=== PATIENT | male | born 1965 | race Caucasian/White ===

== ENCOUNTER 2020-06-26 16:29 | Outpatient (REF) | payer OTHER, SELFPAY ==
[2020-06-26 18:11] LABS: MANUAL DIFF FLAG NO
[2020-06-26 18:18] LABS: Basophils Absolute Auto 0.1 X10*3/uL (0.0-0.2); Basophils Percent Auto 0.8 % (0-2); Eosinophils Absolute Auto 0.2 X10*3/uL (0.0-0.4); Eosinophils Percent Auto 1.8 % (0-4); Hemoglobin 14.3 g/dl (14.0-18.0); Imm Gran Abs Auto 0.02 X10*3/uL (0.00-0.03); Imm Gran Pct Auto 0.2 % (0.0-0.4); Lymphocytes Absolute Auto 4.5 X10*3/uL (1.2-4.9); Lymphocytes Percent Auto 44.8 % (20-40); Mean Corpuscular HGB Conc 33.3 g/dl (31.0-36.0); Mean Corpuscular Hemoglobin 32.6 pg (27.0-33.0); Mean Corpuscular Volume 98.2 fL (80-98); Mean Platelet Volume 10.4 fL (9.4-12.4); Monocytes Absolute Auto 1.1 X10*3/uL (0.1-1.2); Neutrophils Absolute Auto 4.2 X10*3/uL (2.0-8.3); Neutrophils Percent Auto 41.4 % (45-73); Platelet Count 444 X10*3/uL (160-400); Red Blood Count 4.38 X10*6/uL (4.60-5.80); White Blood Count 10.1 X10*3/uL (4.8-10.8)
[2020-06-26 18:46] LABS: Alanine Aminotransferase 19 U/L (0-40); Albumin Level 4.3 g/dL (3.5-5.0); Alkaline Phosphatase 56 U/L (39-117); Anion Gap 12 (12-20); Aspartate Amino Transferase 16 U/L (5-37); Bilirubin Direct < 0.2 mg/dL (0.0-0.5); Bilirubin Total 0.3 mg/dL (0.0-1.0); Blood Urea Nitrogen 14 mg/dL (9-16); Calcium 9.1 mg/dL (8.4-10.2); Carbon Dioxide 28 mmol/L (22-29); Chloride 104 mmol/L (96-108); Estimated Glomerular Filt Rate > 60; Glucose Random 109 mg/dL (60-115); Magnesium 2.1 mg/dL (1.6-2.6); Potassium 4.5 mmol/l (3.3-5.1); Sodium 139 mmol/L (135-145); Total Protein 7.3 g/dL (6.5-8.0)
[2020-07-02 18:51] LABS: Chromogranin A 88 ng/mL (25-140)
== END 2020-06-26 16:30 | disposition home or self-care (01) ==
LOC: HO.LAB 16:29
PROVIDERS: Absent Provider Internal Medicine; PCP Internal Medicine; Referring Provider Internal Medicine; Visit Provider Student in an Organized Health Care Education/Training Program
DX: C25.4 Malignant neoplasm of endocrine pancreas (principal)
CPT/HCPCS: 36415; 80048; 80076; 83735; 85025; 86316

== ENCOUNTER 2020-08-18 09:45 | Outpatient (REF) | payer OTHER, SELFPAY ==
[2020-08-18 10:18] LABS: COVID-19 Test Negative (Negative)
== END 2020-08-18 09:46 | disposition home or self-care (01) ==
LOC: HO.EMPCOV 09:45
PROVIDERS: Referring Provider Internal Medicine; Visit Provider Internal Medicine
DX: Z20.828 Contact with and (suspected) exposure to other viral communicable diseases (principal)
CPT/HCPCS: 87635; C9803

== ENCOUNTER 2020-08-18 16:03 | Outpatient (REF) | payer OTHER, SELFPAY ==
[2020-08-18 17:13] LABS: MANUAL DIFF FLAG NO
[2020-08-18 17:18] LABS: Basophils Absolute Auto 0.1 X10*3/uL (0.0-0.2); Basophils Percent Auto 0.5 % (0-2); Eosinophils Absolute Auto 0.3 X10*3/uL (0.0-0.4); Eosinophils Percent Auto 2.9 % (0-4); Hemoglobin 15.1 g/dl (14.0-18.0); Imm Gran Abs Auto 0.04 X10*3/uL (0.00-0.03); Imm Gran Pct Auto 0.3 % (0.0-0.4); Lymphocytes Absolute Auto 4.3 X10*3/uL (1.2-4.9); Lymphocytes Percent Auto 35.8 % (20-40); Mean Corpuscular HGB Conc 33.6 g/dl (31.0-36.0); Mean Corpuscular Hemoglobin 32.1 pg (27.0-33.0); Mean Corpuscular Volume 95.5 fL (80-98); Mean Platelet Volume 9.6 fL (9.4-12.4); Monocytes Absolute Auto 1.2 X10*3/uL (0.1-1.2); Monocytes Percent Auto 10.3 % (2-11); Neutrophils Percent Auto 50.2 % (45-73); Platelet Count 454 X10*3/uL (160-400); Red Blood Count 4.71 X10*6/uL (4.60-5.80); Red Cell Distribution Width 13.1 % (11.0-16.0); White Blood Count 11.9 X10*3/uL (4.8-10.8)
[2020-08-18 17:57] LABS: Alanine Aminotransferase 22 U/L (0-40); Albumin Level 4.5 g/dL (3.5-5.0); Alkaline Phosphatase 58 U/L (39-117); Anion Gap 14 (12-20); Aspartate Amino Transferase 18 U/L (5-37); Bilirubin Total 0.6 mg/dL (0.0-1.0); Blood Urea Nitrogen 16 mg/dL (9-16); C Reactive Protein 0.86 mg/dL (< or = 0.50); Calcium 9.3 mg/dL (8.4-10.2); Carbon Dioxide 27 mmol/L (22-29); Chloride 104 mmol/L (96-108); Estimated Glomerular Filt Rate > 60; Glucose Random 91 mg/dL (60-115); Lipase 15 U/L (8-78); Potassium 4.8 mmol/l (3.3-5.1); Sodium 140 mmol/L (135-145); Total Protein 7.5 g/dL (6.5-8.0)
== END 2020-08-18 16:04 | disposition home or self-care (01) ==
LOC: HO.LAB 16:03
PROVIDERS: PCP Internal Medicine; Visit Provider Internal Medicine
DX: R19.7 Diarrhea, unspecified (principal); I10 Essential (primary) hypertension; R10.9 Unspecified abdominal pain
CPT/HCPCS: 36415; 80053; 83690; 85025; 86140

== ENCOUNTER 2020-10-20 09:09 | Outpatient (REF) | payer OTHER, SELFPAY ==
--- NOTE | 2020-10-20 09:22 | XR_ITS ---
EXAMINATION: XR SHOULDER, RIGHT CLINICAL INFORMATION: Pain. COMPARISON: None TECHNIQUE: AP neutral, scapular Y, and axillary views of the right shoulder. FINDINGS: The bones and soft tissues are normal. No fracture. Glenohumeral and acromioclavicular alignment is anatomic with normal joint space. No abnormal soft tissue calcifications. XR/XR shoulder RT min 2V IMPRESSION: Normal right shoulder. EXAMINATION: XR SHOULDER, LEFT CLINICAL INFORMATION: Pain. COMPARISON: None TECHNIQUE: AP neutral, scapular Y, and axillary views of the left shoulder. FINDINGS: The bones and soft tissues are normal. No fracture. Glenohumeral and acromioclavicular alignment is anatomic with normal joint space. No abnormal soft tissue calcifications. IMPRESSION: Normal left shoulder.
--- NOTE | 2020-10-20 09:22 | XR_ITS ---
EXAMINATION: XR SHOULDER, RIGHT CLINICAL INFORMATION: Pain. COMPARISON: None TECHNIQUE: AP neutral, scapular Y, and axillary views of the right shoulder. FINDINGS: The bones and soft tissues are normal. No fracture. Glenohumeral and acromioclavicular alignment is anatomic with normal joint space. No abnormal soft tissue calcifications. XR/XR shoulder LT min 2V IMPRESSION: Normal right shoulder. EXAMINATION: XR SHOULDER, LEFT CLINICAL INFORMATION: Pain. COMPARISON: None TECHNIQUE: AP neutral, scapular Y, and axillary views of the left shoulder. FINDINGS: The bones and soft tissues are normal. No fracture. Glenohumeral and acromioclavicular alignment is anatomic with normal joint space. No abnormal soft tissue calcifications. IMPRESSION: Normal left shoulder.
== END 2020-10-20 09:10 | disposition home or self-care (01) ==
LOC: HO.HOSX 09:09
PROVIDERS: PCP Internal Medicine; Visit Provider Orthopaedic Surgery
DX: M75.41 Impingement syndrome of right shoulder (principal); M75.42 Impingement syndrome of left shoulder
CPT/HCPCS: 20610; 73030; J1040

== ENCOUNTER 2020-11-24 14:07 | Outpatient (REF) | payer OTHER, SELFPAY ==
[2020-11-24 14:38] LABS: COVID-19 Test Negative (Negative); IDNOW Serial# 9DD0AD1C
== END 2020-11-24 14:08 | disposition home or self-care (01) ==
LOC: HO.LAB 14:07
PROVIDERS: PCP Internal Medicine; Visit Provider Internal Medicine
DX: Z20.822 Contact with and (suspected) exposure to COVID-19 (principal)
CPT/HCPCS: 36415; 87635

== ENCOUNTER 2020-12-25 08:58 | Outpatient (REF) | payer OTHER, SELFPAY ==
--- NOTE | ~2020-12-25 | CT_ITS ---
EXAMINATION: CT CHEST, ABDOMEN AND PELVIS WITH CONTRAST. CLINICAL INFORMATION: Pancreatic neuroendocrine tumor, surveillance. COMPARISON: CT chest, abdomen pelvis 12/25/2019 TECHNIQUE: 5 mm thin axial and reformatted 3 mm thin sagittal and coronal images of chest were obtained following 100 mL Omnipaque 350. DLP 09 FINDINGS: Chest: There is a patchy atelectasis in the lingula and left upper lobe. There is a 4 minute nodule in the right major fissure axial image 235/3, stable. A 2 mm calcified nodule is seen in the right upper lobe medially axial image 251/9, stable. A 2 mm noncalcified nodule right upper lobe anteriorly subpleural location image 224/3. No additional nodules or masses seen. There is no pleural effusion or thickening. No calcification. The thyroid lobes are symmetrical. The central trachea and the bronchi widely patent. The heart size and the great vessels are normal caliber. No abnormal size mediastinal or hilar lymph nodes seen. There is no pericardial effusion. The axilla and chest wall appears normal. Bone windows reveal no lytic or sclerotic process. There is mild ventral spondylosis mid and lower dorsal spine. ABDOMEN AND PELVIS: The liver is homogeneous in density but mildly attenuated. No focal lesion or intrahepatic ductal dilatation seen. The gallbladder is unremarkable. No common bile duct dilatation seen. Visualized bilateral adrenal glands are unremarkable. The spleen has been surgically removed. Mild of focal lung opacity in the left upper quadrant along the tail of pancreas and area of splenectomy likely postoperative change. The body and the tail of the pancreas has been surgically removed. There is soft tissue density connecting the head of the pancreas to the stomach likely postsurgical cyst, similar to previous previous study Both kidneys are are normal size, shape and position. There are punctate calcification in the mid upper pole left kidney. There is no hydronephrosis. Scattered stool and gas seen throughout the colon the small bowel loops are normal caliber. A small umbilical hernia containing fat is noted. Also visualized is a supraumbilical hernia with wide neck containing small bowel loops and intraperitoneal fat. It measures 4.7 cm wide. There is no free air or free fluid seen. The prostate gland is normal size. The right testes appears to be in the superficial inguinal ring region. Bone windows reveal no lytic or sclerotic process seen. Bone windows reveal mild facet joint disease L5-S1 disc level. No lytic or sclerotic process seen. CT/CT abdomen pelvis w con IMPRESSION: Stable small calcified and noncalcified nodules in the right upper lobe. No new nodules seen. Left upper lobe and lingular scarring is stable. Postsurgical changes along the body and the tail of pancreas. Soft tissue density around the head of pancreas in close approximation the posterior stomach likely postsurgical changes. There is stable. Fatty liver without hepatomegaly, stable. Small umbilical hernia and supraumbilical hernia are all stable.
[2020-12-25 10:58] LABS: Anion Gap 13 (12-20); Blood Urea Nitrogen 18 mg/dL (9-16); Calcium 9.1 mg/dL (8.4-10.2); Carbon Dioxide 28 mmol/L (22-29); Chloride 106 mmol/L (96-108); Estimated Glomerular Filt Rate > 60; Glucose Random 106 mg/dL (60-115); Potassium 4.8 mmol/L (3.3-5.1); Sodium 142 mmol/L (135-145)
== END 2020-12-25 08:59 | disposition home or self-care (01) ==
LOC: HO.CT 08:58
PROVIDERS: Absent Provider Internal Medicine; PCP Internal Medicine; Visit Provider Student in an Organized Health Care Education/Training Program
DX: D3A.8 Other benign neuroendocrine tumors (principal); Z01.812 Encounter for preprocedural laboratory examination
CPT/HCPCS: 36415; 71260; 74177; 80048; Q9967

== ENCOUNTER → 2021-03-16 09:33 | Outpatient (BNVA) | payer OTHER, SELFPAY | PROVIDERS: PCP Internal Medicine; Visit Provider Orthopaedic Surgery | DX: M75.42 Impingement syndrome of left shoulder (principal) | CPT/HCPCS: 20610; J1040 ==

== ENCOUNTER 2021-03-30 16:00 | Outpatient (RCR) | payer OTHER, SELFPAY ==
--- NOTE | 2020-12-30 15:33 | MHC.PT.EP ---
[facility] [place] Office [place] Office [place] Office [address] [place] [address] [phone] F: [phone] F: [phone] F: [phone] F: [phone] Physical Therapy Plan of Care Date of Evaluation: 12/30/20 Date of Surgery: NA Diagnosis: B SHLDER IMPINGEMENT Assessment: Pt IS 55 YO RHD M REFERRED TO PT FROM ORTHO (DR RIVERA) WITH B SHLDER IMPINGEMENT (L SIDE WORSE). Pt HAD SIMILAR ISSUE WITH R SHLDER IN PAST (10-15 YRS AGO) WITH RELIEF FROM CORTISONE INJECTION. RECENTLY RE-STARTED WORKING OUT WITH SOME INCREASE IN SHLDER PAIN. RELIEF AGAIN WITH CORTISONE INJECTIONS (ESPECIALLY ON R)..REPORTS SOME CONTINUED PAIN (ACHE) ON L SHLDER WHICH INCREASES WITH ABDUCTION. SHLDER ROM WFLS (SOME END RANGE TIGHTNESS) WITH PEC TIGHTNESS WITH SLIGHTLY LIMITED SHLDER STRENGTH (ABDUCTION ON R, ABD AND ER ON L) WITH PAIN WITH MMT. Pt CONTINUES TO WORK OUT 3X/WK. HE WORKS AT [employer] [facility] [place] [employer]. GOOD PT CANDIDATE FOR PEC STRETCHING/POSTURE WORK AND RC/SCAP STRENGTHENING Frequency and Duration: The patient will be seen 2X/WK X 6 WKS Short Term Goals: 1. I HEP WITH DC EX PLAN 2. 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 DECREASED SHLDER PAIN AT LEAST 50% WITH ADLS 2. NEG PAIN WITH SHLDER MMT 3. IMPROVED SPADI Treatment Plan: Modalities to reduce pain, spasms and effusion. Manual therapy to restore motion and function. Therapeutic exercise to improve strength and flexibility. Neuromuscular re-education for posture and balance. Therapeutic activities to return to functional activities of daily living. Electronically signed by: ABDULLAHI MCCLELLAN PT Please sign and return to therapist. Thank you for your referral.
--- NOTE | 2021-04-12 14:55 | MHC.PT.DC ---
[facility] [place] Office [place] Office [place] Office [address] [place] [address] [phone] F: [phone] F: [phone] F: [phone] F: [phone] Physical Therapy Discharge Report Diagnosis: B SHLDER IMPINGEMENT Date of Surgery: NA Date of Evaluation: 12/30/20 Date of Discharge: 03/30/21 Treatments to Date: 12 Cancellations to Date: No Shows to Date: Discharge Status: Achieved Goals Improved Function Independent with HEP Discharge Summary: PER LAST PT NOTE BY [facility]:Pt progressed w/gym program and bob dynamic ex's w/o px AND HAS MET PT GOALS Electronically signed by: ABDULLAHI MCCLELLAN PT Please sign and return to therapist. Thank you for your referral.
== END 2021-04-12 14:55 | disposition home or self-care (01) ==
LOC: HO.PT 16:00
PROVIDERS: PCP Internal Medicine; Visit Provider Orthopaedic Surgery
DX: M75.40 Impingement syndrome of unspecified shoulder (principal)
CPT/HCPCS: 97110; 97112; 97161; 97530; 97535

== ENCOUNTER 2021-05-10 13:16 | Outpatient (REF) | payer OTHER, SELFPAY ==
--- NOTE | ~2021-05-10 | FL_ITS ---
PROCEDURE: XR ARTHROGRAM SHOULDER, LEFT CLINICAL INFORMATION: Left shoulder impingement. COMPARISON: None TECHNIQUE: Following explaining fluoroscopy-guided left shoulder arthrogram procedure, benefits and risk, a written consent was obtained. Patient was placed supine on fluoroscopy table and anterior aspect of left shoulder was cleaned and draped in the usual sterile manner. 1% lidocaine was injected at puncture site. A 22-gauge spinal needle was then advanced from the skin into the joint space and 1-2 mL of nonionic contrast was injected and a single image was obtained. Subsequently 0.1 mL of gadolinium diluted with 4 mL of 1% lidocaine and 6 mL of saline as a combo was injected and needle withdrawn. Complete hemostasis achieved at puncture site. Sterile Band-Aid applied postprocedure. Patient tolerate procedure extremely well. FINDINGS: On left shoulder arthrogram images of the glenohumeral and AC joint space is maintained normal. No bony erosive changes or loose body seen. There is no fracture or dislocation. FLUOROSCOPY TIME: 1.1 minute. DOSE AREA PRODUCT: 4.775 uGy-m2 (microgray-meter squared). FL/FL arthrogram shoulder LT IMPRESSION: Fluoroscopy-guided left shoulder arthrogram performed without immediate complications.
--- NOTE | ~2021-05-10 | MR_ITS ---
EXAMINATION: MR SHOULDER WITH CONTRAST, LEFT CLINICAL INFORMATION: Impingement syndrome of left shoulder. Patient reports previous shoulder spur and impingement, range of motion limited, and no recent injury. COMPARISON: XR left shoulder 10/20/2020. TECHNIQUE: MRI of the shoulder was performed following the intra-articular administration of a dilute gadolinium-containing solution (arthrogram) on a high-field scanner. FINDINGS: ROTATOR CUFF: There are patchy and linear areas of intermediate slightly increased T2 signal intensity in the distal supraspinatus and infraspinatus tendons consistent with tendinosis. There are no definite discrete measurable tears, although small interstitial tears may be difficult to entirely exclude. There is moderate increased signal intensity in the distal 21 mm of the subscapularis tendon, particularly along the articular side. This may be related to the injection procedure or moderate tendinosis. This includes a small probable interstitial insertional tear measuring 5 mm transverse. This is difficult to discretely identify and measure on the orthogonal images. The teres minor tendon is intact. There is trace edema/fluid in the subacromial-subdeltoid bursa. No muscle atrophy or fatty infiltration. BICEPS: Normal. CORACOACROMIAL ARCH: The undersurface of the acromion is curved with no subacromial spur. There is mild osteoarthritis of the acromioclavicular joint. LABRUM/CAPSULE: There is an irregular tear of the anteroinferior labrum. The posterior and superior labrum are intact. GLENOHUMERAL JOINT/MARROW: There is patchy mild cartilage irregularity and thinning in the medial humeral head and superior glenoid. MR/MR shoulder LT w con IMPRESSION: 1. Distal supraspinatus and infraspinatus tendinosis. No definite discrete measurable tears. 2. Probable moderate distal subscapularis tendinosis although some of the signal abnormality could be related to the injection procedure. Probable interstitial insertional tear of the distal subscapularis tendon. 3. Mild osteoarthritis of the acromioclavicular joint. 4. Anteroinferior labral tear. 5. Mild glenohumeral arthrosis.
== END 2021-05-10 13:17 | disposition home or self-care (01) ==
LOC: HO.XRAY 13:16
PROVIDERS: PCP Internal Medicine; Visit Provider Orthopaedic Surgery
DX: M75.42 Impingement syndrome of left shoulder (principal)
CPT/HCPCS: 23350; 73040; 73222; A9585

== ENCOUNTER → 2021-06-14 08:01 | Outpatient (BNVA) | payer OTHER, SELFPAY | PROVIDERS: PCP Internal Medicine; Visit Provider Orthopaedic Surgery ==

== ENCOUNTER 2022-01-04 17:28 | Outpatient (REF) | payer OTHER, SELFPAY ==
[2022-01-04 17:45] LABS: MANUAL DIFF FLAG NO
[2022-01-04 17:51] LABS: Basophils Absolute Auto 0.1 X10*3/uL (0.0-0.2); Basophils Percent Auto 0.7 % (0-2); Eosinophils Absolute Auto 0.1 X10*3/uL (0.0-0.4); Eosinophils Percent Auto 1.5 % (0-4); Hematocrit 44.8 % (42.0-52.0); Hemoglobin 15.1 g/dl (14.0-18.0); Imm Gran Abs Auto 0.03 X10*3/uL (0.00-0.03); Imm Gran Pct Auto 0.4 % (0.0-0.4); Lymphocytes Absolute Auto 3.4 X10*3/uL (1.2-4.9); Mean Corpuscular HGB Conc 33.7 g/dl (31.0-36.0); Mean Corpuscular Hemoglobin 31.8 pg (27.0-33.0); Mean Corpuscular Volume 94.3 fL (80.0-98.0); Mean Platelet Volume 9.6 fL (9.4-12.4); Monocytes Absolute Auto 0.9 X10*3/uL (0.1-1.2); Monocytes Percent Auto 10.9 % (2-11); Neutrophils Absolute Auto 3.7 x10*3/uL (2.0-8.3); Neutrophils Percent Auto 45.5 % (45-73); Platelet Count 425 X10*3/uL (160-400); Red Blood Count 4.75 X10*6/uL (4.60-5.80); Red Cell Distribution Width 13.8 % (11.0-16.0); White Blood Count 8.2 X10*3/uL (4.8-10.8)
[2022-01-04 18:06] LABS: Alanine Aminotransferase 20 U/L (0-40); Albumin Level 4.6 g/dL (3.5-5.0); Alkaline Phosphatase 53 U/L (39-117); Anion Gap 15 (12-20); Aspartate Amino Transferase 19 U/L (5-37); Bilirubin Total 0.5 mg/dL (0.0-1.0); Blood Urea Nitrogen 17 mg/dL (9-16); Calcium 10.1 mg/dL (8.4-10.2); Carbon Dioxide 24 mmol/L (22-29); Chloride 104 mmol/L (96-108); Estimated Glomerular Filt Rate > 60; Glucose Random 109 mg/dL (60-115); Magnesium 2.1 mg/dL (1.6-2.6); Potassium 4.2 mmol/L (3.3-5.1); Sodium 139 mmol/L (135-145); Total Protein 7.8 g/dL (6.5-8.0)
[2022-01-04 18:26] LABS: Insulin 13 uU/mL (2-29)
[2022-01-09 16:56] LABS: Chromogranin A 592 ng/mL (ADULTS: <311)
== END 2022-01-04 17:29 | disposition home or self-care (01) ==
LOC: HO.LAB 17:28
PROVIDERS: PCP Internal Medicine; Referring Provider Internal Medicine; Visit Provider Student in an Organized Health Care Education/Training Program
DX: K86.89 Other specified diseases of pancreas (principal)
CPT/HCPCS: 36415; 80053; 83525; 83735; 85025; 86316

== ENCOUNTER 2022-01-05 11:45 | Outpatient (REF) | payer OTHER, SELFPAY ==
--- NOTE | ~2022-01-05 | CT_ITS ---
EXAMINATION: CT CHEST, ABDOMEN AND PELVIS WITH CONTRAST CLINICAL INFORMATION: History of pancreatic neuroendocrine tumor. COMPARISON: 12/25/2020 TECHNIQUE: Multidetector volumetric CT imaging of the chest, abdomen, and pelvis was performed after the administration of 85 mL of Omnipaque 350 intravenous contrast without immediate adverse reactions. Axial MIP volume rendering provided. Sagittal and coronal reformatted images were obtained. DLP: 1209 mGy-cm. FINDINGS: CHEST: LUNGS: Stable 4 mm nodule right lower lobe on image 39. No focal consolidation. Central airways are patent. MEDIASTINUM: Imaged thyroid gland is unremarkable. Great vessels are of normal caliber. Heart size is normal. No pericardial effusion. No bulky axillary, hilar or mediastinal lymphadenopathy. PLEURA: No pleural effusion. ABDOMEN AND PELVIS: LIVER, GALLBLADDER, AND BILIARY TREE: The liver is normal in size, shape, and attenuation. No focal hepatic lesion or biliary ductal dilatation is present. The gallbladder is unremarkable with no evidence of radiopaque gallstones, gallbladder wall thickening, or obvious pericholecystic inflammatory changes. PANCREAS: Status post distal pancreatectomy. Solid soft tissue arising from the body of the pancreas measuring approximately 3.4 x 5.4 cm appears stable. This mass appears to invade the distal stomach/duodenal bulb with possible fistulous communication. No dilatation of the main pancreatic duct. SPLEEN: Surgically absent. Persistent probable fat necrosis in the left upper quadrant. ADRENAL GLANDS: No adrenal masses. KIDNEYS AND URETERS: Symmetric in size and enhancement. No hydronephrosis. There is focal dilatation of the right distal ureter which measures 1.9 x 2.4 cm at the pelvic brim. BLADDER: Underdistended. GASTROINTESTINAL TRACT: Diffuse gastric wall thickening despite underdistention. No small bowel obstruction. Appendix is within normal limits. ABDOMINAL WALL: Fat-containing left inguinal hernia. Ventral hernia containing fat measuring 1.9 cm. Ventral hernia containing fat and small bowel measuring 6.9 cm. LYMPH NODES: Scattered subcentimeter retroperitoneal and mesenteric lymph nodes. Soft tissue nodule in the left upper quadrant measures 1.5 cm and is concerning for metastatic disease. VASCULAR: Normal caliber abdominal aorta. PELVIC VISCERA: The prostate gland and seminal vesicles are unremarkable. OSSEOUS STRUCTURES: No destructive bone lesions. CT/CT abdomen pelvis w con IMPRESSION: Solid soft tissue density arising from the body of the pancreas appears to invade the distal stomach/duodenal bulb with possible fistulous communication. Diffuse gastric wall thickening despite underdistention. 1.5 cm nodule in the left upper quadrant likely represents metastatic disease.
[2022-01-05] MEDS: iohexoL 350 MG/ML 100 ML INFUS..BTL IV (13:10)
== END 2022-01-05 11:46 | disposition home or self-care (01) ==
LOC: HO.CT 11:45
PROVIDERS: PCP Internal Medicine; Visit Provider Student in an Organized Health Care Education/Training Program
DX: K86.89 Other specified diseases of pancreas (principal)
CPT/HCPCS: 71260; 74177; Q9967

== ENCOUNTER 2022-04-27 11:01 | Outpatient (REF) | payer OTHER, SELFPAY ==
[2022-04-27 11:47] LABS: MANUAL DIFF FLAG NO
[2022-04-27 13:33] LABS: Basophils Absolute Auto 0.1 X10*3/uL (0.0-0.2); Basophils Percent Auto 0.6 % (0-2); Eosinophils Absolute Auto 0.1 X10*3/uL (0.0-0.4); Eosinophils Percent Auto 0.8 % (0-4); Hematocrit 43.1 % (42.0-52.0); Hemoglobin 14.7 g/dl (14.0-18.0); Imm Gran Abs Auto 0.06 X10*3/uL (0.00-0.03); Imm Gran Pct Auto 0.6 % (0.0-0.4); Lymphocytes Absolute Auto 3.3 X10*3/uL (1.2-4.9); Lymphocytes Percent Auto 34.1 % (20-40); Mean Corpuscular HGB Conc 34.1 g/dl (31.0-36.0); Mean Corpuscular Hemoglobin 32.3 pg (27.0-33.0); Mean Corpuscular Volume 94.7 fL (80.0-98.0); Mean Platelet Volume 10.4 fL (9.4-12.4); Monocytes Percent Auto 10.1 % (2-11); Neutrophils Absolute Auto 5.3 x10*3/uL (2.0-8.3); Neutrophils Percent Auto 53.8 % (45-73); Platelet Count 415 X10*3/uL (160-400); Red Blood Count 4.55 X10*6/uL (4.60-5.80); Red Cell Distribution Width 13.4 % (11.0-16.0); White Blood Count 9.8 X10*3/uL (4.8-10.8)
[2022-04-27 14:11] LABS: Alanine Aminotransferase 23 U/L (0-40); Albumin Level 4.4 g/dL (3.5-5.0); Alkaline Phosphatase 55 U/L (39-117); Anion Gap 16 (12-20); Aspartate Amino Transferase 18 U/L (5-37); Bilirubin Total 0.3 mg/dL (0.0-1.0); Blood Urea Nitrogen 21 mg/dL (9-16); Calcium 9.4 mg/dL (8.4-10.2); Carbon Dioxide 25 mmol/L (22-29); Chloride 103 mmol/L (96-108); Estimated Glomerular Filt Rate > 60; Glucose Random 99 mg/dL (60-115); Potassium 4.6 mmol/L (3.3-5.1); Sodium 139 mmol/L (135-145); Total Protein 7.6 g/dL (6.5-8.0)
[2022-05-05 12:52] LABS: Chromogranin A 1325 ng/mL (ADULTS: <311)
== END 2022-04-27 11:02 | disposition home or self-care (01) ==
LOC: HO.LAB 11:01
PROVIDERS: PCP Internal Medicine; Visit Provider Internal Medicine
DX: Z20.822 Contact with and (suspected) exposure to COVID-19 (principal); C7A.8 Other malignant neuroendocrine tumors
CPT/HCPCS: 36415; 80053; 85025; 86316

== ENCOUNTER 2023-01-03 15:28 | Outpatient (REF) | payer OTHER, SELFPAY ==
[2023-01-03 15:58] LABS: MANUAL DIFF FLAG NO
[2023-01-03 16:20] LABS: Basophils Absolute Auto 0.1 X10*3/uL (0.0-0.2); Basophils Percent Auto 0.7 % (0-2); Eosinophils Absolute Auto 0.2 X10*3/uL (0.0-0.4); Eosinophils Percent Auto 1.4 % (0-4); Hematocrit 44.1 % (42.0-52.0); Hemoglobin 14.7 g/dl (14.0-18.0); Imm Gran Abs Auto 0.07 X10*3/uL (0.00-0.03); Imm Gran Pct Auto 0.6 % (0.0-0.4); Lymphocytes Absolute Auto 3.7 X10*3/uL (1.2-4.9); Lymphocytes Percent Auto 33.8 % (20-40); Mean Corpuscular HGB Conc 33.3 g/dl (31.0-36.0); Mean Corpuscular Hemoglobin 31.5 pg (27.0-33.0); Mean Corpuscular Volume 94.6 fL (80.0-98.0); Mean Platelet Volume 9.8 fL (9.4-12.4); Monocytes Percent Auto 9.6 % (2-11); Neutrophils Absolute Auto 5.8 x10*3/uL (2.0-8.3); Neutrophils Percent Auto 53.9 % (45-73); Platelet Count 427 X10*3/uL (160-400); Red Blood Count 4.66 X10*6/uL (4.60-5.80); Red Cell Distribution Width 13.4 % (11.0-16.0); White Blood Count 10.8 X10*3/uL (4.8-10.8)
[2023-01-03 17:19] LABS: Alanine Aminotransferase 20 U/L (0-40); Albumin Level 4.3 g/dL (3.5-5.0); Alkaline Phosphatase 54 U/L (39-117); Anion Gap 13 (12-20); Aspartate Amino Transferase 15 U/L (5-37); Bilirubin Direct 0.2 mg/dL (0.0-0.5); Bilirubin Total 0.6 mg/dL (0.0-1.0); Blood Urea Nitrogen 17 mg/dL (9-16); Calcium 9.5 mg/dL (8.4-10.2); Carbon Dioxide 27 mmol/L (22-29); Chloride 107 mmol/L (96-108); Estimated Glomerular Filt Rate > 60; Glucose Random 101 mg/dL (60-115); Potassium 4.5 mmol/L (3.3-5.1); Sodium 142 mmol/L (135-145); Total Protein 7.1 g/dL (6.5-8.0)
[2023-01-09 15:08] LABS: Chromogranin A 2548 ng/mL (ADULTS: <311)
== END 2023-01-03 15:29 | disposition home or self-care (01) ==
LOC: HO.LAB 15:28
PROVIDERS: PCP Internal Medicine; Referring Provider Internal Medicine; Visit Provider Student in an Organized Health Care Education/Training Program
DX: C7A.8 Other malignant neuroendocrine tumors (principal)
CPT/HCPCS: 36415; 80048; 80076; 83735; 85025; 86316

== ENCOUNTER 2023-01-04 13:23 | Outpatient (REF) | payer OTHER, SELFPAY ==
--- NOTE | ~2023-01-04 | CT_ITS ---
EXAMINATION: CT CHEST, ABDOMEN AND PELVIS WITH CONTRAST CLINICAL INFORMATION: Primary pancreatic neuroendocrine tumor. COMPARISON: 01/05/2022. TECHNIQUE: Multidetector volumetric imaging was performed from the thoracic inlet through the pubic symphysis following administration of oral and intravenous contrast of 85 mL of Omnipaque 350 intravenous contrast. Sagittal and coronal reformatted images were obtained on the technologist workstation. This CT examination was performed using dose optimization techniques as appropriate, variously including the following: *Automated exposure control *Adjustment of mA and/or kV according to patient size (this includes techniques or standardized protocols for targeted exams where dose is matched to indication/reason for exam; i.e. extremities or head) *Use of iterative reconstruction technique DLP: 1492 mGy-cm. FINDINGS: CHEST: LUNGS: Central airways are patent. No evidence of bronchiectasis. No significant emphysematous change appreciated. No confluent parenchymal disease is noted. Calcified granuloma are present. Multiple sub-4 mm densities are present. There is a 4 mm noncalcified nodule seen within the right lower lobe adjacent to the major fissure. This is stable. MEDIASTINUM: The thyroid gland appears unremarkable. Heart normal size. No coronary artery calcification appreciated. No pericardial effusion. The ascending thoracic aorta is enlarged measuring up to 4.4 cm in diameter. No thoracic aortic dissection. Visualized aortic arch vessels are unremarkable. No mediastinal, hilar, or internal mammary lymphadenopathy appreciated. PLEURA: There is no significant effusion. No pleural mass or thickening. CHEST WALL/AXILLA: Unremarkable. ABDOMEN/PELVIS: LIVER, GALLBLADDER, BILIARY TREE: The liver is normal in size, shape, and attenuation. No focal hepatic lesion or biliary ductal dilatation is present. The gallbladder is unremarkable with no evidence of radiopaque gallstones, gallbladder wall thickening, or pericholecystic inflammatory changes. PANCREAS: Patient is status post splenectomy and distal pancreatectomy. The pancreatic body mass measures approximately 6.1 x 2.8 x 2.6 cm in size and is seen to be directly adjacent without fat plane with the portal vein as well as possibly encasing the distal antrum and pylorus with narrowing of the pylorus and first portion of the duodenum. SPLEEN: Status post splenectomy. ADRENAL GLANDS: Unremarkable. KIDNEYS AND URETERS: RIGHT KIDNEY: No hydronephrosis, renal calculi, or focal masses appreciated. There is dilatation of the midportion of the right ureter to a maximum diameter of 2.4 x 2.1 cm in size. This is similar to previous study of 01/05/2022. No obstructing ureteral calculi are appreciated. There appears to be a small kink at level of transition between the mid dilated ureter and the more distal normal diameter ureter. A distal ureteral stenosis cannot be excluded; however, there is no hydronephrosis present. LEFT KIDNEY: There is a 5 mm low-density lesion seen in the posterior medial interpolar cortex, likely representing a cyst or angiomyolipoma. No hydronephrosis or calculi are appreciated. Left ureter appears unremarkable. BLADDER: Unremarkable. GASTROINTESTINAL TRACT: No dilated loops of large or small bowel are evident. No free air or free fluid is seen. There is apparent invasion of the posterior gastric wall and encasement of the proximal duodenum. No pericolonic inflammatory change. The appendix is visualized and appears unremarkable. There is a 1.3 cm soft tissue density seen about the left upper quadrant at the level of the greater curvature of the stomach. Whether this represents abnormal mass or small accessory spleen I cannot tell. ABDOMINAL WALL: There is a midline supraumbilical hernia present containing loop of small bowel with defect width measuring 6 cm in diameter. There is no evidence of bowel strangulation. Just superior to this there is a fat-containing hernia with defect within the wall of 1.2 cm. LYMPH NODES: No lymphadenopathy appreciated. VASCULAR: Unremarkable. PELVIC VISCERA: There appear to be bilateral hydroceles present. OSSEOUS STRUCTURES: No destructive bony abnormalities appreciated. CT/CT abdomen pelvis w IV con IMPRESSION: 1. No significant change in pancreatic mass which appears to be invading the distal gastric wall posteriorly and the duodenal bulb without significant change from previous study of 01/05/2022. 2. Stable 1.3 cm soft tissue nodule in the left upper quadrant, which may represent metastatic focus versus possible accessory spleen. 3. Old granulomatous disease. 4. Ascending thoracic aortic aneurysm. 5. Anterior abdominal wall hernias.
[2023-01-04] MEDS: iohexoL 350 MG/ML 100 ML INFUS..BTL IV (15:47)
[2023-01-04] MEDS: Barium Sulfate Oral (Berry) 450 ML ORAL.SUSP 900 ML PO (15:57)
== END 2023-01-04 13:24 | disposition home or self-care (01) ==
LOC: HO.CT 13:23
PROVIDERS: PCP Internal Medicine; Visit Provider Student in an Organized Health Care Education/Training Program
DX: D3A.8 Other benign neuroendocrine tumors (principal)
CPT/HCPCS: 71260; 74177; Q9967

== ENCOUNTER → 2023-02-16 15:30 | Outpatient (REF) | payer OTHER, SELFPAY ==
--- NOTE | 2023-02-16 15:38 | CA_ITS ---
Transthoracic Echocardiogram Patient (Last, First, Middle): Vasile Quintana, Gender: Male Date of : 1965 Age: 58 Procedure Date: 02/16/2023 Procedure Type: Transthoracic Echocardiogram Location: OP Height: 175.26 cm Weight: 127.01 kg BSA: 2.38 m2 Heart Rate: 73 bpm BP: 124 / 92 mmHg Refurbish Technician: ARIA Referring MD: Jose Manuel Ballesteros MD Bead Builder: Damien Sheldon MD Symptoms: I71.9 AORTIC ANEURYSM W/O RUPTURE Study Quality: Adequate w contrast ECG Rhythm: Sinus Conclusions: - 1. Normal LV systolic function with LVEF of 65-70% with upper limits of normal LV wall thickness 2. Normal cardiac valvular Doppler 3. Mildly to moderately dilated ascending aorta at 4.4 cm 4. Normal RV systolic pressure 5. No gross pericardial effusion Findings Procedure Information Contrast agent, definity, is being given per protocol without apparent complications. Left Ventricle Normal left ventricular size, thickness, and systolic function. The visually estimated ejection fraction is between 65-70%. Spectral Doppler is indicative of a normal filling pattern. Right Ventricle Normal right ventricular cavity size and systolic function. Atria The left atrium is likely dilated. Interatrial shunt cannot be excluded. The right atrium is normal in size. Aortic Valve The aortic valve structure and function is likely normal. There is mild calcification of the aortic valve. There is no aortic valve stenosis. There is no aortic valve regurgitation. Mitral Valve Normal mitral valve structure and function. There is no mitral valve regurgitation. There is no mitral valve stenosis. Pulmonic Valve The pulmonic valve was not well visualized. Tricuspid Valve Likely normal tricuspid valve structure and function. There is trace tricuspid valve regurgitation. Normal right atrial pressure. There is no evidence of pulmonary hypertension. Great Vessels The pulmonary artery was not well visualized. Venous The inferior vena cava is normal in size and collapses greater than 50% with inspiration. Prior Study Comparison No prior study available for comparison. Measurements 2D Linear Measurements IVSd: 1.11 0.6-0.9/0.6-1.0 cm LVIDd: 4.54 3.9-5.3/4.2-5.9 cm LVIDd Index: 1.91 2.4-3.2/2.2-3.1 cm/m2 LVIDs: 2.86 2.0-3.6 cm LVPWd: 1.12 0.7-1.1 cm LA Diam: 4.00 2.7-3.8/3.0-4.0 cm LAIDs Index: 1.68 1.5-2.3 cm/m2 LV Mass: 225.38 67-162/88-224 g LV Mass Index: 94.70 43-95/49-115 g/m2 LVOT Diam: 2.00 3.0+(-)1.3 cm 2D Systolic Function EF 4C: 66.90 >55% EF 2C: 68.70 >55% EF BiP: 67.90 >55% Mitral Valve MV Pk E: 0.62 MV PK A: 0.54 MV Decel Time: 254.00 E/A: 1.10 E'Lateral: 10.60 E'Medial: 8.70 E/E' Med: 7.10 E/E' Lat: 5.80 PHT: 75.00 MVA PHT: 2.93 Decel Whitfield: 2.42 Aortic Valve AoV Pk Dave: 1.45 AoV Mn Dave: 1.01 AoV VTI: 0.28 AoV Pk Grad: 8.00 Aov Mn Grad: 5.00 ANTELMO Cont.VTI: 2.92 LVOT LVOT Pk Dave: 1.28 LVOT Mn Dave: 0.88 LVOT VTI: 0.26 LVOT Pk Grad: 7.00 LVOT Mn Grad: 4.00 LVOT Diam: 2.00 LVOT Area: 3.14 Diastolic Function MV Pk E: 0.62 MV Pk A: 0.54 E/A: 1.10 E'Medial: 8.70 E/E' Med: 7.10 E' Laterial: 10.60 E/E' Lat: 5.80 Right Ventricle TAPSE (mm): 27.60 TVS' Dave: 16.20 Tricuspid Valve TR Pk Dave: 1.93 TR Pk Grad: 15.00 RA Press: 8.00 RVSP: 23.00 Great Vessels Aorta Sinus of Valsalva: 3.50 2.0-3.[address] [place]: 2.66 1.7-3.4 cm Ao Asc: 4.40 2.1-3.4 cm Updated in Other Vendor System with Status of Final Damien Sheldon MD electronically signed on 02/18/2023 8:39:56 AM with status of Final
== END ==
LOC: HO.CARD 15:30
PROVIDERS: PCP Internal Medicine; Visit Provider Internal Medicine
DX: I71.9 Aortic aneurysm of unspecified site, without rupture (principal)
CPT/HCPCS: 93306; Q9957

== ENCOUNTER → 2023-03-15 13:40 | Outpatient (BNVA) | payer OTHER, SELFPAY | PROVIDERS: PCP Internal Medicine; Visit Provider Internal Medicine Cardiovascular Disease | DX: I10 Essential (primary) hypertension (principal); I71.21 Aneurysm of the ascending aorta, without rupture | CPT/HCPCS: 93005 ==

== ENCOUNTER 2023-04-08 10:26 | Outpatient (REF) | payer OTHER, SELFPAY ==
[2023-04-08 11:10] LABS: Cholesterol 212 mg/dL; HDL Cholesterol 43 mg/dL; LDL Cholesterol Calculated 122 mg/dl; Triglycerides 238 mg/dL
[2023-04-12 18:28] LABS: CRP High Sensitivity 2.6 mg/L
== END 2023-04-08 10:27 | disposition home or self-care (01) ==
LOC: HO.LAB 10:26
PROVIDERS: PCP Internal Medicine; Visit Provider Internal Medicine Cardiovascular Disease
DX: I71.21 Aneurysm of the ascending aorta, without rupture (principal); E78.5 Hyperlipidemia, unspecified
CPT/HCPCS: 36415; 80061; 86141

== ENCOUNTER 2023-06-21 13:22 | Outpatient (AMB) | payer OTHER, SELFPAY ==
--- NOTE | 2023-06-21 13:23 | MHC.OFFVIS ---
Intake Vital Signs 06/21/23 13:33 Height 5 ft 9 in Weight 276 lb BMI 40.8 BP 139/78 Blood Pressure Location Lt brachial Position Sitting Pulse 86 Intake Visit Reasons: Hernia Intake Note: Patient is seen in office for evaluation and treatment of an umbilical hernia. 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 He recovered well from the procedure which was complicated only by an ileus. He now presents for evaluation of a lump located above the umbilicus which increases in size with lifting and straining but does reduce when lying in bed. He denies any pain associated with lump but feels the lump is gradually increasing in size. A CT abdomen and pelvis obtained from December 2022 confirms a large incisional hernia from the previous port site in the midline just above the umbilicus. He presents today to discuss repair of this incisional hernia. He denies nausea, vomiting, fever, chills, diarrhea or constipation. [facility] Medical History Primary pancreatic neuroendocrine tumor Hypercholesteremia Hypertension Surgical History Personal history of (corrected) hypospadias History of pancreatectomy Family History Mother Breast cancer Father Diabetes Social History Household Members: Family Housing: House Are you a primary care trainer to a significant other at home: No Do you presently have visiting nurse or other home services: No Alcohol intake: current Alcohol intake frequency: holidays/special occasions only Patient Tobacco Use Status: Never used Tobacco service: No 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al status: employed 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 Review of Systems Const All systems reviewed & are unremarkable except as noted in HPI and below Denies chills, Denies fever(s), Denies headache(s), Denies poor appetite and Denies weakness ENT Denies headache(s) Card Denies chest pain, Denies irregular heart rhythm, Denies palpitations and Denies dyspnea Resp Denies cough, Denies excessive phlegm production and Denies dyspnea GI Denies abdominal pain, Denies bloating, Denies change in bowel habits, Denies constipation, Denies heartburn, Denies diarrhea, Denies nausea and Denies vomiting Denies difficulty urinating and Denies urinary frequency Musc Denies back pain, Denies muscle weakness and Denies numbness Skin/Breast Denies changing lesions and Denies unusual bruising Neuro Denies headache(s), Denies numbness, Denies paresthesias and Denies weakness Psych Denies anxiety and Denies depression Endo Denies palpitations Jesús/Lymph Denies lymphadenopathy Physical Exam Const General: cooperative and no acute distress Nutritional Appearance: well nourished Orientation/consciousness: patient oriented x3 Limitations: no limitations HEENT Head: Yes normocephalic and Yes atraumatic Ears: hearing grossly normal bilaterally Resp Effort & Inspection: normal respiratory effort, no audible wheezes, no cough and no respiratory distress Cardio Jugular venous distension: no JVD GI Inspection: Yes normal to inspection Palpation (GI): Soft to palpation, nontender, no guarding, not rigid and Hernia present other (Incisional hernia located above the umbilicus measuring approximately 6 cm in diameter, reducible, nontender to palpation) Percussion: Yes normal to percussion Auscultation: normal bowel sounds Rectal Exam - Male: Yes deferred Skin Other: Warm, dry, no rash Neuro General: patient oriented x3 Extrem General: Yes no clubbing, cyanosis or edema Assessment & Plan Assessment & Plan (1) Incisional hernia, without obstruction or gangrene: Code(s): K43.2 - Incisional hernia without obstruction or gangrene Plan 58-year-old male patient presenting with an incisional hernia following pancreatic search. On examination there is a reducible 6 cm incisional hernia located just above the umbilicus which is nontender to palpation. I recommended an elective repair of this incisional hernia with mesh. After discussion of the procedure, risks, and alternatives, he consents to repair of the incisional hernia with mesh. This will be scheduled at his convenience as a short-stay surgery. Coding Level of Care Code New Pt Level 4 (46109) Diagnoses Incisional hernia, without obstruction or gangrene K43.2
[2023-06-21 13:33] VITALS: BP 139/78; PULSE 86; BMI 40.8
== END 2023-06-21 14:27 | disposition home or self-care (01) ==
PROVIDERS: PCP Internal Medicine; Visit Provider Surgery
DX: K43.2 Incisional hernia without obstruction or gangrene (principal)
CPT/HCPCS: 99204

== ENCOUNTER → 2023-06-21 13:22 | Outpatient (BNVA) | payer OTHER, SELFPAY | PROVIDERS: PCP Internal Medicine; Visit Provider Surgery ==

== ENCOUNTER → 2023-07-20 16:09 | Outpatient (REF) | payer OTHER, SELFPAY | LOC: HO.SL 16:09 | PROVIDERS: PCP Internal Medicine; Visit Provider Internal Medicine | DX: G47.33 Obstructive sleep apnea (adult) (pediatric) (principal); R06.83 Snoring | CPT/HCPCS: 95806 ==

== ENCOUNTER → 2023-07-20 19:00 | Outpatient (BNV) | payer OTHER, SELFPAY | PROVIDERS: PCP Internal Medicine; Visit Provider Internal Medicine | DX: G47.33 Obstructive sleep apnea (adult) (pediatric) (principal) | CPT/HCPCS: 95806 ==

== ENCOUNTER 2023-08-08 07:04 | Outpatient (REF) | payer OTHER, SELFPAY ==
[2023-08-08 07:26] LABS: MANUAL DIFF FLAG NO
[2023-08-08 07:35] LABS: Basophils Absolute Auto 0.1 X10*3/uL (0.0-0.2); Basophils Percent Auto 0.8 % (0-2); Eosinophils Absolute Auto 0.1 X10*3/uL (0.0-0.4); Eosinophils Percent Auto 1.3 % (0-4); Hematocrit 46.3 % (42.0-52.0); Hemoglobin 15.3 g/dl (14.0-18.0); Imm Gran Abs Auto 0.03 X10*3/uL (0.00-0.03); Imm Gran Pct Auto 0.3 % (0.0-0.4); Lymphocytes Absolute Auto 3.5 X10*3/uL (1.2-4.9); Lymphocytes Percent Auto 33.4 % (20-40); Mean Corpuscular Hemoglobin 31.7 pg (27.0-33.0); Mean Corpuscular Volume 96.1 fL (80.0-98.0); Monocytes Absolute Auto 1.2 X10*3/uL (0.1-1.2); Monocytes Percent Auto 11.5 % (2-11); Neutrophils Absolute Auto 5.6 x10*3/uL (2.0-8.3); Neutrophils Percent Auto 52.7 % (45-73); Platelet Count 370 X10*3/uL (160-400); Red Blood Count 4.82 X10*6/uL (4.60-5.80); Red Cell Distribution Width 13.4 % (11.0-16.0); White Blood Count 10.6 X10*3/uL (4.8-10.8)
[2023-08-08 07:49] LABS: Alanine Aminotransferase 21 U/L (0-40); Albumin Level 4.4 g/dL (3.5-5.0); Alkaline Phosphatase 51 U/L (39-117); Anion Gap 9 (12-20); Aspartate Amino Transferase 16 U/L (5-37); Bilirubin Total 0.7 mg/dL (0.0-1.0); Blood Urea Nitrogen 16 mg/dL (9-16); Calcium 9.4 mg/dL (8.4-10.2); Carbon Dioxide 29 mmol/L (22-29); Chloride 107 mmol/L (96-108); Cholesterol 174 mg/dL (<200); Estimated Glomerular Filt Rate > 60; Glucose Fasting 122 mg/dL (60-99); HDL Cholesterol 40 mg/dL (>40); LDL Cholesterol Calculated 89 mg/dL (<100); Sodium 141 mmol/L (135-145); Total Protein 7.7 g/dL (6.5-8.0); Triglycerides 227 mg/dL (<150)
[2023-08-08 08:07] LABS: Prostate Specific Antigen 2.38 ng/mL (<0.05-4.0)
[2023-08-08 08:44] LABS: Appearance Urine Clear; Color Urine Yellow; Glucose Urine UA Negative (Negative); Leukocyte Esterase Urine Negative (Negative); Nitrite Urine Negative (Negative); Specific Gravity - Urine 1.025 (1.005-1.025); UMIC TRIGGER UA YES; Urine Blood Small (1+) (Negative); Urine Ketones Negative (Negative); Urine Protein Negative (Neg-Trace)
[2023-08-08 08:46] LABS: Bacteria Urine None Seen (None Seen); Hyaline Casts Urine 0-2 /LPF (0-2); Squamous Epithelial Cell Urine 0-2 /HPF (0-2); WBC Urine 0-5 /HPF (0-5)
== END 2023-08-08 07:05 | disposition home or self-care (01) ==
LOC: HO.LAB 07:04
PROVIDERS: PCP Internal Medicine; Visit Provider Internal Medicine
DX: Z12.5 Encounter for screening for malignant neoplasm of prostate (principal); E78.00 Pure hypercholesterolemia, unspecified; I10 Essential (primary) hypertension; I71.20 Thoracic aortic aneurysm, without rupture, unspecified; Z86.010 Personal history of colon polyps
CPT/HCPCS: 36415; 80053; 80061; 81001; 82550; 84153; 85025

== ENCOUNTER 2023-08-23 07:14 | Day surgery (SDC) | payer OTHER, SELFPAY ==
[2023-08-14 08:31] VITALS: BMI 41.6
--- NOTE | 2023-08-15 09:07 | HO.ANESPROP2 ---
Documented by User: Patricia Stahl NP 08/22/23 09:02 HPI - Anesthesia Eval Consult details Narrative: 58yo M for Hernia Repair Incisional Recent URI resolved PMFSH Active Problems Active Problems: All Active Problems (Updated 08/15/23 @ 08:09 by Luana Atwood RN) Incisional hernia, without obstruction or gangrene (Acute) Ascending aortic aneurysm (Acute) Rotator cuff tear, left (Acute) Rotator cuff impingement syndrome (Acute) Neuroendocrine cancer (Chronic) Hypercholesteremia (Acute) Hypertension (Acute) Past Medical History Medical History (Updated 08/15/23 @ 08:09 by Luana Atwood RN) Ascending aortic aneurysm Primary pancreatic neuroendocrine tumor Hypercholesteremia Hypertension Family History Family History Mother Breast cancer Father Diabetes Surgical History Surgical History Personal history of (corrected) hypospadias History of pancreatectomy Social History Social History Household Members: Family Housing: House Are you a primary auto care center manager to a significant other at home: No Do you presently have visiting nurse or other home services: No Alcohol intake: current Alcohol intake frequency: does not drink Patient Tobacco Use Status: Never used Tobacco Are you DNR?: No Advance Directives: No Advance Directives Information Provided: Yes service: No 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al status: employed 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 Allergies Allergy/AdvReac Type Severity Reaction Status Date / Time No Known Allergies Allergy Unverified 06/21/23 13:30 [No Known Allergies*] Home Medications Medication Instructions Recorded Confirmed Last Taken Type losartan 25 mg tablet 25 mg PO DAILY 03/16/21 06/21/23 Unknown History omeprazole 20 mg capsule,delayed 40 mg PO DAILY 06/21/23 06/21/23 Unknown History release Exam Height,Weight and Vital Signs: Height 5 ft 9 in Weight 127.913 kg Pertinent Lab Results Pertinent Lab Results: Laboratory Tests 08/08/23 07:24 WBC 10.6 Hgb 15.3 Hct 46.3 Plt Count 370 Sodium 141 Potassium 4.0 Chloride 107 Carbon Dioxide 29 BUN 16 Creatinine 0.98 Narrative Narrative: EKG 02/2023 normal sinus rhythm with rightward axis otherwise normal EKG ECHO 02/2023 Conclusions: - 1. Normal LV systolic function with LVEF of 65-70% with upper limits of normal LV wall thickness 2. Normal cardiac valvular Doppler 3. Mildly to moderately dilated ascending aorta at 4.4 cm 4. Normal RV systolic pressure 5. No gross pericardial effusion Assessment and Plan Assessment Anesthesia Assessment: Chart Reviewed Documented by User: Gurpreet Hall MD 08/23/23 09:23 [facility] Past Medical History Medical History (Updated 08/15/23 @ 08:09 by Luana Atwood RN) Ascending aortic aneurysm Primary pancreatic neuroendocrine tumor Hypercholesteremia Hypertension Family History Family History Mother Breast cancer Father Diabetes Family history of problems with anesthesia: No Surgical History Surgical History Personal history of (corrected) hypospadias History of pancreatectomy History of Problems with Anesthesia: No Social History Social History Household Members: Family Housing: House Are you a primary auto care center manager to a significant other at home: No Do you presently have visiting nurse or other home services: No Alcohol intake: current Alcohol intake frequency: does not drink Patient Tobacco Use Status: Never used Tobacco Are you DNR?: No Advance Directives: No Advance Directives Information Provided: Yes service: No 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al status: employed 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 Allergies Allergy/AdvReac Type Severity Reaction Status Date / Time No Known Allergies Allergy Unverified 06/21/23 13:30 [No Known Allergies*] Home Medications Medication Instructions Recorded Confirmed Last Taken Type losartan 25 mg tablet 25 mg PO DAILY 03/16/21 06/21/23 Unknown History omeprazole 20 mg capsule,delayed 40 mg PO DAILY 10/04/23 10/04/23 Unknown History release Exam Airway Mallampati Class: II TM Dist: <=3cm Neck ROM: Full Loose/Missing/Broken Teeth: No Heart: ok Lungs: ok Assessment and Plan Assessment Anesthesia Assessment: Anesthesia Plan Discussed Final Anesthetic Review Family History of Problems with Anesthesia: No History of Problems with Anesthesia: No NPO: Yes ASA Class: III Final Preanesthetic Review: No Changes in Pt Med Stat, Meds/Allgs Chart Reviewed, Consent Obtained/Reviewed and Anes Risks/Benef Reviewed Patient Risk: Intermediate Procedure Risk: Low Anesthetic Plan Anesthetic Plan: GA and Agree w/ Assess. and Plan Disposition: Standard PACU
[2023-08-23] VITALS (10 sets, daily range): BP systolic 107–146; BP diastolic 59–90; PULSE 66–76; RESP 12–20; TEMP 36.1–36.6; O2SAT 93–99; BMI 41.2
--- NOTE | 2023-08-23 08:20 | P.OP_ITS ---
Operative Note Operative Note Date of Service: 08/23/23 Narrative: Preoperative diagnosis: Incisional hernia upper abdomen Postoperative diagnosis: same Procedure: Repair of incisional hernia with mesh Surgeon: Arya Roth MD Real Estate Loan Processor: none Anesthesia: General Indications for procedure: 58-year-old male patient with a previous history of distal pancreatectomy for insulinoma presenting with a palpable lump in the upper abdomen which increases in size with coughing and straining. Workup with CT abdomen and pelvis confirmed 3 incisional hernias in the midline located at the umbilicus and above. Operative findings: Patient found to have a 10 cm long and 5 cm wide incisional hernia. This was repaired with a combination of a underlying mesh measuring 11 x 15 cm within overlie mesh of polypropylene. Specimen: Hernia sac Estimated blood loss: 10 mL Complications: no complications Procedure details: patient was brought to the OR placed in a supine position. After administering general anesthesia patient's abdomen was prepped with ChloraPrep and draped in a sterile fashion. A surgical time-out was called the consent confirmed. Patient received preoperative antibiotics and Venodyne boots were in place. Local anesthesia was infiltrated in the midline. A midline incision was made from the umbilicus upward to cover the area of hernia. Incision was carried out through subcutaneous tissue up to the hernia sac. Hernia sac was then dissected circumferentially down to the fascia. Hernia sac was then opened and all contents of the abdominal cavity reduced. Redundant fascia was excised and sent to pathology for further examination. A preper itoneal space was then created using electrocautery circumferentially. the posterior fascia and peritoneum were then closed using a running 0 Polysorb suture. A submuscular mesh was then placed using the 11 x 15 Ventralex skirted mesh. This was secured circumferentially using 1 Tycron sutures in an interrupted fashion. An attempt was made to close fascia over the mesh however this felt to be too tight and subsequently an onlay mesh was placed as noted above. This was secured using circumferential 1 Tycron sutures. The mesh was trimmed to size. Wounds were then irrigated thoroughly with saline solution and suctioned dry. Hemostasis was assured using electrocautery. Additional local was infiltrated at this time. Subcutaneous tissue was then reapproximated using interrupted 3-0 Polysorb sutures. Dermis was then closed using interrupted 3-0 Polysorb sutures. Steri- Strips were then applied. Sterile dressings including 4 x 4 gauze and Tegaderm were then applied. The patient tolerated the procedure well. Sponge, instrument, and needle counts were reported as correct. The patient was transferred to PACU in stable condition.
[2023-08-23] MEDS: oxyCODONE HCl Immed Release 5 MG TABLET 10 MG PO (11:39)
[2023-08-23] MEDS: fentaNYL citrate/PF 100 MCG/2 ML VIAL 50 MCG IVPUSH (11:50)
== END 2023-08-23 13:10 | disposition home or self-care (01) ==
PROVIDERS: PCP Internal Medicine; Visit Provider Surgery
PROC: (CPT 49593; principal; 2023-08-23 08:40)
DX: K43.2 Incisional hernia without obstruction or gangrene (principal); E78.00 Pure hypercholesterolemia, unspecified; Z90.411 Acquired partial absence of pancreas; Z79.899 Other long term (current) drug therapy
CPT/HCPCS: 49593; 88302; C1781; J0131; J0690; J1885; J2405; J2704; J3010

== ENCOUNTER → 2023-08-23 07:14 | Outpatient (BNV) | payer OTHER, SELFPAY | PROVIDERS: PCP Internal Medicine; Visit Provider Surgery | DX: K43.2 Incisional hernia without obstruction or gangrene (principal) | CPT/HCPCS: 49593 ==

== ENCOUNTER 2023-09-01 09:35 | Outpatient (AMB) | payer OTHER, SELFPAY ==
--- NOTE | 2023-09-01 09:49 | A.OFFVIS_ITS ---
Intake Vital Signs 09/01/23 09:50 Height 5 ft Weight 26 lb BMI 5.1 BP 159/86 H Blood Pressure Location Lt brachial Position Sitting Pulse 96 Intake Visit Reasons: S/P incisional hernia repair Intake Note: Patient is seen in office for post op assessment post incisional hernia repair. 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 He had several days of drainage but noted the drainage. Until yesterday when he once again began to drain from the top. This started after eating to cut some wood after a tree fell on his daughter's car. 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 He denies any significant pain and is no longer taking the oxycodone. [facility] Medical History (Updated 08/15/23 @ 08:09 by Luana Atwood RN) Ascending aortic aneurysm Primary pancreatic neuroendocrine tumor Hypercholesteremia Hypertension Surgical History History of incisional hernia repair (08/23/23) Personal history of (corrected) hypospadias History of pancreatectomy Family History Mother Breast cancer Father Diabetes Social History Household Members: Family Housing: House Are you a primary ambulatory care coordinator to a significant other at home: No Do you presently have visiting nurse or other home services: No Alcohol intake: current Alcohol intake frequency: does not drink Patient Tobacco Use Status: Never used Tobacco service: No 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al status: employed 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 There is a small separation in the top of the incision but no active bleeding is identified. Some swelling below the incision is noted suggestive of an underlying seroma. No changes were noted with Valsalva maneuvers to indicate a recurrent hernia. Needle aspiration was performed after cleansing the skin with Betadine. Approximately 125 mL of serous fluid was aspirated. Sterile dressings and Tegaderm were then applied. Skin Other: Warm, dry, no rash. Assessment & Plan Assessment & Plan (1) Incisional hernia, without obstruction or gangrene: Code(s): K43.2 - Incisional hernia without obstruction or gangrene Plan 58-year-old male patient status post repair of a large ventral hernia with mesh. He developed a seroma which is starting to leak from the top of the incision. I recommended needle aspiration. Needle aspiration was performed today with approximately 125 mL of serous fluid aspirated. He tolerated the aspiration well and will return in 2 weeks for follow-up examination. He is welcome to call sooner for any new concerns. Coding Level of Care Code Global (92137) Diagnoses Incisional hernia, without obstruction or gangrene K43.2
[2023-09-01 09:50] VITALS: BP 159/86; PULSE 96
== END 2023-09-01 10:05 | disposition home or self-care (01) ==
PROVIDERS: PCP Internal Medicine; Visit Provider Surgery
DX: K43.2 Incisional hernia without obstruction or gangrene (principal); L76.32 Postprocedural hematoma of skin and subcutaneous tissue following other procedure
CPT/HCPCS: 10160; 99213

== ENCOUNTER → 2023-09-01 09:35 | Outpatient (BNVA) | payer OTHER, SELFPAY | PROVIDERS: PCP Internal Medicine; Visit Provider Surgery ==

== ENCOUNTER 2023-09-14 09:17 | Outpatient (AMB) | payer OTHER, SELFPAY ==
[2023-09-14 09:30] VITALS: BP 160/88; PULSE 93; BMI 55.1
--- NOTE | 2023-09-14 09:30 | MHC.OFFVIS ---
Intake Vital Signs 09/14/23 09:30 Height 5 ft Weight 282 lb BMI 55.1 BP 160/88 H Blood Pressure Location Rt brachial Position Sitting Pulse 93 Intake Visit Reasons: 2 wks S/P incisional hernia repair Intake Note: Patient here for 2wk f/u needle aspiration procedure for seroma. Patient c/o: reports incisions healing well. Seroma subsided. 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 Feels much improved and denies any abdominal pain, redness or discharge. He does not feel the seroma has refilled. He feels ready to return to work. He denies any nausea, vomiting, fever or chills. [facility]AC[facility] BY [facility] Medical History Ascending aortic aneurysm Primary pancreatic neuroendocrine tumor Hypercholesteremia Hypertension Surgical History History of incisional hernia repair (08/23/23) Personal history of (corrected) hypospadias History of pancreatectomy Family History Mother Breast cancer Father Diabetes Social History Household Members: Family Housing: House Are you a primary career development coordinator/teacher to a significant other at home: No Do you presently have visiting nurse or other home services: No Alcohol intake: current Alcohol intake frequency: does not drink Patient Tobacco Use Status: Never used Tobacco service: No 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al status: employed 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 No seroma is palpable. No hernia palpable with Valsalva maneuvers. 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 His wounds are healing nicely without evidence of infection or hernia recurrence. He may return to work as of 09/19/2022. 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 He should follow up as needed. Coding Level of Care Code Global (02737) Diagnoses Incisional hernia, without obstruction or gangrene K43.2
== END 2023-09-14 09:43 | disposition home or self-care (01) ==
PROVIDERS: PCP Internal Medicine; Visit Provider Surgery
DX: K43.2 Incisional hernia without obstruction or gangrene (principal)
CPT/HCPCS: 99024

== ENCOUNTER → 2023-09-14 09:17 | Outpatient (BNVA) | payer OTHER, SELFPAY | PROVIDERS: PCP Internal Medicine; Visit Provider Surgery ==

== ENCOUNTER 2023-09-28 15:22 | Outpatient (AMB) | payer OTHER, SELFPAY ==
--- NOTE | 2023-09-28 15:34 | MHC.OFFVIS ---
Intake Vital Signs 09/28/23 15:35 Height 5 in Weight 279 lb 15.793 oz BMI 7873.2 BP 120/80 Blood Pressure Location Lt brachial Position Sitting Intake Visit Reasons: Wound check, ? dressing change Intake Note: Patient is seen in office for dressing change, post incisional hernia repair. 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 Continues to have clear discharge. Skin is irritated from tape. Denies any fever or chills. Denies significant abdominal pain. [facility] Medical History Ascending aortic aneurysm Primary pancreatic neuroendocrine tumor Hypercholesteremia Hypertension Surgical History History of incisional hernia repair (08/23/23) Personal history of (corrected) hypospadias History of pancreatectomy Family History Mother Breast cancer Father Diabetes Social History Household Members: Family Housing: House Are you a primary disabilities caregiver to a significant other at home: No Do you presently have visiting nurse or other home services: No Alcohol intake: current Alcohol intake frequency: does not drink Patient Tobacco Use Status: Never used Tobacco service: No 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al status: employed 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 No foreign body noted at base of wound. No palpable mesh at base of wound. Wound covered with dry sterile dressing and ABD pad. Neuro General: patient oriented x3 Assessment & Plan Assessment & Plan (1) Incisional hernia, without obstruction or gangrene: Code(s): K43.2 - Incisional hernia without obstruction or gangrene Plan Continue local wound care. Return in 1 week for wound check. Coding Level of Care Code Global (11095) Diagnoses Incisional hernia, without obstruction or gangrene K43.2
[2023-09-28 15:35] VITALS: BP 120/80; BMI 7873.2
== END 2023-09-28 15:44 | disposition home or self-care (01) ==
PROVIDERS: PCP Internal Medicine; Visit Provider Surgery
DX: K43.2 Incisional hernia without obstruction or gangrene (principal)
CPT/HCPCS: 99024

== ENCOUNTER → 2023-09-28 15:22 | Outpatient (BNVA) | payer OTHER, SELFPAY | PROVIDERS: PCP Internal Medicine; Visit Provider Surgery ==

== ENCOUNTER 2023-10-03 15:21 | Outpatient (AMB) | payer OTHER, SELFPAY ==
[2023-10-03 15:30] VITALS: BP 130/82; BMI 54.7
--- NOTE | 2023-10-03 15:49 | MHC.OFFVIS ---
Intake Vital Signs 10/03/23 15:30 Height 5 ft Weight 279 lb 15.793 oz BMI 54.7 BP 130/82 Blood Pressure Location Lt brachial Position Sitting Intake Visit Reasons: Wound check, ? dressing change Intake Note: Patient is seen in office for wound check, post hernia repair. Pt c/o: admits to slowly healing, still covering with a bandage as needed, less discharge, changing dressing once a day as needed. 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 Continues to have clear discharge, but feels the discharge is decreasing and currently only uses a Band-Aid. Skin is irritated from tape. Denies any fever or chills. Denies significant abdominal pain. [facility] Medical History Ascending aortic aneurysm Primary pancreatic neuroendocrine tumor Hypercholesteremia Hypertension Surgical History History of incisional hernia repair (08/23/23) Personal history of (corrected) hypospadias History of pancreatectomy Family History Mother Breast cancer Father Diabetes Social History Household Members: Family Housing: House Are you a primary rn patient care to a significant other at home: No Do you presently have visiting nurse or other home services: No Alcohol intake: current Alcohol intake frequency: does not drink Patient Tobacco Use Status: Never used Tobacco service: No 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al status: employed 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 No foreign body noted at base of wound. No palpable mesh at base of wound. Sterile bandage applied. Neuro General: patient oriented x3 Assessment & Plan Assessment & Plan (1) Incisional hernia, without obstruction or gangrene: Code(s): K43.2 - Incisional hernia without obstruction or gangrene Plan Drainage and wound opening is decreasing. No erythema, seroma or hernia recurrence is noted. Coding Level of Care Code Global (99960) Diagnoses Incisional hernia, without obstruction or gangrene K43.2
== END 2023-10-03 15:58 | disposition home or self-care (01) ==
PROVIDERS: PCP Internal Medicine; Visit Provider Surgery
DX: K43.2 Incisional hernia without obstruction or gangrene (principal)
CPT/HCPCS: 99024

== ENCOUNTER → 2023-10-03 15:21 | Outpatient (BNVA) | payer OTHER, SELFPAY | PROVIDERS: PCP Internal Medicine; Visit Provider Surgery ==

== ENCOUNTER 2023-10-10 16:29 | Outpatient (REF) | payer OTHER, SELFPAY ==
--- NOTE | ~2023-10-10 | XR_ITS ---
EXAMINATION: XR HIP, RIGHT CLINICAL INFORMATION: Right hip pain COMPARISON: None available. TECHNIQUE: Two views of the right hip. FINDINGS: No fracture. Alignment is anatomic. There is marked narrowing of the superior-lateral aspect of the cartilage space of the right hip with almost [id number] appearance. Subchondral sclerosis is seen within the superior-lateral aspect of the acetabulum. Soft tissues are unremarkable. XR/XR hip RT min 2V IMPRESSION: Marked osteoarthritis of the right hip.
== END 2023-10-10 16:30 | disposition home or self-care (01) ==
LOC: HO.XRAY 16:29
PROVIDERS: PCP Internal Medicine; Visit Provider Internal Medicine
DX: M25.551 Pain in right hip (principal)
CPT/HCPCS: 73502

== ENCOUNTER 2023-10-17 15:27 | Outpatient (AMB) | payer OTHER, SELFPAY ==
--- NOTE | 2023-10-17 15:29 | A.OFFVIS_ITS ---
Intake Vital Signs 10/17/23 15:35 Height 5 ft Weight 274 lb BMI 53.5 BP 140/77 H Blood Pressure Location Lt brachial Pulse 79 Intake Visit Reasons: wound check post hernia repair Intake Note: Patient is seen in office for post op assessment post hernia repair. 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 Continues to have clear discharge, but now feels a lump below the incision which seems to increase with straining. He has been doing his spin class and is uncertain if this is aggravating the swelling. He denies any fever or chills. [facility] Medical History Ascending aortic aneurysm Primary pancreatic neuroendocrine tumor Hypercholesteremia Hypertension Surgical History History of incisional hernia repair (08/23/23) Personal history of (corrected) hypospadias History of pancreatectomy Family History Mother Breast cancer Father Diabetes Social History Household Members: Family Housing: House Are you a primary child care leader to a significant other at home: No Do you presently have visiting nurse or other home services: No Alcohol intake: current Alcohol intake frequency: does not drink Patient Tobacco Use Status: Never used Tobacco service: No 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al status: employed 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 No changes noted with Valsalva to indicate an underlying recurrent hernia. I am uncertain if mesh is underlying this area of swelling however. No surrounding erythema is noted although the skin is irritated from applying tape to the skin. Neuro General: patient oriented x3 Assessment & Plan Assessment & Plan (1) Incisional hernia, without obstruction or gangrene: Code(s): K43.2 - Incisional hernia without obstruction or gangrene Plan Patient with an enlarging wound in the midline incision which is weeping clear fluid. I recommended further evaluation by wound care. Today I applied a silver alginate pad followed by dry sterile dressings. He was provided with additional silver alginate to apply least every other day to the wound. I also recommended a CT abdomen and pelvis to evaluate for mesh displacement. He expressed understanding and agrees with the plan. Orders: Orders CT abdomen pelvis wo IV con 10/17/23 K43.2 - Incisional hernia without obstruction or gangrene Referrals Wound Care Referral K43.2 - Incisional hernia without obstruction or gangrene Coding Level of Care Code Global (43285) Diagnoses Incisional hernia, without obstruction or gangrene K43.2
[2023-10-17 15:35] VITALS: BP 140/77; PULSE 79; BMI 53.5
== END 2023-10-17 15:52 | disposition home or self-care (01) ==
PROVIDERS: PCP Internal Medicine; Visit Provider Surgery
DX: K43.2 Incisional hernia without obstruction or gangrene (principal)
CPT/HCPCS: 99024

== ENCOUNTER → 2023-10-17 15:27 | Outpatient (BNVA) | payer OTHER, SELFPAY | PROVIDERS: PCP Internal Medicine; Visit Provider Surgery ==

== ENCOUNTER 2023-10-20 07:44 | Outpatient (REF) | payer OTHER, SELFPAY ==
--- NOTE | ~2023-10-20 | CT_ITS ---
EXAMINATION: CT ABDOMEN AND PELVIS WITHOUT CONTRAST CLINICAL INFORMATION: Incisional hernia. COMPARISON: 01/04/2023 TECHNIQUE: Multidetector volumetric imaging was performed from the superior aspect of the liver through the pubic symphysis. Sagittal and coronal reformatted images were obtained on the technologist's workstation. This CT examination was performed using dose optimization techniques as appropriate, variously including the following: *Automated exposure control *Adjustment of mA and/or kV according to patient size (this includes techniques or standardized protocols for targeted exams where dose is matched to indication/reason for exam; i.e. extremities or head) *Use of iterative reconstruction technique DLP: 885 mGy-cm FINDINGS: LUNG BASES: 2 mm nodule right lower lobe on image 5 series 5. LIVER, GALLBLADDER, AND BILIARY TREE: The noncontrast liver is normal in size and contour. No biliary ductal dilatation is present. The gallbladder is contracted. PANCREAS: Status post distal pancreatectomy. Previously demonstrated mass in the body of the pancreas is not well seen due to the lack of intravenous contrast. The appearance is similar with loss of fat plane with the antropyloric region of the stomach. SPLEEN: Surgically absent. ADRENAL GLANDS: No adrenal mass. KIDNEYS AND URETERS: The kidneys are normal in size, shape, and attenuation. 3 mm nonobstructing calculus upper pole left kidney. No hydronephrosis. Stable dilatation of the mid right ureter up to 1.4 cm. There is smooth tapering proximally and distally. No ureteral calculus. No periureteric stranding. No perinephric stranding. BLADDER: Unremarkable. GASTROINTESTINAL TRACT: Small and large bowel loops are of normal caliber. No small bowel obstruction. Appendix is within normal. ABDOMINAL WALL: Left inguinal hernia containing fat. There is infiltration within the anterior abdominal wall in the periumbilical region. There is fluid and phlegmon within the subcutaneous tissues measuring approximately 4.6 x 1.6 x 5.5 cm. LYMPH NODES: Subcentimeter mesenteric and retroperitoneal lymph nodes are nonspecific. Interval decrease in size of left upper quadrant nodule measuring 5 mm on the current study and previously measuring 1.5 cm on 01/05/2022. VASCULAR: Normal caliber abdominal aorta. PELVIC VISCERA: Unremarkable. OSSEOUS STRUCTURES: No destructive bone lesions. CT/CT abdomen pelvis wo IV con IMPRESSION: Post incision changes in the anterior abdominal wall without evidence of bowel herniation. Fluid and phlegmon measuring approximately 4.6 x 1.6 x 5.5 cm. Allowing for limitations for unenhanced technique, similar appearance of possible invasive mass involving the body of the pancreas.
== END 2023-10-20 07:45 | disposition home or self-care (01) ==
LOC: HO.CT 07:44
PROVIDERS: Visit Provider Surgery
DX: K43.2 Incisional hernia without obstruction or gangrene (principal)
CPT/HCPCS: 74176

== ENCOUNTER 2023-10-24 15:29 | Outpatient (AMB) | payer OTHER, SELFPAY ==
--- NOTE | 2023-10-24 15:38 | MHC.OFFVIS ---
Intake Vital Signs 10/24/23 15:45 Height 5 ft Weight 277 lb BMI 54.1 BP 144/79 H Blood Pressure Location Lt brachial Position Sitting Pulse 82 Intake Visit Reasons: wound check post hernia repair Intake Note: Patient is seen in office for follow up visit, post hernia repair. 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 Overall the drainage seems to be slowing down. He is scheduled for a wound care visit on 11/02/2023. He continues to use the silver alginate as recommended. This does seem to be helping. [facility] Medical History Ascending aortic aneurysm Primary pancreatic neuroendocrine tumor Hypercholesteremia Hypertension Surgical History History of incisional hernia repair (08/23/23) Personal history of (corrected) hypospadias History of pancreatectomy Family History Mother Breast cancer Father Diabetes Social History Household Members: Family Housing: House Are you a primary manager intensive care to a significant other at home: No Do you presently have visiting nurse or other home services: No Alcohol intake: current Alcohol intake frequency: does not drink Patient Tobacco Use Status: Never used Tobacco service: No 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al status: employed 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 No hernias palpable with Valsalva maneuvers. There is no evidence of wound infection. Neuro General: patient oriented x3 Assessment & Plan Assessment & Plan (1) Incisional hernia, without obstruction or gangrene: Code(s): K43.2 - Incisional hernia without obstruction or gangrene Plan Patient with a continued open wound in the lower midline incision. Patient is responding well with the silver alginate. Continue silver alginate least once every 2 days. Will await further recommendations from wound care center. He will return in 2 weeks. He is welcome to call sooner for any new concerns. Coding Level of Care Code Global (09940) Diagnoses Incisional hernia, without obstruction or gangrene K43.2
[2023-10-24 15:45] VITALS: BP 144/79; PULSE 82; BMI 54.1
== END 2023-10-24 15:53 | disposition home or self-care (01) ==
PROVIDERS: PCP Internal Medicine; Visit Provider Surgery
DX: K43.2 Incisional hernia without obstruction or gangrene (principal)
CPT/HCPCS: 99024

== ENCOUNTER → 2023-10-24 15:29 | Outpatient (BNVA) | payer OTHER, SELFPAY | PROVIDERS: PCP Internal Medicine; Visit Provider Surgery | DX: K43.2 Incisional hernia without obstruction or gangrene (principal) ==

== ENCOUNTER 2023-10-31 12:48 | Outpatient (AMB) | payer OTHER, SELFPAY ==
[2023-10-31 12:51] VITALS: BMI 54.1
--- NOTE | 2023-10-31 12:51 | MHC.OFFVIS ---
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 Patient reports it has been going on for about 2 months it started after his umbilical hernia surgery and is a 1 on the 1-10 pain scale. He reports it is more of a weakness and discomfort feeling. He denies injections or surgery. The patient states that he has returned to spin class at the gym. He denies any numbness or tingling in either of his legs. Allergies No Known Allergies [No Known Allergies*] Allergy (Verified 10/31/23 12:57) Medication List - Last Reconciled 10/31/23 by Linwood Breen MD celecoxib (Celebrex) 200 mg PO DAILY PRN losartan 25 mg PO DAILY omeprazole 40 mg PO DAILY rosuvastatin 20 mg PO DAILY PFSH Medical History Ascending aortic aneurysm Primary pancreatic neuroendocrine tumor Hypercholesteremia Hypertension Surgical History History of incisional hernia repair (08/23/23) Personal history of (corrected) hypospadias History of pancreatectomy Family History Mother Breast cancer Father Diabetes Social History Household Members: Family Housing: House Are you a primary manager intensive care to a significant other at home: No Do you presently have visiting nurse or other home services: No Alcohol intake: current Alcohol intake frequency: does not drink Patient Tobacco Use Status: Never used Tobacco service: No 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al status: employed 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 Physical Exam Vital Signs: BMI result Body Mass Index 54.1 Const Other: Well-nourished well-developed very friendly male awake alert and oriented x3 in no acute distress Extrem Other: Bilateral lower extremity examination shows good capillary refill, no skin lesions noted, normal sensation light touch Right hip examination shows full range of motion when compared to his left hip, minimal tenderness over his bursa, mild discomfort with range of motion Results Reviewed Results Reviewed: X-rays of the patient's right hip show moderate joint space narrowing, no acute bony abnormalities Assessment & Plan Assessment & Plan (1) Right hip pain: Code(s): M25.551 - Pain in right hip Plan Mr. Quintana presents with intermittent right hip discomfort due to degenerative joint disease. I had a lengthy discussion with the patient regarding the treatment options. This point the patient's symptoms are tolerable to him. I did give him a prescription for Celebrex to help with his discomfort. Will continue with his exercise program. He will follow up with me on an as-needed basis should his symptoms worsen in any way. Feel free to call me at any time should questions regarding his orthopedic management arise. Thank you very much for asking me to see this very friendly gentleman. I spent 19 minutes in reviewing the patient's records and imaging studies, seeing the patient and documenting in the medical record. Medications: New celecoxib (Celebrex) 200 mg PO DAILY PRN 30 caps 3RF pain Coding Level of Care Code New Pt Level 2 (64927) Diagnoses Right hip pain M25.551
== END 2023-10-31 13:33 | disposition home or self-care (01) ==
PROVIDERS: PCP Internal Medicine; Visit Provider Orthopaedic Surgery
DX: M25.551 Pain in right hip (principal)
CPT/HCPCS: 99202

== ENCOUNTER → 2023-10-31 12:48 | Outpatient (BNVA) | payer OTHER, SELFPAY | PROVIDERS: PCP Internal Medicine; Visit Provider Orthopaedic Surgery ==

== ENCOUNTER 2023-11-02 07:56 | Outpatient (RCR) | payer OTHER, SELFPAY | END 2023-11-07 17:00 | disposition home or self-care (01) | LOC: HO.WCC 07:56 | PROVIDERS: PCP Internal Medicine; Visit Provider Surgery | DX: S31.109A Unspecified open wound of abdominal wall, unspecified quadrant without penetration into peritoneal cavity, initial encounter (principal); T81.31XA Disruption of external operation (surgical) wound, not elsewhere classified, initial encounter; M96.843 Postprocedural seroma of a musculoskeletal structure following other procedure; I10 Essential (primary) hypertension; Z79.899 Other long term (current) drug therapy | CPT/HCPCS: 97597 ==

== ENCOUNTER 2023-11-07 15:29 | Outpatient (AMB) | payer OTHER, SELFPAY ==
[2023-11-07 15:38] VITALS: BP 140/80; PULSE 88; BMI 54.8
--- NOTE | 2023-11-07 15:38 | MHC.OFFVIS ---
Intake Vital Signs 11/07/23 15:38 Height 5 ft Weight 280 lb 8 oz BMI 54.8 BP 140/80 H Blood Pressure Location Rt brachial Position Sitting Pulse 88 Pulse Source Pulse Oximeter Intake Visit Reasons: wound check post hernia repair Intake Note: Pt presents to the office today for a wound check post hernia repair. Pt states he is feeling well and believes the discharge has slowed down almost completely within the past day or two. He states he went to wound care on 11/02/23 and they stated that it is looking like it is healing. Allergies No Known Allergies [No Known Allergies*] Allergy (Verified 11/07/23 15:40) Medication List - Last Reconciled 11/07/23 by Arya Roth MD amoxicillin-pot clavulanate 875-125 mg 1 tab PO BID 10 days celecoxib (Celebrex) 200 mg PO DAILY PRN losartan 25 mg PO DAILY omeprazole 40 mg PO DAILY rosuvastatin 20 mg PO DAILY HPI HPI Comments History of Present Illness Details Patient returns today for final wound check. He reports no discharge for the past 2 days and generally feels much improved. She denies any abdominal pain. [facility] Medical History Ascending aortic aneurysm Primary pancreatic neuroendocrine tumor Hypercholesteremia Hypertension Surgical History History of incisional hernia repair (08/23/23) Personal history of (corrected) hypospadias History of pancreatectomy Family History Mother Breast cancer Father Diabetes Social History Household Members: Family Housing: House Are you a primary long term care administrator to a significant other at home: No Do you presently have visiting nurse or other home services: No Alcohol intake: current Alcohol intake frequency: does not drink Patient Tobacco Use Status: Never used Tobacco service: No 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al status: employed 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 No recurrent hernias noted with Valsalva maneuvers. Palpation (GI): Soft to palpation, nontender, no guarding and not rigid Neuro General: patient oriented x3 Assessment & Plan Assessment & Plan (1) Incisional hernia, without obstruction or gangrene: Code(s): K43.2 - Incisional hernia without obstruction or gangrene Plan 58-year-old male patient status post repair of a ventral hernia approximately 11 weeks ago prolonged draining seroma now returning with no further discharge from his incision. His wounds are clean, dry, and intact without evidence of hernia or infection. He may resume normal activity without restrictions and should follow up as needed. Coding Level of Care Code Global (07152) Diagnoses Incisional hernia, without obstruction or gangrene K43.2
== END 2023-11-07 15:52 | disposition home or self-care (01) ==
PROVIDERS: PCP Internal Medicine; Visit Provider Surgery
DX: K43.2 Incisional hernia without obstruction or gangrene (principal)
CPT/HCPCS: 99024

== ENCOUNTER → 2023-11-07 15:29 | Outpatient (BNVA) | payer OTHER, SELFPAY | PROVIDERS: PCP Internal Medicine; Visit Provider Surgery | DX: K43.2 Incisional hernia without obstruction or gangrene (principal) ==

== ENCOUNTER 2023-11-21 06:28 | Day surgery (SDC) | payer OTHER, SELFPAY ==
[2023-11-17 11:10] VITALS: BMI 41.0
--- NOTE | 2023-11-17 15:43 | HO.ANESPROP2 ---
Documented by User: Patricia Stahl NP 11/17/23 15:44 HPI - Anesthesia Eval Consult details Narrative: 58yo M for Colonoscopy s/p hernia 08/2023 with GA-ETT 7 PMFSH Active Problems Active Problems: All Active Problems (Updated 11/17/23 @ 10:54 by Esme Dowling RN) Right hip pain (Acute) Ascending aortic aneurysm (Acute) Rotator cuff tear, left (Acute) Rotator cuff impingement syndrome (Acute) Neuroendocrine cancer (Chronic) Hypercholesteremia (Acute) Hypertension (Acute) Past Medical History Medical History Tubular adenoma Insulinoma Hyperlipidemia Seasonal allergies Ascending aortic aneurysm Primary pancreatic neuroendocrine tumor Hypercholesteremia Hypertension Family History Family History Mother Breast cancer Father Diabetes Family history of problems with anesthesia: No Surgical History Surgical History History of partial pancreatectomy H/O colonoscopy History of incisional hernia repair (08/23/23) Personal history of (corrected) hypospadias History of pancreatectomy History of Problems with Anesthesia: No Social History Social History Household Members: Family Housing: House Are you a primary child care centre director to a significant other at home: No Do you presently have visiting nurse or other home services: No Alcohol intake: current Alcohol intake frequency: holidays/special occasions only Patient Tobacco Use Status: Never used Tobacco Are you DNR?: No Advance Directives: No Advance Directives Information Provided: Yes service: No 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al status: employed 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: [employer] @ [employer] [facility] [place]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 Allergies Allergy/AdvReac Type Severity Reaction Status Date / Time No Known Allergies Allergy Verified 11/07/23 15:40 [No Known Allergies*] Home Medications Medication Instructions Recorded Confirmed Last Taken Type losartan 25 mg tablet 25 mg PO DAILY 03/16/21 11/17/23 11/20/23 History omeprazole 20 mg capsule,delayed 40 mg PO DAILY 06/21/23 11/17/23 11/20/23 History release Exam Height,Weight and Vital Signs: Height 5 ft 9 in Weight 126.099 kg Pertinent Lab Results Pertinent Lab Results: Laboratory Tests 11/21/23 07:24 WBC 10.6 Hgb 15.3 Hct 46.3 Plt Count 370 Sodium 141 Potassium 4.0 Chloride 107 Carbon Dioxide 29 BUN 16 Creatinine 0.98 Narrative Narrative: EKG 02/2023 normal sinus rhythm with rightward axis otherwise normal EKG ECHO 02/2023 Conclusions: - 1. Normal LV systolic function with LVEF of 65-70% with upper limits of normal LV wall thickness 2. Normal cardiac valvular Doppler 3. Mildly to moderately dilated ascending aorta at 4.4 cm 4. Normal RV systolic pressure 5. No gross pericardial effusion Assessment and Plan Assessment Anesthesia Assessment: Chart Reviewed Final Anesthetic Review Family History of Problems with Anesthesia: No History of Problems with Anesthesia: No Documented by User: Erlinda Guzman MD 11/21/23 09:05 [facility] Active Problems Active Problems: All Active Problems (Updated 11/21/23 @ 07:15 by Erlinda Guzman MD) Right hip pain (Acute) Ascending aortic aneurysm (Acute) 4.4cm Rotator cuff tear, left (Acute) Rotator cuff impingement syndrome (Acute) Neuroendocrine cancer (Chronic) Hypercholesteremia (Acute) Hypertension (Acute) KERRY Obesity BMI 40.8 Past Medical History Medical History Tubular adenoma Insulinoma Hyperlipidemia Seasonal allergies Ascending aortic aneurysm Primary pancreatic neuroendocrine tumor Hypercholesteremia Hypertension Family History Family History Mother Breast cancer Father Diabetes Family history of problems with anesthesia: No Surgical History Surgical History History of partial pancreatectomy H/O colonoscopy History of incisional hernia repair (08/23/23) Personal history of (corrected) hypospadias History of pancreatectomy History of Problems with Anesthesia: No Social History Social History Household Members: Family Housing: House Are you a primary child care centre director to a significant other at home: No Do you presently have visiting nurse or other home services: No Alcohol intake: current Alcohol intake frequency: holidays/special occasions only Patient Tobacco Use Status: Never used Tobacco Are you DNR?: No Advance Directives: No Advance Directives Information Provided: Yes service: No 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al status: employed 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 Allergies Allergy/AdvReac Type Severity Reaction Status Date / Time No Known Allergies Allergy Verified 11/07/23 15:40 [No Known Allergies*] Home Medications Medication Instructions Recorded Confirmed Last Taken Type losartan 25 mg tablet 25 mg PO DAILY 03/16/21 11/17/23 11/20/23 History omeprazole 20 mg capsule,delayed 40 mg PO DAILY 06/21/23 11/17/23 11/20/23 History release Exam Height,Weight and Vital Signs: Height 5 ft 9 in Weight 126.099 kg Vital Signs Temp Pulse Resp BP Pulse Ox O2 Del Method 97 F 84 20 133/67 97 Room Air 11/21/23 06:34 11/21/23 06:34 11/21/23 06:34 11/21/23 06:34 11/21/23 06:34 11/21/23 06:34 Airway Mallampati Class: II TM Dist: >3cm Neck ROM: Full Loose/Missing/Broken Teeth: No (Denies broken, loose, missing teeth) Heart: RRR Lungs: CTAB Assessment and Plan Assessment Anesthesia Assessment: Anesthesia Plan Discussed and Chart Reviewed Final Anesthetic Review Family History of Problems with Anesthesia: No History of Problems with Anesthesia: No NPO: Yes ASA Class: III Final Preanesthetic Review: No Changes in Pt Med Stat, Meds/Allgs Chart Reviewed, Consent Obtained/Reviewed and Anes Risks/Benef Reviewed Patient Risk: Intermediate Procedure Risk: Low Assessment/Block/Sedation in SS: Assess/Block/Sedation-SS Anesthetic Plan Anesthetic Plan: MAC: and TIVA Disposition: Standard PACU
[2023-11-21 06:34] VITALS: BP 133/67; PULSE 84; RESP 20; TEMP 36.1; O2SAT 97; BMI 40.8
[2023-11-21] MEDS: Lactated Ringers 1,000 ML 100 ML IVCONT (07:01)
--- NOTE | 2023-11-21 07:21 | P.HPSUR_ITS ---
Pre-Procedural Eval Section A - 24 Hr Update-Section A only Date of Service: 11/21/23 Section B - Complete if H&P > 30 days Chief Complaint: Encounter for screening for malignant neoplasm of Details of Present Illness: See H&P no changes Relevant Family History (Specify if Yes): No Relevant Social History: None Present Medications: see Short Stay Collaborative assessment Medical History: No relevant PMH Allergies: Allergies Allergy/AdvReac Type Severity Reaction Status Date / Time No Known Allergies Allergy Verified 11/07/23 15:40 [No Known Allergies*] Review of Systems Sugical H&P ROS: Negative: Constitution, Cardiovascular, Respiratory, Neurol ogical, Psychiatric, Hem-Onc, Allergic/Immunologic, Gastrointestinal, Genitourinary, Musculoskeletal, Integumentary, Endocrine and Eyes/Ears/Nose/Throat Exam Surgical H&P Exam: Normal: HEENT, Normal: Heart, Normal: Lungs, Normal: Extremities, Normal: Abdomen, Normal: Skin and Normal: Neurological Plan Diagnosis/Plan: Unchanged I have reviewed the history and physical and performed a pertinent physical examination on my patient. No changes have occurred unless specified. Time Spent With Patient Time: Total time managing care of this patient today ____ minutes.
[2023-11-21 08:03] VITALS: BP 113/73; PULSE 73; RESP 19; TEMP 36.3; O2SAT 98
[2023-11-21 08:18] VITALS: BP 119/78; PULSE 76; RESP 16; TEMP 36.3; O2SAT 98
--- NOTE | 2023-11-21 08:47 | OP_ITS ---
DATE OF SERVICE: 11/21/2023 SURGEON: Kulwinder Yost MD INDICATIONS: Colon cancer screening and prior history of adenomatous colon polyps. PREOPERATIVE DIAGNOSIS: POSTOPERATIVE DIAGNOSIS: PROCEDURE PERFORMED: Colonoscopy to the terminal ileum with biopsy. ESTIMATED BLOOD LOSS: COMPLICATIONS: ANESTHESIA: Monitored anesthesia care. ASSISTANTS: SPECIMENS: DESCRIPTION OF PROCEDURE: A history and physical was performed. The risks and benefits of the procedure were explained to the patient. Informed consent was obtained. The patient was placed in the left lateral decubitus position. A digital rectal exam was performed and was found to be normal. The Olympus pediatric video colonoscope was introduced into the rectum and advanced to the cecum. The cecum was identified by transillumination, palpation, and identification of ileocecal valve. Examination was performed. The scope was removed. He tolerated the procedure well and was returned to the recovery area in stable condition. FINDINGS: The terminal ileum was examined and appeared normal. The visualized colonic mucosa was normal. The quality of prep was good. At 45 cm from the anal verge was a less than 5 mm sessile polyp, which was removed with biopsy forceps. No other polyps were identified. Retroflexed examination showed small internal hemorrhoids. IMPRESSION: Colon polyp. RECOMMENDATION: Follow up the biopsy results. MD DANELLE Yu/YULIL / [id number]
--- NOTE | 2023-11-21 08:48 | P.BOP_ITS ---
Brief Operative Note Date of Service: 11/21/23 Pre-op diagnosis: screening Post-op diagnosis: same Procedure: colonoscopy Surgeon: Kulwinder Yost MD Anesthesia: MAC Was an Tennis Professional used for this Procedure?: No Estimated blood loss (mL): 2 Tourniquet time (min): 0 Pathology: other Condition: stable Disposition: PACU
== END 2023-11-21 08:37 | disposition home or self-care (01) ==
PROVIDERS: PCP Internal Medicine; Visit Provider Internal Medicine Gastroenterology
PROC: 0DJD8ZZ Inspection of Lower Intestinal Tract, Via Natural or Artificial Opening Endoscopic (ICD-10-PCS; CPT 45378; principal; 2023-11-21 07:30)
DX: Z12.11 Encounter for screening for malignant neoplasm of colon (principal); K63.5 Polyp of colon; Z86.010 Personal history of colon polyps; I10 Essential (primary) hypertension; E78.5 Hyperlipidemia, unspecified
CPT/HCPCS: 45380; 88305; J2704

== ENCOUNTER 2023-12-27 22:46 | Emergency (ER) | payer OTHER, SELFPAY ==
--- NOTE | ~2023-12-27 | CT_ITS ---
EXAMINATION: CT ABDOMEN AND PELVIS WITHOUT CONTRAST CLINICAL INFORMATION: Left flank pain. COMPARISON: 10/20/2023 TECHNIQUE: Multidetector volumetric imaging was performed from the superior aspect of the liver through the pubic symphysis. Sagittal and coronal reformatted images were obtained on the technologist's workstation. This CT examination was performed using dose optimization techniques as appropriate, variously including the following: *Automated exposure control *Adjustment of mA and/or kV according to patient size (this includes techniques or standardized protocols for targeted exams where dose is matched to indication/reason for exam; i.e. extremities or head) *Use of iterative reconstruction technique DLP: 995 mGy-cm FINDINGS: LUNG BASES: The visualized lung bases are unremarkable. LIVER, GALLBLADDER, AND BILIARY TREE: The liver is of heterogeneous diminished attenuation. No focal liver lesions are seen. There is no intrahepatic biliary duct dilatation. The gallbladder is unremarkable with no evidence of radiopaque gallstones, gallbladder wall thickening, or obvious pericholecystic inflammatory changes. PANCREAS: There has been partial pancreatic resection. SPLEEN: The spleen is not seen. ADRENAL GLANDS: Unremarkable. KIDNEYS AND URETERS: The kidneys are normal in size, shape, and attenuation. A nonobstructing 2 mm calculus lower pole left kidney. There is mild left perinephric stranding. There is a prominent left renal collecting system. There is a faint hyperdensity at the left ureterovesicular junction measuring 3 mm. BLADDER: Unremarkable. GASTROINTESTINAL TRACT: The small and large bowel are unremarkable. The appendix is unremarkable. ABDOMINAL WALL: No significant hernia is appreciated. LYMPH NODES: Normal. VASCULAR: Unremarkable. PELVIC VISCERA: Unremarkable. OSSEOUS STRUCTURES: Unremarkable. CT/CT abdomen pelvis wo IV con IMPRESSION: Mild left perinephric stranding and prominent left renal collecting system. 3 mm hyperdensity at the left ureterovesicular junction probably representing a small stone. Correlation is needed as this is somewhat subtle finding. Nonobstructing 2 mm calculus in the lower pole of the left kidney. Fatty liver. 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 Fleischner guidelines were followed.
[2023-12-27 22:48] VITALS: BP 154/87; PULSE 71; RESP 24; TEMP 37.1; O2SAT 97; BMI 42.8
[2023-12-27] MEDS: Ondansetron ODT 4 MG TAB.RAPDIS TRANSLINGU (22:54)
[2023-12-27 23:19] LABS: MANUAL DIFF FLAG NO
[2023-12-27 23:21] LABS: Appearance Urine Cloudy; Basophils Percent Auto 0.3 % (0-2); Color Urine Yellow; Eosinophils Percent Auto 0.3 % (0-4); Glucose Urine UA Negative (Negative); Hematocrit 40.9 % (42.0-52.0); Hemoglobin 14.3 g/dl (14.0-18.0); Imm Gran Abs Auto 0.05 X10*3/uL (0.00-0.03); Imm Gran Pct Auto 0.4 % (0.0-0.4); Leukocyte Esterase Urine Negative (Negative); Lymphocytes Absolute Auto 1.9 X10*3/uL (1.2-4.9); Lymphocytes Percent Auto 16.1 % (20-40); Mean Corpuscular Hemoglobin 32.1 pg (27.0-33.0); Mean Corpuscular Volume 91.7 fL (80.0-98.0); Mean Platelet Volume 9.6 fL (9.4-12.4); Monocytes Absolute Auto 0.7 X10*3/uL (0.1-1.2); Monocytes Percent Auto 5.8 % (2-11); Neutrophils Percent Auto 77.1 % (45-73); Nitrite Urine Negative (Negative); PH 5.5 (5.0-9.0); Platelet Count 366 X10*3/uL (160-400); Red Blood Count 4.46 X10*6/uL (4.60-5.80); Red Cell Distribution Width 13.8 % (11.0-16.0); Specific Gravity - Urine 1.025 (1.005-1.025); UMIC TRIGGER UACC YES; Urine Blood Large (3+) (Negative); Urine Ketones Trace mg/dL (Negative); Urine Protein Trace mg/dL (Neg-Trace); White Blood Count 11.6 X10*3/uL (4.8-10.8)
[2023-12-27 23:34] LABS: Alanine Aminotransferase 29 U/L (0-40); Albumin Level 4.3 g/dL (3.5-5.0); Alkaline Phosphatase 56 U/L (39-117); Anion Gap 13 (12-20); Aspartate Amino Transferase 21 U/L (5-37); Bilirubin Total 0.4 mg/dL (0.0-1.0); Blood Urea Nitrogen 22 mg/dL (9-16); Calcium 9.5 mg/dL (8.4-10.2); Carbon Dioxide 23 mmol/L (22-29); Chloride 107 mmol/L (96-108); Creatinine Clr Calc Pharmacy 103.3; Estimated Glomerular Filt Rate > 60; Glucose Random 202 mg/dL (60-115); Lipase 22 U/L (8-78); Potassium 3.8 mmol/L (3.3-5.1); Sodium 139 mmol/L (135-145); Total Protein 7.6 g/dL (6.5-8.0)
[2023-12-27 23:52] LABS: Bacteria Urine None Seen (None Seen); Hyaline Casts Urine 0-2 /LPF (0-2); RBC Urine >20 /HPF (0-2); Squamous Epithelial Cell Urine 0-2 /HPF (0-2); WBC Urine 0-5 /HPF (0-5)
[2023-12-28 01:48] VITALS: BP 135/79; PULSE 82; RESP 18; TEMP 36.7; O2SAT 98
--- NOTE | 2023-12-28 01:48 | MHC.EDTECH ---
Addendum entered by Brenda Padilla 12/28/23 03:58: Patient changed into hospital attire Original Note: Patient brought in from waiting room,vitals taken,family at bedside call cotton in reach
--- NOTE | 2023-12-28 03:18 | ED.ABDPAIN ---
HPI - Abdominal Pain General Chief Complaint: Abdominal Pain Stated Complaint: possible kidney stone? pain and vomiting Time Seen by Provider: 12/28/23 03:18 Source: patient and family Mode of arrival: ambulatory Limitations: no limitations History of Present Illness HPI narrative: 58-year-old male with a history of GERD, hyperlipidemia, high cholesterol, hypertension, tubular adenoma, primary pancreatic neuroendocrine tumor (insulinoma), partial pancreas pancreatectomy, hernia repair, who presents emergency department for evaluation of intermittent left flank pain. The patient states that the pain initially started at 17:00 hours and it woke him up from a nap. He states that the pain was located in his left flank and did radiate to his left abdomen. The pain was 8/10 and lasts approximately 45 minutes then resolved. The pain returned and the patient came to the emergency department for evaluation. By the time I evaluated him he states that his pain had resolved. The patient states that he had diaphoresis with the pain. He denied fever, chills, cough, myalgias, arthralgias, frequency, urgency or dysuria. This is the patient's 1st episode of this type of pain. Related Data Home Medications ?Medication ?Instructions ?Recorded ?Confirmed losartan 25 mg tablet 25 mg PO DAILY 03/16/21 11/17/23 omeprazole 20 mg capsule,delayed 40 mg PO DAILY 06/21/23 11/17/23 release Previous Rx's ?Medication ?Instructions ?Recorded rosuvastatin 20 mg tablet 20 mg PO DAILY #30 tabs 12/25/23 morphine 15 mg immediate release 15 mg PO Q4-6H PRN pain #10 tabs 12/28/23 tablet tamsulosin 0.4 mg capsule (Flomax) 0.4 mg PO DAILY #30 caps 12/28/23 Allergies Allergy/AdvReac Type Severity Reaction Status Date / Time No Known Allergies Allergy Verified 12/27/23 22:51 [No Known Allergies*] Review of Systems Review of Systems Yes all other systems are reviewed and are negative PMFSH Past Medical History Medical History Tubular adenoma Insulinoma Hyperlipidemia Seasonal allergies Ascending aortic aneurysm Primary pancreatic neuroendocrine tumor Hypercholesteremia Hypertension Surgical History History of partial pancreatectomy H/O colonoscopy History of incisional hernia repair (08/23/23) Personal history of (corrected) hypospadias History of pancreatectomy Family History Family History Mother Breast cancer Father Diabetes Social History Social History Household Members: Family Housing: House Are you a primary healthcare administration internship to a significant other at home: No Do you presently have visiting nurse or other home services: No Alcohol intake: current Alcohol intake frequency: holidays/special occasions only Patient Tobacco Use Status: Never used Tobacco Advance Directives: No Advance Directives Information Provided: Yes service: No 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al status: employed 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 ED Vital Signs: Vital Signs - 24 hr 12/27/23 22:48 12/28/23 01:48 12/28/23 03:56 Temperature 98.8 F 98.0 F 98.5 F Pulse Rate 71 82 77 Respiratory Rate 24 H 18 18 Blood Pressure 154/87 H 135/79 124/78 Pulse Oximetry 97 98 100 Oxygen Delivery Method Room Air Room Air Room Air 12/28/23 06:00 Temperature 97.9 F Pulse Rate 64 Respiratory Rate 18 Blood Pressure 126/76 Pulse Oximetry 99 Oxygen Delivery Method Room Air BMI result Body Mass Index 42.8 Medical Decision Making Medical Decision Making MDM Narrative: 58-year-old male with a history of GERD, hyperlipidemia, high cholesterol, hypertension, tubular adenoma, primary pancreatic neuroendocrine tumor (insulinoma), partial pancreas pancreatectomy, hernia repair, who presents emergency department for evaluation of intermittent left flank pain with initial onset at 17:00 hours, patient's 2nd episode was just prior to coming to the emergency department but resolved after 2 hours in the emergency department without treatment and is currently pain-free. Pain was associated with diaphoresis. Vital signs revealed an elevated blood pressure of 154/87 and elevated respiratory rate of 24. Patient's exam was otherwise unremarkable. Differential diagnosis: ?Includes but is not limited to renal colic, ureteral colic, ureteral stone, pancreatitis, viral syndrome Following evaluation was ordered: CBC, CMP, lipase, urinalysis, CT scan of the abdomen pelvis without IV contrast Patient was initially treated with the following: Zofran ODT 4 mg, normal saline x1 L Course: 04:11 My interpretation patient's laboratory evaluation as follows: CBC was normal. CMP was normal except for an elevated glucose of 202. Lipase was normal. 07:37 The patient remains pain-free and did not require any medications. The patient's CT scan did reveal a 3 mm ureteral stone at the left UVJ and a 2 mm nonobstructing left renal stone. I did discuss these findings with the patient. Patient was advised to take Tylenol and ibuprofen for his pain and was prescribed Flomax and morphine as well. Patient was advised follow-up with our on-call urologist within 1 week he was given printed and verbal instructions. Admission/Observation Consideration of admission/observation: Escalation of care including admission/observation considered Lab Data MDM Lab Attestation statement: I reviewed the patient's lab results. 12/27/23 23:14 12/27/23 23:14 Labs: Lab Results 12/27/23 Range/Units 23:14 WBC 11.6 H (4.8-10.8) X10*3/uL RBC 4.46 L (4.60-5.80) X10*6/uL Hgb 14.3 (14.0-18.0) g/dl Hct 40.9 L (42.0-52.0) % MCV 91.7 (80.0-98.0) fL MCH 32.1 (27.0-33.0) pg MCHC 35.0 (31.0-36.0) g/dl RDW 13.8 (11.0-16.0) % Plt Count 366 (160-400) X10*3/uL MPV 9.6 (9.4-12.4) fL Immature Gran % (Auto) 0.4 (0.0-0.4) % Neut % (Auto) 77.1 H (45-73) % Lymph % (Auto) 16.1 L (20-40) % Winston % (Auto) 5.8 (2-11) % Eos % (Auto) 0.3 (0-4) % Baso % (Auto) 0.3 (0-2) % Lymph # (Auto) 1.9 (1.2-4.9) X10*3/uL Winston # (Auto) 0.7 (0.1-1.2) X10*3/uL Eos # (Auto) 0.0 (0.0-0.4) X10*3/uL Baso # (Auto) 0.0 (0.0-0.2) X10*3/uL Abs Immat Gran (auto) 0.05 H (0.00-0.03) X10*3/uL Absolute Neuts (auto) 9.0 H (2.0-8.3) x10*3/uL Absolute Nucleated RBC 0.000 (0.0-0.012) X10*3/uL Nucleated RBC % (auto) 0.0 (0.0-0.2) /100WBC Sodium 139 (135-145) mmol/L Potassium 3.8 (3.3-5.1) mmol/L Chloride 107 (96-108) mmol/L Carbon Dioxide 23 (22-29) mmol/L Anion Gap 13 (12-20) BUN 22 H (9-16) mg/dL Creatinine 1.06 (0.5-1.4) mg/dL Estim Creat Clear Calc 103.3 Estimated GFR > 60 Random Glucose 202 H (60-115) mg/dL Calcium 9.5 (8.4-10.2) mg/dL Total Bilirubin 0.4 (0.0-1.0) mg/dL AST 21 (5-37) U/L ALT 29 (0-40) U/L Alkaline Phosphatase 56 (39-117) U/L Total Protein 7.6 (6.5-8.0) g/dL Albumin 4.3 (3.5-5.0) g/dL Lipase 22 (8-78) U/L Urine Color Yellow Urine Appearance Cloudy Urine pH 5.5 (5.0-9.0) Ur Specific [place] 1.025 (1.005-1.025) Urine Protein Trace (Neg-Trace) mg/dL Urine Glucose (UA) Negative (Negative) mg/dL Urine Ketones Trace (Negative) mg/dL Urine Blood Large (3+) H (Negative) Urine Nitrite Negative (Negative) Ur Leukocyte Esterase Negative (Negative) Urine RBC >20 H (0-2) /HPF Urine WBC 0-5 (0-5) /HPF Ur Squamous Epith Cells 0-2 (0-2) /HPF Urine Bacteria None Seen (None Seen) Hyaline Casts 0-2 (0-2) /LPF Radiology Impression Discussion of test interpretation with radiology: I have reviewed the radiologist's reading. Radiologist Impression: CT abdomen pelvis wo IV con IMPRESSION: Mild left perinephric stranding and prominent left renal collecting system. 3 mm hyperdensity at the left ureterovesicular junction probably representing a small stone. Correlation is needed as this is somewhat subtle finding. Nonobstructing 2 mm calculus in the lower pole of the left kidney. Fatty liver. 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 Fleischner guidelines were followed. Dictated By: Enmanuel David Prescription Management I considered prescription management with: Pain Medication Medications Administered Discontinued Medications Generic Name Dose Route Start Last Admin Trade Name Freq PRN Reason Stop Dose Admin Sodium Chloride 1,000 mls @ 999 mls/hr 12/28/23 03:24 12/28/23 07:10 Ns IV 12/28/23 04:24 Infused .Q1H1M STA Infusion Ondansetron HCl 4 mg 12/27/23 22:51 12/27/23 22:54 Ondansetron Odt 4 Mg Tab.Rapdis TRANSLINGU 12/27/23 22:52 4 mg ONCE ONE Administration Discharge Plan Discharge Clinical Impression: Renal colic on left side, Calculus of distal left ureter Patient Disposition: Home, Self-Care Instructions: How to Strain Your Urine (ED), Ureteral Stones (ED) Additional Instructions: Your blood work was unremarkable. Your urinalysis/microscopic did reveal blood in urine but no evidence for an infection Your CT scan did reveal a left 3 mm ureteral stone at the ureterovesicular junction (UVJ) which is the connection between the ureter and bladder-you have almost pass the stone Take ibuprofen 200 mg pills, 3 pills every 6 hours as needed for pain. Take Tylenol (acetaminophen) 2 pills every 4-6 hours as needed for pain. For pain not relieved by ibuprofen or Tylenol take morphine 15 mg pills, 1 pill every 4 hours as needed for pain. This medication will make you sleepy, do not drive or work while taking this medication. Morphine is a narcotic medication and can be addicting. If you are concerned about addiction you can ask the pharmacist for less pills or do not get this prescription filled. Take Flomax (tamsulosin) 0.4 mg once a day for the next 2 weeks or until you pass the stone. ?This medication helps relax the ureter and may help you pass the stone sooner. Follow-up with Dr. Quiroz our on-call urologist within 1-2 weeks Please return to the emergency department if your symptoms get worse or if you develop any symptoms that are concerning to you. Strain your urine and if you catch a kidney stone bring it to the urologist Prescriptions: New tamsulosin [Flomax] 0.4 mg capsule 0.4 mg PO DAILY Qty: 30 0RF morphine 15 mg tablet 15 mg PO Q4-6H PRN (Reason: pain) Qty: 10 0RF Rx Instructions: The patient may ask for partial fill; Partial Fill upon patient request. No Action rosuvastatin 20 mg tablet 20 mg PO DAILY Qty: 30 11RF losartan 25 mg tablet 25 mg PO DAILY omeprazole 20 mg capsule,delayed release(DR/EC) 40 mg PO DAILY Referrals: Avel Quiroz MD [Physician] - 1 week (3 mm left ureteral stone) Print Language: Icelandic
[2023-12-28 03:56] VITALS: BP 124/78; PULSE 77; RESP 18; TEMP 36.9; O2SAT 100
[2023-12-28] MEDS: 0.9 % Sodium Chloride 1,000 ML 999 ML IV (03:56)
--- NOTE | 2023-12-28 03:57 | MHC.EDTECH ---
Hourly rounds and vitals completed,patient is resting at this time,call cotton in reach
[2023-12-28 06:00] VITALS: BP 126/76; PULSE 64; RESP 18; TEMP 36.6; O2SAT 99
--- NOTE | 2023-12-28 06:12 | MHC.EDTECH ---
Patient urinated 300MLS in urinal,strained for stone,per providers request. Hourly rounds and vitals completed,call cotton in reach.
[2023-12-28 07:40] VITALS: BP 137/94; PULSE 79; RESP 14; TEMP 36.3; O2SAT 94
== END 2023-12-28 08:15 | disposition home or self-care (01) ==
PROVIDERS: Emergency Provider Emergency Medicine Emergency Medical Services; PCP Internal Medicine
DX: N20.2 Calculus of kidney with calculus of ureter (principal); R10.9 Unspecified abdominal pain; R11.2 Nausea with vomiting, unspecified; Z79.899 Other long term (current) drug therapy
CPT/HCPCS: 36415; 74176; 80053; 81001; 83690; 85025; 96360; 96361; 99283; 99284

== ENCOUNTER 2024-01-24 14:20 | Outpatient (AMB) | payer OTHER, SELFPAY ==
--- NOTE | 2024-01-24 14:35 | MHC.OFFVIS ---
Vital Signs 01/24/24 14:37 Height 5 ft 9 in Weight 280 lb BMI 41.3 Intake Visit Reasons: Low back pain radiating to right leg Intake Note: Vasile is a 58 year old female who presents with complaints of progressively worsening low back pain which radiates down his right leg to his right foot. The patient states that his symptoms have gotten worse over the last 6 months in spite of continued non operative treatments. Has failed 6 weeks of conservative treatment. Has done physical therapy exercises which aggravated his pain. He also reports intermittent weakness in his right leg. Has tried Tylenol and Celebrex which gave him minimal relief. Allergies No Known Allergies [No Known Allergies*] Allergy (Verified 01/24/24 14:40) Medication List - Last Reconciled 01/24/24 by Linwood Breen MD celecoxib 200 mg PO DAILY losartan 25 mg PO DAILY methylprednisolone (Medrol (Scar)) PO PER PKG DIR omeprazole 40 mg PO DAILY rosuvastatin 20 mg PO DAILY PFSH Medical History Tubular adenoma Insulinoma Hyperlipidemia Seasonal allergies Ascending aortic aneurysm Primary pancreatic neuroendocrine tumor Hypercholesteremia Hypertension Surgical History History of partial pancreatectomy H/O colonoscopy History of incisional hernia repair (08/23/23) Personal history of (corrected) hypospadias History of pancreatectomy Family History Mother Breast cancer Father Diabetes Social History Household Members: Family Housing: House Are you a primary career advisor to a significant other at home: No Do you presently have visiting nurse or other home services: No Alcohol intake: current Alcohol intake frequency: holidays/special occasions only Patient Tobacco Use Status: Never used Tobacco service: No 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al status: employed 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 Vital Signs: BMI result Body Mass Index 41.3 Const Other: Well-nourished well-developed very friendly male awake alert and oriented x3 in no acute distress Back/Spine/Pelvis Other: Low back examination shows right-sided paraspinal muscle tenderness, pain with range of motion, positive straight leg raise test on the right at 70 degrees, 4/5 strength with testing of his right hip flexors and knee extensors when compared to 5/5 strength on his left side Results Reviewed Results Reviewed: X-rays of the patient's lumbar spine taken today show moderate diffuse degenerative disc disease, no acute bony abnormalities Assessment & Plan Assessment & Plan (1) Low back pain radiating to right leg: Code(s): M54.50 - Low back pain, unspecified; M79.604 - Pain in right leg Category: Medical Plan Mr. Quintana presents with progressively worsening low back pain which radiates down his right leg to his right foot as well as associated right leg weakness most likely due to lumbar stenosis or a disc herniation. Thus, I will send the patient for an MRI of his lumbar spine for further evaluation. He will contact me prior to the MRI should his symptoms worsen in any way. Feel free to call me at any time should questions regarding his orthopedic management arise. I spent 22 minutes in reviewing the patient's records and imaging studies, seeing the patient and documenting in the medical record. Orders: Orders XR lumbar spine 2-3V Today M54.50 - Low back pain, unspecified MR lumbar spine wo con Today M54.50 - Low back pain, unspecified, M79.604 - Pain in right leg Medications: New methylprednisolone (Medrol (Scar)) PO PER PKG DIR 21 ea 0RF Coding Level of Care Code Est Pt Level 3 (67001) Diagnoses Low back pain radiating to right leg M54.50; M79.604
[2024-01-24 14:37] VITALS: BMI 41.3
== END 2024-01-24 14:51 | disposition home or self-care (01) ==
PROVIDERS: PCP Internal Medicine; Visit Provider Orthopaedic Surgery
DX: M54.50 Low back pain, unspecified (principal); M79.604 Pain in right leg
CPT/HCPCS: 99213

== ENCOUNTER 2024-01-24 15:49 | Outpatient (REF) | payer OTHER, SELFPAY ==
--- NOTE | ~2024-01-24 | XR_ITS ---
EXAMINATION: XR LUMBOSACRAL SPINE CLINICAL INFORMATION: Low back pain unspecified. COMPARISON: None available. TECHNIQUE: Three views of the lumbosacral spine. FINDINGS: Levoscoliosis of the lumbar spine. Degenerative changes with hypertrophic change and narrowing in the bilateral sacroiliac joints. Facet arthritis in the lower lumbar spine. There appears to be a transitional vertebral body referred to as S1 for the purposes of this dictation. It is hemisacralized on the left and to a lesser extent on the right. The articulation on the left is osteoarthritic. Multilevel lumbar spondylosis with moderate loss of disc space height at L3-L4 and L4-L5. XR/XR lumbar spine 2-3V IMPRESSION: 1. Multilevel lumbar spondylosis with moderate loss of disc space height at L3-L4 and L4-L5. 2. Facet arthritis in the lower lumbar spine. 3. Transitional vertebral body referred to as S1 for the purposes of this dictation. It is hemisacralized on the left and to a lesser extent on the right. The articulation on the left is osteoarthritic.
== END 2024-01-24 15:50 | disposition home or self-care (01) ==
LOC: HO.HOSX 15:49
PROVIDERS: Visit Provider Orthopaedic Surgery
DX: M54.50 Low back pain, unspecified (principal)
CPT/HCPCS: 72100

== ENCOUNTER 2024-01-31 09:51 | Outpatient (REF) | payer OTHER, SELFPAY ==
--- NOTE | ~2024-01-31 | CT_ITS ---
EXAMINATION: CT CHEST, ABDOMEN AND PELVIS WITH CONTRAST CLINICAL INFORMATION: BENIGN NEUROENDOCRINE TUMORS, COMPARISON: CT abdomen pelvis just over one month ago on 12/28/2023, CT chest abdomen pelvis 01/04/2023 TECHNIQUE: Multidetector volumetric imaging was performed from the thoracic inlet through the pubic symphysis following administration of 85 mL of contrast. Sagittal and coronal reformatted images were obtained on the technologist's workstation. This CT examination was performed using dose optimization techniques as appropriate, variously including the following: *Automated exposure control *Adjustment of mA and/or kV according to patient size (this includes techniques or standardized protocols for targeted exams where dose is matched to indication/reason for exam; i.e. extremities or head) *Use of iterative reconstruction technique DLP: 1267 mGy-cm FINDINGS: CHEST: Lung: Some tiny pulmonary nodules are present with the largest a 3 mm triangular perifissural lymph node in the right lower lobe (7:275), all unchanged. The lungs are otherwise clear without worrisome focal opacity or new, increasing sized or concerning nodule. Mediastinum: The mediastinum is normal. The central vascular structures are unremarkable. No hilar or mediastinal lymphadenopathy. Coronary Artery Calcium: No significant. Pericardium/Pleura: No significant effusion. No pleural mass or thickening. Chest Wall/Axilla: Unremarkable. ABDOMEN/PELVIS: Peritoneal Space: No significant free air or free fluid identified. Liver, Gallbladder, Biliary Tree: The liver is normal in size, shape, and attenuation. No focal hepatic lesion or biliary ductal dilatation is present. The gallbladder is unremarkable with no evidence of radiopaque gallstones, gallbladder wall thickening, or obvious pericholecystic inflammatory changes. Pancreas: Patient status post splenectomy and distal pancreatectomy. Spleen: Absent. Adrenal Glands: Unremarkable. Kidneys and Ureters: The kidneys are normal in size, shape, and attenuation. No hydronephrosis, hydroureter, or calculi seen. Previously seen obstructing distal left ureteral calculus causing minimal prominence of the collecting system and perinephric stranding is no longer present. There had been a punctate nonobstructing calculus at the lower pole of the left kidney, which is no longer seen. A benign mid left kidney 0.8 cm Bosniak class I renal cyst is noted which requires no additional imaging or follow up. No solid renal masses are seen. Bladder: Unremarkable. Gastrointestinal Tract: There is mild in effacement of the duodenal bulb and proximal second portion of the duodenum in the region of the pancreas but there is no obstruction. The small and large bowel are unremarkable. The appendix is unremarkable. Abdominal Wall: No significant hernia is appreciated. There is mild diastases of the rectus muscles in the epigastrium with some mild forward bulging. Lymph Nodes: No lymphadenopathy. Vascular: The aorta appears normal.. The IVC appears unremarkable. PELVIC VISCERA: The prostate and seminal vesicles are unremarkable. OSSEUS STRUCTURES: Mild degenerative changes are noted in the spine. No bony destructive lesions are seen. CT/CT abdomen pelvis w IV con IMPRESSION: 1. No evidence of metastatic disease in the chest, abdomen or pelvis. 2. Status post splenectomy and distal pancreatectomy. 3. Previously seen obstructing distal left ureteral calculus is no longer present. 4. Other incidental findings as described above. Fleischner guidelines were followed.
[2024-01-31] MEDS: iohexoL 350 MG/ML 100 ML INFUS..BTL 85 ML IV (12:30)
[2024-01-31] MEDS: Barium Sulfate Oral (Berry) 450 ML ORAL.SUSP 900 ML PO (12:32)
[2024-01-31 14:05] LABS: Creatinine POC 0.9 mg/dL (0.5-1.4); GFR POC > 60
== END 2024-01-31 09:52 | disposition home or self-care (01) ==
LOC: HO.CT 09:51
PROVIDERS: PCP Internal Medicine; Visit Provider Student in an Organized Health Care Education/Training Program
DX: D3A.8 Other benign neuroendocrine tumors (principal)
CPT/HCPCS: 71260; 74177; 82565; Q9967

== ENCOUNTER 2024-02-07 10:59 | Outpatient (REF) | payer OTHER, SELFPAY ==
[2024-02-07 16:00] LABS: MANUAL DIFF FLAG NO
[2024-02-07 18:02] LABS: Basophils Absolute Auto 0.1 X10*3/uL (0.0-0.2); Basophils Percent Auto 0.9 % (0-2); Eosinophils Absolute Auto 0.2 X10*3/uL (0.0-0.4); Eosinophils Percent Auto 1.8 % (0-4); Hematocrit 43.5 % (42.0-52.0); Hemoglobin 14.6 g/dl (14.0-18.0); Imm Gran Abs Auto 0.05 X10*3/uL (0.00-0.03); Imm Gran Pct Auto 0.5 % (0.0-0.4); Lymphocytes Absolute Auto 3.8 X10*3/uL (1.2-4.9); Lymphocytes Percent Auto 38.8 % (20-40); Mean Corpuscular HGB Conc 33.6 g/dl (31.0-36.0); Mean Corpuscular Hemoglobin 31.7 pg (27.0-33.0); Mean Corpuscular Volume 94.6 fL (80.0-98.0); Mean Platelet Volume 10.4 fL (9.4-12.4); Monocytes Absolute Auto 1.1 X10*3/uL (0.1-1.2); Monocytes Percent Auto 11.6 % (2-11); Neutrophils Absolute Auto 4.5 x10*3/uL (2.0-8.3); Neutrophils Percent Auto 46.4 % (45-73); Platelet Count 359 X10*3/uL (160-400); Red Cell Distribution Width 14.2 % (11.0-16.0); White Blood Count 9.8 X10*3/uL (4.8-10.8)
[2024-02-07 18:55] LABS: Alanine Aminotransferase 21 U/L (0-40); Albumin Level 4.2 g/dL (3.5-5.0); Alkaline Phosphatase 59 U/L (39-117); Anion Gap 15 (12-20); Aspartate Amino Transferase 18 U/L (5-37); Bilirubin Direct 0.1 mg/dL (0.0-0.5); Bilirubin Total 0.4 mg/dL (0.0-1.0); Blood Urea Nitrogen 17 mg/dL (9-16); Calcium 9.9 mg/dL (8.4-10.2); Carbon Dioxide 23 mmol/L (22-29); Chloride 108 mmol/L (96-108); Estimated Glomerular Filt Rate > 60; Glucose Random 114 mg/dL (60-115); Sodium 142 mmol/L (135-145); Total Protein 7.5 g/dL (6.5-8.0)
[2024-02-07 19:08] LABS: Prostate Specific Antigen 2.94 ng/mL (<0.05-4.0)
[2024-02-15 23:53] LABS: Chromogranin A 1892 ng/mL (ADULTS: <311)
== END 2024-02-07 11:00 | disposition home or self-care (01) ==
LOC: HO.MRI 10:59
PROVIDERS: Absent Provider Nurse Practitioner Family; PCP Internal Medicine; Referring Provider Student in an Organized Health Care Education/Training Program; Visit Provider Orthopaedic Surgery
DX: C25.4 Malignant neoplasm of endocrine pancreas (principal); Z12.5 Encounter for screening for malignant neoplasm of prostate
CPT/HCPCS: 36415; 80048; 80076; 81003; 83735; 84153; 85025; 86316

== ENCOUNTER 2024-02-07 14:38 | Outpatient (AMB) | payer OTHER, SELFPAY ==
--- NOTE | 2024-02-07 14:56 | A.OFFVIS_ITS ---
Intake Visit Reasons: Nephrolithiasis- ER follow up Intake Note: New Patient presents today for initial visit to establish treatment for : Nephrolithiasis Urology Medications: none Allergies to Antibiotic: none Blood Thinner: none Rejogger Required: No Accompanied by: Self / Same As Patient Allergies No Known Allergies [No Known Allergies*] Allergy (Verified 02/07/24 16:49) Medication List - Last Reconciled 02/07/24 by EAGLE Valenzuela celecoxib 200 mg PO DAILY losartan 25 mg PO DAILY omeprazole 40 mg PO DAILY rosuvastatin 20 mg PO DAILY HPI Comments Details: Vasile is a very pleasant 58-year-old male patient of Dr. Ballesteros. He has a past medical history of hyperlipidemia, seasonal allergies, hypertension, hypercholesteremia, primary pancreatic neuroendocrine tumor, and ascending aortic aneurysm. He presents to the office today as a new patient for nephrolithiasis. In discussion with the patient today he reports having seeked emergency room care approximately 1 month ago intermittent left-sided flank pain he had been experiencing. In review of patient's chart it appears CT was ordered and performed. Mild left perinephric stranding and prominent left renal collecting system. 3 mm hyperdensity at the left ureterovesical junction probably representing a small stone. However patient reports having had repeat CT approximately one week ago that noted previously seen obstructing distal left ureteral calculus causing minimal prominence of the collecting system and perinephric stranding is no longer present. There had been punctate nonobstructing calculus at the lower pole of the kidney which are no longer seen. A benign mid left kidney 0.8 cm Bosniak class 1 renal cyst is noted which requires no additional imaging or follow-up per radiology report. No solid renal masses are seen. The bladder is unremarkable. Patient currently denies any bothersome urinary issues or concerns. In review of patient's chart it appears last PSA 08/06 1.2. In office urinalysis results reviewed with the patient today. When asked he does report a previous history of nephrolithiasis however never requiring surgical intervention. He otherwise offers no other issues or concerns at this time. [facility]LY [facility], [facility] Medical History Tubular adenoma Insulinoma Hyperlipidemia Seasonal allergies Ascending aortic aneurysm Primary pancreatic neuroendocrine tumor Hypercholesteremia Hypertension Surgical History History of partial pancreatectomy H/O colonoscopy History of incisional hernia repair (08/23/23) Personal history of (corrected) hypospadias History of pancreatectomy Family History Mother Breast cancer Father Diabetes Social History Household Members: Family Housing: House Are you a primary home care assistant to a significant other at home: No Do you presently have visiting nurse or other home services: No Alcohol intake: current Alcohol intake frequency: holidays/special occasions only Patient Tobacco Use Status: Never used Tobacco service: No 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al status: employed 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 Review of Systems Const Reports no additional complaints Eyes Reports no additional complaints ENT Reports no additional complaints Card Reports as per HPI Resp Reports no additional complaints GI Reports as per HPI Reports as per HPI Musc Reports no additional complaints Neuro Reports no additional complaints Psych Reports no additional complaints Endo Reports no additional complaints Physical Exam Const General: cooperative, healthy appearing, comfortable, no acute distress, well developed, alert and awake Orientation/consciousness: patient oriented x3 Limitations: no limitations HEENT Head: Yes normal to inspection, Yes normocephalic and Yes atraumatic Ears: hearing grossly normal bilaterally Eyes General: appearance normal, both eyes and all related structures Neck Neck: Yes normal visual inspection and Yes trachea midline Chest Chest palpation & inspection: normal inspection of the chest Resp Effort & Inspection: normal respiratory effort and able to speak in complete sentences Cardio Rate: regular rate GI Inspection: Yes normal to inspection General: Yes no CVA tenderness Back/Spine/Pelvis Back: no CVA tenderness Skin General skin exam: no rashes or lesions noted Neuro General: patient oriented x3 Extrem General: Yes normal to inspection Psych Appearance: grossly normal and well kempt Mental Status: mental status grossly normal Speech and movement: Normal speech and movement present and Clear speech present Affect: normal affect Attitude: cooperative Thought process: Normal thought process present Thought content: Normal thought content present Insight: Fair insight present (Psych) Judgement: Fair judgement present (Psych) Results AMB Urinalysis, Automated UA Leukoctes 0 Murali/uL Last Edit by Mauricio Turner on 02/07/24 15:08 UA Nitrite Negative Last Edit by Mauricio Turner on 02/07/24 15:08 UA Urobilinogen 0.2 mg/dL Last Edit by [employer] on 02/07/24 15:08 UA Protein 15 mg/dL Last Edit by [employer] on 02/07/24 15:08 UA pH 6.0 Last Edit by Brandyce [employer] on 02/07/24 15:08 UA Blood 200 Kirit/uL Last Edit by [employer] on 02/07/24 15:08 UA Specific [place] 1.020 Last Edit by [employer]e [employer] on 02/07/24 15:08 UA Ketone Negative Last Edit by [employer] on 02/07/24 15:08 UA Bilirubin 0 mg/dL Last Edit by [employer] on 02/07/24 15:08 UA Glucose 0 mg/dL Last Edit by [employer]e [employer] on 02/07/24 15:08 Results Reviewed Results Reviewed: Laboratory Last Values Urine pH (Auto) 6.0 02/07/24 15:06 Specific [place] (Auto) 1.020 02/07/24 15:06 Urine Protein (Auto) 15 mg/dL 02/07/24 15:06 Glucose (UA)(Auto) 0 mg/dL 02/07/24 15:06 Urine Ketones (Auto) Negative 02/07/24 15:06 Urine Blood (Auto) 200 Kirit/uL 02/07/24 15:06 Urine Nitrite (Auto) Negative 02/07/24 15:06 Urine Bilirubin (Auto) 0 mg/dL 02/07/24 15:06 Urine Urobilinogen (Auto) 0.2 mg/dL 02/07/24 15:06 Leukocyte Esterase (Auto) 0 Murali/uL 02/07/24 15:06 Date of Service: 01/31/24 EXAMINATION: CT CHEST, ABDOMEN AND PELVIS WITH CONTRAST FINDINGS: CHEST: Lung: Some tiny pulmonary nodules are present with the largest a 3 mm triangular perifissural lymph node in the right lower lobe (7:275), all unchanged. The lungs are otherwise clear without worrisome focal opacity or new, increasing sized or concerning nodule. Mediastinum: The mediastinum is normal. The central vascular structures are unremarkable. No hilar or mediastinal lymphadenopathy. Coronary Artery Calcium: No significant. Pericardium/Pleura: No significant effusion. No pleural mass or thickening. Chest Wall/Axilla: Unremarkable. ABDOMEN/PELVIS: Peritoneal Space: No significant free air or free fluid identified. Liver, Gallbladder, Biliary Tree: The liver is normal in size, shape, and attenuation. No focal hepatic lesion or biliary ductal dilatation is present. The gallbladder is unremarkable with no evidence of radiopaque gallstones, gallbladder wall thickening, or obvious pericholecystic inflammatory changes. Pancreas: Patient status post splenectomy and distal pancreatectomy. Spleen: Absent. Adrenal Glands: Unremarkable. Kidneys and Ureters: The kidneys are normal in size, shape, and attenuation. No hydronephrosis, hydroureter, or calculi seen. Previously seen obstructing distal left ureteral calculus causing minimal prominence of the collecting system and perinephric stranding is no longer present. There had been a punctate nonobstructing calculus at the lower pole of the left kidney, which is no longer seen. A benign mid left kidney 0.8 cm Bosniak class I renal cyst is noted which requires no additional imaging or follow up. No solid renal masses are seen. Bladder: Unremarkable. Gastrointestinal Tract: There is mild in effacement of the duodenal bulb and proximal second portion of the duodenum in the region of the pancreas but there is no obstruction. The small and large bowel are unremarkable. The appendix is unremarkable. Abdominal Wall: No significant hernia is appreciated. There is mild diastases of the rectus muscles in the epigastrium with some mild forward bulging. Lymph Nodes: No lymphadenopathy. Vascular: The aorta appears normal.. The IVC appears unremarkable. PELVIC VISCERA: The prostate and seminal vesicles are unremarkable. OSSEUS STRUCTURES: Mild degenerative changes are noted in the spine. No bony destructive lesions are seen. CT/CT abdomen pelvis w IV con IMPRESSION: 1. No evidence of metastatic disease in the chest, abdomen or pelvis. 2. Status post splenectomy and distal pancreatectomy. 3. Previously seen obstructing distal left ureteral calculus is no longer present. 4. Other incidental findings as described above. Assessment & Plan Assessment & Plan (1) Nephrolithiasis: Code(s): N20.0 - Calculus of kidney Category: Medical (2) Microscopic hematuria: Code(s): R31.29 - Other microscopic hematuria Category: Medical (3) Renal cyst: Code(s): N28.1 - Cyst of kidney, acquired Category: Medical Plan In office urinalysis results reviewed with the patient today; as noted above. Recent CT results reviewed with the patient today; as noted above. Discussed at length potential causes of nephrolithiasis. Patient currently denies any bothersome urinary issues or concerns. Is happy with his current voiding parameters. Discussed, educated, and stressed the importance of drinking water daily. Discussed adding 1 oz of lemon juice to water daily. Will obtain PSA. Will obtain renal ultrasound in 6 months. Follow-up in 6 months with imaging and labs to be completed prior; or sooner with any issues, concerns, and or questions. Orders: Orders AMB Urinalysis Automated Today Z13.9 - Encounter for screening, unspecified US renal BI 6 Months N20.0 - Calculus of kidney Prostate Specific Antigen Today N40.0 - Benign prostatic hyperplasia without lower urinary tract symptoms Patient Instructions: The patient had an opportunity to ask questions regarding the treatment plan. All questions were answered. Physical exam, labs, and imaging were discussed and reviewed in detail. As well as risks, benefits, and discussion of treatment choices. No major barriers to understanding were identified. The patient expressed understanding and agreement with the above treatment plan. The patient was made aware they should contact our office by phone for worsening of their current condition, the appearance of new symptoms, or with any questions or concerns. Compliance is encouraged with any medications and follow up testing that is ordered. It is a privilege to be allowed the opportunity to participate in? your urological care.? Again, if you have any questions or conc erns If you have any questions or concerns please do not hesitate to contact me. The office is [phone]. This note is constructed using voice recognition software. While every effort has been made to ensure accuracy debridging machine operator errors may have been included. Yours sincerely, EAGLE Valenzuela Coding Level of Care Code New Pt Level 3 (14224) Diagnoses Nephrolithiasis N20.0 Microscopic hematuria R31.29 Renal cyst N28.1
== END 2024-02-07 15:41 | disposition home or self-care (01) ==
LOC: HO.HUSH 14:40
PROVIDERS: PCP Internal Medicine; Visit Provider Nurse Practitioner Family
DX: N20.0 Calculus of kidney (principal); R31.29 Other microscopic hematuria; N28.1 Cyst of kidney, acquired; Z13.9 Encounter for screening, unspecified
CPT/HCPCS: 99203

== ENCOUNTER 2024-02-20 16:17 | Outpatient (REF) | payer OTHER, SELFPAY ==
--- NOTE | ~2024-02-20 | MR_ITS ---
EXAMINATION: MR LUMBAR SPINE WITHOUT CONTRAST CLINICAL INFORMATION: Low back pain COMPARISON: Lumbar spine x-ray on 01/24/2024 TECHNIQUE: MRI of the lumbar spine was obtained using routine sequences without contrast. FINDINGS: The visualized lumbar vertebrae are intact with normal alignment. Evaluation of the intervertebral discs show: T12/L1: Intervertebral disc height is normal, with normal T2 signal. No focal disc herniation is seen. Bilateral T12/L1 neuroforamina are patent. Bilateral apophyseal joints are intact with normal alignment. L-1/L-2: Intervertebral disc height is normal, with normal T2 signal. No focal disc herniation is seen. Bilateral L1-L2 neuroforamina are patent. Bilateral apophyseal joints are intact with normal alignment. L2/L3: Intervertebral disc height is mildly decreased, with mild loss of T2 signal. No focal disc herniation is seen. Bilateral L2-L3 neuroforamina are patent. Bilateral apophyseal joints are intact with normal alignment. L3/L4: Intervertebral disc height is moderately decreased, with mild loss of T2 signal. Moderate asymmetric right posterior and right foraminal disc protrusion moderately effacing the right lateral recess is seen. There is resulting asymmetric moderate right L3-L4 neuroforaminal stenosis. Semilunar shaped sclerotic Schmorl's node surrounded by T2 hyperintense rim is seen in posterior inferior L3 vertebral endplate. Bilateral apophyseal joints are intact with normal alignment. L4/L5: Intervertebral disc height is moderately decreased, with mild loss of T2 signal. Mild posterior and bilateral foraminal disc protrusion is seen. Bilateral L4-L5 neuroforamina are patent. Bilateral apophyseal joints are intact with normal alignment. Bilateral apophyseal joints show loss of joint space, sclerosis, facet hypertrophy and osteophytosis. L5/S1: Intervertebral disc height is normal, with normal T2 signal. No focal disc herniation is seen. Bilateral L5-S1 neuroforamina are patent. Bilateral apophyseal joints are intact with normal alignment. Bilateral apophyseal joints show loss of joint space, sclerosis, facet hypertrophy and osteophytosis. Conus medullaris is seen normally at L1 level. MR/MR lumbar spine wo con IMPRESSION: 1. Moderate asymmetric right posterior and right foraminal disc protrusion at L3-L4 moderately effacing the right lateral recess. There is resulting asymmetric moderate right L3-L4 neuroforaminal stenosis. 2. Mild posterior and bilateral foraminal disc protrusion at L4-L5. 3. Mild degenerative disc disease at L3-L4 and L4-L5. 4. 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
== END 2024-02-20 16:18 | disposition home or self-care (01) ==
LOC: HO.MRI 16:17
PROVIDERS: PCP Internal Medicine; Visit Provider Orthopaedic Surgery
DX: M54.50 Low back pain, unspecified (principal); M79.604 Pain in right leg
CPT/HCPCS: 72148

== ENCOUNTER 2024-03-14 15:09 | Outpatient (AMB) | payer OTHER, SELFPAY ==
[2024-03-14 15:11] VITALS: BP 120/74; PULSE 75; BMI 41.7
--- NOTE | 2024-03-14 15:11 | MHC.OFFVIS ---
Vital Signs 03/14/24 15:11 Height 5 ft 9 in Weight 282 lb 3.067 oz BMI 41.7 BP 120/74 Blood Pressure Location Lt brachial Position Sitting Pulse 75 Intake Visit Reasons: 1 yr f/up Intake Note: 1 year follow-up with ekg feeling good Remote Sensing Program Manager Required: No Allergies No Known Allergies [No Known Allergies*] Allergy (Verified 02/07/24 16:49) Medication List - Last Reconciled 03/14/24 by Damien Sheldon MD celecoxib 200 mg PO DAILY losartan 25 mg PO DAILY omeprazole 40 mg PO DAILY rosuvastatin 20 mg PO DAILY HPI Comments Details: Marcus comes for his yearly follow-up. He has not had any recent cardiovascular symptoms. Recently guarded good news that his neuroendocrine tumor is in remission. He underwent abdominal surgery for hernia last August. His back to his exercise biking. Denies any exertional symptoms with extensive biking. Denies any lightheadedness, syncope. Blood pressures been well controlled. He has had trouble losing weight. His LDL is better control with LDL in the 80s at this point time. Denies any prolonged palpitation irregular heartbeat. Has been using his CPAP regularly since August. [facility] Medical History Tubular adenoma Insulinoma Hyperlipidemia Seasonal allergies Ascending aortic aneurysm Primary pancreatic neuroendocrine tumor Hypercholesteremia Hypertension Surgical History History of partial pancreatectomy H/O colonoscopy History of incisional hernia repair (08/23/23) Personal history of (corrected) hypospadias History of pancreatectomy Family History Mother Breast cancer Father Diabetes Social History Household Members: Family Housing: House Are you a primary point of care technician to a significant other at home: No Do you presently have visiting nurse or other home services: No Alcohol intake: current Alcohol intake frequency: holidays/special occasions only Patient Tobacco Use Status: Never used Tobacco service: No 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al status: employed 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 Review of Systems Const Denies chills, Denies fatigue, Denies fever(s), Denies frequent falls, Denies weakness, Denies weight gain and Denies weight loss ENT Denies dizziness Card Denies chest pain, Denies leg edema, Denies lightheadedness, Denies palpitations, Denies dyspnea, Denies dyspnea on exertion, Denies orthopnea and Denies other (loss of consciousness) Resp Denies cough, Denies dyspnea and Denies dyspnea on exertion GI Denies hematochezia and Denies change in stool character Musc Denies abnormal gait, Denies muscle weakness, Denies numbness, Denies radiating pain into limb and Denies tingling Neuro Denies Abnormal speech present, Denies abnormal gait, Denies dizziness, Denies frequent falls, Denies numbness, Denies tingling and Denies weakness Endo Denies fatigue and Denies palpitations Physical Exam Vital Signs: Last Vital Signs Pulse 75 03/14/24 15:11 BP 120/74 03/14/24 15:11 BMI result Body Mass Index 41.7 Const General: cooperative, comfortable, no acute distress, well developed, alert, awake and Physically active Nutritional Appearance: obese Orientation/consciousness: patient oriented x3 Limitations: no limitations HEENT Head: Yes normocephalic and Yes atraumatic Neck Neck: Yes trachea midline, Yes supple and Yes no JVD Resp Effort & Inspection: normal respiratory effort Auscultation: clear to auscultation bilaterally Cardio Jugular venous distension: no JVD Palpation: normal PMI Rate: regular rate Rhythm: regular rhythm Heart sounds: S1 normal heart sound present, S2 normal heart sound present, no click, no gallops, no murmurs and no rubs Skin General skin exam: no rashes or lesions noted Neuro General: patient oriented x3 and no focal motor deficits Speech: No Abnormal speech present Extrem General: Yes no clubbing, cyanosis or edema Psych Appearance: grossly normal Office Procedures EKG Details: NS[place] [id number], Complete Assessment & Plan Assessment & Plan (1) Ascending aortic aneurysm: Code(s): I71.21 - Aneurysm of the ascending aorta, without rupture Category: Medical Plan: Ascending aortic aneurysm which is [id number] in dilatation. Has had no new symptoms. Will follow with echocardiogram in near future. Continue aggressive blood pressure control. Advised to avoid sudden strenuous isometric exercise. Advised to seek emergency care for sudden-onset severe chest pain. Follow-up every year in the clinic. (2) Hypertension: Code(s): I10 - Essential (primary) hypertension Category: Medical Plan: Hypertension which is currently well optimized advised to monitor blood pressure at home and maintain a log. Goal blood pressure less than 130/84 at all times. Advise low-salt diet. Advised to continue to CPAP therapy. Advised to continue to participate in aggressive weight loss program. Various strategies were discussed. He is trying heart. Will follow up in the clinic in 1 year's time, sooner p.r.n.. Thank you for allowing me to partake in his care Orders: Orders CA echo transthoracic complete Today I71.21 - Aneurysm of the ascending aorta, without rupture Coding Level of Care Code Est Pt Level 4 (59331) Diagnoses Ascending aortic aneurysm I71.21 Hypertension I10 CPT Codes EKG - CPT: 86589-[id number], Complete ([id number])
== END 2024-03-14 15:57 | disposition home or self-care (01) ==
PROVIDERS: PCP Internal Medicine; Visit Provider Internal Medicine Cardiovascular Disease
DX: I71.21 Aneurysm of the ascending aorta, without rupture (principal); I10 Essential (primary) hypertension
CPT/HCPCS: 93010; 99214

== ENCOUNTER → 2024-03-14 15:09 | Outpatient (BNVA) | payer OTHER, SELFPAY | PROVIDERS: PCP Internal Medicine; Visit Provider Internal Medicine Cardiovascular Disease | DX: I71.21 Aneurysm of the ascending aorta, without rupture (principal); I10 Essential (primary) hypertension | CPT/HCPCS: 93005 ==

== ENCOUNTER → 2024-03-26 16:01 | Outpatient (BNV) | payer OTHER, SELFPAY | PROVIDERS: PCP Internal Medicine; Visit Provider Internal Medicine | DX: I71.21 Aneurysm of the ascending aorta, without rupture (principal) | CPT/HCPCS: 93306 ==

== ENCOUNTER → 2024-03-26 16:08 | Outpatient (REF) | payer OTHER, SELFPAY ==
--- NOTE | 2024-03-26 16:01 | CA_ITS ---
Transthoracic Echocardiogram Patient (Last, First, Middle): Vasile Quintana, Gender: Male Date of : 1965 Age: 59 Procedure Date: 03/26/2024 Procedure Type: Transthoracic Echocardiogram Location: OP Height: 175.26 cm Weight: 129.28 kg BSA: 2.40 m2 Heart Rate: bpm BP: 124 / 80 mmHg Manager Rn Case: Referring MD: Damien Sheldon MD Symptoms: I71.21 - Aneurysm of the ascending aorta, without rupture Study Quality: Good w Contrast ECG Rhythm: Sinus Conclusions: - The left ventricular systolic function is normal. The calculated ejection fraction is 63% by biplane method. - There is mildly increased left ventricular wall thickness. - No obvious valvular pathology seen on this study. - There is moderate dilatation of the ascending aorta measuring 4.50 cm. - Consider CTA for further evaluation. Findings Procedure Information Contrast agent, definity, is being given per protocol without apparent complications. Left Ventricle Normal left ventricular cavity size. There is mildly increased left ventricular wall thickness. The left ventricular systolic function is normal. The calculated ejection fraction is 63% by biplane method. There is no evidence of regional wall motion abnormalities. Diastolic function is normal for age. Right Ventricle Normal right ventricular cavity size and systolic function. Atria The left atrium is mildly dilated. The right atrium is normal in size. Aortic Valve There is a normal trileaflet aortic valve. There is no aortic valve stenosis. There is no aortic valve regurgitation. Mitral Valve The mitral valve appears normal. There is no mitral valve regurgitation. There is no mitral valve stenosis. Pulmonic Valve The pulmonic valve is likely normal. Tricuspid Valve Normal tricuspid valve structure. There is trace tricuspid valve regurgitation. There is no evidence of pulmonary hypertension. Great Vessels There is moderate dilatation of the ascending aorta measuring 4.50 cm. Venous The inferior vena cava is normal in size and collapses greater than 50% with inspiration. Pericardium/Pleural There is no evidence of pericardial effusion. Prior Study Comparison Changes noted compared to prior study dated: 02/16/2023. Slightly larger ascending aortic size. However, measurement is variable at different levels. Consider CTA for further evaluation. Recommendations, Care & Conclusions No obvious valvular pathology seen on this study. Measurements 2D Linear Measurements IVSd: 1.27 0.6-0.9/0.6-1.0 cm LVIDd: 4.43 3.9-5.3/4.2-5.9 cm LVIDd Index: 1.85 2.4-3.2/2.2-3.1 cm/m2 LVIDs: 2.87 2.0-3.6 cm LVPWd: 1.31 0.7-1.1 cm Ao Root: 3.40 2.1-3.5 cm LA Diam: 3.40 2.7-3.8/3.0-4.0 cm LAIDs Index: 1.42 1.5-2.3 cm/m2 LV Mass: 267.84 67-162/88-224 g LV Mass Index: 111.60 43-95/49-115 g/m2 LVOT Diam: 2.00 3.0+(-)1.3 cm 2D Systolic Function EF 4C: 65.20 >55% EF 2C: 64.70 >55% EF BiP: 63.00 >55% Mitral Valve MV Pk E: 0.54 MV PK A: 0.77 MV Decel Time: 218.00 E/A: 0.70 E'Lateral: 12.30 E'Medial: 8.59 E/E' Med: 6.30 E/E' Lat: 4.40 PHT: 64.00 MVA PHT: 3.44 Decel Lehigh: 2.49 Aortic Valve AoV Pk Dave: 1.45 AoV Mn Dave: 0.88 AoV VTI: 0.28 AoV Pk Grad: 8.00 Aov Mn Grad: 4.00 ANTELMO Cont.VTI: 3.02 LVOT LVOT Pk Dave: 1.43 LVOT Mn Dave: 1.01 LVOT VTI: 0.27 LVOT Pk Grad: 8.00 LVOT Mn Grad: 5.00 LVOT Diam: 2.00 LVOT Area: 3.14 Diastolic Function MV Pk E: 0.54 MV Pk A: 0.77 E/A: 0.70 E'Medial: 8.59 E/E' Med: 6.30 E' Laterial: 12.30 E/E' Lat: 4.40 Right Ventricle TAPSE (mm): 26.00 TVS' Dave: 15.00 Tricuspid Valve TR Pk Dave: 2.31 TR Pk Grad: 21.00 RA Press: 3.00 RVSP: 24.00 Great Vessels Aorta Ao Root-2D: 3.40 2.0-3.7 cm Ao Asc: 4.60 2.1-3.4 cm Pulmonary Valve PV Pk Dave: 1.23 Peak PV Grad: 6.00 Updated in Other Vendor System with Status of Final Garett Anders MD electronically signed on 03/27/2024 10:51:15 AM with status of Final
== END ==
LOC: HO.CARD 16:08
PROVIDERS: PCP Internal Medicine; Visit Provider Internal Medicine Cardiovascular Disease
DX: I71.21 Aneurysm of the ascending aorta, without rupture (principal)
CPT/HCPCS: 93306; Q9957

== ENCOUNTER 2024-04-19 13:44 | Outpatient (AMB) | payer OTHER, SELFPAY ==
--- NOTE | 2024-04-19 13:54 | HO.SPINEOV ---
Intake Visit Reasons: Moderate Stenosis Intake Note: Mr. Quintana is here today c/o Right sided leg pain with burning. 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 He has been worked up in your office for severe osteoarthritis of his right hip and noticed sometime around the new year that when he was having trouble with his hip pain shortly thereafter he started to develop pain that would go down his leg when he would sit down. It is interesting that he does not have it when he is up and walking. He does have a component of back pain when he is walking but the severe pain down his leg is primarily when he is in a recumbent or seated position. If he gets up and moves around it goes away. The thing that is really bothering him though as his anterior groin pain on the right side. By the end of a workday he is in agony. He has been on Celebrex for that. To this point he has had no dedicated physical therapy or injections in his lumbar spine. PMH: History of sleep apnea, hypertension, high cholesterol, a stable thoracic AAA, sleep apnea, herniorrhaphy, neuroendocrine tumor of the pancreas tail, status post partial pancreatectomy and splenectomy. He had a uterine plasty when he was young man. History of GERD. Social hx: He does not smoke, drink or use any recreational drugs Medications: Rosuvastatin, losartan, omeprazole, Celebrex Allergies: No known drug allergies Physical exam: Morbidly obese gentleman, no acute distress, positive impingement signs in the right hip with internal external rotation, strength and reflexes normal in the lower extremities. Imaging review: He is a lumbar MRI done here at [facility] and this shows what is primarily a right-sided disc collapse causing a posterior disc protrusion narrowing the lateral recess at L3-4 on the right. There is [id number] foraminal stenosis at this level as well. I can see on old CT scans that he had done a few years back that he has fairly significant disc collapse on this side on the coronal views. His x-rays done at the hospital also confirm this. 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 The symptoms are primarily only present when he is sitting and gets better when he gets up and moves around. He believes it started after his hip pain started to become more severe. He has severe osteoarthritis in his right hip and may need a hip replacement. He feels as though the amount of limping he was doing may have aggravated things. I think the patient is right and that the awkward gait has probably aggravated or accentuated the problem with the disc causing radiculopathy. I think if he gets a cortisone injection or 2 it will likely come down. He anticipates he may end up with a hip replacement sometime in the not too distant future. If things do not clear up after that in terms of the leg pain, it would be likely a simple L3-4 decompression on the right. I will review this with Dr. Rubio if the injections do not give him enough lasting relief and see if he has any other thoughts. Thank you for allowing us to care for your patient. The total time spent with this visit with this patient was 45 minutes reviewing history, physical exam, lumbar imaging review, and implementation of treatment plan or further diagnostic testing Anibal Rubio MD,PhD [facility] Orders: Referrals Pain Management Referral M54.16 - Radiculopathy, lumbar region Coding Level of Care Code New Pt Level 4 (48714) Diagnoses Lumbar radiculopathy M54.16
== END 2024-04-19 14:29 | disposition home or self-care (01) ==
PROVIDERS: PCP Internal Medicine; Visit Provider Physician Assistant
DX: M54.16 Radiculopathy, lumbar region (principal)
CPT/HCPCS: 99204

== ENCOUNTER → 2024-04-19 13:44 | Outpatient (BNVA) | payer OTHER, SELFPAY | PROVIDERS: PCP Internal Medicine; Visit Provider Physician Assistant ==

== ENCOUNTER 2024-04-30 09:58 | Outpatient (AMB) | payer OTHER, SELFPAY ==
--- NOTE | 2024-04-30 10:02 | A.OFFVIS_ITS ---
Intake Visit Reasons: Right hip pain Intake Note: Vasile is a 58 year old male who presents with complaints of progressively worsening right hip pain. The patient describes his pain as sharp and severe in nature. His pain has gotten worse over the last 6 months in spite of continued non operative treatments. He has tried Tylenol and Celebrex which gave him minimal relief. He also reports intermittent low back pain. He was seen by HOLLY Oates from our neurosurgery department here at [facility] recently. No lumbar spine surgery was recommended at that time. The patient has done physical therapy exercises which aggravated his pain. The patient states that his pain has been getting ?rapidly progressively worse?. The patient has been limping because of his pain. Allergies No Known Allergies [No Known Allergies*] Allergy (Verified 04/19/24 13:55) Medication List - Last Reconciled 04/30/24 by Linwood Breen MD celecoxib 200 mg PO DAILY losartan 25 mg PO DAILY omeprazole 40 mg PO DAILY rosuvastatin 20 mg PO DAILY PFSH Medical History Tubular adenoma Insulinoma Hyperlipidemia Seasonal allergies Ascending aortic aneurysm Primary pancreatic neuroendocrine tumor Hypercholesteremia Hypertension Surgical History History of partial pancreatectomy H/O colonoscopy History of incisional hernia repair (08/23/23) Personal history of (corrected) hypospadias History of pancreatectomy Family History Mother Breast cancer Father Diabetes Social History Household Members: Family Housing: House Are you a primary tree care foreman to a significant other at home: No Do you presently have visiting nurse or other home services: No Alcohol intake: current Alcohol intake frequency: holidays/special occasions only Patient Tobacco Use Status: Never used Tobacco service: No 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al status: employed 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 Quintana presents with progressively worsening right hip pain possibly due to avascular necrosis of his femoral head. Thus, I will send him for an MRI of his right hip for further evaluation. He will continue with activity modifications in the meantime. I will contact him by phone once the MRI results are available. Feel free to call me at any time should questions regarding his orthopedic management arise. Orders: Orders MR hip RT wo con Today M25.551 - Pain in right hip Coding Level of Care Code Tele Est Pt Level 1 (74782) Diagnoses Right hip pain M25.551
== END 2024-04-30 09:59 | disposition home or self-care (01) ==
LOC: HO.HOS 09:58
PROVIDERS: PCP Internal Medicine; Visit Provider Orthopaedic Surgery
DX: M25.551 Pain in right hip (principal)
CPT/HCPCS: 99211

== ENCOUNTER → 2024-04-30 09:58 | Outpatient (BNVA) | payer OTHER, SELFPAY | PROVIDERS: PCP Internal Medicine; Visit Provider Orthopaedic Surgery ==

== ENCOUNTER 2024-05-10 14:18 | Outpatient (REF) | payer OTHER, SELFPAY ==
--- NOTE | ~2024-05-10 | MR_ITS ---
EXAMINATION: MR HIP WITHOUT CONTRAST, RIGHT CLINICAL INFORMATION: Right hip pain. COMPARISON: None available. TECHNIQUE: MRI of the right hip was obtained using routine sequences on a high-field strength magnet. FINDINGS: BONE/JOINTS: Severe right hip joint space narrowing, with nonuniform high-grade/full thickness chondral thinning. Acetabular subchondral cysts and edema. There is edema diffusely within the femoral head and neck, inferiorly extending to the intertrochanteric region. Findings are consistent with severe arthritis. Given the extensive edema in the femoral head, superimposed other etiologies such as stress injury and bone bruise could be present in the appropriate clinical circumstance. No focal fracture plane is undefined. No marginated signal abnormality is identified at this stage to suggest definite avascular necrosis. Small hip joint effusion. The imaged inferior right SI joint appears unremarkable. LABRUM: Irregular degenerative tearing of the anterosuperior and the posterosuperior labrum. MUSCLES/TENDONS: Mild gluteus minimus and gluteus medius tendinosis. Mild common hamstring tendinosis. The iliopsoas tendon is intact. No evidence of muscle tear. JOINT FLUID/BURSA: There is edema/small fluid in the greater trochanter versus mild bursitis. No significant iliopsoas bursitis. Small right hip joint effusion. INTRAPELVIS STRUCTURES: Subcentimeter right groin lymph nodes. On the coronal T2 sequence of the pelvis, there is normal left hip articulation. SI joints and symphysis pubis are intact. MR/MR hip RT wo con IMPRESSION: 1. Severe right hip arthritis. Prominent edema in the femoral head and neck, extending to the intertrochanteric region. This could be related to the arthritis. Superimposed other etiologies such as bone bruise, stress/insufficiency injury could be present in the appropriate clinical circumstance. No focal fracture plane is identified in today's study. No marginated signal abnormality to suggest avascular necrosis. Consider follow-up imaging for reassessment. 2. Anterosuperior and posterosuperior labral degenerative tearing. 3. Mild gluteus minimus and medius tendinosis. Mild common hamstring tendinosis. 4. Nonspecific edema/fluid versus small bursitis in the greater trochanter region. Electronically signed by: Roderick Matos MD 05/12/2024 03:16 PM EDT
== END 2024-05-10 14:19 | disposition home or self-care (01) ==
LOC: HO.MRI 14:18
PROVIDERS: PCP Internal Medicine; Visit Provider Orthopaedic Surgery
DX: M25.551 Pain in right hip (principal)
CPT/HCPCS: 73721

== ENCOUNTER 2024-05-13 08:00 | Outpatient (AMB) | payer OTHER, SELFPAY ==
[2024-05-13 08:09] VITALS: BP 137/78; PULSE 94; RESP 16; O2SAT 96; BMI 42.7
--- NOTE | 2024-05-13 08:09 | MHC.OFFVIS ---
Vital Signs 05/13/24 08:09 Height 5 ft 9 in Weight 289 lb BMI 42.7 BP 137/78 Blood Pressure Location Lt brachial Position Sitting Respiration 16 Pulse 94 Pulse Source Pulse Oximeter Pulse Oximetry (%) 96 Oxygen Delivery Method Room Air Intake Visit Reasons: Lumbar Radiculopathy Allergies No Known Allergies [No Known Allergies*] Allergy (Verified 05/13/24 08:13) Medication List - Last Reconciled 05/13/24 by Joy You LPN celecoxib 200 mg PO DAILY losartan 25 mg PO DAILY omeprazole 40 mg PO DAILY rosuvastatin 20 mg PO DAILY HPI HPI Lumbar Radiculopathy: Details: 59-year-old male who presents today to the office for an evaluation of lumbar radiculopathy. He had an umbilical hernia surgery in August 2023. He noticed hip pain after four weeks and had limping. He underwent an x-ray of the hip, which showed severe right hip osteoarthritis. He reports of progressively worsening right hip pain. He also reports progressively worsening low back pain, which radiates down his right leg to his right foot. He describes his pain as sharp and severe in nature. His pain has gotten worse over the last 6 months in spite of continued non-operative treatments. He has tried Tylenol and Celebrex, which gave him minimal relief. He states that his pain has been getting ?rapidly progressively worse. He has been limping because of his pain. He has done physical therapy exercises, which aggravated his pain. He has been doing routine home and gentle gym exercises. He is looking for hip replacement surgery this year.? [facility] Medical History Tubular adenoma Insulinoma Hyperlipidemia Seasonal allergies Ascending aortic aneurysm Primary pancreatic neuroendocrine tumor Hypercholesteremia Hypertension Surgical History History of partial pancreatectomy H/O colonoscopy History of incisional hernia repair (08/23/23) Personal history of (corrected) hypospadias History of pancreatectomy Family History Mother Breast cancer Father Diabetes Social History Household Members: Family Housing: House Are you a primary workforce investment act career manager to a significant other at home: No Do you presently have visiting nurse or other home services: No Alcohol intake: current Alcohol intake frequency: holidays/special occasions only Patient Tobacco Use Status: Never used Tobacco service: No 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al status: employed 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: [employer] [place] [employer] 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 Review of Systems Const All systems reviewed & are unremarkable except as noted in HPI and below Physical Exam Vital Signs: Last Vital Signs Pulse 94 05/13/24 08:09 Resp 16 05/13/24 08:09 BP 137/78 05/13/24 08:09 Pulse Ox 96 05/13/24 08:09 Oxygen Delivery Method Room Air 05/13/24 08:09 BMI result Body Mass Index 42.7 General: Appears afebrile. Alert and oriented. Mood and affect appropriate. Follows and participates in conversation appropriately. Respiratory effort is unlabored. Able to transition from sit to stand unassisted. Ambulates with bilaterally normal heel strike and toe off. Office Procedures Joint Injection/Aspiration Joint Injection/Aspiration Details: Right hip intra-articular injection, ultrasound guided Primary Site: other (right hip) Prep: site was prepped using sterile technique Injected: 40 mg of, Kenalog, with 1 mL of (lidocaine 1% and ropivacaine 0.5% each) and in the joint Approach Used: anterolateral Procedure: The patient tolerated the procedure well Coding Details: An ultrasound image of the injection was taken and stored in the permanent record. 88983 - Large joint (right, US guided) Procedure code (CPT) selection complete Results Reviewed Results Reviewed: 05/10/24: MR HIP WITHOUT CONTRAST, RIGHT FINDINGS: BONE/JOINTS: Severe right hip joint space narrowing, with nonuniform high-grade/full thickness chondral thinning. Acetabular subchondral cysts and edema. There is edema diffusely within the femoral head and neck, inferiorly extending to the intertrochanteric region. Findings are consistent with severe arthritis. Given the extensive edema in the femoral head, superimposed other etiologies such as stress injury and bone bruise could be present in the appropriate clinical circumstance. No focal fracture plane is undefined. No marginated signal abnormality is identified at this stage to suggest definite avascular necrosis. Small hip joint effusion. The imaged inferior right SI joint appears unremarkable. LABRUM: Irregular degenerative tearing of the anterosuperior and the posterosuperior labrum. MUSCLES/TENDONS: Mild gluteus minimus and gluteus medius tendinosis. Mild common hamstring tendinosis. The iliopsoas tendon is intact. No evidence of muscle tear. JOINT FLUID/BURSA: There is edema/small fluid in the greater trochanter versus mild bursitis. No significant iliopsoas bursitis. Small right hip joint effusion. INTRAPELVIS STRUCTURES: Subcentimeter right groin lymph nodes. On the coronal T2 sequence of the pelvis, there is normal left hip articulation. SI joints and symphysis pubis are intact. IMPRESSION: 1. Severe right hip arthritis. Prominent edema in the femoral head and neck, extending to the intertrochanteric region. This could be related to the arthritis. Superimposed other etiologies such as bone bruise, stress/insufficiency injury could be present in the appropriate clinical circumstance. No focal fracture plane is identified in today's study. No marginated signal abnormality to suggest avascular necrosis. Consider follow-up imaging for reassessment. 2. Anterosuperior and posterosuperior labral degenerative tearing. 3. Mild gluteus minimus and medius tendinosis. Mild common hamstring tendinosis. 4. Nonspecific edema/fluid versus small bursitis in the greater trochanter region. 02/20/24: MR LUMBAR SPINE WITHOUT CONTRAST FINDINGS: The visualized lumbar vertebrae are intact with normal alignment. Evaluation of the intervertebral discs show: T12/L1: Intervertebral disc height is normal, with normal T2 signal. No focal disc herniation is seen. Bilateral T12/L1 neuroforamina are patent. Bilateral apophyseal joints are intact with normal alignment. L-1/L-2: Intervertebral disc height is normal, with normal T2 signal. No focal disc herniation is seen. Bilateral L1-L2 neuroforamina are patent. Bilateral apophyseal joints are intact with normal alignment. L2/L3: Intervertebral disc height is mildly decreased, with mild loss of T2 signal. No focal disc herniation is seen. Bilateral L2-L3 neuroforamina are patent. Bilateral apophyseal joints are intact with normal alignment. L3/L4: Intervertebral disc height is moderately decreased, with mild loss of T2 signal. Moderate asymmetric right posterior and right foraminal disc protrusion moderately effacing the right lateral recess is seen. There is resulting asymmetric moderate right L3-L4 neuroforaminal stenosis. Semilunar shaped sclerotic Schmorl's node surrounded by T2 hyperintense rim is seen in posterior inferior L3 vertebral endplate. Bilateral apophyseal joints are intact with normal alignment. L4/L5: Intervertebral disc height is moderately decreased, with mild loss of T2 signal. Mild posterior and bilateral foraminal disc protrusion is seen. Bilateral L4-L5 neuroforamina are patent. Bilateral apophyseal joints are intact with normal alignment. Bilateral apophyseal joints show loss of joint space, sclerosis, facet hypertrophy and osteophytosis. L5/S1: Intervertebral disc height is normal, with normal T2 signal. No focal disc herniation is seen. Bilateral L5-S1 neuroforamina are patent. Bilateral apophyseal joints are intact with normal alignment. Bilateral apophyseal joints show loss of joint space, sclerosis, facet hypertrophy and osteophytosis. Conus medullaris is seen normally at L1 level. IMPRESSION: 1. Moderate asymmetric right posterior and right foraminal disc protrusion at L3-L4 moderately effacing the right lateral recess. There is resulting asymmetric moderate right L3-L4 neuroforaminal stenosis. 2. Mild posterior and bilateral foraminal disc protrusion at L4-L5. 3. Mild degenerative disc disease at L3-L4 and L4-L5. 4. 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 10/10/23: XR HIP, RIGHT FINDINGS: No fracture. Alignment is anatomic. There is marked narrowing of the superior-lateral aspect of the cartilage space of the right hip with almost eigl-fg-ghoy appearance. Subchondral sclerosis is seen within the superior-lateral aspect of the acetabulum. Soft tissues are unremarkable. IMPRESSION: Marked osteoarthritis of the right hip. Assessment & Plan Assessment & Plan (1) Lumbar radiculopathy: Code(s): M54.16 - Radiculopathy, lumbar region Category: Medical (2) Right hip pain: Code(s): M25.551 - Pain in right hip Category: Medical Plan Patient is status post right hip intra-articular injection, ultrasound guided. Patient tolerated procedure well and was discharged home in stable condition with discharge instructions.? All questions were answered. I recommended exercises for the lower back. I recommended a follow up with Dr. Breen regarding potential hip replacement. We may repeat injection once until the hip placement is scheduled. Follow-up as needed. Scribed for Dr. Sinclair by Jona Morejon, special forces medical sergeant, on 05/13/2024. I, Dr. Sinclair, have personally reviewed and agree with the information entered by the scribe. Coding Level of Care Code New Pt Level 4 (32372) Diagnoses Lumbar radiculopathy M54.16 Right hip pain M25.551 CPT Codes Coding - 74739 Large joint: 18869 - Large joint ([id number])
== END 2024-05-13 08:49 | disposition home or self-care (01) ==
PROVIDERS: PCP Internal Medicine; Referring Provider Physician Assistant; Visit Provider Internal Medicine
DX: M54.16 Radiculopathy, lumbar region (principal); M25.551 Pain in right hip
CPT/HCPCS: 20610; 99204

== ENCOUNTER → 2024-05-13 08:00 | Outpatient (BNVA) | payer OTHER, SELFPAY | PROVIDERS: PCP Internal Medicine; Referring Provider Physician Assistant; Visit Provider Internal Medicine | DX: M54.16 Radiculopathy, lumbar region (principal); M16.11 Unilateral primary osteoarthritis, right hip | CPT/HCPCS: 20610; J3301 ==

== ENCOUNTER 2024-05-23 12:47 | Outpatient (AMB) | payer OTHER, SELFPAY ==
[2024-05-23 12:54] VITALS: BMI 42.7
--- NOTE | 2024-05-23 12:54 | A.OFFVIS_ITS ---
Vital Signs 05/23/24 12:54 Height 5 ft 9 in Weight 289 lb BMI 42.7 Intake Visit Reasons: OV- discuss right hip replacement Intake Note: Vasile is a 59 year old male who presents today as he was referred by Dr. Breen to discuss a possible Right LIZETH Allergies No Known Allergies [No Known Allergies*] Allergy (Verified 05/28/24 14:37) HPI HPI OV- discuss right hip replacement: Details: This is a 59-year-old gentleman who comes in today with severe right hip pain. He can not ambulate and he has been trying to get by without seeking assistance but feels the quality of his life is severely diminished this point. He has difficulty getting in and out of a car standing from a seated position twisting and moving in bed. Pain localizes PFSH Medical History Tubular adenoma Insulinoma Hyperlipidemia Seasonal allergies Ascending aortic aneurysm Primary pancreatic neuroendocrine tumor Hypercholesteremia Hypertension Surgical History History of partial pancreatectomy H/O colonoscopy History of incisional hernia repair (08/23/23) Personal history of (corrected) hypospadias History of pancreatectomy Family History Mother Breast cancer Father Diabetes Social History (System 05/28/24 @ 14:37 by Shanae Castañeda) Household Members: Family Housing: House Are you a primary daytime caregiver to a significant other at home: No Do you presently have visiting nurse or other home services: No Alcohol intake: current Alcohol intake frequency: holidays/special occasions only Patient Tobacco Use Status: Never used Tobacco service: No 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al status: employed 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 Results Reviewed Results Reviewed: I personally reviewed the MR images. Severe right hip arthritis. Prominent edema in the femoral head and neck, extending to the intertrochanteric region. This could be related to the arthritis. Superimposed other etiologies such as bone bruise, stress/insufficiency injury could be present in the appropriate clinical circumstance. No focal fracture plane is identified in today's study. No marginated signal abnormality to suggest avascular necrosis. Assessment & Plan Assessment & Plan (1) Primary osteoarthritis of right hip: Code(s): M16.11 - Unilateral primary osteoarthritis, right hip Category: Medical Plan: This is a 51-year-old gentleman who has been seeing spine and pain management and in my opinion your right hip osteoarthritis. He has extremely limited motion and quality of his life is diminished. He is 59 years old. My recommendation is hip replacement. I discussed the options of injection and nonsurgical management but I do not think that these are appropriate for someone with his discomfort and his imaging findings. He agrees with me and would like to proceed forward. I will begin the preoperative clearance process with him and we will continue to discuss as we get near to surgical date. I did discuss the risks, benefits alternatives including to, but not limited to, the risk of infection, fracture, dislocation, need for further surgery. He expressed understanding and we will proceed forward accordingly. Coding Level of Care Code Est Pt Level 4 (02117) Diagnoses Primary osteoarthritis of right hip M16.11
== END 2024-05-23 14:15 | disposition home or self-care (01) ==
PROVIDERS: PCP Internal Medicine; Visit Provider Orthopaedic Surgery
DX: M16.11 Unilateral primary osteoarthritis, right hip (principal)
CPT/HCPCS: 99214

== ENCOUNTER → 2024-05-23 12:47 | Outpatient (BNVA) | payer OTHER, SELFPAY | PROVIDERS: PCP Internal Medicine; Visit Provider Orthopaedic Surgery ==

== ENCOUNTER 2024-07-11 13:43 | Outpatient (REF) | payer OTHER, SELFPAY ==
--- NOTE | ~2024-07-11 | US_ITS ---
EXAMINATION: US RETROPERITONEAL COMPLETE (RENAL) CLINICAL INFORMATION: Cyst of kidney, acquired. COMPARISON: CT abdomen and pelvis 01/31/2024. Ultrasound abdomen 06/12/2014. Renal ultrasound 03/07/2013. MRI abdomen 03/07/2009. TECHNIQUE: Real-time imaging of the kidneys and bladder. FINDINGS: RIGHT KIDNEY: 13.1 x 5.4 x 5.6 cm (SAG x AP x TRV). The kidney is normal in size, contour, and echogenicity. Renal cortical thickness is normal. No calculi or focal parenchymal lesions. No hydronephrosis. LEFT KIDNEY: 12.0 x 5.9 x 4.7 cm (SAG x AP x TRV). The kidney is normal in size, contour, and echogenicity. Renal cortical thickness is normal. No focal parenchymal lesions or hydronephrosis. Punctate nonobstructing 5 mm mid pole stone. BLADDER: Well distended. Bilateral ureteral jets are not demonstrated. Prevoid bladder volume is 172 mL. Postvoid bladder volume is 164 mL. PROSTATE GLAND: The prostate gland is enlarged with a volume of 58.2 mL. US/US retroperitoneal comp IMPRESSION: * Prostatomegaly with large postvoid residual of 164 mL. * Nonobstructing left renal nephrolithiasis. Electronically signed by: Laurence Rea MD 07/23/2024 05:33 PM EST
[2024-07-11 16:13] LABS: Prostate Specific Antigen 2.78 ng/mL (<0.05-4.0)
== END 2024-07-11 13:44 | disposition home or self-care (01) ==
LOC: HO.US 13:43
PROVIDERS: PCP Internal Medicine; Visit Provider Nurse Practitioner Family
DX: N28.1 Cyst of kidney, acquired (principal); R31.29 Other microscopic hematuria; N20.0 Calculus of kidney; R97.20 Elevated prostate specific antigen [PSA]; Z12.5 Encounter for screening for malignant neoplasm of prostate
CPT/HCPCS: 36415; 76770; 84153

== ENCOUNTER → 2024-08-06 09:50 | Outpatient (REF) | payer OTHER, SELFPAY ==
--- NOTE | ~2024-08-06 | NM_ITS ---
Lexiscan Myocardial perfusion study Indication: Preoperative cardiac evaluation Technique: The patient was brought in for a Lexiscan perfusion study on 08/06/2024 and was injected 0.4 mg of Lexiscan intravenously. Within a minute of this injection 45 mCi of sestamibi was given intravenously. Images were obtained using the SPECT gamma camera interlaced with the gating device. Images were obtained in supine position. Resting perfusion study was performed on 08/07/2024. Patient was administered 45 mCi of sestamibi intravenously at rest. Images were then obtained in supine position. Total DLP 196 mGy-cm. Images were processed with the software and compared side to side in short axis, horizontal long axis and vertical long axis views. Findings: Raw aquisition reviewed. The stress perfusion study showed mildly decreased tracer uptake in the basal part of inferior wall. There is improvement with CT attenuation correction suggestive of diaphragmatic attenuation artifact. The gated study shows normal LV systolic function with calculated LVEF of 60%. LV cavity is normal in size. The gated study shows normal wall thickening and contraction of segments. Resting study shows no significant perfusion abnormality. Gating at rest reveals normal wall motion with ejection fraction at 62%. The findings are consistent with no clear reversible or fixed perfusion abnormality. NM/NM cardiolite stress test Impression: 1. Myocardial perfusion imaging study shows probably normal myocardial perfusion. 2. Gated LVEF is 60% during stress and 62% during rest. 3. Transient ischemic dilatation not present. EKG component of the test reported separately. Electronically signed by: Garett Anders MD 08/07/2024 12:25 PM [facility]
--- NOTE | 2024-08-06 09:53 | CA_ITS ---
Acquisition Time: 2024-08-06 10:01:43 Total Exercise Time: 00:02:00 Test Indications: PREOP Medications: SEE H Protocol: LEXISCAN Max HR: 131 BPM 80% of Pred: 162 BPM Max BP: 144/078 mmHG Max Work Load: 1.6 METS Pharmacological stress test with Lexiscan injection, while walking slow on treadmill, with report of mild sob post injection, no chest discomfort, without arrythmia, with normotensive response to injection, with nondiagnostic EKG for ischemia. In recovery he was treated with Aminophylline 75mg IVP to reverse Lexiscan. Nuclear images pending. Test reviewed with Dr Sheldon. Referred By: Damien Sheldon Overread By: UDAY GALE
== END ==
LOC: HO.CARD 09:50
PROVIDERS: PCP Internal Medicine; Visit Provider Internal Medicine Cardiovascular Disease
DX: Z01.810 Encounter for preprocedural cardiovascular examination (principal); I71.21 Aneurysm of the ascending aorta, without rupture
CPT/HCPCS: 78452; 93017; A9500; J0280; J2785

== ENCOUNTER → 2024-08-06 09:53 | Outpatient (BNV) | payer OTHER, SELFPAY | PROVIDERS: PCP Internal Medicine; Visit Provider Nurse Practitioner Family | DX: R06.02 Shortness of breath (principal) | CPT/HCPCS: 78452; 93016; 93018 ==

== ENCOUNTER → 2024-08-13 15:04 | Outpatient (BNVA) | payer OTHER, SELFPAY | PROVIDERS: PCP Internal Medicine | DX: Z01.818 Encounter for other preprocedural examination (principal) ==

== ENCOUNTER 2024-08-27 07:35 | Outpatient (AMB) | payer OTHER, SELFPAY ==
--- NOTE | 2024-08-27 07:51 | A.OFFVIS_ITS ---
Intake Visit Reasons: ultrasound results, PSA(set) Intake Note: Patient presents today for follow up on: Nephrolithiasis, ultrasound and PSA lab results Imaging Completed: 07/11/24 PSA: 2.78 Urology Medications: none Allergies to Antibiotic: none Blood Thinner: none Wood Fence Erector Required: No Accompanied by: Self / Same As Patient Allergies No Known Allergies [No Known Allergies*] Allergy (Verified 08/27/24 08:26) Medication List - Last Reconciled 08/27/24 by EAGLE Valenzuela diclofenac potassium 50 mg PO BID losartan 25 mg PO DAILY omeprazole 40 mg PO DAILY [Raised toilet seat As directed] rosuvastatin 20 mg PO DAILY walker Folding Front wheeled walker HPI Comments Details: Vasile is a very pleasant 59-year-old male patient of Dr. Ballesteros. He has a past medical history of hyperlipidemia, seasonal allergies, hypertension, hypercholesteremia, primary pancreatic neuroendocrine tumor, and ascending aortic aneurysm. He presents to the office today for a follow up of his nephrolithiasis. In discussion with the patient today he reports to be doing and feeling well. He discusses his upcoming surgical procedure with Dr. [place] for a right hip replacement in less than a month. Recent retroperitoneal ultrasound results reviewed with the patient today. Bilateral kidneys with no lesions or hydronephrosis. Right kidney with no calculi. Left kidney with punctate obstructing 5 mm mid pole stone. The bladder is well distended. Pre void bladder volume and proximally 170 mL. Postvoid bladder volume is approximately 160 mL. The prostate gland is enlarged measuring 58 mL. When asked he currently denies any bothersome urinary issues or concerns. PSAs are as follows: 08/06 1.2, 07/11 2.8 In office urinalysis results reviewed with the patient today. He does have a previous history of nephrolithiasis however never requiring surgical intervention. We discussed further treatment options of mild prostatomegaly and risks and benefits of these interventions. He denies urinary urgency, urinary frequency, incontinence, nocturia, hematuria, dysuria, foul smelling urine, changes to urinary stream, flank pain, fever, and or chills. He is happy with his current voiding parameters. He otherwise offers no other issues or concerns at this time. [facility] Medical History Tubular adenoma Insulinoma Hyperlipidemia Seasonal allergies Ascending aortic aneurysm Primary pancreatic neuroendocrine tumor Hypercholesteremia Hypertension Surgical History History of partial pancreatectomy H/O colonoscopy History of incisional hernia repair (08/23/23) Personal history of (corrected) hypospadias History of pancreatectomy Family History Mother Breast cancer Father Diabetes Social History (System 05/28/24 @ 14:37 by Shanae Castañeda) Household Members: Family Housing: House Are you a primary healthcare sales representative to a significant other at home: No Do you presently have visiting nurse or other home services: No Alcohol intake: current Alcohol intake frequency: holidays/special occasions only Patient Tobacco Use Status: Never used Tobacco service: No 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al status: employed 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 Review of Systems Const All systems reviewed & are unremarkable except as noted in HPI and below Physical Exam Const General: cooperative, healthy appearing, comfortable, no acute distress, well developed, alert and awake Nutritional Appearance: overweight Orientation/consciousness: patient oriented x3 Limitations: no limitations HEENT Head: Yes normal to inspection, Yes normocephalic and Yes atraumatic Ears: hearing grossly normal bilaterally Eyes General: appearance normal, both eyes and all related structures Neck Neck: Yes normal visual inspection and Yes trachea midline Chest Chest palpation & inspection: normal inspection of the chest Resp Effort & Inspection: normal respiratory effort and able to speak in complete sentences Cardio Rate: regular rate GI Inspection: Yes normal to inspection General: Yes no CVA tenderness Back/Spine/Pelvis Back: no CVA tenderness Skin General skin exam: no rashes or lesions noted Neuro General: patient oriented x3 Extrem General: Yes normal to inspection Psych Appearance: grossly normal and well kempt Mental Status: mental status grossly normal Speech and movement: Normal speech and movement present and Clear speech present Affect: normal affect Attitude: cooperative Thought process: Normal thought process present Thought content: Normal thought content present Insight: Fair insight present (Psych) Judgement: Fair judgement present (Psych) Results AMB Urinalysis, Automated UA Leukoctes 0 Murali/uL Last Edit by Cool Lumensmeredith Turner on 08/27/24 08:14 UA Nitrite Negative Last Edit by Cool Lumensmeredith Turner on 08/27/24 08:14 UA Urobilinogen 0.2 mg/dL Last Edit by [email or web address] on 08/27/24 08:14 UA Protein 15 mg/dL Last Edit by Pathkb on 08/27/24 08:14 UA pH 6.0 Last Edit by Pathkb on 08/27/24 08:14 UA Blood 80 Kirit/uL Last Edit by Pathkb on 08/27/24 08:14 UA Specific [place] 1.025 Last Edit by Pathkb on 08/27/24 08:14 UA Ketone Negative Last Edit by Pathkb on 08/27/24 08:14 UA Bilirubin 0 mg/dL Last Edit by Pathkb on 08/27/24 08:14 UA Glucose 0 mg/dL Last Edit by Pathkb on 08/27/24 08:14 Results Reviewed Results Reviewed: Date of Service: 07/11/24 EXAMINATION: US RETROPERITONEAL COMPLETE (RENAL) FINDINGS: RIGHT KIDNEY: 13.1 x 5.4 x 5.6 cm (SAG x AP x TRV). The kidney is normal in size, contour, and echogenicity. Renal cortical thickness is normal. No calculi or focal parenchymal lesions. No hydronephrosis. LEFT KIDNEY: 12.0 x 5.9 x 4.7 cm (SAG x AP x TRV). The kidney is normal in size, contour, and echogenicity. Renal cortical thickness is normal. No focal parenchymal lesions or hydronephrosis. Punctate nonobstructing 5 mm mid pole stone. BLADDER: Well distended. Bilateral ureteral jets are not demonstrated. Prevoid bladder volume is 172 mL. Postvoid bladder volume is 164 mL. PROSTATE GLAND: The prostate gland is enlarged with a volume of 58.2 mL. IMPRESSION: * Prostatomegaly with large postvoid residual of 164 mL. * Nonobstructing left renal nephrolithiasis. Assessment & Plan Assessment & Plan (1) Low back pain radiating to right leg: Code(s): M54.50 - Low back pain, unspecified; M79.604 - Pain in right leg Category: Medical (2) Nephrolithiasis: Code(s): N20.0 - Calculus of kidney Category: Medical (3) Enlarged prostate: Code(s): N40.0 - Benign prostatic hyperplasia without lower urinary tract symptoms Category: Medical Plan In office urinalysis results reviewed with the patient today; as noted above. Recent retroperitoneal ultrasound results reviewed with the patient today; as noted above. Recent PSA results reviewed with the patient today; as noted above. We discussed further intervention for mildly enlarged prostate as well as nephrolithiasis in risks and benefits of these interventions. Will continue with surveillance monitoring at this time. Patient currently denies any bothersome urinary issues or concerns. Discussed, educated, and stressed the importance of adequate hydration relation to nephrolithiasis as well as overall health and well-being. Discussed adding 1 oz of lemon juice to water daily. Reports be happy with current voiding parameters. Will obtain renal ultrasound in 6 months. Follow-up in 6 months with imaging and PVR; or sooner with any issues, concerns, and or questions. Orders: Orders AMB Urinalysis Automated Today Z13.9 - Encounter for screening, unspecified Patient Instructions: The patient had an opportunity to ask questions regarding the treatment plan. All questions were answered. Physical exam, labs, and imaging were discussed and reviewed in detail. As well as risks, benefits, and discussion of treatment choices. No major barriers to understanding were identified. The patient expressed understanding and agreement with the above treatment plan. The patient was made aware they should contact our office by phone for worsening of their current condition, the appearance of new symptoms, or with any questions or concerns. Compliance is encouraged with any medications and follow up testing that is ordered. It is a privilege to be allowed the opportunity to participate in? your urological care.? Again, if you have any questions or concerns If you have any questions or concerns please do not hesitate to contact me. The office is [phone]. This note is constructed using voice recognition software. While every effort has been made to ensure accuracy horse racetrack manager errors may have been included. Yours sincerely, Emily Leach, CORPORATE TUTOR-BC Coding Level of Care Code Est Pt Level 3 (26519) Diagnoses Low back pain radiating to right leg M54.50; M79.604 Nephrolithiasis N20.0 Enlarged prostate N40.0
== END 2024-08-27 08:27 | disposition home or self-care (01) ==
PROVIDERS: PCP Internal Medicine; Visit Provider Nurse Practitioner Family
DX: M54.50 Low back pain, unspecified (principal); M79.604 Pain in right leg; N20.0 Calculus of kidney; N40.0 Benign prostatic hyperplasia without lower urinary tract symptoms; Z13.9 Encounter for screening, unspecified
CPT/HCPCS: 99213

== ENCOUNTER → 2024-08-27 07:35 | Outpatient (BNVA) | payer OTHER, SELFPAY | PROVIDERS: PCP Internal Medicine; Visit Provider Nurse Practitioner Family | DX: N20.0 Calculus of kidney (principal); N40.0 Benign prostatic hyperplasia without lower urinary tract symptoms; M54.50 Low back pain, unspecified; M79.604 Pain in right leg | CPT/HCPCS: 81003 ==

== ENCOUNTER 2024-09-19 08:52 | Outpatient (AMB) | payer OTHER, SELFPAY ==
--- NOTE | 2024-09-18 18:50 | MHC.OFFVIS ---
Vital Signs 09/19/24 09:06 Height 5 ft 9 in Weight 289 lb BMI 42.7 Intake Visit Reasons: Pre-Op: R LIZETH w/NE 09/24/24 Intake Note: Vasile is a 59 year old male who presents today for a preoperative right LIZETH, DOS 09/24/24. Pain management agreement reviewed and signed. Allergies No Known Allergies [No Known Allergies*] Allergy (Verified 09/19/24 09:06) Medication List - Last Reconciled 09/19/24 by Ronnell Hanks PA-C diclofenac potassium 50 mg PO BID losartan 25 mg PO BEDTIME omeprazole 40 mg PO BEDTIME [Raised toilet seat As directed] rosuvastatin 20 mg PO BEDTIME walker Folding Front wheeled walker HPI Comments Details: Mr Quintana presents to the office today for preop visit. He is scheduled for right total hip arthroplasty with Dr. [place]. He continues to have ongoing pain and difficulty with ambulation in the right hip, which is affecting his quality of life; therefore, he has elected to move forward with surgery. Today he is presenting with some head congestion and feels a bit clammy. Denies nausea or vomiting. He also feels like there is some congestion in his chest. No documentable fever. [facility] Medical History (Updated 09/04/24 @ 13:54 by Esme Dowling RN) COVID-19 Back pain Arthritis GERD (gastroesophageal reflux disease) Sleep apnea Incomplete right bundle branch block Tubular adenoma Insulinoma Hyperlipidemia Seasonal allergies Ascending aortic aneurysm Primary pancreatic neuroendocrine tumor Hypercholesteremia Hypertension Surgical History History of esophagogastroduodenoscopy (EGD) History of partial pancreatectomy H/O colonoscopy History of incisional hernia repair (08/23/23) Personal history of (corrected) hypospadias History of pancreatectomy Family History Mother Breast cancer Father Diabetes Social History Household Members: Family Housing: House Are you a primary child care center assistant director to a significant other at home: No Do you presently have visiting nurse or other home services: No Alcohol intake: current Alcohol intake frequency: holidays/special occasions only Patient Tobacco Use Status: Never used Tobacco service: No 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al status: employed 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 [place] [employer] 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 Review of Systems Const All systems reviewed & are unremarkable except as noted in HPI and below Physical Exam Vital Signs: BMI result Body Mass Index 42.7 Const General: cooperative, healthy appearing, comfortable, no acute distress, well developed and alert Orientation/consciousness: patient oriented x3 HEENT Head: Yes normal to inspection, Yes normocephalic and Yes atraumatic Eyes General: appearance normal, both eyes and all related structures Neck Neck: Yes normal visual inspection and Yes no lymphadenopathy Resp Effort & Inspection: normal respiratory effort and able to speak in complete sentences Cardio Rate: regular rate Peripheral pulses: Peripheral pulses 2+ throughout GI Inspection: Yes normal to inspection Palpation (GI): Soft to palpation Skin General skin exam: no rashes or lesions noted Neuro General: patient oriented x3 Extrem Other: severe gait antalgia Minimal internal rotation while flexed with positive impingement and positive Stinchfield. Psych Appearance: grossly normal Mental Status: mental status grossly normal Results Reviewed Results Reviewed: X-rays of the right hip obtained in the office today for surgical planning Assessment & Plan Assessment & Plan (1) Primary osteoarthritis of right hip: Code(s): M16.11 - Unilateral primary osteoarthritis, right hip Category: Medical Plan: I discussed in detail the procedure and what to expect pre and post operatively. We discussed the risks, benefits and alternatives to the surgery as well as the rehabilitation course. The risks; which include, but are not limited to infection, bleeding, nerve injury, ongoing pain, swelling, and stiffness, perioperative risk of injury to bones and soft tissues, and blood clots. I?ve answered all questions and with their understanding they have consented to move forward with Right total hip arthroplasty with Dr. 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 Orders: Orders XR hip RT min 2V w/wo pel Today M25.551 - Pain in right hip PT Evaluation and Treatment Today Z96.641 - Presence of right artificial hip joint Coding Level of Care Code Est Pt Level 3 (01800) Complex EM visit Add On G2211 Diagnoses Primary osteoarthritis of right hip M16.11
[2024-09-19 09:06] VITALS: BMI 42.7
== END 2024-09-19 09:25 | disposition home or self-care (01) ==
PROVIDERS: PCP Internal Medicine; Visit Provider Physician Assistant
DX: M16.11 Unilateral primary osteoarthritis, right hip (principal)
CPT/HCPCS: 99213

== ENCOUNTER → 2024-09-19 08:54 | Outpatient (BNV) | payer OTHER, SELFPAY | PROVIDERS: Visit Provider Radiology Diagnostic Radiology | DX: M25.551 Pain in right hip (principal) | CPT/HCPCS: 73502 ==

== ENCOUNTER 2024-09-19 10:52 | Outpatient (REF) | payer OTHER, SELFPAY ==
--- NOTE | ~2024-09-19 | XR_ITS ---
EXAMINATION: XR hip RT min 2V w/wo pel HISTORY: M25.551 - Pain in right hip COMPARISON: There are no prior studies for comparison. FINDINGS: 2 AP views of the pelvis and two views of the right hip are submitted. Osseous mineralization is normal. There is no fracture or dislocation. There is severe osteoarthritis with joint space narrowing, subchondral cyst formation, and remodeling of the femoral head. The soft tissues are unremarkable. XR/XR hip RT min 2V w/wo pel IMPRESSION: Severe osteoarthritis of the right hip as described. Electronically signed by: Enmanuel Johnson MD 09/25/2024 08:11 AM ALE[facility]
== END 2024-09-19 10:53 | disposition home or self-care (01) ==
LOC: HO.HOSX 10:52
PROVIDERS: Visit Provider Physician Assistant
DX: M25.551 Pain in right hip (principal)
CPT/HCPCS: 73502

== ENCOUNTER 2024-09-20 14:23 | Outpatient (REF) | payer OTHER, SELFPAY ==
--- NOTE | ~2024-09-20 | XR_ITS ---
CLINICAL HISTORY: Z01.811 - Encounter for preprocedural respiratory examination 2 view chest x-ray Comparison: None Findings: Mild scattered atelectasis and/or scarring in the left lung. No consolidation, pleural effusion or pneumothorax. Normal size heart. No acute fracture. IMPRESSION: No acute cardiopulmonary process. This document has been electronically signed by: Radha Urbina DO on 09/20/2024 15:52:46
== END 2024-09-20 14:24 | disposition home or self-care (01) ==
LOC: HO.XRAY 14:23
PROVIDERS: Visit Provider Physician Assistant
DX: Z01.811 Encounter for preprocedural respiratory examination (principal)
CPT/HCPCS: 71046

== ENCOUNTER → 2024-09-20 14:26 | Outpatient (BNV) | payer OTHER, SELFPAY | PROVIDERS: Visit Provider Radiology Diagnostic Radiology | DX: J98.11 Atelectasis (principal) | CPT/HCPCS: 71046 ==

== ENCOUNTER → 2024-09-24 07:21 | Day surgery (SDC) | payer OTHER, SELFPAY ==
[2024-09-04 13:31] VITALS: BP 151/78; PULSE 82; RESP 18; O2SAT 94; BMI 43.3
--- NOTE | 2024-09-04 13:51 | HO.ANESPROP2 ---
HPI - Anesthesia Eval Consult details Narrative: 59yo M for Right Hip Total Replacement, 09/24/2023 Cardiac optimized per workload (07/2024 stress test). Follows [facility] Cardiology for AAA, htn. 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 KERRY: CPAP QHS GERD: ppi controls AAA: 4.5cm on 2023 ECHO - yearly monitor per card [facility] Active Problems Active Problems: All Active Problems Enlarged prostate (Acute) Primary osteoarthritis of right hip (Acute) Lumbar radiculopathy (Acute) Renal cyst (Acute) Microscopic hematuria (Acute) Nephrolithiasis (Acute) Low back pain radiating to right leg (Acute) Low back pain (Acute) Right hip pain (Acute) Ascending aortic aneurysm (Acute) Rotator cuff tear, left (Acute) Rotator cuff impingement syndrome (Acute) Neuroendocrine cancer (Chronic) Hypercholesteremia (Acute) Hypertension (Acute) Past Medical History Medical History (Updated 09/04/24 @ 13:54 by Esme Dowling RN) COVID-19 Back pain Arthritis GERD (gastroesophageal reflux disease) Sleep apnea Incomplete right bundle branch block Tubular adenoma Insulinoma Hyperlipidemia Seasonal allergies Ascending aortic aneurysm Primary pancreatic neuroendocrine tumor Hypercholesteremia Hypertension Family History Family History Mother Breast cancer Father Diabetes Family history of problems with anesthesia: No Surgical History Surgical History (Updated 09/04/24 @ 13:22 by Esme Dowling RN) History of esophagogastroduodenoscopy (EGD) History of partial pancreatectomy H/O colonoscopy History of incisional hernia repair (08/23/23) Personal history of (corrected) hypospadias History of pancreatectomy History of Problems with Anesthesia: No Social History Social History Household Members: Family Housing: House Are you a primary neonatal intensive care unit nurse to a significant other at home: No Do you presently have visiting nurse or other home services: No Alcohol intake: current Alcohol intake frequency: holidays/special occasions only Patient Tobacco Use Status: Never used Tobacco service: No 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al status: employed 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 Allergies Allergy/AdvReac Type Severity Reaction Status Date / Time No Known Allergies Allergy Verified 08/27/24 08:26 [No Known Allergies*] Home Medications ?Medication ?Instructions ?Recorded ?Confirmed ?Last Taken ?Type losartan 25 mg tablet 25 mg PO BEDTIME 03/16/21 09/04/24 11/20/23 History omeprazole 40 mg capsule,delayed 40 mg PO BEDTIME 02/07/24 09/04/24 Unknown History release rosuvastatin 20 mg tablet 20 mg PO BEDTIME 09/04/24 09/04/24 Unknown History Exam Height,Weight and Vital Signs: Height 5 ft 9 in Weight 132.903 kg Last Vital Signs Pulse 82 09/04/24 13:31 Resp 18 09/04/24 13:31 BP 151/78 H 09/04/24 13:31 Pulse Ox 94 09/04/24 13:31 O2 Del Method Room Air 09/04/24 13:31 Narrative Narrative: NM cardiolite stress test 07/2024 Impression: 1. Myocardial perfusion imaging study shows probably normal myocardial perfusion. 2. Gated LVEF is 60% during stress and 62% during rest. 3. Transient ischemic dilatation not present. EKG component of the test reported separately. ECHO 04/2024 Conclusions: - The left ventricular systolic function is normal. The calculated ejection fraction is 63% by biplane method. - There is mildly increased left ventricular wall thickness. - No obvious valvular pathology seen on this study. - There is moderate dilatation of the ascending aorta measuring 4.50 cm. - Consider CTA for further evaluation. EKG 02/2024 EKG Details: NSR with small Q waves in lead III Airway Mallampati Class: II TM Dist: >3cm Neck ROM: Full Loose/Missing/Broken Teeth: No (Denies broken, loose, missing teeth - lower right crown stable) Heart: RRR Lungs: CTAB Assessment and Plan Assessment Anesthesia Assessment: Anesthesia Plan Discussed and PAT Visit Final Anesthetic Review Family History of Problems with Anesthesia: No History of Problems with Anesthesia: No
[2024-09-04 14:51] LABS: Hematocrit 41.6 % (42.0-52.0); Hemoglobin 14.4 g/dl (14.0-18.0); Mean Corpuscular HGB Conc 34.6 g/dl (31.0-36.0); Mean Corpuscular Hemoglobin 31.6 pg (27.0-33.0); Mean Corpuscular Volume 91.4 fL (80.0-98.0); Mean Platelet Volume 9.7 fL (9.4-12.4); Platelet Count 405 X10*3/uL (160-400); Red Blood Count 4.55 X10*6/uL (4.60-5.80); Red Cell Distribution Width 13.5 % (11.0-16.0); White Blood Count 10.1 X10*3/uL (4.8-10.8)
[2024-09-04 15:11] LABS: Anion Gap 13 (12-20); Blood Urea Nitrogen 21 mg/dL (9-16); Calcium 9.2 mg/dL (8.4-10.2); Carbon Dioxide 24 mmol/L (22-29); Chloride 105 mmol/L (96-108); Creatinine Clr Calc Pharmacy 107.7; Estimated Glomerular Filt Rate > 60; Glucose Random 122 mg/dL (60-115); Potassium 3.8 mmol/L (3.3-5.1); Sodium 138 mmol/L (135-145)
[2024-09-04 15:59] LABS: MRSA Nasal PCR NEGATIVE (Negative); SA Nasal PCR NEGATIVE (Negative)
[2024-09-24 07:27] VITALS: BMI 41.7
[2024-09-24 07:50] VITALS: BP 126/84; PULSE 93; RESP 16; TEMP 36.4; O2SAT 91
--- NOTE | 2024-09-24 08:07 | PC.NURSE ---
PATIENT OXYGEN LEVEL WAS LOW. LAST DOSE OF PREDNISONE AND ANTIBIOTICS WERE TAKEN TODAY. NONPRODUCTIVE COUGH. NO SOB OR RESP DISTRESS. PATIENT TO BE SCHEDULED NEXT WEEK PER MD CURTIS. AWARE OF PLAN OF CARE. SENT PATIENT HOME WITH INCENTIVE SPIROMETER. TEACHING PERFORMED.
== END ==
PROVIDERS: Nurse Practitioner; PCP Internal Medicine; Visit Provider Physician Assistant
DX: M16.11 Unilateral primary osteoarthritis, right hip (principal); Z53.8 Procedure and treatment not carried out for other reasons; R05.8 Other specified cough
CPT/HCPCS: 36415; 80048; 85027; 86850; 86900; 86901; 87640; 87641

== ENCOUNTER 2024-10-01 09:32 | Day surgery (SDC) | payer OTHER, SELFPAY ==
--- NOTE | 2024-09-27 12:52 | HO.ANESPROP2 ---
Documented by User: Patricia Stahl NP 09/27/24 12:53 HPI - Anesthesia Eval Consult details Narrative: 59yo M for Right Hip Total Replacement Cx'd 09/24/24 for URI with low O2 Cardiac optimized per workload (07/2024 stress test). Follows [facility] Cardiology for AAA, htn. 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 KERRY: CPAP QHS GERD: ppi controls AAA: 4.5cm on 2023 ECHO - yearly monitor per card [facility] Active Problems Active Problems: All Active Problems History of total right hip replacement (Acute) Enlarged prostate (Acute) Primary osteoarthritis of right hip (Acute) Lumbar radiculopathy (Acute) Renal cyst (Acute) Microscopic hematuria (Acute) Nephrolithiasis (Acute) Low back pain radiating to right leg (Acute) Low back pain (Acute) Right hip pain (Acute) Ascending aortic aneurysm (Acute) Rotator cuff tear, left (Acute) Rotator cuff impingement syndrome (Acute) Neuroendocrine cancer (Chronic) Hypercholesteremia (Acute) Hypertension (Acute) Past Medical History Medical History COVID-19 Back pain Arthritis GERD (gastroesophageal reflux disease) Sleep apnea Incomplete right bundle branch block Tubular adenoma Insulinoma Hyperlipidemia Seasonal allergies Ascending aortic aneurysm Primary pancreatic neuroendocrine tumor Hypercholesteremia Hypertension Family History Family History Mother Breast cancer Father Diabetes Family history of problems with anesthesia: No Surgical History Surgical History History of esophagogastroduodenoscopy (EGD) History of partial pancreatectomy H/O colonoscopy History of incisional hernia repair (08/23/23) Personal history of (corrected) hypospadias History of pancreatectomy History of Problems with Anesthesia: No Social History Social History Household Members: Family Housing: House Are you a primary post anesthesia care unit nurse to a significant other at home: No Do you presently have visiting nurse or other home services: No Alcohol intake: current Alcohol intake frequency: holidays/special occasions only Patient Tobacco Use Status: Never used Tobacco Use of substances other than those prescribed or required for medical reasons: No Are you DNR?: No Advance Directives: No Advance Directives Information Provided: Yes service: No 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al status: employed 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: [employer] @ [employer] [place]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 Allergies Allergy/AdvReac Type Severity Reaction Status Date / Time No Known Allergies Allergy Verified 10/01/24 10:40 [No Known Allergies*] Home Medications ?Medication ?Instructions ?Recorded ?Confirmed ?Last Taken ?Type losartan 25 mg tablet 25 mg PO BEDTIME 03/16/21 10/01/24 09/23/24 History omeprazole 40 mg capsule,delayed 40 mg PO BEDTIME 02/07/24 10/01/24 09/23/24 History release rosuvastatin 20 mg tablet 20 mg PO BEDTIME 09/04/24 10/01/24 09/30/24 History Exam Height,Weight and Vital Signs: Height 5 ft 9 in Weight 132.903 kg Last Vital Signs Pulse 82 09/04/24 13:31 Resp 18 09/04/24 13:31 BP 151/78 H 09/04/24 13:31 Pulse Ox 94 09/04/24 13:31 O2 Del Method Room Air 09/04/24 13:31 Pertinent Lab Results Pertinent Lab Results: Laboratory Tests 09/04/24 14:24 WBC 10.1 Hgb 14.4 Hct 41.6 L Plt Count 405 H Sodium 138 Potassium 3.8 Chloride 105 Carbon Dioxide 24 BUN 21 H Creatinine 1.01 Narrative Narrative: NM cardiolite stress test 07/2024 Impression: 1. Myocardial perfusion imaging study shows probably normal myocardial perfusion. 2. Gated LVEF is 60% during stress and 62% during rest. 3. Transient ischemic dilatation not present. EKG component of the test reported separately. ECHO 04/2024 Conclusions: - The left ventricular systolic function is normal. The calculated ejection fraction is 63% by biplane method. - There is mildly increased left ventricular wall thickness. - No obvious valvular pathology seen on this study. - There is moderate dilatation of the ascending aorta measuring 4.50 cm. - Consider CTA for further evaluation. EKG 02/2024 EKG Details: NSR with small Q waves in lead III Airway Mallampati Class: II TM Dist: >3cm Neck ROM: Full Loose/Missing/Broken Teeth: No (Denies broken, loose, missing teeth - lower right crown stable) Heart: RRR Lungs: CTAB Assessment and Plan Final Anesthetic Review Family History of Problems with Anesthesia: No History of Problems with Anesthesia: No Documented by User: Faby Novak MD 10/01/24 12:09 [facility] Past Medical History Medical History COVID-19 Back pain Arthritis GERD (gastroesophageal reflux disease) Sleep apnea Incomplete right bundle branch block Tubular adenoma Insulinoma Hyperlipidemia Seasonal allergies Ascending aortic aneurysm Primary pancreatic neuroendocrine tumor Hypercholesteremia Hypertension Family History Family History Mother Breast cancer Father Diabetes Surgical History Surgical History History of esophagogastroduodenoscopy (EGD) History of partial pancreatectomy H/O colonoscopy History of incisional hernia repair (08/23/23) Personal history of (corrected) hypospadias History of pancreatectomy Social History Social History Household Members: Family Housing: House Are you a primary post anesthesia care unit nurse to a significant other at home: No Do you presently have visiting nurse or other home services: No Alcohol intake: current Alcohol intake frequency: holidays/special occasions only Patient Tobacco Use Status: Never used Tobacco Use of substances other than those prescribed or required for medical reasons: No Are you DNR?: No Advance Directives: No Advance Directives Information Provided: Yes service: No 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al status: employed 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 @ [employer] [facility] [place]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 Allergies Allergy/AdvReac Type Severity Reaction Status Date / Time No Known Allergies Allergy Verified 10/01/24 10:40 [No Known Allergies*] Home Medications ?Medication ?Instructions ?Recorded ?Confirmed ?Last Taken ?Type losartan 25 mg tablet 25 mg PO BEDTIME 03/16/21 10/01/24 09/23/24 History omeprazole 40 mg capsule,delayed 40 mg PO BEDTIME 02/07/24 10/01/24 09/23/24 History release rosuvastatin 20 mg tablet 20 mg PO BEDTIME 09/04/24 10/01/24 09/30/24 History Assessment and Plan Assessment Anesthesia Assessment: Anesthesia Plan Discussed Final Anesthetic Review ASA Class: III Final Preanesthetic Review: No Changes in Pt Med Stat, Meds/Allgs Chart Reviewed, Consent Obtained/Reviewed and Anes Risks/Benef Reviewed Patient Risk: Intermediate Procedure Risk: Intermediate Anesthetic Plan Anesthetic Plan: GA Disposition: Standard PACU
[2024-10-01] VITALS (12 sets, daily range): BP systolic 122–158; BP diastolic 45–93; PULSE 82–93; RESP 13–18; TEMP 36.4–37; O2SAT 92–98; BMI 41.6
--- NOTE | ~2024-10-01 | XR_ITS ---
CLINICAL HISTORY: s p right total hip arthroplasty 1 view pelvis Comparison: None Findings: No acute fracture or dislocation. Pelvic rings appear intact. Right total hip arthroplasty without findings of acute complication. Expected soft tissue changes post arthroplasty. IMPRESSION: 1. Pstoperative changes of right total hip arthroplasty without evidence of acute complication. This document has been electronically signed by: Thea Granados MD on 10/03/2024 05:12:10
[2024-10-01] MEDS: oxyCODONE HCl ER 10 MG TAB.ER.12H PO ×2 (11:12→19:53)
[2024-10-01] MEDS: Lactated Ringers 1,000 ML 100 ML IVCONT ×2 (11:37→17:49)
--- NOTE | 2024-10-01 13:06 | MHC.SHP ---
Pre-Procedural Eval Section A - 24 Hr Update-Section A only Date of Service: 10/01/24 The patient is an INPATIENT: No Changes since office visit: No Cold of Flu in the past 2 weeks, No New Medical Problems, No Changes in Medication and No Patient answered all questions The patient has been examined within 24 hours of the surgical procedure. The History & Physical has been completed within 30 days and I have reviewed it.: Yes Section B - Complete if H&P > 30 days Chief Complaint: Unilateral primary osteoarthritis, right hip Allergies: Allergies Allergy/AdvReac Type Severity Reaction Status Date / Time No Known Allergies Allergy Verified 10/01/24 10:40 [No Known Allergies*] Plan I have reviewed the history and physical and performed a pertinent physical examination on my patient. No changes have occurred unless specified. Time Spent With Patient Time: Total time managing care of this patient today ____ minutes.
[2024-10-01] MEDS: HYDROmorphone HCl 0.5 MG/0.5 ML SYRINGE IVPUSH ×3 (16:30→16:50)
--- NOTE | 2024-10-01 16:30 | P.BOP_ITS ---
Brief Operative Note Date of Service: 10/01/24 Pre-op diagnosis: Right hip OA Procedure: Right LIZETH Implants: Stefan Trident2 54; Accolade2 127 # 6. 36 + 2.5 ceramic Surgeon: Keith Colorado MD Anesthesia: GETA and local Was an Counterintelligence/Humint Specialist used for this Procedure?: Yes Counterintelligence/Humint Specialist: Ronnell Hanks Estimated blood loss (mL): 350 IV fluids (mL): 1,000 Pathology: other Condition: stable Disposition: PACU
--- NOTE | 2024-10-01 16:32 | P.OP_ITS ---
Operative Note Operative Note Date of Service: 10/01/24 Narrative: Date of Service: 10/01/24 Pre-op diagnosis: Right hip OA Procedure: Right LIZETH Implants: Stefan Trident2 54; Accolade2 127 # 6. 36 + 2.5 ceramic Surgeon: Keith Colorado MD Anesthesia: GETA and local Was an Glove Presser used for this Procedure?: Yes Glove Presser: Ronnell Hanks Estimated blood loss (mL): 350 IV fluids (mL): 1,000 Pathology: other Condition: stable Disposition: PACU Procedure in detail: Patient was brought into the operating room and placed in the right lateral decubitus position. All bony prominences were well padded and the limb was prepped and draped in standard sterile fashion. A time-out was called to identify proper site procedure proper surgeon IV antibiotics. I began by making a curvilinear incision over the posterolateral aspect of the greater trochanter. Dissection was taken down to the tensor fascia which was incised in line with the incision and a Charnley retractor was placed. Cautery was used to maintain hemostasis. The hip was internally rotated and the external rotators were identified. The vessels were cauterized and a full-thickness capsular/external rotator layer was developed starting just proximal to the piriformis. This layer was tagged and a dull Hohmann retractor was placed underneath the neck in the hip was dislocated. A neck cut was made 1 cm proximal to the lesser trochanter and the head and neck were removed and measured 52mm on the back table. The he ad was deformed and eburnated. I then removed the labrum and cauterized the fovea. I started with a 44 reamer and medialized to the inner table. I sequentially reamed up to a size 54 and impacted a 54mm cup at 45 degrees of inclination and 25 degrees of version. I then placed a 20 deg posterior lipped liner and turned my attention to the femur. I identified the piriformis insertion and used this as a starting point for my andrade cutter. The medius tendon was protected with a Hibs retractor. A Charnley awl was inserted in the canal and a curved curette used to remove the lateral bone. I irrigated copiously. I then sequentially broached in the patient's natural version to a size 6 and placed my trial implants. I used a #6/127/+2.5 based on my pre-operative template. I removed all instrumentation and copiously irrigated. I placed my final femoral implant and again took the hip through range of motion and was satisfied with the stability and length. The final +2.5 implant was impacted in place and the hip reduced. I then irrigated copiously and placed 1 g of local tranexamic acid. I performed a capsular closure with 2.0 fiberwire, Prema's fascia with 0 Vicryl, subcuticular with 2-0 Vicryl and the skin with dinora. Patient was placed into a sterile dressing. Patient was extubated brought to the recovery room in stable condition. There were no known complications.
--- NOTE | 2024-10-01 17:21 | PC.NURSE ---
Patient taking po fluids. No nausea. New ice pack placed to right hip. Dressing c/d/i
[2024-10-01 18:46] LABS: Glucose, Whole Blood 158 mg/dL (60-115)
--- NOTE | 2024-10-01 19:10 | P.DS_ITS ---
DS: Providers Provider Date of Service: 10/02/24 Date of discharge: 10/02/24 Primary care physician: Jose Manuel Ballesteros MD Consults: 10/01/24 17:28 Consult to Hospitalist Routine Comment: Consulting Provider: [facility] [place] Hospitalists Reason For Exam: AAA/htn DS: Summary Hospital Course Hospital Course: The patient underwent a successful right total hip arthroplasty, they were transferred to PACU and then to the floor to recover. During their stay, their vitals were stable, afebrile at 97.8. Labs were unremarkable, H/H 11.8/35.1. POD 1 they were started on Lovenox for DVT ppx, they also received Physical Therapy services twice a day. Prior to discharge, their dressing was clean dry and intact, and the plan was to be discharged home with VNA services. Time Attestation Discharge Coordination Time (in mins): 30 Quality: Safe Use of Opioids Does Pt have an Active Cancer Diagnosis on the Problem List?: No Quality: Stroke Does the patient have a stroke diagnosis?: No Physical Exam Vital Signs: Vital Signs: Last Vital Signs Temp 97.6 F 10/01/24 17:37 Pulse 89 10/01/24 17:37 Resp 16 10/01/24 17:37 BP 138/74 10/01/24 17:37 Pulse Ox 92 10/01/24 17:37 O2 Del Method Nasal Cannula 10/01/24 17:37 O2 Flow Rate 2 10/01/24 17:37 BMI result Body Mass Index 41.6 Const: General: cooperative, healthy appearing and no acute distress Resp: Effort & Inspection: normal respiratory effort and able to speak in complete sentences Cardio: Rate: regular rate Peripheral pulses: Peripheral pulses 2+ throughout GI: Palpation (GI): Soft to palpation Skin: Lesions: no lesions Rashes: no rashes Extrem: Other: right hip dressing is c/d/i. Able to dorsi/plantar flex. Calf is supple and nontender. Sensation intact. Pedal pulse intact. DS: Data Data Completed and Pending Pending studies at discharge: Pending at discharge 10/01/24 15:35 Surgical [PTH] Routine Labs on day of discharge: Laboratory Results - last 24 hr 10/01/24 18:42 POC Glucose 158 H Discharge Plan Discharge Patient Disposition: Home Health Service Referrals: [facility] [Other] - 1 Week Ronnell Hanks PA-C [Physician Geography Instructor] - 2 Weeks (10/10/24 11:30 [facility] [place] Orthopedic Surgeons Ronnell Hanks PA-C) Discharge Medications: New acetaminophen 325 mg Tablet 650 mg PO Q6H PRN (Reason: Pain, Mild 1-3,Fever,Headache) 30 Days Qty: 240 0RF enoxaparin 40 mg/0.4 mL Syringe 40 mg subcut Q24H 42 Days Qty: 16.8 0RF celecoxib 200 mg Capsule 200 mg PO BID 30 Days Qty: 60 0RF docusate sodium 100 mg Capsule 100 mg PO BID 30 Days Qty: 60 0RF oxycodone 5 mg Tablet 5 mg PO Q4H PRN (Reason: Pain, Moderate(Pain Scale 4-6)) 7 Days Qty: 42 0RF Rx Instructions: Partial Fill upon patient request. Continued (DME) walker Misc See Rx Instructions .MEDSUPPLY Qty: 1 0RF Rx Instructions: Folding Front wheeled walker (DME) Raised toilet seat See Rx Instructions .ROUTE .MEDSUPPLY Qty: 1 0RF Rx Instructions: As directed losartan 25 mg tablet 25 mg PO BEDTIME rosuvastatin 20 mg tablet 20 mg PO BEDTIME omeprazole 40 mg capsule,delayed release(DR/EC) 40 mg PO BEDTIME@2100 Discontinued diclofenac potassium 50 mg tablet 50 mg PO BID Qty: 60 1RF acetaminophen 650 mg Tablet Extended Release 650 - 1,300 mg PO DAILY PRN (Reason: Pain) Discharge Orders: Discharge Order (Routine); Ordered 10/02/24 Ordered By: Jaylin Latif Diet: Regular diet Activity on Discharge: Use cane or walker Activity Restrictions/Additional Instructions: * Physical Therapy for Total hip arthroplasty: wbat, posterior precautions, gait training, ROM, strength * Limit stair climbing * No showering, no tub bath-keep dressing clean, dry and intact * No driving x6 weeks * Continue lovenox x 6 weeks * Follow up with [facility] [place] Orthopedics in 2 weeks: * Print Language: Belizean
--- NOTE | 2024-10-01 19:11 | W.MHC.F2F ---
Service Date Service Date: 10/01/24 Encounter Date of encounter: 10/02/24 Reasons for Services Signs and symptoms assessed: s/p RTHA Pt. is considered homebound due to recent surgery. Unable to drive, poor balance, poor gait mechanics. Reason for physical therapy: home safety and mobility, therapeutic exercises, restore joint function, gait/transfer training and ADL training Reason for occupational therapy: home safety and mobility, therapeutic exercises, restore joint function, gait/transfer training and ADL training Homebound: Leaving the home is medically contraindicated at this time without the asist of a device and/or another person due th the listed conditions above and below. Reason homebound: unsteady gait / fall risk, leg weakness, pain with ambulation and unable to drive Certification: Based on the above findings, I certify that this patient is confined to the home and needs intermittent chcf care, physical therapy and/or speech therapy, or continues to need occupational therapy. The patient is under my care, and I have initiated the establishment of the plan of care. The patient will be followed by a physician who will periodically review the plan of care. Time Spent With Patient Time: Total time managing care of this patient today ____ minutes.
--- NOTE | 2024-10-01 19:46 | PHA.MEDREC ---
Addendum entered by Bolivar Noguera 10/01/24 19:56: reviewed Original Note: Pharmacy Consult ? Medication Reconciliation Pharmacy reviewed med rec done by nursing. Spoke with patient and he confirmed his medications. He confirmed he stopped the Diclofenac 50mg tab last Monday due to his surgery he had today and confirmed he is not sure if he going to start it again or not he is waiting to see what the Dr says. He confirmed he took all his other medications yesterday 09/30.
[2024-10-01] MEDS: ceFAZolin Sodium/Dextrose,Iso 2 GM/50 ML PIGGYBACK IV (19:52)
[2024-10-01] MEDS: Docusate Sodium 100 MG CAPSULE PO (19:53)
[2024-10-01] MEDS: Celecoxib 200 MG CAPSULE PO (19:53)
--- NOTE | 2024-10-01 21:23 | P.CONHOSP_ITS ---
History of Present Illness Data of Consult Service Date: 10/01/24 Requesting physician: Keith Colorado Primary Care Provider: Jose Manuel Ballesteros MD [facility] Reason for consult: medical consult Patient is a 51-year-old male with a past medical history significant for AAA, HTN, KERRY on CPAP and HLD, s/p right LIZETH today. He is doing well and has no medical concerns including chest pain, shortness of breath, nausea, vomiting, numbness or tingling. He has been able to urinate and reports that he has not passed gas or had a bowel movement but he did have a bowel movement this morning which is his regular routine. He feels comfortable currently and rates his pain a 2/10. Review of Systems Constitutional: Constitutional: Denies body ache(s), Denies chills, Denies fatigue, Denies fever(s) and Denies headache(s) Eyes: Eyes: Denies change in vision ENT: Denies headache(s), Denies nasal congestion, Denies nasal discharge and Denies sore throat Cardiovascular: Cardiovascular: Denies chest pain, Denies rapid heart rate, Denies leg edema and Denies dyspnea Respiratory: Respiratory: Denies chest congestion, Denies cough, Denies dyspnea and Denies wheezing Gastrointestinal: Gastrointestinal: Denies diarrhea, Denies nausea and Denies vomiting Genitourinary: Genitourinary: Denies hematuria, Denies urinary hesitancy and Denies urinary urgency Integumentary/Breasts: Skin/Breast: Denies rash Neurologic: Denies confusion and Denies headache(s) Psychiatric: Psychiatric: Denies confusion Endocrine: Endocrine: Denies fatigue Hematologic/Lymphatic: Hematologic/Lymphatic: Denies easy bleeding and Denies easy bruising Allergic/Immunologic: Allergic/Immunologic: Denies wheezing PMFSH Medical History COVID-19 Back pain Arthritis GERD (gastroesophageal reflux disease) Sleep apnea Incomplete right bundle branch block Tubular adenoma Insulinoma Hyperlipidemia Seasonal allergies Ascending aortic aneurysm Primary pancreatic neuroendocrine tumor Hypercholesteremia Hypertension Family History Mother Breast cancer Father Diabetes Surgical History History of esophagogastroduodenoscopy (EGD) History of partial pancreatectomy H/O colonoscopy History of incisional hernia repair (08/23/23) Personal history of (corrected) hypospadias History of pancreatectomy Social History Household Members: Spouse and Children Housing: House Are you a primary urgent care physician to a significant other at home: No Do you presently have visiting nurse or other home services: No Alcohol intake: current Alcohol intake frequency: holidays/special occasions only Patient Tobacco Use Status: Never used Tobacco Use of substances other than those prescribed or required for medical reasons: No Have you been hit, kicked, punched, or otherwise hurt by someone within the past year? If so, by whom?: No Do you feel safe in your current relationship?: Yes Is there a partner from a previous relationship who is making you feel unsafe now?: No Are you made to feel afraid or neglected: No Spiritual Healthcare Practices: none per patient [facility] Practices: Holiness Cultural Healthcare Practices: none per patient Are you DNR?: No Advance Directives: No Advance Directives Information Provided: Yes Do you have a plan to hurt others: No Plan Recently lost weight without trying: No Eating poorly because of decreased appetite: No Nutrition Risks: No Nutritional Risk Poor oral hygiene: No service: No 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al status: employed 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 Allergies Allergy/AdvReac Type Severity Reaction Status Date / Time No Known Allergies Allergy Verified 10/01/24 10:40 [No Known Allergies*] Active Medications: Current Medications Acetaminophen (Acetaminophen 325 Mg Tablet) 650 mg PO Q6H PRN PRN Reason: Pain, Mild 1-3,fever,headache Celecoxib (Celecoxib 200 Mg Capsule) 200 mg PO BID [facility] Last Admin: 10/01/24 19:53 Dose: 200 mg Docusate Sodium (Docusate Sodium 100 Mg Capsule) 100 mg PO BID [facility] Last Admin: 10/01/24 19:53 Dose: 100 mg Enoxaparin Sodium (Enoxaparin Sodium 40 Mg/0.4 Ml Syringe) 40 mg SUBCUT Q24H DULCE Hydromorphone HCl (Hydromorphone Hcl 0.5 Mg/0.5 Ml Syringe) 0.25 mg IVPUSH Q4H PRN; Protocol PRN Reason: Pain, Severe (Pain Scale 7-10) Lactated Ringer's (Lr) 1,000 mls @ 100 mls/hr IVCONT .Q10H [facility] Stop: 10/02/24 08:00 Last Admin: 10/01/24 17:49 Dose: 100 mls/hr Ondansetron HCl (Ondansetron Hcl 4 Mg/2 Ml Vial) 4 mg IVPUSH Q8H PRN PRN Reason: Nausea and Vomiting Oxycodone HCl (Oxycodone Hcl Immed Release 5 Mg Tablet) 5 mg PO Q4H PRN PRN Reason: Pain, Moderate(Pain Scale 4-6) Oxycodone HCl (Oxycodone Hcl Er 10 Mg Tab.Er.12h) 10 mg PO BID [facility] Last Admin: 10/01/24 19:53 Dose: 10 mg Sodium Chloride (0.9 % Sodium Chloride Flush 3 Ml Syringe) 3 ml IVFLUSH QSHIFT [facility] Home Medications ?Medication ?Instructions ?Recorded ?Confirmed ?Last Taken ?Type losartan 25 mg tablet 25 mg PO BEDTIME 03/16/21 10/01/24 09/30/24 History omeprazole 40 mg capsule,delayed 40 mg PO BEDTIME@2100 02/07/24 10/01/24 09/30/24 History release rosuvastatin 20 mg tablet 20 mg PO BEDTIME 09/04/24 10/01/24 09/30/24 History acetaminophen 650 mg 650 - 1,300 mg PO DAILY PRN Pain 10/01/24 10/01/24 Unknown History tablet,extended release Physical Exam Vital Signs and Narrative: Vital Signs: Last Vital Signs Temp 97.5 F 10/01/24 20:00 Pulse 85 10/01/24 20:00 Resp 16 10/01/24 20:00 BP 122/62 10/01/24 20:00 Pulse Ox 97 10/01/24 20:00 O2 Del Method CPAP 10/01/24 20:00 O2 Flow Rate 2 10/01/24 17:37 BMI result Body Mass Index 41.6 General: AOx3, no acute distress Resp: CTA bilaterally CVS: S1, S2, RRR GI: +BS, NT, no distention Skin: Warm, dry Neuro: Cranial nerves II-XII grossly intact bilaterally. Motor grossly intact bilaterally Extremities: pneumoboots present Psych: Appropriate affect Const: General: No confusion Orientation/consciousness: No confusion Neuro: General: No confusion Results Labs Labs: Laboratory Results - last 24 hr 10/01/24 18:42 POC Glucose 158 H Assessment and Plan (1) S/P total right hip arthroplasty: Status: Acute (2) Morbid obesity with BMI of 40.0-44.9, adult: Status: Chronic Plan Patient is a 51-year-old male with a past medical history significant for AAA, HTN, KERRY on CPAP and HLD, s/p right LIZETH today. s/p R LIZETH - plan per surgery - pain controlled AAA - monitor BP, well controlled currently HTN - BP good - hold losartan tonight and restart when appropriate KERRY - pt has home CPAP HLD - continue statin Morbid obesity - BMI 41.6 - weight loss encouraged Thank you for allowing me to participate in the pt's care. Signing off for now. Please contact the medical team if any questions or concerns.
[2024-10-02 03:04] VITALS: BP 119/71; PULSE 77; RESP 16; TEMP 36.6; O2SAT 97
[2024-10-02] MEDS: Lactated Ringers 1,000 ML 100 ML IVCONT (04:46)
[2024-10-02 06:12] LABS: Basophils Percent Auto 0.2 % (0-2); Eosinophils Percent Auto 0.1 % (0-4); Hematocrit 35.1 % (42.0-52.0); Hemoglobin 11.8 g/dl (14.0-18.0); Imm Gran Pct Auto 0.6 % (0.0-0.4); Lymphocytes Absolute Auto 2.6 X10*3/uL (1.2-4.9); Lymphocytes Percent Auto 17.1 % (20-40); MANUAL DIFF FLAG SCAN; Mean Corpuscular HGB Conc 33.6 g/dl (31.0-36.0); Mean Corpuscular Hemoglobin 31.6 pg (27.0-33.0); Mean Corpuscular Volume 93.9 fL (80.0-98.0); Mean Platelet Volume 9.5 fL (9.4-12.4); Monocytes Absolute Auto 1.9 X10*3/uL (0.1-1.2); Monocytes Percent Auto 12.4 % (2-11); Neutrophils Absolute Auto 10.7 x10*3/uL (2.0-8.3); Neutrophils Percent Auto 69.6 % (45-73); Platelet Count 431 X10*3/uL (160-400); Red Blood Count 3.74 X10*6/uL (4.60-5.80); SCAN SMEAR FLAG 1; White Blood Count 15.4 X10*3/uL (4.8-10.8)
[2024-10-02 06:25] LABS: Anion Gap 14 (12-20); Blood Urea Nitrogen 13 mg/dL (9-16); Calcium 8.5 mg/dL (8.4-10.2); Carbon Dioxide 23 mmol/L (22-29); Chloride 105 mmol/L (96-108); Creatinine Clr Calc Pharmacy 128.4; Estimated Glomerular Filt Rate > 60; Glucose Fasting 125 mg/dL (60-99); Potassium 4.4 mmol/L (3.3-5.1); Sodium 138 mmol/L (135-145)
[2024-10-02 06:29] LABS: SLIDE REVIEW VERIFIED
--- NOTE | 2024-10-02 07:28 | PM.PNORT ---
Subjective Subjective Date of Service: 10/02/24 Interval history: POD1 s/p RTHA Patient is resting in bed comfortably No overnight events Pain is managed No additional complaints Physical Exam Vital Signs: Vital Signs: Last Vital Signs Temp 97.8 F 10/02/24 03:04 Pulse 77 10/02/24 03:04 Resp 16 10/02/24 03:04 BP 119/71 10/02/24 03:04 Pulse Ox 97 10/02/24 03:04 O2 Del Method CPAP 10/02/24 03:04 O2 Flow Rate 2 10/01/24 17:37 BMI result Body Mass Index 41.6 Const: General: cooperative, healthy appearing and no acute distress Resp: Effort & Inspection: normal respiratory effort and able to speak in complete sentences Cardio: Rate: regular rate Peripheral pulses: Peripheral pulses 2+ throughout GI: Palpation (GI): Soft to palpation Skin: Lesions: no lesions Rashes: no rashes Extrem: Other: right hip dressing is c/d/i. Able to dorsi/plantar flex. Calf is supple and nontender. Sensation intact. Pedal pulse intact. Procedures Date of Service Date of Service: 10/02/24 Progress Note: A&P Assessment and plan (1) S/P total right hip arthroplasty: Status: Acute Plan Continue pain mgmnt Begin Lovenox for dvt ppx begin PT/OT for RTHA Dispo planning-Pending PT eval, pain mgmnt Time Spent With Patient Time: Total time managing care of this patient today ____ minutes. Quality Stroke Does the patient have a stroke diagnosis?: No VTE Prior VTE?: No VTE Risk Level:: Medical - moderate - high VTE Device Contraindication: N/A - Device Ordered VTE Drug Contraindication: N/A - Med Ordered
[2024-10-02 07:30] VITALS: BP 126/78; PULSE 84; RESP 18; TEMP 36.4; O2SAT 99
[2024-10-02 07:32] LABS: Glucose, Whole Blood 126 mg/dL (60-115)
[2024-10-02] MEDS: oxyCODONE HCl ER 10 MG TAB.ER.12H PO (07:40)
[2024-10-02] MEDS: oxyCODONE HCl Immed Release 5 MG TABLET PO ×2 (07:41→13:37)
[2024-10-02] MEDS: Docusate Sodium 100 MG CAPSULE PO (07:41)
[2024-10-02] MEDS: Celecoxib 200 MG CAPSULE PO (07:41)
[2024-10-02 08:41] VITALS: BP 126/78; PULSE 84; O2SAT 99
--- NOTE | 2024-10-02 09:48 | MHC.CM.PN ---
PT IS INDEPEDENT DC PLAN HOME W/HVNS
--- NOTE | 2024-10-02 10:10 | HO.POSTANES ---
Post Anesthesia Evaluation Post Anesthesia Evaluation Date of Service: 10/02/24 Vital Signs: Vital Signs Temp Pulse Resp BP Pulse Ox O2 Del Method 10/02/24 08:41 84 126/78 99 10/02/24 07:30 97.6 F 84 18 126/78 99 Room Air 10/02/24 03:04 97.8 F 77 16 119/71 97 CPAP 10/01/24 23:12 98.0 F 85 16 128/77 95 CPAP Anesthesia: General Endotracheal-GETA Mental Status: Awake Pain Control: Satisfactory Nausea/Vomiting: None Hydration: Adequate Anesthesia-Related Issues: No Anes. Related Issues
[2024-10-02 11:09] LABS: Glucose, Whole Blood 133 mg/dL (60-115)
[2024-10-02] MEDS: Enoxaparin Sodium 40 MG/0.4 ML SYRINGE SUBCUT (14:34)
--- NOTE | 2024-10-02 17:46 | PC.NURSE ---
Pt. is alert and oriented x4, [facility] teaching with return demonstration done.
== END 2024-10-02 17:22 | disposition home health service (06) ==
LOC: HO.SSS 16:27 → HO.S3 16:55
PROVIDERS: Physician Assistant; PCP Internal Medicine; Visit Provider Orthopaedic Surgery
PROC: (CPT 27130; principal; 2024-10-01 14:20)
DX: M16.11 Unilateral primary osteoarthritis, right hip (principal); R26.2 Difficulty in walking, not elsewhere classified; M25.551 Pain in right hip; I45.10 Unspecified right bundle-branch block; I10 Essential (primary) hypertension; E78.00 Pure hypercholesterolemia, unspecified; E66.01 Morbid (severe) obesity due to excess calories; Z68.41 Body mass index [BMI] 40.0-44.9, adult; Z85.07 Personal history of malignant neoplasm of pancreas; Z90.411 Acquired partial absence of pancreas; K21.9 Gastro-esophageal reflux disease without esophagitis; Z79.899 Other long term (current) drug therapy
CPT/HCPCS: 27130; 36415; 72170; 80048; 82947; 85025; 86850; 86900; 86901; 88304; 88311; 97116; 97161; 97165; 97530; C1776; J0131; J0690; J1100; J1171; J1650; J2003; J2371; J2405; J2704; J2795; J3010; J7120

== ENCOUNTER → 2024-10-01 09:32 | Outpatient (BNV) | payer OTHER, SELFPAY | PROVIDERS: PCP Internal Medicine; Visit Provider Physician Assistant | DX: I10 Essential (primary) hypertension (principal); G47.33 Obstructive sleep apnea (adult) (pediatric); E66.01 Morbid (severe) obesity due to excess calories; Z68.41 Body mass index [BMI] 40.0-44.9, adult; Z96.641 Presence of right artificial hip joint | CPT/HCPCS: 99222 ==

== ENCOUNTER → 2024-10-01 09:32 | Outpatient (BNV) | payer OTHER, SELFPAY | PROVIDERS: PCP Internal Medicine; Visit Provider Orthopaedic Surgery | DX: Z47.1 Aftercare following joint replacement surgery (principal); Z96.641 Presence of right artificial hip joint | CPT/HCPCS: 27130; 99024; G0180 ==

== ENCOUNTER → 2024-10-01 15:38 | Outpatient (BNV) | payer OTHER, SELFPAY | PROVIDERS: PCP Internal Medicine; Visit Provider Radiology Diagnostic Radiology | DX: M16.11 Unilateral primary osteoarthritis, right hip (principal) | CPT/HCPCS: 72170 ==

== ENCOUNTER 2024-10-17 13:03 | Outpatient (AMB) | payer OTHER, SELFPAY ==
--- NOTE | 2024-10-17 13:07 | MHC.OFFVIS ---
Vital Signs 10/17/24 13:08 Height 5 ft 9 in Weight 282 lb BMI 41.6 Intake Visit Reasons: 2WK PO: R LIZETH w/NE 10/01/24 Intake Note: Vasile is a 59 year old male who presents today post-operatively s/p right total hip arthroplasty by Dr. Colorado on 10/01/24. Patient reports he is doing well. He is not taking anything for pain. Chavies removed in office today and stitches applied. Allergies No Known Allergies [No Known Allergies*] Allergy (Verified 10/17/24 13:08) Medication List - Last Reconciled 10/17/24 by Ronnell Hanks PA-C acetaminophen 650 mg (2 x 325 mg) PO Q6H PRN 30 days celecoxib 200 mg PO BID 30 days docusate sodium 100 mg PO BID 30 days enoxaparin 40 mg (0.4 mL) subcut Q24H 42 days losartan 25 mg PO BEDTIME omeprazole 40 mg PO BEDTIME@2100 [Raised toilet seat As directed] rosuvastatin 20 mg PO BEDTIME walker Folding Front wheeled walker HPI HPI 2WK PO: R LIZETH w/NE 10/01/24: Details: 59-year-old gentleman returns to the office today 2 weeks status post right total hip arthroplasty on 10/01/[address] Colorado. He continues to work with physical therapy at home and is transitioning to outpatient therapy next week. He ambulates with a walker and a cane. He has no concerns today. [facility] Medical History COVID-19 Back pain Arthritis GERD (gastroesophageal reflux disease) Sleep apnea Incomplete right bundle branch block Tubular adenoma Insulinoma Hyperlipidemia Seasonal allergies Ascending aortic aneurysm Primary pancreatic neuroendocrine tumor Hypercholesteremia Hypertension Surgical History History of esophagogastroduodenoscopy (EGD) History of partial pancreatectomy H/O colonoscopy History of incisional hernia repair (08/23/23) Personal history of (corrected) hypospadias History of pancreatectomy Family History Mother Breast cancer Father Diabetes Social History Household Members: Spouse and Children Housing: House Are you a primary field care coordinator to a significant other at home: No Do you presently have visiting nurse or other home services: No Alcohol intake: current Alcohol intake frequency: holidays/special occasions only Patient Tobacco Use Status: Never used Tobacco service: No 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al status: employed 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 No erythema. No pain with range of motion or hip flexion. Calf supple nontender neurovascularly intact. Assessment & Plan Assessment & Plan (1) S/P total right hip arthroplasty: Code(s): Z96.641 - Presence of right artificial hip joint Category: Surgical Plan: Chavies removed today. Steri-Strips applied. He will continue to work with physical therapy for gait training and strengthening exercises. No driving for 6 weeks. Remain out of work and see us back in [address] Colorado, sooner if needed. Coding Level of Care Code Global (36187) Diagnoses S/P total right hip arthroplasty Z96.641
[2024-10-17 13:08] VITALS: BMI 41.6
--- OUTSIDE RECORDS SUMMARY | 2024-10-17 16:51 | XMS_ITS | Encounter Summary ---
Author Organization [facility] Address [phone] [place] [address] Care Team Providers Care Garage Supervisor Name Role Phone Jose Manuel Ballesteros MD Primary Care Provider Melony Sanon MD Unavailable [phone] Selma Epstein MD, PhD Unavailable [phone] Encounter Details Date Type Department Care Team (Late st Contact Info) Description 10/12/2018 Procedure Pass [facility] [address] [place] [address] Social History Tobacco Use Types Packs/Day Years Used Date Smoking Tobacco: Never Smokeless Tobacco: Never Alcohol Use Standard Drinks/Week Comments Yes 0 (1 standard drink = 0.6 oz pur e alcohol) occ Sex and Gender Information Value Date Recorded Sex Assigned at Not on file Gender Identity Not on file Sexual Orientation Not on file documented as of this encounter Plan of Treatment Not on file documented as of this encounter Visit Diagnoses Not on filedocumented in this encounter Care Teams Garage Supervisor Relationship Specialty Start Date End Date Jose Manuel Ballesteros MD [address] [place] [address] [place] [address] PCP - General Internal Medicine 09/21/18 Melony Sanon MD [address] [place] [address] [place] [address] [email or web address] Physician Hematology and Oncology 09/21/18 Selma Epstein MD, PhD [address] [place] [address] [email or web address] Surgeon Surgical Oncology 09/21/18 documented as of this encounter Additional Source Comments The information contained in this document represents components of the legal health record. It is not the complete legal health record.[facility]
--- OUTSIDE RECORDS SUMMARY | 2024-10-17 16:51 | XMS_ITS | Encounter Summary ---
Author Organization [facility] Address [phone] [address] [place] [address] Care Team Providers Care Wood Caulker Name Role Phone Jose Manuel Ballesteros MD Primary Care Provider Melony Sanon MD Unavailable [phone] Selma Epstein MD, PhD Unavailable [phone] Encounter Details Date Type Department Care Team (Late st Contact Info) Description 03/08/2019 Procedure Pass [facility] Endoscopy Department [address] [place] [address] Social History Tobacco Use Types Packs/Day Years Used Date Smoking Tobacco: Never Smokeless Tobacco: Never Alcohol Use Standard Drinks/Week Comments Yes 3 (1 standard drink = 0.6 oz pur e alcohol) occ Sex and Gender Information Value Date Recorded Sex Assigned at Not on file Gender Identity Not on file Sexual Orientation Not on file documented as of this encounter Plan of Treatment Not on file documented as of this encounter Visit Diagnoses Not on filedocumented in this encounter Care Teams Wood Caulker Relationship Specialty Start Date End Date Jose Manuel Ballesteros MD [address] [place] [address] [place] [address] PCP - General Internal Medicine 09/21/18 Melony Sanon MD [address] [place] [address] [place] [address] [email or web address] Referring Physician Hematology and Oncology 09/21/18 Selma Epstein MD, PhD [address] [place] [address] [email or web address] Surgeon Surgical Oncology 09/21/18 documented as of this encounter Additional Source Comments The information contained in this document represents components of the legal health record. It is not the complete legal health record.[facility]
--- OUTSIDE RECORDS SUMMARY | 2024-10-17 16:51 | XMS_ITS | Encounter Summary ---
Author Organization [facility] Address [phone] [place] [address] Care Team Providers Care Automated Cutting Machine Operator Name Role Phone Jose Manuel Ballesteros MD Primary Care Provider Melony Sanon MD Unavailable [phone] Selma Epstein MD, PhD Unavailable Reason for Referral * MRI/CAT Scan - Closed Specialty Diagnoses / Procedures Referred By Contac t Referred To Contact Procedures CT Abdomen/Pelvis Outside (No Interpretation) Selma Epstein MD, PhD [address] [place] [id number] Email: [email or web address] Referral ID Status Reason Start Date Expiration Date Visits Re quested Visits Authorized [id number] Closed 10/12/2018 10/12/2019 1 1 * MRI/CAT Scan - Closed Specialty Diagnoses / Procedures Referred By Contac t Referred To Contact Procedures MRI Abdomen Outside (No Interpretation) Selma Epstein MD, PhD [address] [place] [id number] Email: [email or web address] Referral ID Status Reason Start Date Expiration Date Visits Re quested Visits Authorized [id number] Closed 10/12/2018 10/12/2019 1 1 Encounter Details Date Type Department Care Team (Late st Contact Info) Description 10/12/2018 Transcribe Orders [facility] [address] [place] [address] [place] [address] [place] [id number] [email or web address] Social History Tobacco Use Types Packs/Day Years [...] on file documented as of this encounter Results * CT Abdomen/Pelvis Outside (No Interpretation) (10/12/2018 11:46 AM EST) Narrative SYSTEMGENERATED, DOCUMENTATION - 10/12/2018 11:46 AM EST This study is for PACS storage only and not for interpretation. Selma Epstein MD, PhD IMG OUTSIDE IMAGING W/OUT INTERPRETATION * MRI Abdomen Outside (No Interpretation) (10/12/2018 11:46 AM EST) Narrative [facility] - 10/12/2018 11:46 AM EST This study is for PACS storage only and not for interpretation. Selma Epstein MD, PhD IMG OUTSIDE IMAGING W/OUT INTERPRETATION [facility] documented in this encounter Visit Diagnoses Not on filedocumented in this encounter Care Teams Automated Cutting Machine Operator Relationship Specialty Start Date End Date Jose Manuel Ballesteros MD [address] [place] [address] [place] [address] PCP - General Internal Medicine 09/21/18 Melony Sanon MD [address] [place] [address] [place] [address] [email or web address] Referring Physician Hematology and Oncology 09/21/18 Selma Epstein MD, PhD [address] [place] [address] [email or web address] Surgeon Surgical Oncology 09/21/18 documented as of this encounter Additional Source Comments The information contained in this document represents components of the legal health record. It is not the complete legal health record.[facility]
--- OUTSIDE RECORDS SUMMARY | 2024-10-17 16:51 | XMS_ITS ---
Author Organization [facility] Address [address] [place] [address] Care Team Providers Care Body Engineer Name Role Phone Jose Manuel Ballesteros MD Primary Care Provider UnavailKulwinder Ma Jr [phone] REASON FOR VISIT pathology Encounters Encounter Location Date Provider Diagnosis [facility] [address] [place] [address] 11/27/2023 Kulwinder Yost Jr PLAN OF TREATMENT No Information
--- OUTSIDE RECORDS SUMMARY | 2024-10-17 16:51 | XMS_ITS | Patient Health Record ---
Author Organization [facility] Address [address] [place] [phone] Care Team Providers Care Account Support Manager Name Role Phone Jose Manuel Ballesteros MD Primary Care Provider UnavailKulwinder Ma Jr Unavailable ALLERGIES No Known Allergies RESULTS Component Value Reference Range Notes Pathology Reviewed date:11/27/2023 08:35:41 AM Interpretation: Performing Lab:[facility], [address] [place] [phone] Notes/Report: REASON FOR REFERRAL No Information MEDICATIONS Medication SIG (Take, Route, Frequency, Duration) Notes Start Date End Date Status Losartan Potassium 25 MG TAKE 1 TABLET B Y MOUTH EVERY DAY Oral for 30 Active Rosuvastatin Calcium 20 MG TAKE 1 TABLET BY MOUTH EVERY DAY PLEASE GET REPEAT LAB WORK Oral for 90 Active MiraLax (colon prep) 17 GM/SCOOP mixed with Gatorade or Crystal Light Orally begin at 5:00 p.m. the day before the procedure for 1 day 10/05/2023 Active Omeprazole 40 MG Oral for 90 A ctive SOCIAL HISTORY Sex Assigned At : Social History Observation Description Sex Assigned At Unknown Alcohol Screen Question Answer Notes Did you have a drink contain ing alcohol in the past year? Yes How often did you have a dri nk containing alcohol in the past year? 2 to 4 times a month (2 points) How many drinks did you have on a typical day when you were drinking in the past year? 1 or 2 drinks (0 point) How often did you have 6 or more drinks on one occasion in the past year? Never (0 point) Points 2 Interpretation Negative PROBLEMS Problem Type ICD Code Onset Dates Problem Status W/U Status Risk SNOMED Code Notes Problem Colon cancer screening (Z12.11) Active confirmed 359430891 Problem Encounter for other preprocedural examination (Z01.818) Active confirmed 811710470 Problem Personal history of colonic polyps (Z86.010) Active confirmed History of polyp of colon (situation) (799739675) Encounters Encounter Location Date Provider Diagnosis [facility] Outpatient [address] [place] [phone] 11/21/2023 Kulwinder Yost Jr Encounter for screening colonoscopy Z12.11 ; Personal history of colonic polyps Z86.010 and Colon polyps K63.5 [facility] [address] [place] [phone] 10/31/2023 Kulwinder Yost Jr [facility] [address] [place] [phone] 11/27/2023 Kulwinder Yost Jr ASSESSMENTS Encounter Date Diagnosis Assessment Notes Treatment Notes Treatment Clinical Notes 11/21/2023 Encounter for screening colonoscopy (ICD-10 - Z12.11) 11/21/2023 Personal history of colonic polyps (ICD-10 - Z86.010) 11/21/2023 Colon polyps (ICD-10 - K63.5) PLAN OF TREATMENT Future Test Test Name Order Date COLONOSCOPY 01/12/2017 COLONOSCOPY 10/05/2023 Insurance Providers Payer Name Payer Address Payer Phone Subscriber Number Group Number Insured Name Patient Relationship to Insured Coverage Start Date Coverage End Date [employer] [place] [address] [address] [place] [address] [id number] NUVIA SPAULDING Self - patient is the insured MEDICAL (GENERAL) HISTORY Medical History History ICD Code Hypertension Hyperlipidemia Seasonal allergies Aortic aneurysm Insulinoma Colonoscopy 04/03, tubular adenoma, five- year followup Surgical History Surgery Date(Month/Year) ureteroplasy 10/04/1979 imbilical hernia repair with mesh - dr. carlos 08/23/2023 Distal pancreatectomy for insulinoma
--- OUTSIDE RECORDS SUMMARY | 2024-10-17 16:51 | XMS_ITS | Encounter Summary ---
Author Organization [facility] Address [phone] [address] [place] [address] Care Team Providers Care District Captain Name Role Phone Jose Manuel Ballesteros MD Primary Care Provider Melony Sanon MD Unavailable [phone] Selma Epstein MD, PhD Unavailable [phone] Encounter Details Date Type Department Care Team (Late st Contact Info) Description 01/11/2019 Procedure Pass [facility] Endoscopy Department [address] [place] [address] Social History Tobacco Use Types Packs/Day Years [...] on filedocumented in this encounter Care Teams District Captain Relationship Specialty Start Date End Date Jose Manuel Ballesteros MD [address] [place] [address] [place] [address] PCP - General Internal Medicine 09/21/18 Melony Sanon MD [address] [place] [address] [place] [address] [email or web address] Referring Physician Hematology and Oncology 09/21/18 Selma Epstein MD, PhD [address] [place] [address] [email or web address] Surgeon Surgical Oncology 09/21/18 documented as of this encounter Additional Source Comments The information contained in this document represents components of the legal health record. It is not the complete legal health record.[facility]
--- OUTSIDE RECORDS SUMMARY | 2024-10-17 16:51 | XMS_ITS | Clinical Summary ---
Author Organization [facility] Address [phone] [place] [address] Care Team Providers Care Cement Production Plant Operator Name Role Phone Jose Manuel Ballesteros MD Primary Care Provider Melony Sanon MD Unavailable [phone] Selma Epstein MD, PhD Unavailable [phone] Allergies No known active allergies Medications Medication Sig Dispensed Refills Start Date End Date Status simvastatin (ZOCOR) 40 MG tablet Take 40 mg by mouth nightly. Active omeprazole (PRILOSEC) 20 MG capsule Take 20 mg by mouth 2 (two) times a day. 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 Not on maco e 01/13/2023 Are you concerned about learning? Not on file 01/13/2023 No 01/13/2023 No 01/13/2023 Digital Access Answer Date Recorded No 2023 No 2023 No 2023 Reliable internet access at home? Not on file 2023 Device with a working camera? Not on file Sex and Gender Information Value Date Recorded Sex Assigned at Not on file Gender Identity Not on file Sexual Orientation Not on file Last Filed Vital Signs Vital Sign Reading Time Taken Comments Blood Pressure 123/78 03/08/2024 10:33 AM EDT Pulse 69 03/08/2024 10:33 AM EDT Temperature 36.6 ??C (97.8 ??F) 03/08/2024 1 0:33 AM EDT Respiratory Rate 18 03/08/2024 10:3 1 AM EDT Oxygen Saturation 98% 03/08/2024 10: 33 AM EDT Inhaled Oxygen Concentration 4% 12:10 PM EST Weight 126.6 kg (279 lb 1.6 oz) 024 10:31 AM EDT Height 176 cm (5' 9.29 ) 03/08/2024 10: 31 AM EDT Body Mass Index 40.87 03/08/2024 10:31 AM EDT Plan of Treatment Health Maintenance Due Date Last Done Comments LIPID PANEL 1966 DEPRESSION SCREENING 1978 HEPATITIS B SCREENING 02/15/1984 HEPATITIS C SCREENING 02/15/1984 HIV ONE-TIME SCREENING (18-65 YEARS) 02/15/1984 HEPATITIS B VACCINES (1 of 3 - 19+ 3-dose series) 1985 COLOGUARD 2011 COLONOSCOPY 2011 COLORECTAL CANCER SCREENING 2011 FIT TEST 2011 FOBT 2011 SIGMOIDOSCOPY 2011 VIRTUAL COLONOSCOPY 2011 ZOSTER VACCINES (1 of 2) 02/15/2016 PNEUMOCOCCAL VACCINES (50+ years) (2 of 2 - PPSV23) 10/23/2019 10/23/2018 SCREENING FOR DIABETES 11/22/2021 11/22/2018 INFLUENZA VACCINE (#1) 2024 , 07/08/2019, 06/29/2018, Additional history exists COVID-19 VACCINE ( season) 2024 10/07/2020, 09/16/2020 BLOOD PRESSURE 09/07/2024 03/08/2024 Adult Td,Tdap Booster 01/19/2027 01/19/2017 HIB VACCINES Aged Out 10/23/2018 No longer eligi ble based on patient's age to complete this topic MENINGOCOCCAL VACCINES (ACWY) Aged Out 10/23/2018 No longer eligible based on patient's age to complete this topic SMOKING STATUS SCREENING (Once After 26 Yrs) Completed 07/18/2019 HEPATITIS A VACCINES Aged Out No long er eligible based on patient's age to complete this topic Medical Devices Implanted Type Area Fur Operator Device Identifier Shelf Expiration Date Model / Serial / Lot Kit Stent 4.0 5fr 5.0 7.0cm Pancreatic Advanix Single Pigtail Pushing Catheter - [id number] Implanted:Qty: 1 on 01/11/2019 by Harley Fairbanks MD at [facility] N/A: Pancreas [employer] 05/28/2020 [id number] / / [id number] Advance Directives Documents on File Type Date Recorded Patient [employer] Healthcare Proxy 11/18/2018 9:37 AM SIGNED ON 11/16/2018 * Full Code (Presumed) (Latest Code Status on File) Date Activated Date Inactivated Comments 11/16/2018 2:15 PM 11/22/2018 5:18 PM * Full Code (Presumed) Date Activated Date Inactivated Comments 11/16/2018 6:47 AM 11/16/2018 2:15 PM Care Teams Cement Production Plant Operator Relationship Specialty Start Date End Date Jose Manuel Ballesteros MD [address] [place] [address] [place] [address] PCP - General Internal Medicine 09/21/18 Melony Sanon MD [address] [place] [address] [email or web address] Referring Physician Hematology and Oncology 09/21/18 Selma Epstein MD, PhD [address] [place] [address] [email or web address] Surgeon Surgical Oncology 09/21/18 Additional Source Comments The information contained in this document represents components of the legal health record. It is not the complete legal health record.[facility]
--- OUTSIDE RECORDS SUMMARY | 2024-10-17 16:51 | XMS_ITS ---
Author Organization [facility] Address [address] [place] [address] Care Team Providers Care Vp Corporate Development Name Role Phone Jose Manuel Ballesteros MD Primary Care Provider UnavailKulwinder Ma Jr [phone] REASON FOR VISIT please lock 10-05-23 office note Encounters Encounter Location Date Provider Diagnosis [facility] [address] [place] [phone] 10/31/2023 Kulwinder Yost Jr PLAN OF TREATMENT No Information
--- OUTSIDE RECORDS SUMMARY | 2024-10-17 16:51 | XMS_ITS ---
Author Organization [facility] Address [address] [place] [address] Care Team Providers Care Director Product Management Name Role Phone Jose Manuel Ballesteros MD Primary Care Provider Kulwinder Aragon Jr REASON FOR VISIT screening PROBLEMS Problem Type ICD Code Onset Dates Problem Status W/U Status Risk SNOMED Code Notes Problem Personal history of colonic polyps (Z86.010) Active confirmed History of polyp of colon (situation) (191575933) Encounters Encounter Location Date Provider Diagnosis [facility] [place] Outpatient [address] [place] [id number] 11/21/2023 Kulwinder Yost Jr Encounter for screening colonoscopy Z12.11 ; Personal history of colonic polyps Z86.010 and Colon polyps K63.5 ASSESSMENTS Encounter Date Diagnosis Assessment Notes Treatment Notes Treatment Clinical Notes 11/21/2023 Encounter for screening colonoscopy (ICD-10 - Z12.11) 11/21/2023 Personal history of colonic polyps (ICD-10 - Z86.010) 11/21/2023 Colon polyps (ICD-10 - K63.5) PLAN OF TREATMENT No Information
--- OUTSIDE RECORDS SUMMARY | 2024-10-17 16:51 | XMS_ITS | Encounter Summary ---
Author Organization [facility] Address [phone] [address] [place] [address] Care Team Providers Care Measurement Specialist Name Role Phone Jose Manuel Ballesteros MD Primary Care Provider Melony Sanon MD Unavailable [phone] Selma Epstein MD, PhD Unavailable [phone] Encounter Details Date Type Department Care Team (Late st Contact Info) Description 10/04/2018 Procedure Pass [facility] Endoscopy Department [address] [place] [address] Social History Tobacco Use Types Packs/Day Years [...] on filedocumented in this encounter Care Teams Measurement Specialist Relationship Specialty Start Date End Date Jose Manuel Ballesteros MD [address] [place] [address] [place] [address] PCP - General Internal Medicine 09/21/18 Melony Sanon MD [address] [place] [address] [place] [address] [email or web address] Referring Physician Hematology and Oncology 09/21/18 Selma Epstein MD, PhD [address] [place] [address] [email or web address] Surgeon Surgical Oncology 09/21/18 documented as of this encounter Additional Source Comments The information contained in this document represents components of the legal health record. It is not the complete legal health record.[facility]
--- OUTSIDE RECORDS SUMMARY | 2024-10-17 16:51 | XMS_ITS | Encounter Summary ---
Author Organization [facility] Address [phone] [place] [address] Care Team Providers Care Film Drying Machine Operator Name Role Phone Jose Manuel Ballesteros MD Primary Care Provider Melony Sanon MD Unavailable [phone] Selma Epstein MD, PhD Unavailable Encounter Details Date Type Department Care Team (Late st Contact Info) Description 02/03/2023 Procedure Pass [facility] MR Imaging, [place] [address] [place] [address] Social History Tobacco Use Types Packs/Day Years Used Date Smoking Tobacco: Never Smokeless Tobacco: Never Alcohol Use Standard Drinks/Week Comments Yes 3 (1 standard drink = 0.6 oz pur e alcohol) occ Education Answer Date Recorded Are you interested in more education? Not on maco e 01/13/2023 Are you concerned about learning? Not on file 01/13/2023 No 01/13/2023 No 01/13/2023 Sex and Gender Information Value Date Recorded Sex Assigned at Not on file Gender Identity Not on file Sexual Orientation Not on file documented as of this encounter Plan of Treatment Not on file documented as of this encounter Visit Diagnoses Not on filedocumented in this encounter Care Teams Film Drying Machine Operator Relationship Specialty Start Date End Date Jose Manuel Ballesteros MD [address] [place] [address] [place] [address] PCP - General Internal Medicine 09/21/18 Melony Sanon MD [address] [place] [address] [email or web address] Referring Physician Hematology and Oncology 09/21/18 Selma Epstein MD, PhD [address] [place] [address] [email or web address] Surgeon Surgical Oncology 09/21/18 documented as of this encounter Additional Source Comments The information contained in this document represents components of the legal health record. It is not the complete legal health record.[facility]
--- OUTSIDE RECORDS SUMMARY | 2024-10-17 16:51 | XMS_ITS | Encounter Summary ---
Author Organization [facility] Address [phone] [place] [address] Care Team Providers Care Driver Education Road Instructor Name Role Phone Jose Manuel Ballesteros MD Primary Care Provider Melony Sanon MD Unavailable [phone] Selma Epstein MD, PhD Unavailable [phone] Encounter Details Date Type Department Care Team (Late st Contact Info) Description 11/16/2018 Procedure Pass [facility] Periop [address] [place] [address] Social History Tobacco Use Types Packs/Day Years [...] on filedocumented in this encounter Care Teams Driver Education Road Instructor Relationship Specialty Start Date End Date Jose Manuel Ballesteros MD [address] [place] [address] [place] [address] PCP - General Internal Medicine 09/21/18 Melony Sanon MD [address] [place] [address] [place] [address] [email or web address] Referring Physician Hematology and Oncology 09/21/18 Selma Epstein MD, PhD [address] [place] [address] [email or web address] Surgeon Surgical Oncology 09/21/18 documented as of this encounter Additional Source Comments The information contained in this document represents components of the legal health record. It is not the complete legal health record.[facility]
== END 2024-10-17 14:35 | disposition home or self-care (01) ==
PROVIDERS: PCP Internal Medicine; Visit Provider Physician Assistant
DX: Z96.641 Presence of right artificial hip joint (principal)
CPT/HCPCS: 99024

== ENCOUNTER 2024-11-07 09:00 | Outpatient (RCR) | payer OTHER, SELFPAY ==
--- NOTE | 2024-10-21 14:52 | MHC.PT.EP ---
[facility] [place] [facility] [place] Office [place] Office [address] Mine Jovel [address] [phone] F: [phone] F: [phone] F: [phone] F: [phone] Physical Therapy Plan of Care Date of Evaluation: 10/21/24 Date of Surgery: 10/01/24 Diagnosis: R LIZETH 10/01/24 Assessment: 59 y/o male s/p R LIZETH 10/01/24 with posterior hip precautions by Dr. [place]. He had one overnight stay in hospital and was d/c home with home PT. 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 Examination shows decreased R hip ROM, decreased R hip strength, pain, impaired gait pattern and impaired functional mobility. Recommend PT 2x/week for 5 weeks to address impairments, implement HEP, and optimize functional mobility. Frequency and Duration: The patient will be seen 2x/week for 5 weeks Short Term Goals: I with HEP Assisted Goals: 5 weeks I with HEP and self management of sx Pt will be able to ambulate without assistive device > 15min with pain < 3/10 Pt will be able to ascend/ descend stairs with step through pattern and pain < 3/10 Treatment Plan: Modalities to reduce pain, spasms and effusion. Manual therapy to restore motion and function. Therapeutic exercise to improve strength and flexibility. Neuromuscular re-education for posture and balance. Therapeutic activities to return to functional activities of daily living. Electronically signed by: Toña Walton PT Please sign and return to therapist. Thank you for your referral.
--- NOTE | 2024-11-21 10:15 | MHC.PT.DC ---
[facility] [place] [facility] [place] [facility] [place] Office [address] Mine Jovel [address] [phone] F: [phone] F: [phone] F: [phone] F: [phone] Physical Therapy Discharge Report Diagnosis: R LIZETH 10/01/24 Date of Surgery: 10/01/24 Date of Evaluation: 10/21/24 Date of Discharge: 11/21/24 Treatments to Date: 6 Cancellations to Date: 0 No Shows to Date: 0 Discharge Status: Achieved Goals Improved Function Independent with HEP Discharge Summary: Pt reports happy with progress and anticipates RTW. ROM, strength, and gait pattern have improved. He is able to ascend/ descend stairs WNL and without pain. D/c at this time Electronically signed by: Toña Walton PT Please sign and return to therapist. Thank you for your referral.
== END 2024-11-21 10:15 | disposition home or self-care (01) ==
LOC: HO.PTCHIC 09:00
PROVIDERS: PCP Internal Medicine; Visit Provider Physician Assistant
DX: Z96.641 Presence of right artificial hip joint (principal)
CPT/HCPCS: 97110; 97161; 97530

== ENCOUNTER 2024-11-11 13:43 | Outpatient (AMB) | payer OTHER, SELFPAY ==
[2024-11-11 14:15] VITALS: BMI 41.6
--- NOTE | 2024-11-11 14:15 | MHC.OFFVIS ---
Vital Signs 11/11/24 14:15 Height 5 ft 9 in Weight 282 lb BMI 41.6 Intake Visit Reasons: 6WK PO: R LIZETH w/NE 10/01/24 Intake Note: Vasile is a 59 year old male who presents today for a post operative appointment 6 weeks s/p Right LIZETH 10/01/24. He remains out of work at this time. Allergies No Known Allergies [No Known Allergies*] Allergy (Verified 10/17/24 13:08) HPI HPI 6WK PO: R LIZETH w/NE 10/01/24: Details: Vasile is 6 weeks status post right total hip. He is doing well. He has no complaints. He wants to go back to work. 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 Hyperlipidemia Seasonal allergies Ascending aortic aneurysm Primary pancreatic neuroendocrine tumor Hypercholesteremia Hypertension Surgical History History of esophagogastroduodenoscopy (EGD) History of partial pancreatectomy H/O colonoscopy History of incisional hernia repair (08/23/23) Personal history of (corrected) hypospadias History of pancreatectomy Family History Mother Breast cancer Father Diabetes Social History Household Members: Spouse and Children Housing: House Are you a primary physician primary care sports medicine to a significant other at home: No Do you presently have visiting nurse or other home services: No Alcohol intake: current Alcohol intake frequency: holidays/special occasions only Patient Tobacco Use Status: Never used Tobacco service: No 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al status: employed 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 No pain with hip range of motion and no Trendelenburg gait. Walking comfortably. Assessment & Plan Assessment & Plan (1) S/P total right hip arthroplasty: Code(s): Z96.641 - Presence of right artificial hip joint Category: Surgical Plan: Doing well. May return to work. Discussed posterior hip precautions. Follow up 6 weeks. Coding Level of Care Code Global (32834) Diagnoses S/P total right hip arthroplasty Z96.641
--- OUTSIDE RECORDS SUMMARY | 2024-11-11 15:41 | XMS_ITS | Encounter Summary ---
Author Organization [facility] Address [phone] [place] [address] Care Team Providers Care Real Estate Assessor Name Role Phone Jose Manuel Ballesteros MD Primary Care Provider Melony Sanon MD Unavailable [phone] Selma Epstein MD, PhD Unavailable Encounter Details Date Type Department Care Team (Late st Contact Info) Description 02/03/2023 Procedure Pass [facility] MR Imaging, [place] [address] [place] [address] Social History Tobacco Use Types Packs/Day Years [...] on filedocumented in this encounter Care Teams Real Estate Assessor Relationship Specialty Start Date End Date Jose Manuel Ballesteros MD [address] [place] [address] [place] [address] PCP - General Internal Medicine 09/21/18 Melony Sanon MD [address] [place] [address] [email or web address] Referring Physician Hematology and Oncology 09/21/18 Selma Epstein MD, PhD [address] [place] [phone] [email or web address] Surgeon Surgical Oncology 09/21/18 documented as of this encounter Additional Source Comments The information contained in this document represents components of the legal health record. It is not the complete legal health record.[facility]
--- OUTSIDE RECORDS SUMMARY | 2024-11-11 15:41 | XMS_ITS | Encounter Summary ---
Author Organization [facility] Address [phone] [place] [address] Care Team Providers Care Labor Law Professor Name Role Phone Jose Manuel Ballesteros MD Primary Care Provider Melony Sanon MD Unavailable [phone] Selma Epstein MD, PhD Unavailable [phone] Encounter Details Date Type Department Care Team (Late st Contact Info) Description 11/16/2018 Procedure Pass [facility] Periop [address] [place] [address] Social History Tobacco Use Types Packs/Day Years [...] on filedocumented in this encounter Care Teams Labor Law Professor Relationship Specialty Start Date End Date Jose Manuel Ballesteros MD [address] [place] [address] [place] [address] PCP - General Internal Medicine 09/21/18 Melony Sanon MD [address] [place] [address] [place] [address] [email or web address] Referring Physician Hematology and Oncology 09/21/18 Selma Epstein MD, PhD [address] [place] [address] [email or web address] Surgeon Surgical Oncology 09/21/18 documented as of this encounter Additional Source Comments The information contained in this document represents components of the legal health record. It is not the complete legal health record.[facility]
--- OUTSIDE RECORDS SUMMARY | 2024-11-11 15:41 | XMS_ITS | Encounter Summary ---
Author Organization [facility] Address [phone] [address] [place] [address] Care Team Providers Care Cellular Equipment Repairer Name Role Phone Jose Manuel Ballesteros MD Primary Care Provider Melony Sanon MD Unavailable [phone] Selma Epstein MD, PhD Unavailable [phone] Encounter Details Date Type Department Care Team (Late st Contact Info) Description 01/11/2019 Procedure Pass [facility] Endoscopy Department [address] [place] [address] Social History Tobacco Use Types Packs/Day Years [...] on filedocumented in this encounter Care Teams Cellular Equipment Repairer Relationship Specialty Start Date End Date Jose Manuel Ballesteros MD [address] [place] [address] [place] [address] PCP - General Internal Medicine 09/21/18 Mleony Sanon MD [address] [place] [address] [place] [address] [email or web address] Referring Physician Hematology and Oncology 09/21/18 Selma Epstein MD, PhD [address] [place] [address] [email or web address] Surgeon Surgical Oncology 09/21/18 documented as of this encounter Additional Source Comments The information contained in this document represents components of the legal health record. It is not the complete legal health record.[facility]
--- OUTSIDE RECORDS SUMMARY | 2024-11-11 15:41 | XMS_ITS | Encounter Summary ---
Author Organization [facility] Address [phone] [address] [place] [address] Care Team Providers Care Specialty Transformer Assembler Name Role Phone Jose Manuel Ballesteros MD Primary Care Provider Melony Sanon MD Unavailable [phone] Selma Epstein MD, PhD Unavailable [phone] Encounter Details Date Type Department Care Team (Late st Contact Info) Description 03/08/2019 Procedure Pass [facility] Endoscopy Department [address] [place] [address] Social History Tobacco Use Types Packs/Day Years [...] on filedocumented in this encounter Care Teams Specialty Transformer Assembler Relationship Specialty Start Date End Date Jose Manuel Ballesteros MD [address] [place] [address] [place] [address] PCP - General Internal Medicine 09/21/18 Melony Sanon MD [address] [place] [address] [place] [address] [email or web address] Referring Physician Hematology and Oncology 09/21/18 Selma Epstein MD, PhD [address] [place] [address] [email or web address] Surgeon Surgical Oncology 09/21/18 documented as of this encounter Additional Source Comments The information contained in this document represents components of the legal health record. It is not the complete legal health record.[facility]
--- OUTSIDE RECORDS SUMMARY | 2024-11-11 15:41 | XMS_ITS | Patient Health Record ---
Author Organization [facility] Address [address] [place] [address] Care Team Providers Care Water Team Leader Name Role Phone Jose Manuel Ballesteros MD Primary Care Provider UnavailKulwinder Ma Jr Unavailable ALLERGIES No Known Allergies RESULTS Component Value Reference Range Notes Pathology Reviewed date:11/27/2023 08:35:41 AM Interpretation: Performing Lab:[facility], [address] [place] [id number] Notes/Report: REASON FOR REFERRAL No Information MEDICATIONS [...] Problem Colon cancer screening (Z12.11) Active confirmed 291193246 Problem Personal history of colonic polyps (Z86.010) Active confirmed History of polyp of colon (situation) (976744854) Problem Encounter for other preprocedural examination (Z01.818) Active confirmed 879877392 Encounters Encounter Location Date Provider Diagnosis [facility] [place] [address] [place] [id number] 11/21/2023 Kulwinder Yost Jr Encounter for screening colonoscopy Z12.11 ; Personal history of colonic polyps Z86.010 and Colon polyps K63.5 [facility] [address] [place] [address] 11/27/2023 Kulwinder Yost Jr ASSESSMENTS Encounter Date [...] Coverage End Date BL[employer] [place] [address] [address] [place] [address] [id number] NUVIA SPAULDING Self - patient is the insured MEDICAL (GENERAL) HISTORY Medical History History ICD Code Hypertension Hyperlipidemia Seasonal allergies Aortic aneurysm Insulinoma Colonoscopy 04/03, tubular adenoma, five- year followup Surgical History Surgery Date(Month/Year) ureteroplasy 10/04/1979 imbilical hernia repair with mesh - dr. carlos 08/23/2023 Distal pancreatectomy for insulinoma
--- OUTSIDE RECORDS SUMMARY | 2024-11-11 15:41 | XMS_ITS ---
Author Organization [facility] Address [address] [place] [address] Care Team Providers Care Torpedo Specialist Name Role Phone Jose Manuel Ballesteros MD Primary Care Provider Kulwinder Aragon Jr REASON FOR VISIT screening PROBLEMS Problem Type ICD Code Onset Dates Problem Status W/U Status Risk SNOMED Code Notes Problem Personal history of colonic polyps (Z86.010) Active confirmed History of polyp of colon (situation) (158091432) Encounters Encounter Location Date Provider Diagnosis [facility] [place] Out[place] [address] [place], [place] [id number] 11/21/2023 Kulwinder Yost Jr Encounter for screening [...]
--- OUTSIDE RECORDS SUMMARY | 2024-11-11 15:41 | XMS_ITS ---
Author Organization [facility] Address [address] [place] [address] Care Team Providers Care Telescope Maintenance Name Role Phone Jose Manuel Ballesteros MD Primary Care Provider UnavailKulwinder Ma Jr [phone] REASON FOR VISIT pathology Encounters Encounter Location Date Provider Diagnosis [facility] [address] [place] [address] 11/27/2023 Kulwinder Yost Jr PLAN OF TREATMENT No Information
--- OUTSIDE RECORDS SUMMARY | 2024-11-11 15:42 | XMS_ITS | Encounter Summary ---
Author Organization [facility] Address [phone] [address] [place] [address] Care Team Providers Care Boiler Operator Name Role Phone Jose Manuel Ballesteros MD Primary Care Provider Melony Sanon MD Unavailable [phone] Selma Epstein MD, PhD Unavailable [phone] Encounter Details Date Type Department Care Team (Late st Contact Info) Description 10/04/2018 Procedure Pass [facility] Endoscopy Department [address] [place] [address] Social History Tobacco Use Types Packs/Day Years [...] on filedocumented in this encounter Care Teams Boiler Operator Relationship Specialty Start Date End Date Jose Manuel Ballesteros MD [address] [place] [address] [place] [address] PCP - General Internal Medicine 09/21/18 Melony Sanon MD [address] [place] [address] [place] [address] [email or web address] Referring Physician Hematology and Oncology 09/21/18 Selma Epstein MD, PhD [address] [place] [address] [email or web address] u Surgeon Surgical Oncology 09/21/18 documented as of this encounter Additional Source Comments The information contained in this document represents components of the legal health record. It is not the complete legal health record.[facility]
--- OUTSIDE RECORDS SUMMARY | 2024-11-11 15:42 | XMS_ITS | Encounter Summary ---
Author Organization [facility] Address [phone] [place] [address] Care Team Providers Care Technical Services Specialist Name Role Phone Jose Manuel Ballesteros MD Primary Care Provider Melony Sanon MD Unavailable [phone] Selma Epstein MD, PhD Unavailable Reason for Referral * MRI/CAT Scan - Closed Specialty Diagnoses / Procedures Referred By Contac t Referred To Contact Procedures CT Abdomen/Pelvis Outside (No Interpretation) Selma Epstein MD, PhD [address] [place] [address] Email: [email or web address] Referral ID Status Reason Start Date Expiration Date Visits Re quested Visits Authorized [id number] Closed 10/12/2018 10/12/2019 1 1 * MRI/CAT Scan - Closed Specialty Diagnoses / Procedures Referred By Contac t Referred To Contact Procedures MRI Abdomen Outside (No Interpretation) Selma Epstein MD, PhD [address] [place] [phone] Email: [email or web address] Referral ID Status Reason Start Date Expiration Date Visits Re quested Visits Authorized [id number] Closed 10/12/2018 10/12/2019 1 1 Encounter Details Date Type Department Care Team (Late st Contact Info) Description 10/12/2018 Transcribe Orders [facility] [address] [place] [address] [address] [place] [address] [place] [phone] [email or web address] Social History Tobacco Use Types Packs/Day Years [...] (No Interpretation) (10/12/2018 11:46 AM EST) Narrative [facility] - 10/12/2018 11:46 AM EST This study is for PACS storage only and not for interpretation. Selma Epstein MD, PhD IMG OUTSIDE IMAGING W/OUT INTERPRETATION [facility] documented in this encounter Visit Diagnoses Not on filedocumented in this encounter Care Teams Technical Services Specialist Relationship Specialty Start Date End Date Jose Manuel Ballesteros MD [address] [place] [address] [place] [address] PCP - General Internal Medicine 09/21/18 Melony Sanon MD [address] [place] [address] [place] [address] [email or web address] Referring Physician Hematology and Oncology 09/21/18 Selma Epstein MD, PhD [address] [place] [address] [email or web address] u Surgeon Surgical Oncology 09/21/18 documented as of this encounter Additional Source Comments The information contained in this document represents components of the legal health record. It is not the complete legal health record.[facility]
--- OUTSIDE RECORDS SUMMARY | 2024-11-11 15:42 | XMS_ITS ---
Author Organization [facility] Address [address] [place] [address] Care Team Providers Care Lecturer In Marketing Name Role Phone Jose Manuel Ballesteros MD Primary Care Provider UnavailKulwinder Ma Jr REASON FOR VISIT please lock 10-05-23 office note Encounters Encounter Location Date Provider Diagnosis [facility] [address] [place] [address] 10/31/2023 Kulwinder Yost Jr PLAN OF TREATMENT No Information
--- OUTSIDE RECORDS SUMMARY | 2024-11-11 15:42 | XMS_ITS | Encounter Summary ---
Author Organization [facility] Address [phone] [place] [address] Care Team Providers Care Professor Sculpture Name Role Phone Jose Manuel Ballesteros MD Primary Care Provider Melony Sanon MD Unavailable [phone] Selma Epstein MD, PhD Unavailable [phone] Encounter Details Date Type Department Care Team (Late st Contact Info) Description 10/12/2018 Procedure Pass [facility] [address] [place] [address] Social History Tobacco Use Types Packs/Day Years [...] on filedocumented in this encounter Care Teams Professor Sculpture Relationship Specialty Start Date End Date Jose Manuel Ballesteros MD [address] [place] [address] [place] [address] PCP - General Internal Medicine 09/21/18 Melony Saonn MD [address] [place] [address] [place] [address] [email or web address] Referring Physician Hematology and Oncology 09/21/18 Selma Epstein MD, PhD [address] [place] [address] [email or web address] u Surgeon Surgical Oncology 09/21/18 documented as of this encounter Additional Source Comments The information contained in this document represents components of the legal health record. It is not the complete legal health record.[facility]
--- OUTSIDE RECORDS SUMMARY | 2024-11-11 15:42 | XMS_ITS | Clinical Summary ---
Author Organization [facility] Address [phone] [address] Care Team Providers Care Emergency Room Rn Name Role Phone Jose Manuel Ballesteros MD Primary Care Provider Melony Sanon MD Unavailable [phone] Selma Epstein MD, PhD Unavailable Allergies No known active allergies Medications Medication [...] this topic Medical Devices Implanted Type Area Human Resources Coordinator Device Identifier Shelf Expiration Date Model / Serial / Lot Kit Stent 4.0 5fr 5.0 7.0cm Pancreatic Advanix Single Pigtail Pushing Catheter - [id number] Implanted:Qty: 1 on 01/11/2019 by Harley Fairbanks MD at [facility] N/A: Pancreas [employer] 05/28/2020 [id number] / / [id number] Advance Directives Documents on File Type Date Recorded Patient Plant Assigner Expl anation Healthcare Proxy 11/18/2018 9:37 AM SIGNED ON 11/16/2018 * Full Code (Presumed) (Latest Code Status on File) Date Activated Date Inactivated Comments 11/16/2018 2:15 PM 11/22/2018 5:18 PM * Full Code (Presumed) Date Activated Date Inactivated Comments 11/16/2018 6:47 AM 11/16/2018 2:15 PM Care Teams Emergency Room Rn Relationship Specialty Start Date End Date Jose Manuel Ballesteros MD [address] [place] [address] [place] [address] PCP - General Internal Medicine 09/21/18 Melony Sanon MD [address] [place] [address] [email or web address] Referring Physician Hematology and Oncology 09/21/18 Selma Epstein MD, PhD [address] [place] [address] [email or web address] Surgeon Surgical Oncology 09/21/18 Additional Source Comments The information contained in this document represents components of the legal health record. It is not the complete legal health record.[facility]
== END 2024-11-11 14:44 | disposition home or self-care (01) ==
PROVIDERS: PCP Internal Medicine; Visit Provider Orthopaedic Surgery
DX: Z96.641 Presence of right artificial hip joint (principal)
CPT/HCPCS: 99024

== ENCOUNTER → 2024-11-11 13:43 | Outpatient (BNVA) | payer OTHER, SELFPAY | PROVIDERS: PCP Internal Medicine; Visit Provider Orthopaedic Surgery ==

== ENCOUNTER 2024-12-26 11:52 | Outpatient (REF) | payer OTHER, SELFPAY ==
--- NOTE | ~2024-12-26 | XR_ITS ---
CLINICAL HISTORY: M25.559 - Pain in unspecified hip 1 view pelvis Comparison: None Findings: No acute fracture or dislocation. The right total hip arthroplasty appears intact. Moderate degenerative change of the left femoral-acetabular joint. Soft tissues are unremarkable. IMPRESSION: 1. No acute findings. This document has been electronically signed by: Luis Gilbert MD on 12/27/2024 11:40:17
--- NOTE | ~2024-12-26 | XR_ITS ---
CLINICAL HISTORY: M25.559 - Pain in unspecified hip Single view of the right hip Comparison: None Findings: Limited lateral view of the right hip demonstrates no fracture or dislocation. Impression: Limited lateral view of the right hip demonstrates no fracture or dislocation. This document has been electronically signed by: Luis Gilbert MD on 12/27/2024 11:40:55
--- OUTSIDE RECORDS SUMMARY | 2024-12-26 14:31 | XMS_ITS ---
Author Organization [facility] Address [address] [place] [address] Care Team Providers Care Secondary Spanish Teacher Name Role Phone Jose Manuel Ballesteros MD Primary Care Provider Kulwinder Aragon Jr REASON FOR VISIT pathology Encounters Encounter Location Date Provider Diagnosis [facility] [address] [place] [address] 11/27/2023 Kulwinder Yost Jr Plan Of Treatment No Information Progress Notes * NUVIA SPAULDINGDOB:[birth year] (58 yo M)Acc No.[id number]:11/27/2023 Patient:?NUVIA SPAULDING :1965???Age:58 Y???Sex:Male Address:[address] [place], [address] * true * Date:? Generated for Doti lady/[employer]/eTransmitting on:?12/26/2024 02:31 PM EDT
--- OUTSIDE RECORDS SUMMARY | 2024-12-26 14:31 | XMS_ITS | Encounter Summary ---
Author Organization [facility] Address [address] [place] [address] Phone Care Team Providers Care Customer Support Technician Name Role Phone Jose Manuel Ballesteros MD Primary Care Provider Melony Sanon MD Unavailable [phone] Selma Epstein MD, PhD Unavailable [phone] Encounter Details Date Type Department Care Team (Late st Contact Info) Description 11/16/2018 Procedure Pass [facility] Periop [address] [place] [address] Social History Tobacco Use Types Packs/Day Years [...] on filedocumented in this encounter Care Teams Customer Support Technician Relationship Specialty Start Date End Date Jose Manuel Ballesteros MD [address] [place] [address] [place] [address] PCP - General Internal Medicine 09/21/18 Melony Sanon MD [address] [place] [address] Oncology [place] [address] [email or web address] Referring Physician Hematology and Oncology 09/21/18 Selma Epstein MD, PhD [address] [place] [address] [email or web address] Surgeon Surgical Oncology 09/21/18 documented as of this encounter Additional Source Comments The information contained in this document represents components of the legal health record. It is not the complete legal health record.[facility]
--- OUTSIDE RECORDS SUMMARY | 2024-12-26 14:31 | XMS_ITS | Encounter Summary ---
Author Organization [facility] Address [address] [place] [address] Phone Care Team Providers Care Brick Loader Name Role Phone Jose Manuel Ballesteros MD Primary Care Provider Melony Sanon MD Unavailable [phone] Selma Epstein MD, PhD Unavailable [phone] Encounter Details Date Type Department Care Team (Late st Contact Info) Description 03/08/2019 Procedure Pass [facility] Endoscopy Department [address] [place] [address] Social History Tobacco Use Types Packs/Day Years [...] on filedocumented in this encounter Care Teams Brick Loader Relationship Specialty Start Date End Date Jose Manuel Ballesteros MD [address] [place] [address] [place] [address] PCP - General Internal Medicine 09/21/18 Melony Sanon MD [address] [place] [address] Oncology [place] [address] [email or web address] Referring Physician Hematology and Oncology 09/21/18 Selma Epstein MD, PhD [address] [place] [address] [email or web address] Surgeon Surgical Oncology 09/21/18 documented as of this encounter Additional Source Comments The information contained in this document represents components of the legal health record. It is not the complete legal health record.[facility]
--- OUTSIDE RECORDS SUMMARY | 2024-12-26 14:31 | XMS_ITS | Encounter Summary ---
Author Organization [facility] Address [address] [place] [address] Phone Care Team Providers Care Digital Campaign Specialist Name Role Phone Jose Manuel Ballesteros MD Primary Care Provider Melony Sanon MD Unavailable [phone] Selma Epstein MD, PhD Unavailable [phone] Encounter Details Date Type Department Care Team (Late st Contact Info) Description 01/11/2019 Procedure Pass [facility] Endoscopy Department [address] [place] [address] Social History Tobacco Use Types Packs/Day Years [...] on filedocumented in this encounter Care Teams Digital Campaign Specialist Relationship Specialty Start Date End Date Jose Manuel Ballesteros MD [address] [place] [address] [place] [address] PCP - General Internal Medicine 09/21/18 Melony Sanon MD [address] [place] [address] Oncology [place] [address] [email or web address] Referring Physician Hematology and Oncology 09/21/18 Selma Epstein MD, PhD [address] [place] [address] [email or web address] Surgeon Surgical Oncology 09/21/18 documented as of this encounter Additional Source Comments The information contained in this document represents components of the legal health record. It is not the complete legal health record.[facility]
--- OUTSIDE RECORDS SUMMARY | 2024-12-26 14:31 | XMS_ITS | Encounter Summary ---
Author Organization [facility] Address [address] [place] [address] Phone Care Team Providers Care Car Attendant Name Role Phone Jose Manuel Ballesteros MD Primary Care Provider Melony Sanon MD Unavailable [phone] Selma Epstein MD, PhD Unavailable [phone] Encounter Details Date Type Department Care Team (Late st Contact Info) Description 02/03/2023 Procedure Pass [facility] MR Imaging, [place] [address] [place] [address] Social History Tobacco Use Types Packs/Day Years [...] on filedocumented in this encounter Care Teams Car Attendant Relationship Specialty Start Date End Date Jose Manuel Ballesteros MD [address] [place] [address] [place] [address] PCP - General Internal Medicine 09/21/18 Melony Sanon MD [address] [place] [address] [email or web address] Referring Physician Hematology and Oncology 09/21/18 Selma Epstein MD, PhD [address] [place] [address] [email or web address] Surgeon Surgical Oncology 09/21/18 documented as of this encounter Additional Source Comments The information contained in this document represents components of the legal health record. It is not the complete legal health record.[facility]
--- OUTSIDE RECORDS SUMMARY | 2024-12-26 14:31 | XMS_ITS | Patient Health Record ---
Author Organization [facility] Address [address] [place] [address] Care Team Providers Care Edge Molder Name Role Phone Jose Manuel Ballesteros MD Primary Care Provider UnavailKulwinder Ma Jr Unavailable Allergies No Known Allergies Reason For Referral No Information Medications Medication SIG (Take, Route, Frequency, Duration) Notes [...] 40 MG Oral for 90 A ctive Social History Alcohol Screen Question Answer Notes Did you [...] Never (0 point) Points 2 Interpretation Negative Problems Problem Type SNOMED Code ICD Code Onset Dates Problem Status W/U Status Risk Notes Problem 078698744 Colon cancer screening (Z12.11) Active confirmed Problem History of polyp of colon (situation) (437334217) Personal history of colonic polyps (Z86.010) Active confirmed Problem 640243894 Encounter for other preprocedural examination (Z01.818) Active confirmed Plan Of Treatment Future Test Test Name Order Date COLONOSCOPY 01/12/2017 COLONOSCOPY 10/05/2023 Insurance Providers Payer Name Payer Address Payer Phone Subscriber Number Group Number Insured Name Patient Relationship to Insured Coverage Start Date Coverage End Date [employer] OF [place] [address] [address] [place] [address] [id number] NUVIA SPAULDING Self - patient is the insured Medical (General) History Medical History History ICD Code Hypertension Hyperlipidemia Seasonal allergies Aortic aneurysm Insulinoma Colonoscopy 04/03, tubular adenoma, five- year followup Surgical History Surgery Date(Month/Year) ureteroplasy 10/04/1979 imbilical hernia repair with mesh - dr. carlos 08/23/2023 Distal pancreatectomy for insulinoma
--- OUTSIDE RECORDS SUMMARY | 2024-12-26 14:31 | XMS_ITS | Clinical Summary ---
Author Organization [employer] Address [address] [place] [address] Phone Care Team Providers Care Classified Copy Control Clerk Name Role Phone Jose Manuel Ballesteros MD Primary Care Provider Melony Sanon MD Unavailable [phone] Selma Epstein MD, PhD Unavailable [phone] Allergies No known active allergies Medications Medication [...] this topic Medical Devices Implanted Type Area Etcher Apprentice Device Identifier Shelf Expiration Date Model / Serial / Lot Kit Stent 4.0 5fr 5.0 7.0cm Pancreatic Advanix Single Pigtail Pushing Catheter - [id number] Implanted:Qty: 1 on 01/11/2019 by Harley Fairbanks MD at [facility] N/A: Pancreas [employer] 05/28/2020 [id number] / / [id number] Advance Directives For more information, please contact: [phone] (9AM - 5PM [facility], Monday-Monday) Documents on File Type Date Recorded Patient Financial Dealers Expl anation Healthcare Proxy 11/18/2018 9:37 AM SIGNED ON 11/16/2018 * Full Code (Presumed) (Latest Code Status on File) Date Activated Date Inactivated Comments 11/16/2018 2:15 PM 11/22/2018 5:18 PM * Full Code (Presumed) Date Activated Date Inactivated Comments 11/16/2018 6:47 AM 11/16/2018 2:15 PM Care Teams Classified Copy Control Clerk Relationship Specialty Start Date End Date Jose Manuel Ballesteros MD NPI: [id number] [place] [address] [place] [address] PCP - General Internal Medicine 09/21/18 Melony Sanon MD [address] [place] [address] [place] [address] [email or web address] Referring Physician Hematology and Oncology 09/21/18 Selma Epstein MD, PhD [address] [place] [address] [email or web address] Surgeon Surgical Oncology 09/21/18 Additional Source Comments The information contained in this document represents components of the legal health record. It is not the complete legal health record.[facility]
--- OUTSIDE RECORDS SUMMARY | 2024-12-26 14:31 | XMS_ITS ---
Author Organization [facility] Address [address] [place] [address] Care Team Providers Care Dental Ceramist Name Role Phone Jose Manuel Ballesteros MD Primary Care Provider Kulwinder Aragon Jr [phone] REASON FOR VISIT screening Problems Problem Type SNOMED Code ICD Code Onset Dates Problem Status W/U Status Risk Notes Problem History of polyp of colon (situation) (587693453) Personal history of colonic polyps (Z86.010) Active confirmed Encounters Encounter Location Date Provider Diagnosis [facility] Outpatient [address] [place] [phone] 11/21/2023 Kulwinder Yost Jr Encounter for screening [...] No Information Progress Notes * NUVIA SPAULDINGDOB:[birth year] (59 yo M)Acc No.[id number]:11/21/2023 Progress Notes Patient:?NUVIA SPAULDING Provider:?Kulwinder Yost MD :1965???Age:58 Y???Sex:Male Jovon e:11/21/2023 [address] [place] Pcp:Jose Manuel Ballesteros MD Subjective: * Chief Complaints: * ???1. Screening. * Medical History:? Objective: * Vitals:? Assessment: * Assessment: 1.?Encounter for screening c olonoscopy - Z12.11 (Primary)???2.?Personal history of colonic polyps - Z86.010???3.?Colon polyps - K63.5??? Plan: * Treatment: * Procedure Codes:?43225 COLON OSCOPY AND BIOPSY * Preventive Medicine:? ??JEN Screening:?Colonoscopy?Was interval between colonoscopies three years or more??Yes,?Was last colonoscopy performed three or more years ago??Yes.? * * The named appointment provid er may or may not be the originator of this progress note, and it is not deemed complete until electronically signed by the appointment provider. Sign off status: Pending * Provider:?Kulwinder Yost MD Date:?0 11/21/2023 Generated for Ricardo narayanan/[employer]/eTransmitting on:?12/26/2024 02:31 PM EDT
--- OUTSIDE RECORDS SUMMARY | 2024-12-26 14:31 | XMS_ITS | Encounter Summary ---
Author Organization [facility] Address [address] [place] [address] Phone Care Team Providers Care House Detective Name Role Phone Jose Manuel Ballesteros MD Primary Care Provider Melony Sanon MD Unavailable [phone] Selma Epstein MD, PhD Unavailable [phone] Encounter Details Date Type Department Care Team (Late st Contact Info) Description 10/04/2018 Procedure Pass [facility] Endoscopy Department [address] [place] [address] Social History Tobacco Use Types Packs/Day Years [...] on filedocumented in this encounter Care Teams House Detective Relationship Specialty Start Date End Date Jose Manuel Ballesteros MD [address] [place] [address] [place] [address] PCP - General Internal Medicine 09/21/18 Melony Sanon MD [address] [place] [address] Oncology YASMEEN Gardiner [address] Referring Physician Hematology and Oncology 09/21/18 Selma Epstein MD, PhD [address] [place] [address] [email or web address] u Surgeon Surgical Oncology 09/21/18 documented as of this encounter Additional Source Comments The information contained in this document represents components of the legal health record. It is not the complete legal health record.[facility]
--- OUTSIDE RECORDS SUMMARY | 2024-12-26 14:31 | XMS_ITS | Encounter Summary ---
Author Organization [facility] Address [address] [place] [address] Phone Care Team Providers Care Casing Inspector Name Role Phone Jose Manuel Ballesteros MD Primary Care Provider Melony Sanon MD Unavailable [phone] Selma Epstein MD, PhD Unavailable Reason for Referral * MRI/CAT Scan - Closed Specialty Diagnoses / Procedures Referred By Contac t Referred To Contact Procedures CT Abdomen/Pelvis Outside (No Interpretation) Selma Epstein MD, PhD [address] [place] [address] Email: [email or web address] Referral ID Status Reason Start Date Expiration Date Visits Re quested Visits Authorized [id number] Closed 10/12/2018 10/12/2019 1 1 * MRI/CAT Scan - Closed Specialty Diagnoses / Procedures Referred By Contac t Referred To Contact Procedures MRI Abdomen Outside (No Interpretation) Selma Epstein MD, PhD [address] [place] [phone] Email: [email or web address] Referral ID Status Reason Start Date Expiration Date Visits Re quested Visits Authorized [id number] Closed 10/12/2018 10/12/2019 1 1 Encounter Details Date Type Department Care Team (Late st Contact Info) Description 10/12/2018 Transcribe Orders [facility] [address] [place] [address] [place] [place] [address] [place] [address] [email or web address] Social History Tobacco Use Types Packs/Day Years [...] (No Interpretation) (10/12/2018 11:46 AM EST) Narrative [facility] - 10/12/2018 11:46 AM EST This study is for PACS storage only and not for interpretation. Selma Epstein MD, PhD IMG OUTSIDE IMAGING W/OUT INTERPRETATION [facility] documented in this encounter Visit Diagnoses Not on filedocumented in this encounter Care Teams Casing Inspector Relationship Specialty Start Date End Date Jose Manuel Ballesteros MD [address] [place] [address] [place] [address] PCP - General Internal Medicine 09/21/18 Melony Sanon MD [address] [place] [address] Oncology YASMEEN Gardiner [address] [email or web address] Referring Physician Hematology and Oncology 09/21/18 Selma Epstein MD, PhD [address] [place] [address] [email or web address] u Surgeon Surgical Oncology 09/21/18 documented as of this encounter Additional Source Comments The information contained in this document represents components of the legal health record. It is not the complete legal health record.[facility]
--- OUTSIDE RECORDS SUMMARY | 2024-12-26 14:31 | XMS_ITS | Encounter Summary ---
Author Organization [facility] Address [address] [place] [address] Phone Care Team Providers Care Archery Instructor Name Role Phone Jose Manuel Ballesteros MD Primary Care Provider Melony Sanon MD Unavailable [phone] Selma Epstein MD, PhD Unavailable [phone] Encounter Details Date Type Department Care Team (Late st Contact Info) Description 10/12/2018 Procedure Pass [facility] [address] [place] [address] Social History Tobacco Use Types Packs/Day Years [...] on filedocumented in this encounter Care Teams Archery Instructor Relationship Specialty Start Date End Date Jose Manuel Ballesteros MD [address] [place] [address] [place] [address] PCP - General Internal Medicine 09/21/18 Melony Sanon MD [address] [place] [address] [place] [address] Referring Physician Hematology and Oncology 09/21/18 Selma Epstein MD, PhD [address] [place] [address] [email or web address] u Surgeon Surgical Oncology 09/21/18 documented as of this encounter Additional Source Comments The information contained in this document represents components of the legal health record. It is not the complete legal health record.[facility]
--- OUTSIDE RECORDS SUMMARY | 2024-12-26 14:32 | XMS_ITS ---
Author Organization [facility] Address [address] [place] [address] Care Team Providers Care Neck Fitter Name Role Phone Jose Manuel Ballesteros MD Primary Care Provider Geovani Yost Jr, Kulwinder Mckeon [phone] REASON FOR VISIT please lock 10-05-23 office note Encounters Encounter Location Date Provider Diagnosis [facility] [address] [place] [address] 10/31/2023 Kulwinder Yost Jr Plan Of Treatment No Information Progress Notes * NUVIA SPAULDINGDOB:[birth year] (58 yo M)Acc No.[id number]:10/31/2023 Patient:?NUVAI SPAULDING :1965???Age:58 Y???Sex:Male Address:[address] [place], [address] * true * Date:? Generated for Printi lady/Keyona/eTransmitting on:?12/26/2024 02:31 PM EDT
== END 2024-12-26 11:53 | disposition home or self-care (01) ==
LOC: HO.HOSX 11:52
PROVIDERS: Visit Provider Orthopaedic Surgery
DX: M25.559 Pain in unspecified hip (principal)
CPT/HCPCS: 72170; 73501

== ENCOUNTER 2024-12-26 14:51 | Outpatient (AMB) | payer OTHER, SELFPAY ==
[2024-12-26 15:02] VITALS: BMI 41.6
--- NOTE | 2024-12-26 15:02 | MHC.OFFVIS ---
Vital Signs 12/26/24 15:02 Height 5 ft 9 in Weight 282 lb BMI 41.6 Intake Visit Reasons: OV: R LIZETH w/NE 10/01/24 Intake Note: Vasile is a 59 year old male who presents today for a post operative appointment about months s/p Right LIZETH 10/01/24. Patient reports that he is doing very well with no current concerns. Allergies No Known Allergies [No Known Allergies*] Allergy (Verified 10/17/24 13:08) HPI HPI OV: R LIZETH w/NE 10/01/24: Details: Vasile comes in today 6 weeks status post right hip replacement doing very well. Has no complaints. He is doing spinning classes and working and feels wet. 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 Hyperlipidemia Seasonal allergies Ascending aortic aneurysm Primary pancreatic neuroendocrine tumor Hypercholesteremia Hypertension Surgical History History of esophagogastroduodenoscopy (EGD) History of partial pancreatectomy H/O colonoscopy History of incisional hernia repair (08/23/23) Personal history of (corrected) hypospadias History of pancreatectomy Family History Mother Breast cancer Father Diabetes Social History Household Members: Spouse and Children Housing: House Are you a primary director of medicare to a significant other at home: No Do you presently have visiting nurse or other home services: No Alcohol intake: current Alcohol intake frequency: holidays/special occasions only Patient Tobacco Use Status: Never used Tobacco service: No 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al status: employed 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 Right LIZETH in expected post operative position with no hardware complications or evidence of loosening Assessment & Plan Assessment & Plan (1) S/P total right hip arthroplasty: Code(s): Z96.641 - Presence of right artificial hip joint Category: Surgical Plan: Right hip doing well. No complaints. Radiographs look good. Follow up as needed. Discussed dental prophylaxis. Orders: Orders XR pelvis 1-2V Today M25.559 - Pain in unspecified hip XR hip RT 1V Today M25.559 - Pain in unspecified hip Coding Level of Care Code Global (82490) Diagnoses S/P total right hip arthroplasty Z96.641
--- OUTSIDE RECORDS SUMMARY | 2024-12-26 17:29 | XMS_ITS | Encounter Summary ---
Author Organization [facility] Address [address] [place] [address] Phone Care Team Providers Care Administration Professional Name Role Phone Jose Manuel Ballesteros MD Primary Care Provider Melony Sanon MD Unavailable [phone] Selma Epstein MD, PhD Unavailable [phone] Encounter Details Date Type Department Care Team (Late st Contact Info) Description 02/03/2023 Procedure Pass [facility] MR Imaging, [place] [address] [place] [address] Social History Tobacco Use Types Packs/Day Years [...] on filedocumented in this encounter Care Teams Administration Professional Relationship Specialty Start Date End Date Jose Manuel Ballesteros MD [address] [place] [address] [place] [address] PCP - General Internal Medicine 09/21/18 Melony Sanon MD [address] [place] [address] [email or web address] Referring Physician Hematology and Oncology 09/21/18 Selma Epstein MD, PhD [address] [place] [address] [email or web address] u Surgeon Surgical Oncology 09/21/18 documented as of this encounter Additional Source Comments The information contained in this document represents components of the legal health record. It is not the complete legal health record.[facility]
--- OUTSIDE RECORDS SUMMARY | 2024-12-26 17:29 | XMS_ITS | Encounter Summary ---
Author Organization [facility] Address [address] [place] [address] Phone Care Team Providers Care Head Of Sales And Marketing Name Role Phone Jose Manuel Ballesteros MD Primary Care Provider Melony Sanon MD Unavailable [phone] Selma Epstein MD, PhD Unavailable [phone] Encounter Details Date Type Department Care Team (Late st Contact Info) Description 11/16/2018 Procedure Pass [facility] Periop [address] [place] [address] Social History Tobacco Use Types Packs/Day Years [...] on filedocumented in this encounter Care Teams Head Of Sales And Marketing Relationship Specialty Start Date End Date Jose Manuel Ballesteros MD [address] [place] [address] [place] [address] PCP - General Internal Medicine 09/21/18 Melony Sanon MD [address] [place] [address] Oncology YASMEEN Gardiner [address] [email or web address] Referring Physician Hematology and Oncology 09/21/18 Selma Epstein MD, PhD [address] [place] [address] [email or web address] u Surgeon Surgical Oncology 09/21/18 documented as of this encounter Additional Source Comments The information contained in this document represents components of the legal health record. It is not the complete legal health record.[facility]
--- OUTSIDE RECORDS SUMMARY | 2024-12-26 17:29 | XMS_ITS | Clinical Summary ---
Author Organization [facility] Address [address] [place] [address] Phone Care Team Providers Care Corporate Counselor Name Role Phone Jose Manuel Ballesteros MD Primary Care Provider Melony Sanon MD Unavailable [phone] Selma Epstein MD, PhD Unavailable [phone] Allergies No known active allergies Medications Medication [...] this topic Medical Devices Implanted Type Area Sole Tier Device Identifier Shelf Expiration Date Model / Serial / Lot Kit Stent 4.0 5fr 5.0 7.0cm Pancreatic Advanix Single Pigtail Pushing Catheter - [id number] Implanted:Qty: 1 on 01/11/2019 by Harley Fairbanks MD at [facility] N/A: Pancreas [employer] 05/28/2020 [id number] / / [id number] Advance Directives For more information, please contact: [phone] (9AM - 5PM [facility], Monday-Monday) Documents on File Type Date Recorded Patient 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 Crew 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 Expl anation Healthcare Proxy 11/18/2018 9:37 AM SIGNED ON 11/16/2018 * Full Code (Presumed) (Latest Code Status on File) Date Activated Date Inactivated Comments 11/16/2018 2:15 PM 11/22/2018 5:18 PM * Full Code (Presumed) Date Activated Date Inactivated Comments 11/16/2018 6:47 AM 11/16/2018 2:15 PM Care Teams Corporate Counselor Relationship Specialty Start Date End Date Jose Manuel Ballesteros MD NPI: [id number] [place] [address] [place] [address] PCP - General Internal Medicine 09/21/18 Melony Sanon MD [address] [place] [address] [place] [address] [email or web address] Referring Physician Hematology and Oncology 09/21/18 Selma Epstein MD, PhD [address] [place] [address] [email or web address] Surgeon Surgical Oncology 09/21/18 Additional Source Comments The information contained in this document represents components of the legal health record. It is not the complete legal health record.[facility]
--- OUTSIDE RECORDS SUMMARY | 2024-12-26 17:29 | XMS_ITS | Encounter Summary ---
Author Organization [facility] Address [address] [place] [address] Phone Care Team Providers Care Head Of Housekeeping Name Role Phone Jose Manuel Ballesteros MD Primary Care Provider Melony Sanon MD Unavailable [phone] Selma Epstein MD, PhD Unavailable [phone] Encounter Details Date Type Department Care Team (Late st Contact Info) Description 10/12/2018 Procedure Pass [facility] [address] [place] [address] Social History Tobacco Use Types Packs/Day Years [...] in this encounter Care Teams Head Of Housekeeping Relationship Specialty Start Date End Date Jose Manuel Ballesteros MD [address] [place] [address] [place] [address] PCP - General Internal Medicine 09/21/18 Melony Sanon MD [address] [place] [address] [place] [address] [email or web address] Referring Physician Hematology and Oncology 09/21/18 Selma Epstein MD, PhD [address] [place] [address] [email or web address] u Surgeon Surgical Oncology 09/21/18 documented as of this encounter Additional Source Comments The information contained in this document represents components of the legal health record. It is not the complete legal health record.[facility]
--- OUTSIDE RECORDS SUMMARY | 2024-12-26 17:29 | XMS_ITS | Encounter Summary ---
Author Organization [facility] Address [address] [facility] [address] [facility] [address] [place] [address] Phone Care Team Providers Care Barn Worker Name Role Phone Jose Manuel Ballesteros MD Primary Care Provider Melony Sanon MD Unavailable [phone] Selma Epstein MD, PhD Unavailable [phone] Reason for Referral * MRI/CAT Scan - Closed Specialty Diagnoses / Procedures Referred By Contac t Referred To Contact Procedures CT Abdomen/Pelvis Outside (No Interpretation) Selma Epstein MD, PhD [address] [place] [address] Email: [email or web address] Referral ID Status Reason Start Date Expiration Date Visits Re quested Visits Authorized [id number] Closed 10/12/2018 10/12/2019 1 1 * MRI/CAT Scan - Closed Specialty Diagnoses / Procedures Referred By Contac t Referred To Contact Procedures MRI Abdomen Outside (No Interpretation) Selma Epstein MD, PhD [address] [place] [phone] Email: [email or web address] Referral ID Status Reason Start Date Expiration Date Visits Re quested Visits Authorized [id number] Closed 10/12/2018 10/12/2019 1 1 Encounter Details Date Type Department Care Team (Late st Contact Info) Description 10/12/2018 Transcribe Orders [facility] [address] [place] [address] [facility] [place] [address] [place] [address] [email or web address] Social History Tobacco Use Types [...] Interpretation) (10/12/2018 11:46 AM EST) Narrative [facility] - 10/12/2018 11:46 AM EST This study is for PACS storage only and not for interpretation. Selma Epstein MD, PhD IMG OUTSIDE IMAGING W/OUT INTERPRETATION [facility] documented in this encounter Visit Diagnoses Not on filedocumented in this encounter Care Teams Barn Worker Relationship Specialty Start Date End Date Jose Manuel Ballesteros MD [address] [place] [address] [place] [address] PCP - General Internal Medicine 09/21/18 Melony Sanon MD [address] [place] [address] Oncology YASMEEN Gardiner [address] [email or web address] Referring Physician Hematology and Oncology 09/21/18 Selma Epstein MD, PhD [address] [place] [address] [email or web address] u Surgeon Surgical Oncology 09/21/18 documented as of this encounter Additional Source Comments The information contained in this document represents components of the legal health record. It is not the complete legal health record.[facility]
--- OUTSIDE RECORDS SUMMARY | 2024-12-26 17:29 | XMS_ITS | Encounter Summary ---
Author Organization [facility] Address [address] [place] [address] Phone Care Team Providers Care Hay Chopper Name Role Phone Jose Manuel Ballesteros MD Primary Care Provider Melony Sanon MD Unavailable [phone] Selma Epstein MD, PhD Unavailable [phone] Encounter Details Date Type Department Care Team (Late st Contact Info) Description 01/11/[address] [facility] Endoscopy Department [address] [place] [address] Social History Tobacco Use Types Packs/Day Years [...] on filedocumented in this encounter Care Teams Hay Chopper Relationship Specialty Start Date End Date Jose Manuel Ballesteros MD [address] [place] [address] [place] [address] PCP - General Internal Medicine 09/21/18 Melony Sanon MD [address] [place] [address] Oncology YASMEEN Gardiner [address] [email or web address] Referring Physician Hematology and Oncology 09/21/18 Selma Epstein MD, PhD [address] [place] [address] [email or web address] u Surgeon Surgical Oncology 09/21/18 documented as of this encounter Additional Source Comments The information contained in this document represents components of the legal health record. It is not the complete legal health record.[facility]
--- OUTSIDE RECORDS SUMMARY | 2024-12-26 17:29 | XMS_ITS | Encounter Summary ---
Author Organization [facility] Address [address] [place] [address] Phone Care Team Providers Care Patient Access Coordinator Name Role Phone Jose Mnauel Ballesteros MD Primary Care Provider Melony Sanon MD Unavailable [phone] Selma Epstein MD, PhD Unavailable [phone] Encounter Details Date Type Department Care Team (Late st Contact Info) Description 03/08/[address] [facility] Endoscopy Department [address] [place] [address] Social History Tobacco Use Types Packs/Day Years [...] on filedocumented in this encounter Care Teams Patient Access Coordinator Relationship Specialty Start Date End Date Jose Manuel Ballesteros MD [address] [place] [address] [place] [address] PCP - General Internal Medicine 09/21/18 Melony Sanno MD [address] [place] [address] Oncology YASMEEN Gardiner [address] [email or web address] Referring Physician Hematology and Oncology 09/21/18 Selma Epstein MD, PhD [address] [place] [address] [email or web address] u Surgeon Surgical Oncology 09/21/18 documented as of this encounter Additional Source Comments The information contained in this document represents components of the legal health record. It is not the complete legal health record.[facility]
--- OUTSIDE RECORDS SUMMARY | 2024-12-26 17:30 | XMS_ITS | Encounter Summary ---
Author Organization [facility] Address [address] [place] [address] Phone Care Team Providers Care Refrigerated Cargo Clerk Name Role Phone Jose Manuel Ballesteros MD Primary Care Provider Melony Sanon MD Unavailable [phone] Selma Epstein MD, PhD Unavailable [phone] Encounter Details Date Type Department Care Team (Late st Contact Info) Description 10/04/2018 Procedure Pass [facility] Endoscopy Department [address] [place] [address] Social History Tobacco Use Types Packs/Day Years [...] on filedocumented in this encounter Care Teams Refrigerated Cargo Clerk Relationship Specialty Start Date End Date Jose Manuel Ballesteros MD [address] [place] [address] [place] [address] PCP - General Internal Medicine 09/21/18 Melony Sanon MD [address] [place] [address] Oncology YASMEEN Gardiner [address] [email or web address] Referring Physician Hematology and Oncology 09/21/18 Selma Epstein MD, PhD [address] [place] [address] [email or web address] u Surgeon Surgical Oncology 09/21/18 documented as of this encounter Additional Source Comments The information contained in this document represents components of the legal health record. It is not the complete legal health record.[facility]
== END 2024-12-26 15:19 | disposition home or self-care (01) ==
LOC: HO.HOS 14:52
PROVIDERS: PCP Internal Medicine; Visit Provider Orthopaedic Surgery
DX: Z96.641 Presence of right artificial hip joint (principal)
CPT/HCPCS: 99024

== ENCOUNTER → 2024-12-26 14:54 | Outpatient (BNV) | payer OTHER, SELFPAY | PROVIDERS: Visit Provider Radiology Vascular & Interventional Radiology | DX: M25.551 Pain in right hip (principal) | CPT/HCPCS: 72170; 73501 ==

== ENCOUNTER 2025-01-31 16:02 | Outpatient (REF) | payer OTHER, SELFPAY ==
--- NOTE | ~2025-01-31 | US_ITS ---
EXAMINATION: US RETROPERITONEUM HISTORY: N40.0 - Benign prostatic hyperplasia without lower urinary tract symptoms TECHNIQUE: Real-time grayscale ultrasound imaging of the kidneys was performed and images were reviewed. COMPARISON: Comparison is made with the prior examination dated 07/11/2024. FINDINGS: Right kidney: The right kidney measures 14.2 x 5.6 x 6.0 cm. Renal parenchymal echotexture and thickness are normal. There are no masses. There is no hydronephrosis or renal calculi. Tiny echogenic foci may represent vascular calcifications. Left Kidney: The left kidney measures 13.0 x 6.3 x 5.4 cm. Renal parenchymal echotexture and thickness are normal. There are no masses. There is no hydronephrosis or renal calculi. Tiny echogenic foci may represent vascular calcifications. The urinary bladder is unremarkable. Bilateral ureteral jets are identified. Before voiding, the urinary bladder measured 11.0 x 6.1 x 8.2 cm, for an estimated volume of 287 mL. After voiding, the urinary bladder measured 10.4 x 3.9 x 9.0 cm, for an estimated volume of 188 mL. The prostate measures 3.0 x 1.9 x 3.7 cm. US/US retroperitoneal comp IMPRESSION: Post void bladder residual of 180 mL. Otherwise unremarkable retroperitoneal ultrasound. Electronically signed by: Enmanuel Johnson MD 02/03/2025 07:19 AM EDT
--- OUTSIDE RECORDS SUMMARY | 2025-01-31 16:04 | XMS_ITS ---
Author Organization [facility] Address [address] [place] [phone] Care Team Providers Care Linux Administrator Name Role Phone Jose Manuel Ballesteros MD Primary Care Provider Geovani Yost Jr, Kulwinder Mckeon REASON FOR VISIT please lock 10-05-23 office note Encounters Encounter Location Date Provider Diagnosis [facility] [address] [place] [phone] 10/31/2023 Kulwinder Yost Jr Plan Of Treatment No Information Progress Notes * NUVIA SPAULDINGDOB:[birth year] (58 yo M)Acc No.[id number]:10/31/2023 Patient:?NUVIA SPAULDING :1965???Age:58 Y???Sex:Male Address:[address] [place], [address] * true * Date:? Generated for Printi lady/[employer]/eTransmitting on:?01/31/2025 04:04 PM EDT
--- OUTSIDE RECORDS SUMMARY | 2025-01-31 16:04 | XMS_ITS | Patient Health Record ---
Author Organization [facility] Address [address] [place] [address] Care Team Providers Care Digester Name Role Phone Jose Manuel Ballesteros MD [...] Problem Status W/U Status Risk Notes Problem 211216392 Colon cancer screening (Z12.11) Active confirmed Problem History of polyp of colon (situation) (235762165) Personal history of colonic polyps (Z86.010) Active confirmed Problem 546025610 Encounter for other preprocedural examination (Z01.818) Active confirmed Plan Of Treatment Future Test Test Name Order Date COLONOSCOPY 01/12/2017 COLONOSCOPY 10/05/2023 Insurance Providers Payer Name Payer Address Payer Phone Subscriber Number Group Number Insured Name Patient Relationship to Insured Coverage Start Date Coverage End Date [employer] [address] [address] [place] [address] [id number] NUVIA SPAULDING Self - patient is the insured Medical (General) History Medical History History ICD Code Hypertension Hyperlipidemia Seasonal allergies Aortic aneurysm Insulinoma Colonoscopy 04/03, tubular adenoma, five- year followup Surgical History Surgery Date(Month/Year) ureteroplasy 10/04/1979 imbilical hernia repair with mesh - dr. carlos 08/23/2023 Distal pancreatectomy for insulinoma
--- OUTSIDE RECORDS SUMMARY | 2025-01-31 16:04 | XMS_ITS ---
Author Organization [facility] Address [address] [place] [address] Care Team Providers Care Tobacco Sizer Name Role Phone Jose Manuel Ballesteros MD Primary Care Provider Kulwinder Aragon Jr [phone] REASON FOR VISIT screening Problems Problem Type SNOMED Code ICD Code Onset Dates Problem Status W/U Status Risk Notes Problem History of polyp of colon (situation) (650999391) Personal history of colonic polyps (Z86.010) Active confirmed Encounters Encounter Location Date Provider Diagnosis [facility] Outpatient [address] [place] [address] [phone] 11/21/2023 Kulwinder Yost Jr Encounter for screening [...] Notes * NUVIA SPAULDINGDOB:[birth year] (59 yo M)Acc No.[id number]:11/21/2023 Progress Notes Patient:?NUVIA SPAULDING Provider:?Kulwinder Yost MD :1965???Age:58 Y???Sex:Male Jovon e:11/21/2023 [address] [id number] Pcp:Jose Manuel Ballesteros MD Subjective: * Chief Complaints: * ???1. Screening. * Medical History:? Objective: * Vitals:? Assessment: * Assessment: 1.?Encounter for screening c olonoscopy - Z12.11 (Primary)???2.?Personal history of colonic polyps - Z86.010???3.?Colon polyps - K63.5??? Plan: * Treatment: * Procedure Codes:?25000 COLON OSCOPY AND BIOPSY * Preventive Medicine:? [...] MD Date:?0 11/21/2023 Generated for Ricardo narayanan/Keyona/eTransmitting on:?01/31/2025 04:04 PM EDT
--- OUTSIDE RECORDS SUMMARY | 2025-01-31 16:05 | XMS_ITS ---
Author Organization [facility] Address [address] [place] [address] Care Team Providers Care Emissions Testing Technician Name Role Phone Jose Manuel Ballesteros MD Primary Care Provider Kulwinder Aragon Jr REASON FOR VISIT pathology Encounters Encounter Location Date Provider Diagnosis [facility] [address] [place] [address] 11/27/2023 Kulwinder Yost Jr Plan Of Treatment No Information Progress Notes * NUVIA SPAULDINGDOB:[birth year] (58 yo M)Acc No.[id number]:11/27/2023 Patient:?NUVIA SPAULDING :1965???Age:58 Y???Sex:Male Address:[address] [place], [address] * true * Date:? Generated for Doti lady/Keyona/eTransmitting on:?01/31/2025 04:04 PM EDT
== END 2025-01-31 16:03 | disposition home or self-care (01) ==
LOC: HO.US 16:02
PROVIDERS: PCP Internal Medicine; Visit Provider Nurse Practitioner Family
DX: N40.0 Benign prostatic hyperplasia without lower urinary tract symptoms (principal); N28.1 Cyst of kidney, acquired; R31.29 Other microscopic hematuria
CPT/HCPCS: 76770

== ENCOUNTER → 2025-01-31 16:06 | Outpatient (BNV) | payer OTHER, SELFPAY | PROVIDERS: PCP Internal Medicine; Visit Provider Radiology Diagnostic Radiology | DX: N40.0 Benign prostatic hyperplasia without lower urinary tract symptoms (principal) | CPT/HCPCS: 76770 ==

== ENCOUNTER 2025-02-26 12:41 | Outpatient (REF) | payer OTHER, SELFPAY ==
[2025-02-26 17:07] LABS: Urine Cytology See Pathology rpt
== END 2025-02-26 12:42 | disposition home or self-care (01) ==
LOC: HO.LAB 12:41
PROVIDERS: PCP Internal Medicine; Visit Provider Nurse Practitioner Family
DX: R31.29 Other microscopic hematuria (principal)
CPT/HCPCS: 81003; 88112

== ENCOUNTER 2025-02-26 12:41 | Outpatient (AMB) | payer OTHER, SELFPAY ==
--- NOTE | 2025-02-26 13:12 | A.OFFVIS_ITS ---
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 Ballesteros. He has a past medical history of hyperlipidemia, seasonal allergies, hypertension, hypercholesteremia, primary pancreatic neuroendocrine tumor, and ascending aortic aneurysm. He presents to the office today for a follow up of his nephrolithiasis. In discussion with the patient today he reports to be doing and feeling well. He denies having had any bothersome urinary issues or concerns since his last office visit here. He discusses his recovery from his right hip replacement with Dr. Colorado 4 months ago. He discusses being back at the [facility] here at [employer] cycling in the morning. Recent renal imaging results were reviewed with the patient today 02/09 bilateral kidneys with no masses, hydronephrosis, and or renal calculi. The urinary bladder is unremarkable. Prostate measures 11 mL. He does at times no changes in his urinary stream however describes these episodes as infrequent. When asked he currently denies any bothersome urinary issues or concerns. PSAs are as follows: 08/06 1.2, 07/11 2.8, In office urinalysis results reviewed with the patient today. He does have a previous history of nephrolithiasis however never requiring surgical intervention. He denies urinary urgency, urinary frequency, incontinence, nocturia, hematuria, dysuria, foul smelling urine, changes to urinary stream, flank pain, fever, and or chills. He is happy with his current voiding parameters. He otherwise offers no other issues or concerns at this time. [facility] Medical History COVID-19 Back pain Arthritis GERD (gastroesophageal reflux disease) Sleep apnea Incomplete right bundle branch block Tubular adenoma Insulinoma Hyperlipidemia Seasonal allergies Ascending aortic aneurysm Primary pancreatic neuroendocrine tumor Hypercholesteremia Hypertension Surgical History History of esophagogastroduodenoscopy (EGD) History of partial pancreatectomy H/O colonoscopy History of incisional hernia repair (08/23/23) Personal history of (corrected) hypospadias History of pancreatectomy Family History Mother Breast cancer Father Diabetes Social History Household Members: Spouse and Children Housing: House Are you a primary family day care provider to a significant other at home: No Do you presently have visiting nurse or other home services: No Alcohol intake: current Alcohol intake frequency: holidays/special occasions only Patient Tobacco Use Status: Never used Tobacco service: No 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al status: employed 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 Review of Systems Const All systems reviewed & are unremarkable except as noted in HPI and below Physical Exam Const General: cooperative, healthy appearing, comfortable, no acute distress, well developed, alert and awake Nutritional Appearance: overweight Orientation/consciousness: patient oriented x3 Limitations: no limitations HEENT Head: Yes normal to inspection, Yes normocephalic and Yes atraumatic Ears: hearing grossly normal bilaterally Eyes General: appearance normal, both eyes and all related structures Neck Neck: Yes normal visual inspection and Yes trachea midline Chest Chest palpation & inspection: normal inspection of the chest Resp Effort & Inspection: normal respiratory effort and able to speak in complete sentences Cardio Rate: regular rate GI Inspection: Yes normal to inspection General: Yes no CVA tenderness Back/Spine/Pelvis Back: no CVA tenderness Skin General skin exam: no rashes or lesions noted Neuro General: patient oriented x3 Extrem General: Yes normal to inspection Psych Appearance: grossly normal and well kempt Mental Status: mental status grossly normal Speech and movement: Normal speech and movement present and Clear speech present Affect: normal affect Attitude: cooperative Thought process: Normal thought process present Thought content: Normal thought content present Insight: Fair insight present (Psych) Judgement: Fair judgement present (Psych) Results AMB Urinalysis, Automated 2 UA Leukoctes 0 Murali/uL Last Edit by Brenda Hernandez on 02/26/25 13:32 UA Nitrite Negative Last Edit by Crystal Hernandez on 02/26/25 13:32 UA Urobilinogen 3.5 mg/dL Last Edit by Crystal Hernandez on 02/26/25 13:32 UA Protein 1 mg/dL Last Edit by Crystal Hernandez on 02/26/25 13:32 UA pH 5.5 Last Edit by Crystal Hernandez on 02/26/25 13:32 UA Blood 25 Kirit/uL Last Edit by Crystal Hernandez on 02/26/25 13:32 UA Specific [place] 1.025 Last Edit by Crystal Hernandez on 02/26/25 13:32 UA Ketone Negative Last Edit by Crystal Hernandez on 02/26/25 13:32 UA Bilirubin 0 mg/dL Last Edit by Crystal Hernandez on 02/26/25 13:32 UA Glucose 0 mg/dL Last Edit by Crystal Hernandez on 02/26/25 13:32 Results Reviewed Results Reviewed: Laboratory Last Values Urine pH (Auto) 5.5 02/26/25 08:19 Specific [place] (Auto) 1.025 02/26/25 08:19 Urine Protein (Auto) 1 mg/dL 02/26/25 08:19 Glucose (UA)(Auto) 0 mg/dL 02/26/25 08:19 Urine Ketones (Auto) Negative 02/26/25 08:19 Urine Blood (Auto) 25 Kirit/uL 02/26/25 08:19 Urine Nitrite (Auto) Negative 02/26/25 08:19 Urine Bilirubin (Auto) 0 mg/dL 02/26/25 08:19 Urine Urobilinogen (Auto) 3.5 mg/dL 02/26/25 08:19 Leukocyte Esterase (Auto) 0 Murali/uL 02/26/25 08:19 Date of Service: 01/31/25 Procedure(s): US retroperitoneal comp FINDINGS: Right kidney: The right kidney measures 14.2 x 5.6 x 6.0 cm. Renal parenchymal echotexture and thickness are normal. There are no masses. There is no hydronephrosis or renal calculi. Tiny echogenic foci may represent vascular calcifications. Left Kidney: The left kidney measures 13.0 x 6.3 x 5.4 cm. Renal parenchymal echotexture and thickness are normal. There are no masses. There is no hydronephrosis or renal calculi. Tiny echogenic foci may represent vascular calcifications. The urinary bladder is unremarkable. Bilateral ureteral jets are identified. Before voiding, the urinary bladder measured 11.0 x 6.1 x 8.2 cm, for an estimated volume of 287 mL. After voiding, the urinary bladder measured 10.4 x 3.9 x 9.0 cm, for an estimated volume of 188 mL. The prostate measures 3.0 x 1.9 x 3.7 cm. IMPRESSION: Post void bladder residual of 180 mL. Otherwise unremarkable retroperitoneal ultrasound. Assessment & Plan Assessment & Plan (1) Microscopic hematuria: Code(s): R31.29 - Other microscopic hematuria Category: Medical (2) Nephrolithiasis: Code(s): N20.0 - Calculus of kidney Category: Medical Plan In office urinalysis results reviewed with the patient today; as noted above; will send for urine cytology. PVR 79 mL. Recent renal imaging results reviewed with the patient today; as noted above. We discussed the importance of adequate hydration relation to history of nephrolithiasis as well as overall health and well-being. He currently denies any bothersome urinary issues or concerns. He reports be happy with current voiding parameters. Will continue with surveillance monitoring of nephrolithiasis as well as PSAs. Will obtain PSA. Will obtain renal ultrasound in 6 months. Follow-up in 6 months with imaging, PSA, and PVR to be completed prior; or sooner with any issues, concerns, and or questions. Orders: Orders AMB Urinalysis Automated Today Z13.9 - Encounter for screening, unspecified US renal BI 6 Months N20.0 - Calculus of kidney Prostate Specific Antigen Today N40.0 - Benign prostatic hyperplasia without lower urinary tract symptoms Urine Cytology Today R31.29 - Other microscopic hematuria Patient Instructions: The patient had an opportunity to ask questions regarding the treatment plan. All questions were answered. Physical exam, labs, and imaging were discussed and reviewed in detail. As well as risks, benefits, and discussion of treatment choices. No major barriers to understanding were identified. The patient expressed understanding and agreement with the above treatment plan. The patient was made aware they should contact our office by phone for worsening of their current condition, the appearance of new symptoms, or with any questions or concerns. Compliance is encouraged with any medications and follow up testing that is ordered. It is a privilege to be allowed the opportunity to participate in? your urological care.? Again, if you have any questions or concerns If you have any questions or concerns please do not hesitate to contact me. The office is [phone]. This note is constructed using voice recognition software. While every effort has been made to ensure accuracy plastic sheets finishing supervisor errors may have been included. Yours sincerely, EAGLE Valenzuela Coding Level of Care Code Est Pt Level 3 (32100) Diagnoses Microscopic hematuria R31.29 Nephrolithiasis N20.0
--- OUTSIDE RECORDS SUMMARY | 2025-02-26 14:09 | XMS_ITS ---
Author Organization [facility] Address [address] [place] [address] Care Team Providers Care Adjunct Professor Of Voice Name Role Phone Jose Manuel Ballesteros MD Primary Care Provider Kulwinder Aragon Jr REASON FOR VISIT screening Problems Problem Type SNOMED Code ICD Code Onset Dates Problem Status W/U Status Risk Notes Problem History of polyp of colon (situation) (933389089) Personal history of colonic polyps (Z86.010) Active confirmed Encounters Encounter Location Date Provider Diagnosis [facility] Outpatient [address] [place] [phone] 11/21/2023 Kulwinder Yost Jr Encounter for screening [...] Notes * NUVIA SPAULDINGDOB:[birth year] (60 yo M)Acc No.[id number]:11/21/2023 Progress Notes Patient:?NUVIA SPAULDING Provider:?Kulwinder Yost MD :1965???Age:58 Y???Sex:Male Ojvon e:11/21/2023 [address] [place] [place] Pcp:Jose Manuel Ballesteros MD Subjective: * Chief Complaints: * ???1. Screening. * Medical History:? Objective: * Vitals:? Assessment: * Assessment: 1.?Encounter for screening c olonoscopy - Z12.11 (Primary)???2.?Personal history of colonic polyps - Z86.010???3.?Colon polyps - K63.5??? Plan: * Treatment: * Procedure Codes:?02373 COLON OSCOPY AND BIOPSY * Preventive Medicine:? [...] MD Date:?0 11/21/2023 Generated for Ricardo narayanan/Keyona/eTransmitting on:?02/26/2025 02:09 PM EDT
== END 2025-02-26 13:50 | disposition home or self-care (01) ==
LOC: HO.HUSH 12:41
PROVIDERS: PCP Internal Medicine; Visit Provider Nurse Practitioner Family
DX: R31.29 Other microscopic hematuria (principal); N20.0 Calculus of kidney; Z13.9 Encounter for screening, unspecified
CPT/HCPCS: 99213

== ENCOUNTER 2025-04-02 13:15 | Outpatient (AMB) | payer OTHER, SELFPAY ==
--- OUTSIDE RECORDS SUMMARY | 2023-11-21 03:30 | XMS_ITS ---
Author Organization [facility] Address [address] [place] [address] Care Team Providers Care Outsole Leveler Name Role Phone Lesli (RETIRED) Jose Manuel PARKS Primary Care Provide r Mike Yost Jr, Kulwinder Mckeon [phone] REASON FOR VISIT screening Problems Problem Type SNOMED Code ICD Code Onset Dates Problem Status W/U Status Risk Notes Problem Personal history of colonic polyps (Z86.010) Active confirmed Encounters Encounter Location Date Provider Diagnosis [facility] [place] [address] [place] [phone] 11/21/2023 Kulwinder Yost Jr Encounter for screening [...] Notes * NUVIA SPAULDINGDOB:[birth year] (60 yo M)Acc No.[id number]:11/21/2023 Progress Notes Patient: Angelica MUELLERESTEE NUVIA Obando Provider: Del Yost MD :1965 A ge:58 Y S ex:Male Date:11/21/2023 Address:[address] [place], [place] Pcp:Jose Manuel Ballesteros (RETIRED )MD Subjective: * [...] 11/21/2023 Generated for Ricardo narayanan/Keyona/Tashiitting on: 0 04/02/2025 02:04 PM EDT
[2025-04-02 09:22] VITALS: BP 122/76; PULSE 87; TEMP 36.2; O2SAT 98; BMI 42.7
--- NOTE | 2025-04-02 09:22 | A.OFFPC_ITS ---
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 Accompanied by: Self / Same As Patient Allergies No Known Allergies (No Known Allergies*) Allergy (Verified 04/02/25 13:45) Medication List - Last Reconciled 04/02/25 by Jason Martinez MD celecoxib 200 mg PO BID losartan 25 mg PO BEDTIME omeprazole 40 mg PO BEDTIME@2100 30 days [Raised toilet seat As directed] rosuvastatin 20 mg PO DAILY walker Folding Front wheeled walker Tobacco use date assessed: 04/02/25 Dental Screening Dental Screen Date: 04/02/25 Did you have a dental visit in the last 12 months?: Yes Did you have a dental problem in the last 6 months where you did not have access to dental care?: No PFSH Medical History COVID-19 Back pain Arthritis GERD (gastroesophageal reflux disease) Sleep apnea Incomplete right bundle branch block Tubular adenoma Insulinoma Hyperlipidemia Seasonal allergies Ascending aortic aneurysm Primary pancreatic neuroendocrine tumor Hypercholesteremia Hypertension Surgical History History of esophagogastroduodenoscopy (EGD) History of partial pancreatectomy H/O colonoscopy (~11/21/23) History of incisional hernia repair (08/23/23) Personal history of (corrected) hypospadias History of pancreatectomy Family History Mother Breast cancer Father Diabetes Social History Household Members: Spouse and Children Housing: House Are you a primary animal care specialist to a significant other at home: No Do you presently have visiting nurse or other home services: No Alcohol intake: current Alcohol intake frequency: holidays/special occasions only Patient Tobacco Use Status: Never used Tobacco e-Cigarette/Vaping Use: Never Used service: No 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al status: employed 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 1. Little interest or pleasure in doing things: not at all 2. Feeling down, depressed, or hopeless: not at all 3. Trouble falling or staying asleep, or sleeping too much: not at all 4. Feeling tired or having little energy: not at all 5. Poor appetite or overeating: not at all 6. Feeling bad about yourself - or that you are a failure or have let yourself or your family down: not at all 7. Trouble concentrating on things, such as reading the newspaper or watching television: not at all 8. Moving or speaking so slowly that other people could have noticed. Or the opposite - being so fidgety or restless that you have been moving around a lot more than usual: not at all 9. Thoughts that you would be better off or of hurting yourself in some way: not at all Total score: 0 Source: Developed by Drs. Enmanuel Mullen, Skye Jimenez, Alin Erwin and colleagues, with an educational emma from [employer]. Thrive Questionnaire Date Thrive assessed: 04/02/25 I am a: Patient Within the past 12 months, did the food you bought not last and you didn't have the money to get more?: Never true Within the past 12 months, did you worry whether your food would run out before you got money to buy more?: Never true Do you have trouble paying for medicines?: No Do you have trouble getting transportation to medical appointments?: No Do you have trouble paying your heating and electricity bill?: No Do you have trouble taking care of your child, family member or friend?: No Do you have trouble with day-to-day activities such as bathing, preparing meals, shopping, managing finances, etc.?: No Are you currently unemployed and looking for a job?: No Are you interested in more education?: No THRIVE Score: 0 AUDIT C Alcohol Use Questionnaire (AUDIT-C) 1. How often do you have a drink containing alcohol?: Monthly or less 2. How many drinks containing alcohol do you have on a typical day when you are drinking?: 1 or 2 3. How often do you have six or more drinks on one occasion?: Less than monthly Total Score: 2 SHABBIR-7 AMB Questionnaire SHABBIR-7 Date SHABBIR - 7 assessed: 04/02/25 Feeling nervous, anxious, or on edge: 0 = Not at all Not being able to stop or control worryin = Not at all Worrying too much about different things: 0 = Not at all Trouble relaxin = Not at all Being so restless that it is hard to sit still: 0 = Not at all Becoming easily annoyed or irritable: 0 = Not at all Feeling afraid as if something awful might happen: 0 = Not at all Total SHABBIR-7 score (0-4 normal; 5-9 mild; 10-14 moderate; 15-21 severe): 0 Source: Developed by Drs. Enmanuel Mullen, Skye Jimenez, Alin Erwin and colleagues, with an educational emma from [employer]. Physical exam (Primary Care) Vital Signs: Last Vital Signs Temp 97.1 F 04/02/25 09:22 Pulse 87 04/02/25 09:22 BP 122/76 04/02/25 09:22 Pulse Ox 98 04/02/25 09:22 Oxygen Delivery Method Room Air 04/02/25 09:22 BMI result Body Mass Index 42.7 Tobacco/Smoking Status: Tobacco use Status Tobacco use date assessed 04/02/25 04/02/25 09:24 Patient Tobacco Use Status Never used Tobacco 04/02/25 09:24 e-Cigarette/Vaping Use Never Used 04/02/25 09:24 PHQ-9: PHQ-9 Score PHQ-9: Total score 0 04/02/25 13:28 Thrive Assessment: Date of Thrive Assessment Date Thrive assessed 04/02/25 04/02/25 09:24 Coding Level of Care Code New Pt Prev Care 40-64y(49048) Diagnoses Hypertension I10 Annual physical exam Z00.00 Assessment & Plan Assessment & Plan (1) Hypertension: Code(s): I10 - Essential (primary) hypertension Category: Medical Plan: BP is in range, continue current medications (2) Annual physical exam: Code(s): Z00.00 - Encounter for general adult medical examination without abnormal findings Plan: History of Present Illness - The patient is a 60-year-old male presenting for a wellness visit and follow- up on chronic conditions. - Neuroendocrine tumor of the pancreas: Diagnosed in November 2018 after 10 years of symptoms, confirmed by a CT scan with contrast showing a tumor on the tail of the pancreas. - Surgical intervention included resection of nearly half of the pancreas and removal of the spleen at [facility]. - Follow-up care involved annual CT and PET scans at [facility], with a recent recommendation for a PET CT with gallium 68 dotatate. - Severe osteoarthritis of the right hip: Developed after umbilical hernia repair in August 2023, confirmed by MRI showing severe joint space narrowing and osteophytes. - Underwent right hip replacement surgery in September 2023, performed by Dr. [place], with excellent recovery and return to physical activity. - Obesity: Long-standing issue with a history of significant weight fluctu ations, currently aiming to lose 80-100 pounds. - Preventative care: Colonoscopy performed in 2016 and a follow-up in 2019, with a five-year surveillance plan due to previous polyp findings. Social History - Exercise: Engages in regular physical activity, including spin classes, completing 16 miles in a session. - Substance use: Denies tobacco use and reports minimal alcohol consumption. Review of Systems - General: Reports feeling well overall, with no specific health concerns. - Musculoskeletal: Reports history of severe osteoarthritis in the right hip, now resolved post-surgery. Physical Exam General: Cooperative and healthy appearing Nutritional Appearance: Well nourished Orientation/consciousness: Patient oriented x3 Limitations: No limitations Head: Normal to inspection General: Appearance normal, both eyes and all related structures Neck: Normal visual inspection Chest: Normal palpation of entire chest wall Respiratory: Deep breath in and out, okay. ormal respiratory effort Neurology: Patient oriented x3 Results - Imaging: CT scan with contrast identified a neuroendocrine tumor on the pancreas. - Imaging: MRI confirmed severe osteoarthritis of the right hip with joint space narrowing and osteophytes. Plan 1. Neuroendocrine Tumor Of The Pancreas - Continue annual follow-up with CT and PET scans at [facility]. - Schedule a PET CT with gallium 68 dotatate as recommended. 2. Severe Osteoarthritis Of The Right Hip - Post-surgical follow-up to monitor recovery and physical activity levels. 3. Umbilical Hernia - No current issues post-repair, continue monitoring for any recurrence. 4. Obesity - Encourage continued weight management efforts and regular physical activity. Discussion Notes During the visit, we discussed the importance of ongoing surveillance for the neuroendocrine tumor with annual CT and PET scans, including a PET CT with gallium 68 dotatate. We also reviewed the patient's excellent recovery from hip replacement surgery and the need for continued physical activity to manage obesity. The patient was advised to maintain regular follow-ups and adhere to the recommended surveillance plan for colon cancer screening. Patient Instructions - Schedule and attend annual CT and PET scans at [facility]. - Continue regular physical activity and weight management efforts. - Follow up with colonoscopy as per the five-year surveillance plan. Orders: Orders Basic Metabolic Panel Today I10 - Essential (primary) hypertension Complete Blood Count no Diff Today I10 - Essential (primary) hypertension UA and rflx microscopic Today I10 - Essential (primary) hypertension Prostate Specific Antigen Scr Today I10 - Essential (primary) hypertension Lipid Panel Today I10 - Essential (primary) hypertension Liver Panel Today I10 - Essential (primary) hypertension Thyroid Stimulating Hormone Today I10 - Essential (primary) hypertension
== END 2025-04-02 13:40 | disposition home or self-care (01) ==
LOC: HO.HMCHD 13:16
PROVIDERS: PCP Internal Medicine; Visit Provider Internal Medicine
DX: I10 Essential (primary) hypertension (principal); Z00.00 Encounter for general adult medical examination without abnormal findings

== ENCOUNTER 2025-04-27 18:36 | Emergency (ER) | payer OTHER, SELFPAY ==
[2025-04-27 18:55] VITALS: BP 144/69; PULSE 78; RESP 16; TEMP 36.8; O2SAT 97; BMI 43.4
--- NOTE | 2025-04-27 18:58 | ED.GENADULT ---
HPI - General Adult General Chief complaint: Animal Bite Stated complaint: dog bite on right upper arm Time Seen by Provider: 04/27/25 20:34 Source: patient Mode of arrival: ambulatory Limitations: no limitations History of Present Illness ED Provider: Joy Harmon PA-C HPI narrative: Patient is a 60 year old assigned male at with a history of HTN, AAA, and OA presenting to the emergency department today with right arm dog bites. Patient states that he was on the couch with his dog when he yelled at the [employer] game and scared his dog awake, causing the dog to bite his right arm. Patient states that he does not know when his last tetanus shot was but he knows his dog is up to date on vaccinations. Patient denies any other complaints at this time. Relieving factors: none Exacerbating factors: none Associated symptoms: denies other symptoms Related Data Previous Rx's ?Medication ?Instructions ?Recorded walker #1 ea 08/05/24 Raised toilet seat #1 ea 08/21/24 losartan 25 mg tablet 25 mg PO BEDTIME #90 tabs 12/13/24 rosuvastatin 20 mg tablet 20 mg PO DAILY #90 tabs 03/12/25 celecoxib 200 mg capsule 200 mg PO BID #60 ea 03/26/25 omeprazole 40 mg capsule,delayed 40 mg PO BEDTIME@2100 30 days #30 03/28/25 release caps amoxicillin 875 mg-potassium 1 tab PO BID 5 days #10 tabs 04/27/25 clavulanate 125 mg tablet Allergies Allergy/AdvReac Type Severity Reaction Status Date / Time No Known Allergies (No Known Allergy Verified 04/27/25 18:59 Allergies*) Review of Systems Constitutional: Constitutional: Reports as per HPI Eyes: Eyes: Reports as per HPI ENT: Reports as per HPI Cardiovascular: Cardiovascular: Reports as per HPI Respiratory: Respiratory: Reports as per HPI Gastrointestinal: Gastrointestinal: Reports as per HPI Genitourinary: Genitourinary: Reports as per HPI Musculoskeletal: Comments: dog bite to right arm Integumentary/Breasts: Skin/Breast: Reports as per HPI Neurologic: Reports as per HPI Psychiatric: Psychiatric: Reports as per HPI Endocrine: Endocrine: Reports as per HPI Hematologic/Lymphatic: Hematologic/Lymphatic: Reports as per HPI Allergic/Immunologic: Allergic/Immunologic: Reports as per HPI [facility] Past Medical History Attestation statement: The following information was validated with the patient. Source: old records reviewed and nursing notes reviewed Medical History COVID-19 Back pain Arthritis GERD (gastroesophageal reflux disease) Sleep apnea Incomplete right bundle branch block Tubular adenoma Insulinoma Hyperlipidemia Seasonal allergies Ascending aortic aneurysm Primary pancreatic neuroendocrine tumor Hypercholesteremia Hypertension Surgical History History of esophagogastroduodenoscopy (EGD) History of partial pancreatectomy H/O colonoscopy (~11/21/23) History of incisional hernia repair (08/23/23) Personal history of (corrected) hypospadias History of pancreatectomy Family History Family History Mother Breast cancer Father Diabetes Social History Social History Household Members: Spouse and Children Housing: House Are you a primary family day carer to a significant other at home: No Do you presently have visiting nurse or other home services: No Alcohol intake: current Alcohol intake frequency: holidays/special occasions only Patient Tobacco Use Status: Never used Tobacco e-Cigarette/Vaping Use: Never Used Advance Directives: Yes Advance Directives on File: Yes Advance Directives Date on File: 10/03/24 Do you have a plan to hurt others: No Plan service: No 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al status: employed 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 Cognitive needs: No Hearing needs: No Vision needs: No Physical Exam ED Vital Signs: Vital Signs - 24 hr 04/27/25 18:55 04/27/25 21:05 Temperature 98.3 F 98.3 F Pulse Rate 78 78 Respiratory Rate 16 16 Blood Pressure 144/69 H 144/69 H Pulse Oximetry 97 97 Oxygen Delivery Method Room Air Room Air BMI result Body Mass Index 43.4 Const General: cooperative, no acute distress, alert and awake Nutritional Appearance: well nourished Orientation/consciousness: patient oriented x3 HENMT Head: Yes normal to inspection and Yes atraumatic Ears: hearing grossly normal bilaterally and external ears normal General nose exam: Normal external nose present, no nasal discharge noted and no epistaxis Face and sinus: Yes normal facial exam, No abrasion and No laceration Mouth: Normal oral and palatal mucosa present, no drooling and no muffled voice Eyes General: appearance normal, both eyes and all related structures Periorbital: periorbital findings normal Eyelids: Yes eyelids normal Conjunctivae: conjunctivae normal Pupils: Equal, round and reactive pupils present EOM: EOMs intact bilaterally Neck Neck: Yes normal visual inspection and Yes full ROM Resp Effort & Inspection: normal respiratory effort and able to speak in complete sentences Neuro General: patient oriented x3, moves all extremities and CN's II-XI intact bilaterally Cranial nerves: Yes Equal, round and reactive pupils present Cognition (Neuro): normal cognition Extrem Other: General: Yes full ROM and Yes capillary refill normal Psych Appearance: grossly normal Mental Status: mental status grossly normal Affect: normal affect Attitude: cooperative Thought process: Normal thought process present Thought content: Normal thought content present Insight: Good insight present (Psych) Course Course Course Narrative: Rapid medical examination performed in triage by Joy Harmon PA-C. Patient is a 60 year old assigned male at presenting to the emergency department with right arm dog bites. Patient states his dog was sleeping next to him while he was on the couch and he got over excited and yelled at the [employer] game when he got bit. Detailed physical exam and review of systems are deferred to the chemical operations specialist. Patient placed back in the waiting room pending room availability. Medications Administered Discontinued Medications Generic Name Dose Route Start Last Admin Trade Name Freq PRN Reason Stop Dose Admin Amoxicillin/Clavulanate Potassium 875 mg 04/27/25 20:56 04/27/25 21:02 Amoxicillin/Potassium Clav 875 Mg Tablet PO 04/27/25 20:57 875 mg ONCE ONE Administration Diphtheria/Tetanus/Acell Pertussis 0.5 ml 04/27/25 19:03 04/27/25 20:41 Diphth,Pertus(Acell),Tet Adult 0.5 Ml Syringe IM 04/27/25 19:04 0.5 ml .ONCE ONE Administration Medical Decision Making Medical Decision Making MDM Narrative: Patient is a 60 year old assigned male at with a history of HTN, AAA, and OA presenting to the emergency department today with right arm dog bites. Patient's physical exam was as noted in the physical exam portion of this note. I explained my physical exam findings to the patient. I answered all questions asked by the patient. Patient confirmed the dog is up to date on all vaccinations. Patient was brought up to date on his tetanus status. Patient's most inferior dog bite was somewhat gaping but given this was a dog bite and the separation of the wound edges was relatively minimal, I believe the best course of action is to allow this to heal by secondary intention rather than manual laceration repair. Patient's wounds were thoroughly irrigated and dressed. I stressed the importance of the patient taking his medication as directed (either prescribed or as the over the counter packaging recommends). I stressed the importance of the patient following up with his primary care provider. I stressed the importance of the patient returning to the emergency department immediately if his symptoms were to worsen or if he were to develop any dizziness, shortness of breath, difficulty breathing, chest pain, blurry vision, loss of vision, nausea, vomiting, abdominal pain, fever, chills, back pain, or any other complaints. Patient verbalized agreement and understanding with this treatment plan and discharge. Differential Diagnosis Differential Diagnoses: The differential diagnosis associated with the presentation includes Dog bites Dog bite Laceration Admission/Observation Consideration of admission/observation: Escalation of care including admission/observation considered Patient would have been admitted to the hospital had his clinical presentation warranted hospital admission. Prescription Management I considered prescription management with: Antibiotic (patient prescribed prophylactic antibiotic given mechanism of injury) Discharge Plan Discharge Clinical Impression: Dog bite Patient Disposition: Home, Self-Care Instructions: Animal Bite (ED) Additional Instructions: Take your medication as prescribed. IF you are prescribed medications and/or you are taking over the counter medications - it is very important you continue to do so as prescribed / directed unless told otherwise. Follow up with your primary care provider. Return to the emergency department immediately if your symptoms worsen or if you develop any numbness, tingling, dizziness, shortness of breath, difficulty breathing, chest pain, blurry vision, loss of vision, nausea, vomiting, abdominal pain, fever, chills, back pain, or any other complaints. Please see the information below about our Patient Portal. If you are not yet enrolled in the [facility] [employer] [facility] [employer] [facility] Patient Portal, you will receive an enrollment email invitation following your visit to any [facility] [place] setting. You may also self-enroll in the Patient Portal by visiting our website: [email or web address] The following information is required to access the Patient Portal: - Your [facility] [place] Medical Record Number - Your personal home email address (must match what is in your electronic medical record, Registration staff can assist with this) - Name - Date of Capabilities of the Patient Portal: - Message some providers - View upcoming appointments - Access your health summary, medical history, and visit history - View current conditions and allergies - View procedure and lab results - View your medications, including guidelines, side effects, and precautions - Complete pre-appointment questionnaires requested by your provider - Ready summary reports of your office visits and procedures To access the Patient Portal Mobile Remi, follow these directions: - Search [employer] in the Remi Store or Google Play Store - Download the Remi - Search for [employer] - Enter your login/password Prescriptions: New amoxicillin-pot clavulanate 875-125 mg tablet 1 tab PO BID 5 Days Qty: 10 0RF No Action (DME) walker Misc See Rx Instructions .MEDSUPPLY Qty: 1 0RF Rx Instructions: Folding Front wheeled walker (DME) Raised toilet seat See Rx Instructions .ROUTE .MEDSUPPLY Qty: 1 0RF Rx Instructions: As directed losartan 25 mg tablet 25 mg PO BEDTIME Qty: 90 3RF rosuvastatin 20 mg tablet 20 mg PO DAILY Qty: 90 3RF celecoxib 200 mg capsule 200 mg PO BID Qty: 60 3RF omeprazole 40 mg capsule,delayed release(DR/EC) 40 mg PO BEDTIME@2100 30 Days Qty: 30 8RF Referrals: Jason Martinez MD [Primary Care Provider, Internal Medicine] Interventions: ED Discharge Assessment Last Done: 04/27/25 21:05 Discharge Date/Time: 04/27/25 21:05 Print Language: Azeri
[2025-04-27] MEDS: Diphth,Pertus(ACell),Tet Adult 0.5 ML SYRINGE IM (20:41)
[2025-04-27 21:05] VITALS: BP 144/69; PULSE 78; RESP 16; TEMP 36.8; O2SAT 97
== END 2025-04-27 21:05 | disposition home or self-care (01) ==
PROVIDERS: Emergency Provider Emergency Medicine Emergency Medical Services; PCP Internal Medicine
DX: S41.151A Open bite of right upper arm, initial encounter (principal); W54.0XXA Bitten by dog, initial encounter; Y93.9 Activity, unspecified; Y92.9 Unspecified place or not applicable; Y99.8 Other external cause status; Z23 Encounter for immunization
CPT/HCPCS: 90471; 90715; 99282; 99284

== ENCOUNTER → 2025-05-12 13:54 | Outpatient (REF) | payer OTHER, SELFPAY ==
--- OUTSIDE RECORDS SUMMARY | 2023-11-21 03:30 | XMS_ITS ---
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 Name Role Phone Lesli (RETIRED) Jose Manuel PARKS Primary Care Provide r Mike Yost Jr, Kulwinder Mckeon REASON FOR VISIT screening Problems Problem Type SNOMED Code ICD Code Onset Dates Problem Status W/U Status Risk Notes Problem Personal history of colonic polyps (Z86.010) Active confirmed Encounters Encounter Location Date Provider Diagnosis [facility] Outpatient [address] [place] [address] [phone] 11/21/2023 Kulwinder Yost Jr Encounter for screening colonoscopy Z12.11 ; Personal history of colonic polyps Z86.010 and Colon polyps K63.5 Assessments Encounter Date Diagnosis (ICD Code) Assessment Notes Treatment Notes Treatment Clinical Notes Section Notes 11/21/2023 Encounter for screening colonoscopy (ICD-10 - Z12.11) 11/21/2023 Personal history of colonic polyps (ICD-10 - Z86.010) 11/21/2023 Colon polyps (ICD-10 - K63.5) Plan Of Treatment No Information Progress Notes * NUVIA SPAULDINGDOB:[birth year] (60 yo M)Acc No.[id number]:11/21/2023 Progress Notes Patient: Angelica EPPS NUVIA Obando Provider: Del Yost MD :1965 A ge:58 Y S ex:Male Date:11/21/2023 [address]:[address] [place], [place] Pcp:Jose Manuel Ballesteros (RETIRED )MD Subjective: * Chief Complaints: * 1 . Screening. * Medical History: Objective: * Vitals: Assessment: * Assessment: 1. E ncounter for screening colonoscopy - Z12.11 (Primary) 2 . P ersonal history of colonic polyps - Z86.010 3 . C olon polyps - K63.5 Plan: * Treatment: * Procedure Codes: 4 5380 COLONOSCOPY AND BIOPSY * Preventive Medicine: JEN Screening: C olonoscopy W as interval between colonoscopies three years or more? Y es, W as last colonoscopy performed three or more years ago? Y es. * * The named appointment provid er may or may not be the originator of this progress note, and it is not deemed complete until electronically signed by the appointment provider. Sign off status: Pending * Provider: Del Yost MD Date: 0 11/21/2023 Generated for Ricardo narayanan/Keyona/Tashiitting on: 0 05/12/2025 03:14 PM EDT
--- NOTE | 2025-05-12 13:56 | CA_ITS ---
Transthoracic Echocardiogram Patient (Last, First, Middle): Vasile Quintana, Gender: M Date of : 1965 Age: 60 Procedure Date: 05/12/2025 Procedure Type: Transthoracic Echocardiogram Location: OP Height: 175.26 cm Weight: 133.36 kg BSA: 2.43 m2 Heart Rate: bpm BP: 124 / 80 mmHg Piano Assembler: Referring MD: Damien Sheldon MD Symptoms: I71.21 - Aneurysm of the ascending aorta, without rupture Study Quality: Adequate ECG Rhythm: Sinus Conclusions: - The left ventricular systolic function is normal. The calculated ejection fraction is 61% by biplane method. - No obvious valvular pathology seen on this study. - Ascending aortic size difficult to measure as the margins are not well delineated. Possibly mildly dilated at approximately 4.3 4.4 cm. Findings Left Ventricle Normal left ventricular cavity size. There is moderately increased left ventricular wall thickness. The left ventricular systolic function is normal. The calculated ejection fraction is 61% by biplane method. There is no evidence of regional wall motion abnormalities. Diastolic function is normal for age. Right Ventricle Normal right ventricular cavity size and systolic function. Atria Both atria are normal in size. Aortic Valve There is a normal trileaflet aortic valve. There is no aortic valve stenosis. There is no aortic valve regurgitation. Mitral Valve The mitral valve appears normal. There is no mitral valve regurgitation. There is no mitral valve stenosis. Pulmonic Valve The pulmonic valve is likely normal. Tricuspid Valve Normal tricuspid valve structure. There is trace tricuspid valve regurgitation. There is no evidence of pulmonary hypertension. Great Vessels Ascending aortic size difficult to measure as the margins are not well delineated. Possibly mildly dilated at approximately 4.3-4.4 cm. Venous The inferior vena cava is normal in size and collapses less than 50% with inspiration. Pericardium/Pleural There is no evidence of pericardial effusion. Prior Study Comparison No significant change compared to prior study dated: 03/26/2024. Recommendations, Care & Conclusions No obvious valvular pathology seen on this study. Measurements 2D Linear Measurements IVSd: 1.40 0.6-0.9/0.6-1.0 cm LVIDd: 4.25 3.9-5.3/4.2-5.9 cm LVIDd Index: 1.75 2.4-3.2/2.2-3.1 cm/m2 LVIDs: 2.73 2.0-3.6 cm LVPWd: 1.36 0.7-1.1 cm Ao Root: 3.20 2.1-3.5 cm LA Diam: 3.60 2.7-3.8/3.0-4.0 cm LAIDs Index: 1.48 1.5-2.3 cm/m2 LV Mass: 278.41 67-162/88-224 g LV Mass Index: 114.57 43-95/49-115 g/m2 LVOT Diam: 2.30 3.0+(-)1.3 cm 2D Systolic Function EF 4C: 58.10 >55% EF 2C: 63.80 >55% EF BiP: 60.60 >55% Mitral Valve MV Pk E: 0.59 MV PK A: 0.75 MV Decel Time: 283.00 E/A: 0.80 E'Lateral: 13.90 E'Medial: 11.00 E/E' Med: 5.40 E/E' Lat: 4.30 PHT: 83.00 MVA PHT: 2.65 Decel Knox: 2.09 Aortic Valve AoV Pk Dave: 1.64 AoV Mn Dave: 1.06 AoV VTI: 0.32 AoV Pk Grad: 11.00 Aov Mn Grad: 6.00 ANTELMO Cont.VTI: 2.84 LVOT LVOT Pk Dave: 1.09 LVOT Mn Dave: 0.77 LVOT VTI: 0.22 LVOT Pk Grad: 5.00 LVOT Mn Grad: 3.00 LVOT Diam: 2.30 LVOT Area: 4.15 Diastolic Function MV Pk E: 0.59 MV Pk A: 0.75 E/A: 0.80 E'Medial: 11.00 E/E' Med: 5.40 E' Laterial: 13.90 E/E' Lat: 4.30 Right Ventricle TAPSE (mm): 29.00 TVS' Dave: 16.00 Tricuspid Valve TR Pk Dave: 2.17 TR Pk Grad: 19.00 RA Press: 3.00 RVSP: 22.00 Great Vessels Aorta Ao Root-2D: 3.20 2.0-3.7 cm Ao Asc: 4.30 2.1-3.4 cm Pulmonary Valve PV Pk Dave: 1.24 Peak PV Grad: 6.00 Updated in Other Vendor System with Status of Final Garett Anders MD electronically signed on 05/13/2025 11:53:12 AM with status of Final
--- OUTSIDE RECORDS SUMMARY | 2025-05-12 15:14 | XMS_ITS | Patient Health Record ---
Author Organization [facility] Address [address] [place] [address] Care Team Providers Care Neonatal Surgeon Name Role Phone Lesli (RETIRED) Jose Manuel PARKS Primary Care Provide r Unavailable Kulwinder Yost Jr Unavailable Allergies No Known Allergies Reason [...] Problem Status W/U Status Risk Notes Problem [id number] Colon cancer screening (Z12.11) Active confirmed Problem History of polyp of colon (situation) (120449620) Personal history of colonic polyps (Z86.010) Active confirmed Problem [id number] Encounter for other preprocedural examination (Z01.818) Active confirmed Plan Of Treatment Future Test Test Name Order Date COLONOSCOPY 01/12/2017 COLONOSCOPY 10/05/2023 Insurance Providers Payer Name Payer Address Payer Phone Subscriber Number Group Number Insured Name Patient Relationship to Insured Coverage Start Date Coverage End Date [employer] [place] [address] [address] [place] [address] [id number] NUVIA SPAULDING Self - patient is the insured Medical (General) History Medical History History ICD Code Hypertension Hyperlipidemia Seasonal allergies Aortic aneurysm Insulinoma Colonoscopy 04/03, tubular adenoma, five- year followup Surgical History Surgery Date(Month/Year) ureteroplasy 10/04/1979 imbilical hernia repair with mesh - dr. carlos 08/23/2023 Distal pancreatectomy for insulinoma
--- OUTSIDE RECORDS SUMMARY | 2025-05-12 15:14 | XMS_ITS | Encounter Summary ---
Author Organization [facility] Address [address] [place] [address] Phone Care Team Providers Care Sharepoint Application Architect Name Role Phone Jose Manuel Ballesteros MD Primary Care Provider Melony Sanon MD Unavailable [phone] Selma Epstein MD, PhD Unavailable [phone] Encounter Details Date Type Department Care Team (Late st Contact Info) Description 01/11/2019 Procedure Pass [facility] Endoscopy Department [address] [place] [address] Social History Tobacco Use Types Packs/Day Years Used Date Smoking Tobacco: Never Smokeless Tobacco: Never Alcohol Use Standard Drinks/Week Comments Yes 3 (1 standard drink = 0.6 oz pur e alcohol) occ Sex and Gender Information Value Date Recorded Sex Assigned at Not on file Legal Sex Male 10:38 AM EST Gender Identity Not on file Sexual Orientation Not on file documented as of this encounter Plan of Treatment Not on file documented as of this encounter Visit Diagnoses Not on filedocumented in this encounter Care Teams Sharepoint Application Architect Relationship Specialty Start Date End Date Jose Manuel Ballesteros MD [address] [place] [address] [place] [address] PCP - General Internal Medicine 09/21/18 Melony Sanon MD [address] [place] [address] [email or web address] Referring Physician Hematology and Oncology 09/21/18 Selma Epstein MD, PhD [address] [place] [phone] [email or web address] Surgeon Surgical Oncology 09/21/18 documented as of this encounter Additional Source Comments The information contained in this document represents components of the legal health record. It is not the complete legal health record.[facility]
--- OUTSIDE RECORDS SUMMARY | 2025-05-12 15:14 | XMS_ITS | Encounter Summary ---
Author Organization [facility] Address [address] [place] [address] Phone Care Team Providers Care Linemarker Name Role Phone Jose Manuel Ballesteros MD Primary Care Provider Melony Sanon MD Unavailable [phone] Selma Epstein MD, PhD Unavailable [phone] Encounter Details Date Type Department Care Team (Late st Contact Info) Description 03/08/2019 Procedure Pass [facility] Endoscopy Department [address] [place] [address] Social History Tobacco Use Types Packs/Day Years [...] on filedocumented in this encounter Care Teams Linemarker Relationship Specialty Start Date End Date Jose Manuel Ballesteros MD [address] [place] [address] [place] [address] PCP - General Internal Medicine 09/21/18 Melony Sanon MD [address] [place] [address] [email or web address] Referring Physician Hematology and Oncology 09/21/18 Selma Epstein MD, PhD [address] [place] [address] [email or web address] Surgeon Surgical Oncology 09/21/18 documented as of this encounter Additional Source Comments The information contained in this document represents components of the legal health record. It is not the complete legal health record.[facility]
--- OUTSIDE RECORDS SUMMARY | 2025-05-12 15:14 | XMS_ITS | Encounter Summary ---
Author Organization [facility] Address [address] [place] [address] Phone Care Team Providers Care Integrated Logistics Programs Director Name Role Phone Jose Manuel Ballesteros MD Primary Care Provider Melony Sanon MD Unavailable [phone] Selma Epstein MD, PhD Unavailable [phone] Encounter Details Date Type Department Care Team (Late st Contact Info) Description 11/16/2018 Procedure Pass [facility] Periop [address] [place] [address] Social History Tobacco Use Types Packs/Day Years [...] on filedocumented in this encounter Care Teams Integrated Logistics Programs Director Relationship Specialty Start Date End Date Jose Manuel Ballesteros MD [address] [place] [address] [place] [address] PCP - General Internal Medicine 09/21/18 Melony Sanon MD [address] [place] [address] [email or web address] Referring Physician Hematology and Oncology 09/21/18 Selma Epstein MD, PhD [address] [place] [phone] [email or web address] u Surgeon Surgical Oncology 09/21/18 documented as of this encounter Additional Source Comments The information contained in this document represents components of the legal health record. It is not the complete legal health record.[facility]
--- OUTSIDE RECORDS SUMMARY | 2025-05-12 15:15 | XMS_ITS | Encounter Summary ---
Author Organization [facility] Address [address] [place] [address] Phone Care Team Providers Care Sailing Instructor Name Role Phone Jose Manuel Ballesteros MD Primary Care Provider Melony Sanon MD Unavailable [phone] Selma Epstein MD, PhD Unavailable [phone] Encounter Details Date Type Department Care Team (Late st Contact Info) Description 02/03/2023 Procedure Pass [facility] MR Imaging, [place] [address] [address] Social History Tobacco Use Types Packs/Day Years [...] on filedocumented in this encounter Care Teams Sailing Instructor Relationship Specialty Start Date End Date Jose Manuel Ballesteros MD [address] [place] [address] [place] [address] PCP - General Internal Medicine 09/21/18 Melony Sanon MD [address] [place] [phone] [email or web address] Referring Physician Hematology and Oncology 09/21/18 Selma Epstein MD, PhD [address] [place] [phone] [email or web address] u Surgeon Surgical Oncology 09/21/18 documented as of this encounter Additional Source Comments The information contained in this document represents components of the legal health record. It is not the complete legal health record.[facility]
--- OUTSIDE RECORDS SUMMARY | 2025-05-12 15:15 | XMS_ITS | Clinical Summary ---
Author Organization [employer] [facility] Address [address] [place] [address] Phone Care Team Providers Care Door Closer Mechanic Name Role Phone Jose Manuel Ballesteros MD Primary Care Provider Melony Sanon MD Unavailable [phone] Selma Epstein MD, PhD Unavailable Allergies No known active allergies Medications simvastatin (ZOCOR) 40 MG tablet Take 40 [...] tumor at the tail of pancreas Immunizations Immunization Administration Dates Next Due Hib,PRP-T 10/23/2018 Meningococcal [...] 69 03/08/2024 10:33 AM EDT Temperature 36.6 C (97.8 F) 03/08/2024 10:33 AM EDT Respiratory Rate 18 03/08/2024 10:3 [...] LIPID PANEL 1965 DEPRESSION SCREENING 1978 HEPATITIS C SCREENING 02/15/1984 HIV ONE-TIME SCREENING (18-65 YEARS) 02/15/1984 COLOGUARD 2011 COLONOSCOPY 2011 COLORECTAL CANCER SCREENING 2011 FIT TEST 2011 FOBT 2011 SIGMOIDOSCOPY 2011 VIRTUAL COLONOSCOPY 2011 ZOSTER VACCINES (1 of 2) 02/15/2016 PNEUMOCOCCAL VACCINES (50+ years) (2 of 2 - PPSV23) 10/23/2019 10/23/2018 SCREENING FOR DIABETES 11/22/2021 11/22/2018 COVID-19 VACCINE ( season) 2024 10/07/2020, 09/16/2020 BLOOD PRESSURE 09/07/2024 03/08/2024 INFLUENZA VACCINE (#1) 2025 0, 07/08/2019, 06/29/2018, Additional history exists Adult Td,Tdap Booster 01/19/2027 01/19/2017 HIB VACCINES [...] age to complete this topic MENINGOCOCCAL VACCINES (B) Aged Out N o longer eligible based on patient's age to complete this topic Medical Devices Implanted Type Area Oliving Machine Operator Device Identifier Shelf Expiration Date Model / Serial / Lot Kit Stent 4.0 5fr 5.0 7.0cm Pancreatic Advanix Single Pigtail Pushing Catheter - [id number] Implanted:Qty: 1 on 01/11/2019 by Harley Fairbanks MD at [facility] N/A: Pancreas [employer] 05/28/2020 [id number] / / [id number] Insurance Class Messenger [employer]ENEFITS ADMINISTRATORS [employer] ADMINISTRATORS [employer] ADMINISTRATORS [employer] ADMINISTRATORS [employer] ADMINISTRATORS [employer] ADMINISTRATORS [employer] ADMINISTRATORS [employer] ADMINISTRATORS Advance Directives For more information, please contact: [phone] (9AM - 5PM [facility], Monday-Monday) Documents on File Type Date Recorded Patient Historical Records Administrator Expl anation Healthcare Proxy 11/18/2018 9:37 AM SIGNED ON 11/16/2018 * Full Code (Presumed) (Latest Code Status on File) Date Activated Date Inactivated Comments 11/16/2018 2:15 PM 11/22/2018 5:18 PM * Full Code (Presumed) Date Activated Date Inactivated Comments 11/16/2018 6:47 AM 11/16/2018 2:15 PM Care Teams Door Closer Mechanic Relationship Specialty Start Date End Date Jose Manuel Ballesteros MD [address] [place] [address] [address] PCP - General Internal Medicine 09/21/18 Melony Sanon MD [address] [place] [address] [email or web address] Referring Physician Hematology and Oncology 09/21/18 Selma Epstein MD, PhD [address] [place] [phone] [email or web address] Surgeon Surgical Oncology 09/21/18 Additional Source Comments The information contained in this document represents components of the legal health record. It is not the complete legal health record.[facility]
--- OUTSIDE RECORDS SUMMARY | 2025-05-12 15:15 | XMS_ITS | Encounter Summary ---
Author Organization [facility] Address [address] [place] [address] Phone Care Team Providers Care Strap Cutter Name Role Phone Jose Manuel Ballesteros MD Primary Care Provider Melony Sanon MD Unavailable [phone] Selma Epstein MD, PhD Unavailable [phone] Encounter Details Date Type Department Care Team (Late st Contact Info) Description 10/12/2018 Procedure Pass [facility] [address] [place] [address] Social History Tobacco Use Types Packs/Day Years [...] on filedocumented in this encounter Care Teams Strap Cutter Relationship Specialty Start Date End Date Jose Manuel Ballesteros MD [address] [place] [address] [place] [address] PCP - General Internal Medicine 09/21/18 Melony Sanon MD [address] [place] [phone] [email or web address] Referring Physician Hematology and Oncology 09/21/18 Selma Epstein MD, PhD [address] [place] [phone] [email or web address] u Surgeon Surgical Oncology 09/21/18 documented as of this encounter Additional Source Comments The information contained in this document represents components of the legal health record. It is not the complete legal health record.[facility]
--- OUTSIDE RECORDS SUMMARY | 2025-05-12 15:15 | XMS_ITS | Encounter Summary ---
Author Organization [facility] Address [address] [place] [address] Phone Care Team Providers Care Screen Printing Paster Name Role Phone Jose Manuel Ballesteros MD Primary Care Provider Melony Sanon MD Unavailable [phone] Selma Epstein MD, PhD Unavailable [phone] Reason for Referral * MRI/CAT Scan - Closed Specialty Diagnoses / Procedures Referred By Contac t Referred To Contact Procedures CT Abdomen/Pelvis Outside (No Interpretation) Selma Epstein MD, PhD Phone: tel: fax: mailto:[email or web address] Referral ID Status Reason Start Date Expiration Date Visits Re quested Visits Authorized [id number] Closed 10/12/2018 10/12/2019 1 1 * MRI/CAT Scan - Closed Specialty Diagnoses / Procedures Referred By Contac t Referred To Contact Procedures MRI Abdomen Outside (No Interpretation) Selma Epstein MD, PhD Phone: tel: fax: mailto:[email or web address] Referral ID Status Reason Start Date Expiration Date Visits Re quested Visits Authorized [id number] Closed 10/12/2018 10/12/2019 1 1 Encounter Details Date Type Department Care Team (Late st Contact Info) Description 10/12/2018 Transcribe Orders [facility] [address] [place] [address] [address] [place] [address] [place] [phone] [email or web address] Social History Tobacco Use Types Packs/Day [...] PACS storage only and not for interpretation. us Selma Epstein MD, PhD IMG OUTSIDE IMAGING W/OUT IN TERPRETATION Final Result * MRI Abdomen Outside (No Interpretation) (10/12/2018 11:46 AM EST) Narrative [facility] - 10/12/2018 11:46 AM EST This study is for PACS storage only and not for interpretation. us Selma Epstein MD, PhD IMG OUTSIDE IMAGING W/OUT IN TERPRETATION Final Result [facility] documented in this encounter Visit Diagnoses Not on filedocumented in this encounter Care Teams Screen Printing Paster Relationship Specialty Start Date End Date Jose Manuel Ballesteros MD [address] [place] [address] [place] [address] PCP - General Internal Medicine 09/21/18 Melony Sanon MD [address] [place] [address] [email or web address] Referring Physician Hematology and Oncology 09/21/18 Selma Epstein MD, PhD [address] [place] [phone] [email or web address] u Surgeon Surgical Oncology 09/21/18 documented as of this encounter Additional Source Comments The information contained in this document represents components of the legal health record. It is not the complete legal health record.[facility]
--- OUTSIDE RECORDS SUMMARY | 2025-05-12 15:15 | XMS_ITS | Encounter Summary ---
Author Organization [facility] Address [address] [place] [address] Phone Care Team Providers Care Behavioral Health Consultant Name Role Phone Jose Manuel Ballesteros MD Primary Care Provider Melony Sanon MD Unavailable [phone] Selma Epstein MD, PhD Unavailable [phone] Encounter Details Date Type Department Care Team (Late st Contact Info) Description 10/04/2018 Procedure Pass [facility] Endoscopy Department [address] [place] [address] Social History Tobacco Use Types Packs/Day Years [...] on filedocumented in this encounter Care Teams Behavioral Health Consultant Relationship Specialty Start Date End Date Jose Manuel Ballesteros MD [address] [place] [address] [place] [address] PCP - General Internal Medicine 09/21/18 Melony Sanon MD [address] [place] [address] [email or web address] Referring Physician Hematology and Oncology 09/21/18 Selma Epstein MD, PhD [address] [place] [phone] [email or web address] Surgeon Surgical Oncology 09/21/18 documented as of this encounter Additional Source Comments The information contained in this document represents components of the legal health record. It is not the complete legal health record.[facility]
== END ==
LOC: HO.CARD 13:54
PROVIDERS: Visit Provider Internal Medicine Cardiovascular Disease
DX: I10 Essential (primary) hypertension (principal); I71.21 Aneurysm of the ascending aorta, without rupture
CPT/HCPCS: 93306

== ENCOUNTER → 2025-05-12 13:56 | Outpatient (BNV) | payer OTHER, SELFPAY | PROVIDERS: Visit Provider Internal Medicine | DX: I71.21 Aneurysm of the ascending aorta, without rupture (principal) | CPT/HCPCS: 93306 ==

== ENCOUNTER 2025-05-15 11:16 | Outpatient (AMB) | payer OTHER, SELFPAY ==
--- OUTSIDE RECORDS SUMMARY | 2023-11-21 03:30 | XMS_ITS ---
Author Organization [facility] Address [address] [place] [address] Care Team Providers Care Supervisor Hardboard Name Role Phone Lesli (RETIRED) Jose Manuel PARKS Primary Care Provide r Mike Yost Jr, Kulwinder Mckeon REASON FOR VISIT screening Problems Problem Type SNOMED Code ICD Code Onset Dates Problem Status W/U Status Risk Notes Problem Personal history of colonic polyps (Z86.010) Active confirmed Encounters Encounter Location Date Provider [place] [facility] [place] [address] [place] [id number] 11/21/2023 Kulwinder Yost Jr Encounter for screening [...] Notes * NUVIA SPAULDINGDOB:[birth year] (60 yo M)Acc No.[id number]:11/21/2023 Progress Notes Patient: Angelica EPPS NUVIA Obando Provider: Del Yost MD :1965 A ge:58 Y S ex:Male Date:11/21/2023 Address:[address] [place], [place] Pcp:Jose Manuel Ballesteros (RETIRED )MD Subjective: * [...] 11/21/2023 Generated for Ricardo narayanan/Keyona/Tashiitting on: 0 05/15/2025 12:35 PM EDT
--- NOTE | 2025-05-15 11:34 | MHC.OFFVIS ---
Vital Signs 05/15/25 11:35 Height 5 ft 9 in Weight 291 lb 0.163 oz BMI 43.0 BP 120/80 Blood Pressure Location Lt brachial Position Sitting Pulse 76 Intake Visit Reasons: 1 year f/u with EKG Intake Note: 1 year follow-up with ekg after echo feeling good Chief Meter Reader Required: No Allergies No Known Allergies (No Known Allergies*) Allergy (Verified 04/27/25 18:59) Medication List - Last Reconciled 05/15/25 by Damien Sheldon MD celecoxib 200 mg PO ONCE geriatric nbniruev-jcre-ddew (Centravites 50 Plus tablet) 1 tab PO DAILY losartan 25 mg PO BEDTIME omeprazole 40 mg PO BEDTIME@2100 30 days [Raised toilet seat As directed] rosuvastatin 20 mg PO DAILY walker Folding Front wheeled walker HPI Comments Details: Marcus comes for follow-up. He has been doing well from cardiac perspective. He remains at high level of activity and does bicycling without any symptoms of exertional chest pain or shortness of breath. Blood pressure is generally been remained control. His main concern has been losing weight. He has tried in his not been very successful. He denies any lightheadedness, syncope. No prolonged palpitation irregular heartbeat. His echocardiogram shows stable ascending aortic enlargement. [facility] Medical History COVID-19 Back pain Arthritis GERD (gastroesophageal reflux disease) Sleep apnea Incomplete right bundle branch block Tubular adenoma Insulinoma Hyperlipidemia Seasonal allergies Ascending aortic aneurysm Primary pancreatic neuroendocrine tumor Hypercholesteremia Hypertension Surgical History History of esophagogastroduodenoscopy (EGD) History of partial pancreatectomy H/O colonoscopy (~11/21/23) History of incisional hernia repair (08/23/23) Personal history of (corrected) hypospadias History of pancreatectomy Family History Mother Breast cancer Father Diabetes Social History Household Members: Spouse and Children Housing: House Are you a primary pet care assistant to a significant other at home: No Do you presently have visiting nurse or other home services: No Alcohol intake: current Alcohol intake frequency: holidays/special occasions only Patient Tobacco Use Status: Never used Tobacco e-Cigarette/Vaping Use: Never Used Advance Directives Date on File: 10/03/24 service: No 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al status: employed 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 Cognitive needs: No Hearing needs: No Vision needs: No Review of Systems Const Denies chills, Denies fatigue, Denies fever(s), Denies frequent falls, Denies weakness, Denies weight gain and Denies weight loss ENT Denies dizziness Card Denies chest pain, Denies leg edema, Denies lightheadedness, Denies palpitations, Denies dyspnea, Denies dyspnea on exertion, Denies orthopnea and Denies other (loss of consciousness) Resp Denies cough, Denies dyspnea and Denies dyspnea on exertion GI Denies hematochezia and Denies change in stool character Musc Denies abnormal gait, Denies muscle weakness, Denies numbness, Denies radiating pain into limb and Denies tingling Neuro Denies Abnormal speech present, Denies abnormal gait, Denies dizziness, Denies frequent falls, Denies numbness, Denies tingling and Denies weakness Endo Denies fatigue and Denies palpitations Physical Exam Vital Signs: Last Vital Signs Pulse 76 05/15/25 11:35 BP 120/80 05/15/25 11:35 BMI result Body Mass Index 43.0 Const General: cooperative, comfortable, no acute distress, well developed, alert, awake and Physically active Nutritional Appearance: obese Orientation/consciousness: patient oriented x3 Limitations: no limitations HEENT Head: Yes normocephalic and Yes atraumatic Neck Neck: Yes trachea midline, Yes supple and Yes no JVD Resp Effort & Inspection: normal respiratory effort Auscultation: clear to auscultation bilaterally Cardio Jugular venous distension: no JVD Palpation: normal PMI Rate: regular rate Rhythm: regular rhythm Heart sounds: S1 normal heart sound present, S2 normal heart sound present, no click, no gallops, no murmurs and no rubs Skin General skin exam: no rashes or lesions noted Neuro General: patient oriented x3 and no focal motor deficits Speech: No Abnormal speech present Extrem General: Yes no clubbing, cyanosis or edema Psych Appearance: grossly normal Office Procedures EKG Details: EKG shows normal sinus rhythm with low-voltage QRS at 76 beats per minute 01569-Eookhdtqqsalgvxzi, Complete Assessment & Plan Assessment & Plan (1) Ascending aortic aneurysm: Code(s): I71.21 - Aneurysm of the ascending aorta, without rupture Category: Medical Plan: Mild ascending aortic aneurysm which has remained stable for the last few years. Continue monitor by echocardiogram on annual basis. We discussed about management. Requires no surgical intervention at this point time. Continue aggressive blood pressure control, see below. Advised to avoid sudden strenuous isometric exercise. (2) Hypertension: Code(s): I10 - Essential (primary) hypertension Category: Medical Plan: Hypertension which is currently well optimized advised to monitor blood pressure at home maintain a log. Goal blood pressure less than 130/84. Low-salt diet was discussed. Continue statin therapy with target goal LDL less than 100 mg/dL. Encouraged to participate in aggressive weight loss program. He said this is his main challenge right now. We discussed about various options mostly diet controlled. He understands and agrees. Will follow up in the clinic in 1 year's time, sooner PRN. Thank you for allowing me to partake in his care Medications: Changed From celecoxib 200 mg PO BID 60 ea 3RF To celecoxib 200 mg PO ONCE Coding Level of Care Code Est Pt Level 4 (59351) Complex EM visit Add On G2211 Diagnoses Ascending aortic aneurysm I71.21 Hypertension I10 CPT Codes EKG - CPT: 29908-Ohaixamaqusovvuue, Complete ([id number])
[2025-05-15 11:35] VITALS: BP 120/80; PULSE 76; BMI 43.0
--- OUTSIDE RECORDS SUMMARY | 2025-05-15 12:36 | XMS_ITS | Encounter Summary ---
Author Organization [facility] Address [address] [place] [address] Phone Care Team Providers Care Power Press Operator Name Role Phone Jose Manuel Ballesteros MD Primary Care Provider Melony Sanon MD Unavailable [phone] Selma Epstein MD, PhD Unavailable [phone] Encounter Details Date Type Department Care Team (Late st Contact Info) Description 01/11/2019 Procedure Pass [facility] Endoscopy Department [address] [place] [address] Social History Tobacco Use Types Packs/Day Years [...] on filedocumented in this encounter Care Teams Power Press Operator Relationship Specialty Start Date End Date Jose Manuel Ballesteros MD [address] [place] [address] [place] [address] PCP - General Internal Medicine 09/21/18 Melony Sanon MD [address] [place] [address] [email or web address] Referring Physician Hematology and Oncology 09/21/18 Selma Epstein MD, PhD [address] [place] [address] [email or web address] Surgeon Surgical Oncology 09/21/18 documented as of this encounter Additional Source Comments The information contained in this document represents components of the legal health record. It is not the complete legal health record.[facility]
--- OUTSIDE RECORDS SUMMARY | 2025-05-15 12:36 | XMS_ITS | Encounter Summary ---
Author Organization [facility] Address [address] [place] [address] Phone Care Team Providers Care Hand Expansion Envelope Maker Name Role Phone Jose Manuel Ballesteros MD Primary Care Provider Melony Sanon MD Unavailable [phone] Selma Epstein MD, PhD Unavailable [phone] Encounter Details Date Type Department Care Team (Late st Contact Info) Description 03/08/2019 Procedure Pass [facility] Endoscopy Department [address] [place] [address] Social History Tobacco Use Types Packs/Day Years [...] on filedocumented in this encounter Care Teams Hand Expansion Envelope Maker Relationship Specialty Start Date End Date Jose Manuel Ballesteros MD [address] [place] [address] [place] [address] PCP - General Internal Medicine 09/21/18 Melony Sanon MD [address] [place] [address] [email or web address] Referring Physician Hematology and Oncology 09/21/18 Selma Epstein MD, PhD [address] [place] [address] [email or web address] Surgeon Surgical Oncology 09/21/18 documented as of this encounter Additional Source Comments The information contained in this document represents components of the legal health record. It is not the complete legal health record.[facility]
--- OUTSIDE RECORDS SUMMARY | 2025-05-15 12:36 | XMS_ITS | Patient Health Record ---
Author Organization [facility] Address [address] [place] [address] Care Team Providers Care Dust Collector Name Role Phone Lesli (RETIRED) Jose Manuel [...] Problem Status W/U Status Risk Notes Problem [id number] Colon cancer screening (Z12.11) Active confirmed Problem History of polyp of colon (situation) (500566212) Personal history of colonic polyps (Z86.010) Active confirmed Problem 000735201 Encounter for other preprocedural examination (Z01.818) Active confirmed Plan Of Treatment Future Test Test Name Order Date COLONOSCOPY 01/12/2017 COLONOSCOPY 10/05/2023 Insurance Providers Payer Name Payer Address Payer Phone Subscriber Number Group Number Insured Name Patient Relationship to Insured Coverage Start Date Coverage End Date [employer] [place] [address] [address] [place] [address] [id number] NUVIA SPAULDING Self - patient is the insured Medical (General) History Medical History History ICD Code Hypertension Hyperlipidemia Seasonal allergies Aortic aneurysm Insulinoma Colonoscopy 04/03, tubular adenoma, five- year followup Surgical History Surgery Date(Month/Year) ureteroplasy 10/04/1979 imbilical hernia repair with mesh - dr. carlos 08/23/2023 Distal pancreatectomy for insulinoma
--- OUTSIDE RECORDS SUMMARY | 2025-05-15 12:36 | XMS_ITS | Encounter Summary ---
Author Organization [facility] Address [address] [place] [address] Phone Care Team Providers Care Labor Relations Officer Name Role Phone Jose Manuel Ballesteros MD Primary Care Provider Melony Sanon MD Unavailable [phone] Selma Epstein MD, PhD Unavailable [phone] Encounter Details Date Type Department Care Team (Late st Contact Info) Description 02/03/2023 Procedure Pass [facility] MR Imaging, [place] [address] [place] [address] Social History Tobacco Use Types Packs/Day Years [...] filedocumented in this encounter Care Teams Labor Relations Officer Relationship Specialty Start Date End Date Jose Manuel Ballesteros MD [address] [place] [address] [place] [address] PCP - General Internal Medicine 09/21/18 Melony Sanon MD [address] [place] [address] [email or web address] Referring Physician Hematology and Oncology 09/21/18 Selma Epstein MD, PhD [address] [place] [address] [email or web address] Surgeon Surgical Oncology 09/21/18 documented as of this encounter Additional Source Comments The information contained in this document represents components of the legal health record. It is not the complete legal health record.[facility]
--- OUTSIDE RECORDS SUMMARY | 2025-05-15 12:36 | XMS_ITS | Clinical Summary ---
Author Organization [facility] Address [address] [place] [address] Phone Care Team Providers Care Chuck Boner Name Role Phone Jose Manuel Ballesteros MD Primary Care Provider Melony Sanon MD Unavailable [phone] Selma Epstein MD, PhD Unavailable Allergies [...] this topic Medical Devices Implanted Type Area Slip Cover Sewer Device Identifier Shelf Expiration Date Model / Serial / Lot Kit Stent 4.0 5fr 5.0 7.0cm Pancreatic Advanix Single Pigtail Pushing Catheter - [id number] Implanted:Qty: 1 on 01/11/2019 by Harley Fairbanks MD at [facility] N/A: Pancreas [employer] 05/28/2020 [id number] / / [id number] [employer] BENEFITS ADMINISTRATORS AfterSteps ADMINISTRATORS GRANGER Neverware ADMINISTRATORS AfterSteps ADMINISTRATORS AfterSteps ADMINISTRATORS AfterSteps ADMINISTRATORS AfterSte[employer] ADMINISTRATORS AfterSteps ADMINISTRATORS Advance Directives For more information, please contact: [phone] (9AM - 5PM [facility], Monday-Monday) Documents on File Type Date Recorded Patient Furniture Servicer Expl anation Healthcare Proxy 11/18/2018 9:37 AM SIGNED ON 11/16/2018 * Full Code (Presumed) (Latest Code Status on File) Date Activated Date Inactivated Comments 11/16/2018 2:15 PM 11/22/2018 5:18 PM * Full Code (Presumed) Date Activated Date Inactivated Comments 11/16/2018 6:47 AM 11/16/2018 2:15 PM Care Teams Chuck Boner Relationship Specialty Start Date End Date Jose Manuel Ballesteros MD [address] [place] [address] [address] PCP - General Internal Medicine 09/21/18 Melony Sanon MD [address] [place] [address] [email or web address] Referring Physician Hematology and Oncology 09/21/18 Selma Epstein MD, PhD [address] [place] [address] [email or web address] u Surgeon Surgical Oncology 09/21/18 Additional Source Comments The information contained in this document represents components of the legal health record. It is not the complete legal health record.[facility]
--- OUTSIDE RECORDS SUMMARY | 2025-05-15 12:36 | XMS_ITS | Encounter Summary ---
Author Organization [facility] Address [address] [place] [address] Phone Care Team Providers Care Team Otr Truck Driver Name Role Phone Jose Manuel Ballesteros MD Primary Care Provider Melony Sanon MD Unavailable [phone] Selma Epstein MD, PhD Unavailable [phone] Encounter Details Date Type Department Care Team (Late st Contact Info) Description 11/16/2018 Procedure Pass [facility] Periop [address] [place] [address] Social History Tobacco Use Types Packs/Day Years [...] on filedocumented in this encounter Care Teams Team Otr Truck Driver Relationship Specialty Start Date End Date Jose Manuel Ballesteros MD [address] [place] [address] [place] [address] PCP - General Internal Medicine 09/21/18 Melony Sanon MD [address] [place] [address] [email or web address] Referring Physician Hematology and Oncology 09/21/18 Selma Epstein MD, PhD [address] [place] [address] [email or web address] Surgeon Surgical Oncology 09/21/18 documented as of this encounter Additional Source Comments The information contained in this document represents components of the legal health record. It is not the complete legal health record.[facility]
--- OUTSIDE RECORDS SUMMARY | 2025-05-15 12:36 | XMS_ITS | Encounter Summary ---
Author Organization [facility] Address [address] [place] [address] Phone Care Team Providers Care Vice President Quality Improvement Name Role Phone Jose Manuel Ballesteros MD Primary Care Provider Melony Sanon MD Unavailable [phone] Selma Epstein MD, PhD Unavailable [phone] Reason for Referral * MRI/CAT Scan - Closed Specialty Diagnoses / Procedures Referred By Contac t Referred To Contact Procedures CT Abdomen/Pelvis Outside (No Interpretation) Selma Epstein MD, PhD Phone: tel: fax: mailto:[email or web address] Referral ID Status Reason Start Date Expiration Date Visits Re quested Visits Authorized [id number] Closed 10/12/2018 10/12/2019 1 1 * MRI/CAT Scan - Closed Specialty Diagnoses / Procedures Referred By Contac t Referred To Contact Procedures MRI Abdomen Outside (No Interpretation) Selma Epstein MD, PhD Phone: tel: fax: mailto:[email or web address] Referral ID Status Reason Start Date Expiration Date Visits Re quested Visits Authorized [id number] Closed 10/12/2018 10/12/2019 1 1 Encounter Details Date Type Department Care Team (Late st Contact Info) Description 10/12/2018 Transcribe Orders [facility] [address] [place] [address] [facility] [place] [address] [place] [address] [email or web address] Social History Tobacco Use Types Packs/Day Years [...] (No Interpretation) (10/12/2018 11:46 AM EST) Narrative [facility] - 10/12/2018 11:46 AM EST This study is for PACS storage only and not for interpretation. us Selma Epstein MD, PhD IMG OUTSIDE IMAGING W/OUT IN TERPRETATION Final Result [facility] documented in this encounter Visit Diagnoses Not on filedocumented in this encounter Care Teams Vice President Quality Improvement Relationship Specialty Start Date End Date Jose Manuel Ballesteros MD [address] [place] [address] [place] [address] PCP - General Internal Medicine 09/21/18 Melony Sanon MD [address] [place] [address] [email or web address] Referring Physician Hematology and Oncology 09/21/18 Selma pEstein MD, PhD [address] [place] [address] [email or web address] Surgeon Surgical Oncology 09/21/18 documented as of this encounter Additional Source Comments The information contained in this document represents components of the legal health record. It is not the complete legal health record.[facility]
--- OUTSIDE RECORDS SUMMARY | 2025-05-15 12:36 | XMS_ITS | Encounter Summary ---
Author Organization [facility] Address [address] [place] [address] Phone Care Team Providers Care Lockstitch Waistband Setter Name Role Phone Jose Manuel Ballesteros MD Primary Care Provider Melony Sanon MD Unavailable [phone] Selma Epstein MD, PhD Unavailable [phone] Encounter Details Date Type Department Care Team (Late st Contact Info) Description 10/04/2018 Procedure Pass [facility] Endoscopy Department [address] [place] [address] Social History Tobacco Use Types Packs/Day Years [...] on filedocumented in this encounter Care Teams Lockstitch Waistband Setter Relationship Specialty Start Date End Date Jose Manuel Ballesteros MD [address] [place] [address] [place] [address] PCP - General Internal Medicine 09/21/18 Melnoy Sanon MD [address] [place] [address] [email or web address] Referring Physician Hematology and Oncology 09/21/18 Selma Epstein MD, PhD [address] [place] [address] [email or web address] Surgeon Surgical Oncology 09/21/18 documented as of this encounter Additional Source Comments The information contained in this document represents components of the legal health record. It is not the complete legal health record.[facility]
--- OUTSIDE RECORDS SUMMARY | 2025-05-15 12:36 | XMS_ITS | Encounter Summary ---
Author Organization [facility] Address [address] [place] [address] Phone Care Team Providers Care Record Changer Name Role Phone Jose Manuel Ballesteros MD Primary Care Provider Melony Sanon MD Unavailable [phone] Selma Epstein MD, PhD Unavailable [phone] Encounter Details Date Type Department Care Team (Late st Contact Info) Description 10/12/2018 Procedure Pass [facility] [address] [place] [address] Social History Tobacco Use Types Packs/Day Years [...] on filedocumented in this encounter Care Teams Record Changer Relationship Specialty Start Date End Date Jose Manuel Ballesteros MD [address] [place] [address] [place] [address] PCP - General Internal Medicine 09/21/18 Melony Sanon MD [address] [place] [address] [email or web address] Referring Physician Hematology and Oncology 09/21/18 Selma Epstein MD, PhD [address] [place] [address] [email or web address] Surgeon Surgical Oncology 09/21/18 documented as of this encounter Additional Source Comments The information contained in this document represents components of the legal health record. It is not the complete legal health record.[facility]
== END 2025-05-15 12:00 | disposition home or self-care (01) ==
LOC: HO.HCS 11:16
PROVIDERS: PCP Internal Medicine; Visit Provider Internal Medicine Cardiovascular Disease
DX: I71.21 Aneurysm of the ascending aorta, without rupture (principal); I10 Essential (primary) hypertension
CPT/HCPCS: 93010; 99214

== ENCOUNTER → 2025-05-15 11:16 | Outpatient (BNVA) | payer OTHER, SELFPAY | PROVIDERS: PCP Internal Medicine; Visit Provider Internal Medicine Cardiovascular Disease | DX: I10 Essential (primary) hypertension (principal) | CPT/HCPCS: 93005 ==

== ENCOUNTER 2025-08-12 16:05 | Outpatient (REF) | payer OTHER, SELFPAY ==
[2025-08-12 17:16] LABS: Hematocrit 43.0 % (42.0-52.0); Hemoglobin 14.4 g/dl (14.0-18.0); Mean Corpuscular HGB Conc 33.5 g/dl (31.0-36.0); Mean Corpuscular Hemoglobin 32.1 pg (27.0-33.0); Mean Corpuscular Volume 96.0 fL (80.0-98.0); NRBC Abs Auto 0.000 X10*3/uL (0.0-0.012); NRBC Pct Auto 0.0 /100WBC (0.0-0.2); Platelet Count 337 X10*3/uL (160-400); Red Blood Count 4.48 X10*6/uL (4.60-5.80); White Blood Count 9.9 X10*3/uL (4.8-10.8)
[2025-08-12 17:46] LABS: Alanine Aminotransferase 31 U/L (0-40); Albumin Level 4.6 g/dL (3.5-5.0); Alkaline Phosphatase 62 U/L (39-117); Anion Gap 11 (12-20); Aspartate Amino Transferase 27 U/L (5-37); Blood Urea Nitrogen 19 mg/dL (9-16); Calcium 9.1 mg/dL (8.4-10.2); Carbon Dioxide 25 mmol/L (22-29); Chloride 109 mmol/L (96-108); Cholesterol 162 mg/dL (<200); Estimated Glomerular Filt Rate 55; HDL Cholesterol 38 mg/dL (>40); Potassium 3.9 mmol/L (3.3-5.1); Sodium 141 mmol/L (135-145); Total Protein 7.4 g/dL (6.5-8.0); Triglycerides 279 mg/dL (<150)
[2025-08-12 17:58] LABS: Prostate Specific Antigen 2.70 ng/mL (<0.05-4.0)
[2025-08-12 18:06] LABS: Thyroid Stimulating Hormone 0.89 uIU/mL (0.32-4.0)
--- OUTSIDE RECORDS SUMMARY | 2025-08-12 19:26 | XMS_ITS | Encounter Summary ---
Author Organization [facility] Address [address] [place] [address] Phone Care Team Providers Care Radiology Director Name Role Phone Jose Manuel Ballesteros MD Primary Care Provider Melony Sanon MD Unavailable [phone] Selma Epstein MD, PhD Unavailable [phone] Reason for Referral * MRI/CAT Scan - Closed Specialty Diagnoses / Procedures Referred By Contac t Referred To Contact Procedures CT Abdomen/Pelvis Outside (No Interpretation) Selma Epstein MD, PhD Phone: tel: fax: mailto:[email or web address] Referral ID Status Reason Start Date Expiration Date Visits Re quested Visits Authorized [id number] Closed 10/12/2018 10/12/2019 1 1 * MRI/CAT Scan - Closed Specialty Diagnoses / Procedures Referred By Contac t Referred To Contact Procedures MRI Abdomen Outside (No Interpretation) Selma Epstein MD, PhD Phone: tel: fax: mailto:[email or web address] Referral ID Status Reason Start Date Expiration Date Visits Re quested Visits Authorized [id number] Closed 10/12/2018 10/12/2019 1 1 Encounter Details Date Type Department Care Team (Late st Contact Info) Description 10/12/2018 Transcribe Orders [facility] [address] [place] [address] [facility] [place] [address] [place] [address] [email or web address] Social History Tobacco Use Types Packs/Day Years [...] (No Interpretation) (10/12/2018 11:46 AM EST) Narrative [facility] - 10/12/2018 11:46 AM EST This study is for PACS storage only and not for interpretation. us Selma Epstein MD, PhD IMG OUTSIDE IMAGING W/OUT IN TERPRETATION Final Result [facility] documented in this encounter Visit Diagnoses Not on filedocumented in this encounter Care Teams Radiology Director Relationship Specialty Start Date End Date Jose Manuel Ballesteros MD [address] [place] [address] [place] [address] PCP - General Internal Medicine 09/21/18 Melony Sanon MD [address] [place] [address] [email or web address] Referring Physician Hematology and Oncology 09/21/18 Selma Epstein MD, PhD [address] [place] [address] [email or web address] u Surgeon Surgical Oncology 09/21/18 documented as of this encounter Additional Source Comments The information contained in this document represents components of the legal health record. It is not the complete legal health record.[facility]
--- OUTSIDE RECORDS SUMMARY | 2025-08-12 19:26 | XMS_ITS | Patient Health Record ---
Author Organization [facility] Address [address] [place] [id number] Care Team Providers Care Chief Orthoptist Name Role Phone Lesli (RETIRED) Jose Manuel PARKS Primary Care Provide r Kulwinder Quintana Jr Unavailable Allergies No Known Allergies Reason For Referral No Information Medications Medication SIG (Take, Route, Frequency, Duration) Notes Start Date End Date Status Losartan Potassium 25 MG Tablet TAKE 1 TABLET BY MOUTH EVERY DAY Oral; Duration: 30 Active Rosuvastatin Calcium 20 MG Tablet TAKE 1 TABLET BY MOUTH EVERY DAY PLEASE GET REPEAT LAB WORK Oral; Duration: 90 Active MiraLax (colon prep) 17 GM/SCOOP Powder mixed with Gatorade or Crystal Light Orally begin at 5:00 p.m. the day before the procedure; Duration: 1 day 10/05/2023 Active Omeprazole 40 MG Capsule Delayed Release Oral; Duration: 90 Active Social History Social History Drugs/Alcohol: Social Info Question Answer Notes Alcohol Screen Did you have a drink containing alcohol in the past year? Yes How often did you have a drink containing alcohol in the past year? 2 to 4 times a month (2 points) How many drinks did you have on a typical day when you were drinking in the past year? 1 or 2 drinks (0 point) How often did you have 6 or more drinks on one occasion in the past year? 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 [employer] Problems Problem Type SNOMED Code ICD Code Onset Dates Problem Status W/U Status Risk Notes Problem Colon cancer screening (657927693) Colon cancer screening (Z12.11) Active confirmed Problem History of polyp of colon (situation) (849635003) Personal history of colonic polyps (Z86.010) Active confirmed Problem Pre-procedure evaluation check (366359020) Encounter for other preprocedural examination (Z01.818) Active confirmed Plan Of Treatment Future Test Test Name Order Date COLONOSCOPY 01/12/2017 COLONOSCOPY 10/05/2023 Insurance Providers Payer Name Payer Address Payer Phone Subscriber Number Group Number Insured Name Patient Relationship to Insured Coverage Start Date Coverage End Date BLUE BENEFITS ADMINISTRATORS OF [place] [address] [address] [place] [address] [id number] NUVIA SPAULDING Self - patient is the insured Medical (General) History Medical History History ICD Code Hypertension Hyperlipidemia Seasonal allergies Aortic aneurysm Insulinoma Colonoscopy 04/03, tubular adenoma, five- year followup Surgical History Surgery Date(Month/Year) ureteroplasy 10/04/1979 imbilical hernia repair with mesh - dr. carlos 08/23/2023 Distal pancreatectomy for insulinoma
--- OUTSIDE RECORDS SUMMARY | 2025-08-12 19:26 | XMS_ITS | Encounter Summary ---
Author Organization [facility] Address [address] [place] [address] Phone Care Team Providers Care Assistant Store Manager Name Role Phone Jose Manuel Ballesteros MD Primary Care Provider Melony Sanon MD Unavailable [phone] Selma Epstein MD, PhD Unavailable [phone] Encounter Details Date Type Department Care Team (Late st Contact Info) Description 02/03/2023 Procedure Pass [facility] MR Imaging, [place] [address] [place] [address] Social History Tobacco Use Types Packs/Day Years [...] on filedocumented in this encounter Care Teams Assistant Store Manager Relationship Specialty Start Date End Date Jose Manuel Ballesteros MD [address] [place] [address] [place] [address] PCP - General Internal Medicine 09/21/18 Melony Sanon MD [address] [place] [address] [email or web address] Referring Physician Hematology and Oncology 09/21/18 Selma Epstein MD, PhD [address] [place] [phone] [email or web address] Surgeon Surgical Oncology 09/21/18 documented as of this encounter Additional Source Comments The information contained in this document represents components of the legal health record. It is not the complete legal health record.[facility]
--- OUTSIDE RECORDS SUMMARY | 2025-08-12 19:26 | XMS_ITS | Clinical Summary ---
Author Organization [facility] Address [address] [place] [address] Phone Care Team Providers Care Residential Air Sealing Technician Name Role Phone Jose Manuel Ballesteros MD Primary Care Provider Melony Sanon MD Unavailable [phone] Selma Epstein MD, PhD Unavailable [phone] Allergies No known active allergies Medications simvastatin [...] FOBT 2011 SIGMOIDOSCOPY 2011 VIRTUAL COLONOSCOPY 2011 RSV VACCINE (1 - Risk 50-74 years 1-dose series) 02/15/2016 ZOSTER VACCINES (1 of 2) 02/15/2016 PNEUMOCOCCAL VACCINES (50+ years) (2 of 2 - PCV20 or PCV21) 10/23/2019 10/23/2018 SCREENING FOR DIABETES 11/22/2021 11/22/2018 BLOOD PRESSURE 09/07/2024 03/08/2024 INFLUENZA VACCINE (#1) 2025 , 07/08/2019, 06/29/2018, Additional history exists COVID-19 VACCINE ( season) 2025 10/07/2020, 09/16/2020 Adult Td,Tdap Booster 01/19/2027 01/19/2017 HIB VACCINES [...] this topic Medical Devices Implanted Type Area Vocational Placement Specialist Device Identifier Shelf Expiration Date Model / Serial / Lot Kit Stent 4.0 5fr 5.0 7.0cm Pancreatic Advanix Single Pigtail Pushing Catheter - [id number] Implanted:Qty: 1 on 01/11/2019 by Harley Fairbanks MD at [facility] N/A: Pancreas [employer] 05/28/2020 [id number] / / [id number] Insurance [place] BLUE BENEFITS ADMINISTRATORS Nonpareil ADMINISTRATORS Nonpareil ADMINISTRATORS Nonpareil ADMINISTRATORS Examify BENEFITS ADMINISTRATORS Nonpareil ADMINISTRATORS Examify BENEFITS ADMINISTRATORS Our Security Team ADMINISTRATORS [employer] ADMINISTRATORS Advance Directives For more information, please contact: [phone] (9AM - 5PM [facility], Monday-Monday) Documents on File Type Date Recorded Patient Process Worker Expl anation Healthcare Proxy 11/18/2018 9:37 AM SIGNED ON 11/16/2018 * Full Code (Presumed) (Latest Code Status on File) Date Activated Date Inactivated Comments 11/16/2018 2:15 PM 11/22/2018 5:18 PM * Full Code (Presumed) Date Activated Date Inactivated Comments 11/16/2018 6:47 AM 11/16/2018 2:15 PM Care Teams Residential Air Sealing Technician Relationship Specialty Start Date End Date Jose Manuel Ballesteros MD [address] [place] [address] [address] PCP - General Internal Medicine 09/21/18 Melony Sanon MD [address] [place] [address] [email or web address] Referring Physician Hematology and Oncology 09/21/18 Selma Epstein MD, PhD [address] [place] [phone] [email or web address] u Surgeon Surgical Oncology 09/21/18 Additional Source Comments The information contained in this document represents components of the legal health record. It is not the complete legal health record.[facility]
--- OUTSIDE RECORDS SUMMARY | 2025-08-12 19:26 | XMS_ITS | Encounter Summary ---
Author Organization [facility] Address [address] [place] [address] Phone Care Team Providers Care Media Executive Name Role Phone Jose Manuel Ballesteros MD Primary Care Provider Melony Sanon MD Unavailable [phone] Selma Epstein MD, PhD Unavailable [phone] Encounter Details Date Type Department Care Team (Late st Contact Info) Description 11/16/2018 Procedure Pass [facility] Periop [address] [place] [address] Social History Tobacco Use Types Packs/Day Years [...] on filedocumented in this encounter Care Teams Media Executive Relationship Specialty Start Date End Date Jose Manuel Ballesteros MD [address] [place] [address] [place] [address] PCP - General Internal Medicine 09/21/18 Melony Sanon MD [address] [place] [address] [email or web address] Referring Physician Hematology and Oncology 09/21/18 Selma Epstein MD, PhD [address] [place] [address] [email or web address] u Surgeon Surgical Oncology 09/21/18 documented as of this encounter Additional Source Comments The information contained in this document represents components of the legal health record. It is not the complete legal health record.[facility]
--- OUTSIDE RECORDS SUMMARY | 2025-08-12 19:26 | XMS_ITS | Encounter Summary ---
Author Organization [facility] Address [address] [place] [address] Phone Care Team Providers Care Fire Code Inspector Name Role Phone Jose Manuel Ballesteros MD Primary Care Provider Melony Sanon MD Unavailable [phone] Selma Epstein MD, PhD Unavailable [phone] Encounter Details Date Type Department Care Team (Late st Contact Info) Description 01/11/2019 Procedure Pass [facility] Endoscopy Department [address] [place] [address] Social History Tobacco Use Types Packs/Day Years [...] on filedocumented in this encounter Care Teams Fire Code Inspector Relationship Specialty Start Date End Date Jose Manuel Ballesteros MD [address] [place] [address] [place] [address] PCP - General Internal Medicine 09/21/18 Melony Sanon MD [address] [place] [address] [email or web address] Referring Physician Hematology and Oncology 09/21/18 Selma Epstein MD, PhD [address] [place] [address] [email or web address] u Surgeon Surgical Oncology 09/21/18 documented as of this encounter Additional Source Comments The information contained in this document represents components of the legal health record. It is not the complete legal health record.[facility]
--- OUTSIDE RECORDS SUMMARY | 2025-08-12 19:26 | XMS_ITS | Encounter Summary ---
Author Organization [facility] Address [address] [place] [address] Phone Care Team Providers Care Open Winder Name Role Phone Jose Manuel Ballesteros MD Primary Care Provider Melony Sanon MD Unavailable [phone] Selma Epstein MD, PhD Unavailable [phone] Encounter Details Date Type Department Care Team (Late st Contact Info) Description 10/04/[address] [facility] Endoscopy Department [address] [place] [address] Social History Tobacco Use Types Packs/Day Years [...] on filedocumented in this encounter Care Teams Open Winder Relationship Specialty Start Date End Date Jose Manuel Ballesteros MD [address] [place] [address] [place] [address] PCP - General Internal Medicine 09/21/18 Melony Sanon MD [address] [place] [address] [email or web address] Referring Physician Hematology and Oncology 09/21/18 Selma Epstein MD, PhD [address] [place] [phone] [email or web address] u Surgeon Surgical Oncology 09/21/18 documented as of this encounter Additional Source Comments The information contained in this document represents components of the legal health record. It is not the complete legal health record.[facility]
--- OUTSIDE RECORDS SUMMARY | 2025-08-12 19:26 | XMS_ITS | Encounter Summary ---
Author Organization [facility] Address [address] [place] [address] Phone Care Team Providers Care Supervisor Laboratory Animal Facility Name Role Phone Jose Manuel Ballesteros MD Primary Care Provider Melony Sanon MD Unavailable [phone] Selma Epstein MD, PhD Unavailable [phone] Encounter Details Date Type Department Care Team (Late st Contact Info) Description 03/08/2019 Procedure Pass [facility] Endoscopy Department [address] [place] [address] Social History Tobacco Use Types Packs/Day Years [...] on filedocumented in this encounter Care Teams Supervisor Laboratory Animal Facility Relationship Specialty Start Date End Date Jose Manuel Ballesteros MD [address] [place] [address] [place] [address] PCP - General Internal Medicine 09/21/18 Melony Sanon MD [address] [place] [address] [email or web address] Referring Physician Hematology and Oncology 09/21/18 Selma Epstein MD, PhD [address] [place] [phone] [email or web address] u Surgeon Surgical Oncology 09/21/18 documented as of this encounter Additional Source Comments The information contained in this document represents components of the legal health record. It is not the complete legal health record.[facility]
--- OUTSIDE RECORDS SUMMARY | 2025-08-12 19:26 | XMS_ITS | Encounter Summary ---
Author Organization [facility] Address [address] [place] [address] Phone Care Team Providers Care Equity Manager Name Role Phone Jose Manuel Ballesteros MD Primary Care Provider Melony Sanon MD Unavailable [phone] Selma Epstein MD, PhD Unavailable [phone] Encounter Details Date Type Department Care Team (Late st Contact Info) Description 10/12/2018 Procedure Pass [facility] [address] [place] [address] Social History Tobacco Use Types Packs/Day Years [...] on filedocumented in this encounter Care Teams Equity Manager Relationship Specialty Start Date End Date Jose Manuel Ballesteros MD [address] [place] [address] [place] [address] PCP - General Internal Medicine 09/21/18 Melony Sanon MD [address] [place] [address] [email or web address] Referring Physician Hematology and Oncology 09/21/18 Selma Epstein MD, PhD [address] [place] [address] [email or web address] u Surgeon Surgical Oncology 09/21/18 documented as of this encounter Additional Source Comments The information contained in this document represents components of the legal health record. It is not the complete legal health record.[facility]
== END 2025-08-12 16:06 | disposition home or self-care (01) ==
LOC: HO.LAB 16:05
PROVIDERS: PCP Internal Medicine; Visit Provider Nurse Practitioner Family
DX: Z12.5 Encounter for screening for malignant neoplasm of prostate (principal); N40.0 Benign prostatic hyperplasia without lower urinary tract symptoms; I10 Essential (primary) hypertension
CPT/HCPCS: 36415; 80048; 80061; 80076; 84153; 84443; 85027

== ENCOUNTER 2025-08-20 12:22 | Outpatient (REF) | payer OTHER, SELFPAY ==
--- NOTE | ~2025-08-20 | US_ITS ---
CLINICAL HISTORY: N20.0 - Calculus of kidney US Renal Comparison: US/SR - US RETROPERITONEAL COMP - 01/31/25 16:16 EDT Findings: Right kidney normal size and echotexture, 12 cm length. Left kidney normal size and echotexture, 12 cm length. No collecting system dilatation of either kidney. Normal color Doppler. IMPRESSION: 1. Normal kidneys. No evidence of kidney stone. This document has been electronically signed by: Hugo Vergara MD on 08/20/2025 14:24:28
--- OUTSIDE RECORDS SUMMARY | 2025-08-20 14:40 | XMS_ITS | Encounter Summary ---
Author Organization [facility] Address [address] [place] [address] Phone Care Team Providers Care Tenter Frame Operator Name Role Phone Jose Manuel Ballesteros MD Primary Care Provider Melony Sanon MD Unavailable [phone] Semla Epstein MD, PhD Unavailable [phone] Encounter Details Date Type Department Care Team (Late st Contact Info) Description 11/16/2018 Procedure Pass [facility] Periop [address] [place] [address] Social History Tobacco Use Types Packs/Day Years [...] on filedocumented in this encounter Care Teams Tenter Frame Operator Relationship Specialty Start Date End Date Jose Manuel Ballesteros MD [address] [place] [address] [place] [address] PCP - General Internal Medicine 09/21/18 Melony Sanon MD [address] [place] [address] [email or web address] Referring Physician Hematology and Oncology 09/21/18 Selma Epstein MD, PhD [address] [place] [address] [email or web address] u Surgeon Surgical Oncology 09/21/18 documented as of this encounter Additional Source Comments The information contained in this document represents components of the legal health record. It is not the complete legal health record.[facility]
--- OUTSIDE RECORDS SUMMARY | 2025-08-20 14:41 | XMS_ITS | Encounter Summary ---
Author Organization [facility] Address [address] [place] [address] Phone Care Team Providers Care Chief Psychologist Name Role Phone Jose Manuel Ballesteros MD Primary Care Provider Melony Sanon MD Unavailable [phone] Selma Epstein MD, PhD Unavailable [phone] Encounter Details Date Type Department Care Team (Late st Contact Info) Description 10/04/2018 Procedure Pass [facility] Endoscopy Department [address] [place] [address] Social History Tobacco Use Types Packs/Day Years [...] on filedocumented in this encounter Care Teams Chief Psychologist Relationship Specialty Start Date End Date Jose Manuel Ballesteros MD [address] [place] [address] [place] [address] PCP - General Internal Medicine 09/21/18 Melony Sanon MD [address] [place] [address] [email or web address] Referring Physician Hematology and Oncology 09/21/18 Selma Epstein MD, PhD [address] [place] [address] [email or web address] u Surgeon Surgical Oncology 09/21/18 documented as of this encounter Additional Source Comments The information contained in this document represents components of the legal health record. It is not the complete legal health record.[facility]
--- OUTSIDE RECORDS SUMMARY | 2025-08-20 14:41 | XMS_ITS | Clinical Summary ---
Author Organization [facility] Address [address] [place] [address] Phone Care Team Providers Care Monument Mason Name Role Phone Jose Manuel Ballesteros MD Primary Care Provider Melony Sanon MD Unavailable [phone] Selma Epstein MD, PhD Unavailable [phone] Allergies No known active allergies Medications simvastatin [...] this topic Medical Devices Implanted Type Area Senior Designer Device Identifier Shelf Expiration Date Model / Serial / Lot Kit Stent 4.0 5fr 5.0 7.0cm Pancreatic Advanix Single Pigtail Pushing Catheter - [id number] Implanted:Qty: 1 on 01/11/2019 by Harley Fairbanks MD at [facility] N/A: Pancreas [employer] 05/28/2020 [id number] / / [id number] Insurance [place] BLUE BENEFITS ADMINISTRATORS [employer] ADMINISTRATORS [employer] ADMINISTRATORS [employer] ADMINISTRATORS [place] BENEFITS ADMINISTRATORS [employer] ADMINISTRATORS [place] BENEFITS ADMINISTRATORS [place] ADMINISTRATORS [employer] ADMINISTRATORS Advance Directives For more information, please contact: [phone] (9AM - 5PM [facility], Monday-Monday) Documents on File Type Date Recorded Patient System Support Specialist Expl anation Healthcare Proxy 11/18/2018 9:37 AM SIGNED ON 11/16/2018 * Full Code (Presumed) (Latest Code Status on File) Date Activated Date Inactivated Comments 11/16/2018 2:15 PM 11/22/2018 5:18 PM * Full Code (Presumed) Date Activated Date Inactivated Comments 11/16/2018 6:47 AM 11/16/2018 2:15 PM Care Teams Monument Mason Relationship Specialty Start Date End Date Jose Manuel Ballesteros MD [address] [place] [address] [address] PCP - General Internal Medicine 09/21/18 Melony Sanon MD [address] [place] [address] [email or web address] Referring Physician Hematology and Oncology 09/21/18 Selma Epstein MD, PhD [address] [place] [phone] [email or web address] u Surgeon Surgical Oncology 09/21/18 Additional Source Comments The information contained in this document represents components of the legal health record. It is not the complete legal health record.[facility]
--- OUTSIDE RECORDS SUMMARY | 2025-08-20 14:41 | XMS_ITS | Encounter Summary ---
Author Organization [facility] Address [address] [place] [address] Phone Care Team Providers Care Sales Department Clerk Name Role Phone Jose Manuel Ballesteros MD Primary Care Provider Melony Sanon MD Unavailable [phone] Selma Epstein MD, PhD Unavailable [phone] Encounter Details Date Type Department Care Team (Late st Contact Info) Description 02/03/2023 Procedure Pass [facility] MR Imaging, Lee [address] [place] [address] Social History Tobacco Use Types Packs/Day Years [...] on filedocumented in this encounter Care Teams Sales Department Clerk Relationship Specialty Start Date End Date Jose Manuel Ballesteros MD [address] [place] [address] [place] [address] PCP - General Internal Medicine 09/21/18 Melony Sanon MD [address] [place] [address] [email or web address] Referring Physician Hematology and Oncology 09/21/18 Selma Epstein MD, PhD [address] [place] [phone] [email or web address] u Surgeon Surgical Oncology 09/21/18 documented as of this encounter Additional Source Comments The information contained in this document represents components of the legal health record. It is not the complete legal health record.[facility]
--- OUTSIDE RECORDS SUMMARY | 2025-08-20 14:41 | XMS_ITS | Encounter Summary ---
Author Organization [facility] Address [address] [place] [address] Phone Care Team Providers Care Roll Up Operator Name Role Phone Jose Manuel Ballesteros MD Primary Care Provider Melony Sanon MD Unavailable [phone] Selma Epstein MD, PhD Unavailable [phone] Reason for Referral * MRI/CAT Scan - Closed Specialty Diagnoses / Procedures Referred By Contac t Referred To Contact Procedures CT Abdomen/Pelvis Outside (No Interpretation) Selma Epstein MD, PhD Phone: tel: fax: mailto:[email or web address] Referral ID Status Reason Start Date Expiration Date Visits Re quested Visits Authorized [id number] Closed 10/12/2018 10/12/2019 1 1 * MRI/CAT Scan - Closed Specialty Diagnoses / Procedures Referred By Contac t Referred To Contact Procedures MRI Abdomen Outside (No Interpretation) Selma Epstein MD, PhD Phone: tel: fax: mailto:[email or web address] Referral ID Status Reason Start Date Expiration Date Visits Re quested Visits Authorized [id number] Closed 10/12/2018 10/12/2019 1 1 Encounter Details Date Type Department Care Team (Late st Contact Info) Description 10/12/2018 Transcribe Orders [facility] [address] [place] [address] [place] [address] [place] [phone] [email or web address] Social History Tobacco Use Types Packs/Day [...] (No Interpretation) (10/12/2018 11:46 AM EST) Narrative [facility] - 10/12/2018 11:46 AM EST This study is for PACS storage only and not for interpretation. us Selma Epstein MD, PhD IMG OUTSIDE IMAGING W/OUT IN TERPRETATION Final Result [facility] documented in this encounter Visit Diagnoses Not on filedocumented in this encounter Care Teams Roll Up Operator Relationship Specialty Start Date End Date Jose Manuel Ballesteros MD [address] [place] [address] [place] [address] PCP - General Internal Medicine 09/21/18 Melony Sanon MD [address] [place] [address] [email or web address] Referring Physician Hematology and Oncology 09/21/18 Selma Epstein MD, PhD [address] [place] [address] [email or web address] u Surgeon Surgical Oncology 09/21/18 documented as of this encounter Additional Source Comments The information contained in this document represents components of the legal health record. It is not the complete legal health record.[facility]
--- OUTSIDE RECORDS SUMMARY | 2025-08-20 14:41 | XMS_ITS | Encounter Summary ---
Author Organization [facility] Address [address] [place] [address] Phone Care Team Providers Care Hearing Therapist Name Role Phone Jose Manuel Ballesteros MD Primary Care Provider Melony Sanon MD Unavailable [phone] [place] Epstein MD, PhD Unavailable [phone] Encounter Details Date Type Department Care Team (Late st Contact Info) Description 01/11/2019 Procedure Pass [facility] Endoscopy Department [address] [place] [address] Social History Tobacco Use Types Packs/Day Years [...] on filedocumented in this encounter Care Teams Hearing Therapist Relationship Specialty Start Date End Date Jose Manuel Ballesteros MD [address] [place] [address] [place] [address] PCP - General Internal Medicine 09/21/18 Melony Sanon MD [address] [place] [address] [email or web address] Referring Physician Hematology and Oncology 09/21/18 [place] Epstein MD, PhD [address] [place] [address] [email or web address] Surgeon Surgical Oncology 09/21/18 documented as of this encounter Additional Source Comments The information contained in this document represents components of the legal health record. It is not the complete legal health record.[facility]
--- OUTSIDE RECORDS SUMMARY | 2025-08-20 14:41 | XMS_ITS | Encounter Summary ---
Author Organization [facility] Address [address] [place] [address] Phone Care Team Providers Care Tank Wagon Driver Name Role Phone Jose Manuel Ballesteros MD Primary Care Provider Melony Sanon MD Unavailable [phone] [place] Epstein MD, PhD Unavailable [phone] Encounter Details Date Type Department Care Team (Late st Contact Info) Description 10/12/2018 Procedure Pass [facility] [address] [place] [address] Social History Tobacco Use Types Packs/Day Years [...] on filedocumented in this encounter Care Teams Tank Wagon Driver Relationship Specialty Start Date End Date Jose Manuel Ballesteros MD [address] [place] [address] [place] [address] PCP - General Internal Medicine 09/21/18 Melony Sanon MD [address] [place] [address] [email or web address] Referring Physician Hematology and Oncology 09/21/18 [place] Epstein MD, PhD [address] [place] [address] [email or web address] Surgeon Surgical Oncology 09/21/18 documented as of this encounter Additional Source Comments The information contained in this document represents components of the legal health record. It is not the complete legal health record.[facility]
--- OUTSIDE RECORDS SUMMARY | 2025-08-20 14:41 | XMS_ITS | Encounter Summary ---
Author Organization [facility] Address [address] [place] [address] Phone Care Team Providers Care Paramedic Supervisor Name Role Phone Jose Manuel Ballesteros MD Primary Care Provider Melony Sanon MD Unavailable [phone] [place] Epstein MD, PhD Unavailable [phone] Encounter Details Date Type Department Care Team (Late st Contact Info) Description 03/08/2019 Procedure Pass [facility] Endoscopy Department [address] [place] [address] Social History Tobacco Use Types Packs/Day Years [...] on filedocumented in this encounter Care Teams Paramedic Supervisor Relationship Specialty Start Date End Date Jose Manuel Ballesteros MD [address] [place] [address] [place] [address] PCP - General Internal Medicine 09/21/18 Melony Sanon MD [address] [place] [address] [email or web address] Referring Physician Hematology and Oncology 09/21/18 [place] Epstein MD, PhD [address] [place] [address] [email or web address] Surgeon Surgical Oncology 09/21/18 documented as of this encounter Additional Source Comments The information contained in this document represents components of the legal health record. It is not the complete legal health record.[facility]
== END 2025-08-20 12:23 | disposition home or self-care (01) ==
LOC: HO.US 12:22
PROVIDERS: PCP Internal Medicine; Visit Provider Nurse Practitioner Family
DX: N20.0 Calculus of kidney (principal)
CPT/HCPCS: 76775

== ENCOUNTER → 2025-08-20 12:23 | Outpatient (BNV) | payer OTHER, SELFPAY | PROVIDERS: PCP Internal Medicine; Visit Provider Nuclear Medicine | DX: N20.0 Calculus of kidney (principal) | CPT/HCPCS: 76775 ==

== ENCOUNTER 2025-08-27 12:35 | Outpatient (REF) | payer OTHER, SELFPAY ==
--- OUTSIDE RECORDS SUMMARY | 2025-08-27 19:58 | XMS_ITS | Encounter Summary ---
Author Organization [facility] Address [address] [place] [address] Phone Care Team Providers Care Roll Edge Machine Operator Name Role Phone Jose Manuel Ballesteros MD Primary Care Provider Melony Sanon MD Unavailable [phone] [place] Epstein MD, PhD Unavailable [phone] Encounter Details Date Type Department Care Team (Late st Contact Info) Description 11/16/2018 Procedure Pass [facility] Periop [address] [place] [address] Social History Tobacco Use Types Packs/Day Years [...] filedocumented in this encounter Care Teams Roll Edge Machine Operator Relationship Specialty Start Date End Date Jose Manuel Ballesteros MD [address] [place] [address] [place] [address] PCP - General Internal Medicine 09/21/18 [place] Sanon MD [address] [place] [address] [email or web address] Referring Physician Hematology and Oncology 09/21/18 [place] Epstein MD, PhD [address] [place] [phone] [email or web address] Surgeon Surgical Oncology 09/21/18 documented as of this encounter Additional Source Comments The information contained in this document represents components of the legal health record. It is not the complete legal health record.[facility]
--- OUTSIDE RECORDS SUMMARY | 2025-08-27 19:58 | XMS_ITS | Encounter Summary ---
Author Organization [facility] Address [address] [place] [address] Phone Care Team Providers Care Executive Creative Director Name Role Phone Jose Manuel Ballesteros MD Primary Care Provider Mleony Sanon MD Unavailable [phone] [place] Epstein MD, PhD Unavailable [phone] Encounter Details Date Type Department Care Team (Late st Contact Info) Description 01/11/2019 Procedure Pass [facility] Endoscopy Department [address] [place] [address] Social History Tobacco Use Types Packs/Day Years [...] on filedocumented in this encounter Care Teams Executive Creative Director Relationship Specialty Start Date End Date Jose Manuel Ballesteros MD [address] [place] [address] [place] [address] PCP - General Internal Medicine 09/21/18 [place] Sanon MD [address] [place] [address] [email or web address] Referring Physician Hematology and Oncology 09/21/18 [place] Epstein MD, PhD [address] [place] [phone] [email or web address] Surgeon Surgical Oncology 09/21/18 documented as of this encounter Additional Source Comments The information contained in this document represents components of the legal health record. It is not the complete legal health record.[facility]
--- OUTSIDE RECORDS SUMMARY | 2025-08-27 19:58 | XMS_ITS | Encounter Summary ---
Author Organization [facility] Address [address] [place] [address] Phone Care Team Providers Care Glass Mould Cleaner Name Role Phone Jose Manuel Ballesteros MD Primary Care Provider [place] Sanon MD Unavailable [phone] [place] Epstein MD, PhD Unavailable [phone] Reason for Referral * MRI/CAT Scan - Closed Specialty Diagnoses / Procedures Referred By Contac t Referred To Contact Procedures CT Abdomen/Pelvis Outside (No Interpretation) [place] Epstein MD, PhD Phone: tel: fax: mailto:[email or web address] Referral ID Status Reason Start Date Expiration Date Visits Re quested Visits Authorized [id number] Closed 10/12/2018 10/12/2019 1 1 * MRI/CAT Scan - Closed Specialty Diagnoses / Procedures Referred By Contac t Referred To Contact Procedures MRI Abdomen Outside (No Interpretation) [place] Epstein MD, PhD Phone: tel: fax: mailto:[email or web address] Referral ID Status Reason Start Date Expiration Date Visits Re quested Visits Authorized [id number] Closed 10/12/2018 10/12/2019 1 1 Encounter Details Date Type Department Care Team (Late st Contact Info) Description 10/12/2018 Transcribe Orders [facility] [address] [place] [address] [place] [place] [address] [place] [address] [email or web address] Social History Tobacco Use Types Packs/Day Years [...] on filedocumented in this encounter Care Teams Glass Mould Cleaner Relationship Specialty Start Date End Date Jose Manuel Ballesteros MD [address] [place] [address] [place] [address] PCP - General Internal Medicine 09/21/18 [place] Sanon MD [address] [place] [address] [email or web address] Referring Physician Hematology and Oncology 09/21/18 [place] Epstein MD, PhD [address] [place] [phone] [email or web address] Surgeon Surgical Oncology 09/21/18 documented as of this encounter Additional Source Comments The information contained in this document represents components of the legal health record. It is not the complete legal health record.[facility]
--- OUTSIDE RECORDS SUMMARY | 2025-08-27 19:58 | XMS_ITS | Encounter Summary ---
Author Organization [facility] Address [address] [place] [address] Phone Care Team Providers Care Manager Legal Name Role Phone Jose Manuel Ballesteros MD Primary Care Provider [place]oyn Sanon MD Unavailable [phone] [place] Epstein MD, PhD Unavailable [phone] Encounter Details Date Type Department Care Team (Late st Contact Info) Description 10/12/2018 Procedure Pass [facility] [address] [place] [address] Social History Tobacco Use Types Packs/Day Years [...] on filedocumented in this encounter Care Teams Manager Legal Relationship Specialty Start Date End Date Jose Manuel Ballesteros MD [address] [place] [address] [place] [address] PCP - General Internal Medicine 09/21/18 [place] Sanon MD [address] [place] [address] Referring Physician Hematology and Oncology 09/21/18 [place] Epstein MD, PhD [address] [place] [phone] [email or web address] Surgeon Surgical Oncology 09/21/18 documented as of this encounter Additional Source Comments The information contained in this document represents components of the legal health record. It is not the complete legal health record.[facility]
--- OUTSIDE RECORDS SUMMARY | 2025-08-27 19:58 | XMS_ITS | Clinical Summary ---
Author Organization [facility] Address [address] [place] [address] Phone Care Team Providers Care Senior Project Leader/Team Lead Name Role Phone Jose Manuel Ballesteros MD Primary Care Provider [place] Sanon MD Unavailable [phone] [place] Epstein MD, PhD Unavailable [phone] Allergies No known active allergies Medications simvastatin [...] this topic Medical Devices Implanted Type Area Environmental Health Technologist Device Identifier Shelf Expiration Date Model / Serial / Lot Kit Stent 4.0 5fr 5.0 7.0cm Pancreatic Advanix Single Pigtail Pushing Catheter - [id number] Implanted:Qty: 1 on 01/11/2019 by Harley Fairbanks MD at [facility] N/A: Pancreas [employer] 05/28/2020 [id number] / / [id number] Insurance [employer] ADMINISTRATORS [employer] ADMINISTRATORS [employer] ADMINISTRATORS [employer] ADMINISTRATORS [employer] BENEFITS ADMINISTRATORS [employer] ADMINISTRATORS [employer] BENEFITS ADMINISTRATORS [employer] ADMINISTRATORS [employer] ADMINISTRATORS Advance Directives For more information, please contact: [phone] (9AM - 5PM [facility], Monday-Monday) Documents on File Type Date Recorded Patient Melt Supervisor Expl anation Healthcare Proxy 11/18/2018 9:37 AM SIGNED ON 11/16/2018 * Full Code (Presumed) (Latest Code Status on File) Date Activated Date Inactivated Comments 11/16/2018 2:15 PM 11/22/2018 5:18 PM * Full Code (Presumed) Date Activated Date Inactivated Comments 11/16/2018 6:47 AM 11/16/2018 2:15 PM Care Teams Senior Project Leader/Team Lead Relationship Specialty Start Date End Date Jose Manuel Ballesteros MD [address] [place] [address] [address] PCP - General Internal Medicine 09/21/18 [place] Sanon MD [address] [place] [phone] [email or web address] Referring Physician Hematology and Oncology 09/21/18 [place] Epstein MD, PhD [address] [place] [address] [email or web address] Surgeon Surgical Oncology 09/21/18 Additional Source Comments The information contained in this document represents components of the legal health record. It is not the complete legal health record.[facility]
--- OUTSIDE RECORDS SUMMARY | 2025-08-27 19:58 | XMS_ITS | Encounter Summary ---
Author Organization [facility] Address [address] [place] [address] Phone Care Team Providers Care Full Service Supervisor Name Role Phone Jose Manuel Ballesteros MD Primary Care Provider Melony Sanon MD Unavailable [phone] [place] Epstein MD, PhD Unavailable [phone] Encounter Details Date Type Department Care Team (Late st Contact Info) Description 03/08/2019 Procedure Pass [facility] Endoscopy Department [address] [place] [address] Social History Tobacco Use Types Packs/Day Years [...] on filedocumented in this encounter Care Teams Full Service Supervisor Relationship Specialty Start Date End Date Jose Manuel Ballesteros MD [address] [place] [address] [place] [address] PCP - General Internal Medicine 09/21/18 [place] Sanon MD [address] [place] [address] [email or web address] Referring Physician Hematology and Oncology 09/21/18 [place] Epstein MD, PhD [address] [place] [address] [email or web address] Surgeon Surgical Oncology 09/21/18 documented as of this encounter Additional Source Comments The information contained in this document represents components of the legal health record. It is not the complete legal health record.[facility]
--- OUTSIDE RECORDS SUMMARY | 2025-08-27 19:58 | XMS_ITS | Encounter Summary ---
Author Organization Formerly [facility] Address [address] [place] [address] Phone Care Team Providers Care Vocal Music Teacher Name Role Phone Jose Manuel Ballesteros MD Primary Care Provider Melony Sanon MD Unavailable [phone] Selma Epstein MD, PhD Unavailable [phone] Encounter Details Date Type Department Care Team (Late st Contact Info) Description 02/03/2023 Procedure Pass [facility] MR Imaging, [place] [address] [place] [address] Social History Tobacco Use Types Packs/Day Years [...] on filedocumented in this encounter Care Teams Vocal Music Teacher Relationship Specialty Start Date End Date Jose Manuel Ballesteros MD [address] [place] [address] [place] [address] PCP - General Internal Medicine 09/21/18 Melony Sanon MD [address] [place] [phone] [email or web address] Referring Physician Hematology and Oncology 09/21/18 Selma Epstein MD, PhD [address] [place] [phone] [email or web address] Surgeon Surgical Oncology 09/21/18 documented as of this encounter Additional Source Comments The information contained in this document represents components of the legal health record. It is not the complete legal health record.[facility]
--- OUTSIDE RECORDS SUMMARY | 2025-08-27 19:58 | XMS_ITS | Encounter Summary ---
Author Organization [facility] Address [address] [place] [address] Phone Care Team Providers Care Insulator Technician Name Role Phone Jose Manuel Ballesteros MD Primary Care Provider Melony Sanon MD Unavailable [phone] Selma Epstein MD, PhD Unavailable [phone] Encounter Details Date Type Department Care Team (Late st Contact Info) Description 10/04/2018 Procedure Pass [facility] Endoscopy Department [address] [place] [address] Social History Tobacco Use Types Packs/Day Years [...] on filedocumented in this encounter Care Teams Insulator Technician Relationship Specialty Start Date End Date Jose Manuel Ballesteros MD [address] [place] [address] [place] [address] PCP - General Internal Medicine 09/21/18 Melony Sanon MD [address] [place] [address] [email or web address] Referring Physician Hematology and Oncology 09/21/18 Selma Epstein MD, PhD [address] [place] [phone] [email or web address] Surgeon Surgical Oncology 09/21/18 documented as of this encounter Additional Source Comments The information contained in this document represents components of the legal health record. It is not the complete legal health record.[facility]
== END 2025-08-27 12:36 | disposition home or self-care (01) ==
LOC: HO.LAB 12:35
PROVIDERS: PCP Internal Medicine; Visit Provider Nurse Practitioner Family
DX: N20.0 Calculus of kidney (principal); R31.29 Other microscopic hematuria; R39.9 Unspecified symptoms and signs involving the genitourinary system
CPT/HCPCS: 51798; 81003; 88112

== ENCOUNTER 2025-08-27 12:35 | Outpatient (AMB) | payer OTHER, SELFPAY ==
--- NOTE | 2025-08-27 12:44 | MHC.OFFVIS ---
Intake Visit Reasons: 6m/US/PSA/PVR/UA Intake Note: Patient is present for 6M/US/PSA/PVR/UA IMAGIN08/20/25 PSA:2.70 Urology Medication:NONE Antibiotic Allergy:NONE Blood Thinner:NONE LAST PVR:0ML'S TODAY;S PVR:94ML'S Chief Vendor Quality Required: No Allergies No Known Allergies (No Known Allergies*) Allergy (Verified 08/27/25 17:31) Medication List - Last Reconciled 08/27/25 by CHOCO Valenzuela-DANELLE celecoxib 200 mg PO ONCE geriatric azqmajxh-rfno-yvoo (Centravites 50 Plus tablet) 1 tab PO DAILY losartan 25 mg PO BEDTIME omeprazole 40 mg PO BEDTIME@2100 30 days rosuvastatin 20 mg PO DAILY HPI Comments Details: Vasile is a very pleasant 60-year-old male patient of Dr. Martinez. He has a past medical history of hyperlipidemia, seasonal allergies, hypertension, hypercholesteremia, primary pancreatic neuroendocrine tumor, and ascending aortic aneurysm. He presents to the office today for a follow up of his nephrolithiasis. In discussion with the patient today he reports to be doing and feeling well. He discusses since his last office visit here there were few weeks where he had been experiencing episodes of severe urinary urgency and frequency followed by feelings of urinary incontinence however did not have incontinent episodes. He describes these episodes as intermittent however has since subsided. Most recent renal imaging results reviewed with the patient today. Renal ultrasound 09/11 bilateral kidneys are normal in size and echotexture. No collecting system dilatation of both kidneys. No evidence of nephrolithiasis per radiology report. We did discuss possibility of passage of tiny calculi as previous imaging noted and patient had episode of lower urinary tract symptoms that have since subsided. In office urinalysis results reviewed with the patient today 3+ microscopic hematuria. She does discuss being very active and cycling 3-4 times per week. When asked he currently denies any bothersome urinary issues or concerns. PSAs are as follows: 08/06 1.2, 07/11 2.8, 08/12 2.7 He does have a previous history of nephrolithiasis however never requiring surgical intervention. He denies urinary urgency, urinary frequency, incontinence, nocturia, hematuria, dysuria, foul smelling urine, changes to urinary stream, flank pain, fever, and or chills. He is happy with his current voiding parameters. He otherwise offers no other issues or concerns at this time. [facility] Medical History COVID-19 Back pain Arthritis GERD (gastroesophageal reflux disease) Sleep apnea Incomplete right bundle branch block Tubular adenoma Insulinoma Hyperlipidemia Seasonal allergies Ascending aortic aneurysm Primary pancreatic neuroendocrine tumor Hypercholesteremia Hypertension Surgical History History of esophagogastroduodenoscopy (EGD) History of partial pancreatectomy H/O colonoscopy (~11/21/23) History of incisional hernia repair (08/23/23) Personal history of (corrected) hypospadias History of pancreatectomy Family History Mother Breast cancer Father Diabetes Social History Household Members: Spouse and Children Housing: House Are you a primary acute care clinical nurse specialist to a significant other at home: No Do you presently have visiting nurse or other home services: No Alcohol intake: current Alcohol intake frequency: holidays/special occasions only Patient Tobacco Use Status: Never used Tobacco e-Cigarette/Vaping Use: Never Used Advance Directives Date on File: 10/03/24 service: No 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al status: employed 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 Cognitive needs: No Hearing needs: No Vision needs: No Review of Systems Const All systems reviewed & are unremarkable except as noted in HPI and below Physical Exam Const General: cooperative, healthy appearing, comfortable, no acute distress, well developed, alert and awake Nutritional Appearance: overweight Orientation/consciousness: patient oriented x3 Limitations: no limitations HEENT Head: Yes normal to inspection, Yes normocephalic and Yes atraumatic Ears: hearing grossly normal bilaterally Eyes General: appearance normal, both eyes and all related structures Neck Neck: Yes normal visual inspection and Yes trachea midline Chest Chest palpation & inspection: normal inspection of the chest Resp Effort & Inspection: normal respiratory effort and able to speak in complete sentences Cardio Rate: regular rate GI Inspection: Yes normal to inspection General: Yes no CVA tenderness Back/Spine/Pelvis Back: no CVA tenderness Skin General skin exam: no rashes or lesions noted Neuro General: patient oriented x3 Extrem General: Yes normal to inspection Psych Appearance: grossly normal and well kempt Mental Status: mental status grossly normal Speech and movement: Normal speech and movement present and Clear speech present Affect: normal affect Attitude: cooperative Thought process: Normal thought process present Thought content: Normal thought content present Insight: Fair insight present (Psych) Judgement: Fair judgement present (Psych) Office Procedures Post Void Residual Post Residual Void Post Void Residual (PVR): 94 00737-Uakm Void Residual by ultrasound Results AMB Urinalysis, Automated UA Leukoctes 0 Murali/uL Last Edit by REESE Denny on 08/27/25 13:00 UA Nitrite Negative Last Edit by REESE Denny on 08/27/25 13:00 UA Urobilinogen 0.2 mg/dL Last Edit by REESE Denny on 08/27/25 13:00 UA Protein 0 mg/dL Last Edit by REESE Denny on 08/27/25 13:00 UA pH 6.0 Last Edit by REESE Denny on 08/27/25 13:00 UA Blood 200 Kirit/uL Last Edit by Maksim Franz CCM on 08/27/25 13:00 UA Specific [place] 1.025 Last Edit by REESE Denny on 08/27/25 13:00 UA Ketone Negative Last Edit by REESE Denny on 08/27/25 13:00 UA Bilirubin 0 mg/dL Last Edit by REESE Denny on 08/27/25 13:00 UA Glucose 0 mg/dL Last Edit by Maksim Franz CCM on 08/27/25 13:00 Results Reviewed Results Reviewed: Laboratory Last Values Urine pH (Auto) 6.0 08/27/25 12:52 Specific [place] (Auto) 1.025 08/27/25 12:52 Urine Protein (Auto) 0 mg/dL 08/27/25 12:52 Glucose (UA)(Auto) 0 mg/dL 08/27/25 12:52 Urine Ketones (Auto) Negative 08/27/25 12:52 Urine Blood (Auto) 200 Kirit/uL 08/27/25 12:52 Urine Nitrite (Auto) Negative 08/27/25 12:52 Urine Bilirubin (Auto) 0 mg/dL 08/27/25 12:52 Urine Urobilinogen (Auto) 0.2 mg/dL 08/27/25 12:52 Leukocyte Esterase (Auto) 0 Murali/uL 08/27/25 12:52 Ordering Physician: Emily Leach Date of Service: 08/20/25 Findings: Right kidney normal size and echotexture, 12 cm length. Left kidney normal size and echotexture, 12 cm length. No collecting system dilatation of either kidney. Normal color Doppler. IMPRESSION: 1. Normal kidneys. No evidence of kidney stone. Assessment & Plan Assessment & Plan (1) Nephrolithiasis: Code(s): N20.0 - Calculus of kidney Category: Medical (2) Microscopic hematuria: Code(s): R31.29 - Other microscopic hematuria Category: Medical (3) Lower urinary tract symptoms: Code(s): R39.9 - Unspecified symptoms and signs involving the genitourinary system Category: Medical Plan In office urinalysis results with the patient today; as noted above. PVR today 94 mLs Most recent renal imaging results reviewed with the patient today; as noted above. We did discussed potential causes of lower urinary tract symptoms patient had been experiencing. Most recent PSA results reviewed with the patient today; as noted above. He currently denies any bothersome urinary issues or concerns. He reports be happy with current voiding parameters. Will continue with surveillance monitoring. Will obtain renal ultrasound in 6 months. Follow-up in 6 months with imaging; or sooner with any issues, concerns, and or questions. Orders: Orders AMB Urinalysis Automated Today Z13.9 - Encounter for screening, unspecified Urine Cytology Today R31.29 - Other microscopic hematuria US renal BI 6 Months N20.0 - Calculus of kidney Patient Instructions: The patient had an opportunity to ask questions regarding the treatment plan. All questions were answered. Physical exam, labs, and imaging were discussed and reviewed in detail. As well as risks, benefits, and discussion of treatment choices. No major barriers to understanding were identified. The patient expressed understanding and agreement with the above treatment plan. The patient was made aware they should contact our office by phone for worsening of their current condition, the appearance of new symptoms, or with any questions or concerns. Compliance is encouraged with any medications and follow up testing that is ordered. It is a privilege to be allowed the opportunity to participate in? your urological care.? Again, if you have any questions or concerns If you have any questions or concerns please do not hesitate to contact me. The office is [phone]. This note is constructed using voice recognition software. While every effort has been made to ensure accuracy senior java web developer errors may have been included. Yours sincerely, CHOCO Valenzuela-DANELLE Coding Level of Care Code Est Pt Level 3 (16013) Diagnoses Nephrolithiasis N20.0 Microscopic hematuria R31.29 Lower urinary tract symptoms R39.9 CPT Codes Post Residual Void - PVR CPT Code: 31086-Uflv Void Residual by ultrasound ([id number])
== END 2025-08-27 13:28 | disposition home or self-care (01) ==
LOC: HO.HUSH 12:36
PROVIDERS: PCP Internal Medicine; Visit Provider Nurse Practitioner Family
DX: N20.0 Calculus of kidney (principal); R31.29 Other microscopic hematuria; R39.9 Unspecified symptoms and signs involving the genitourinary system; Z13.9 Encounter for screening, unspecified
CPT/HCPCS: 99213